=== PATIENT | male | born 1960 | race African-American/Black ===

== ENCOUNTER 2016-06-21 18:04 | Inpatient (IN) | payer OTHER ==
[~2016-06-21] VITALS: Ht 188 cm; Wt 96.8 kg
[2016-06-21] VITALS (9 sets, daily range): BP systolic 132–172; BP diastolic 68–90
[~2016-06-21 18:04] MED LIST: ALBU8.5H6 INH; ASPI-482 PO; HYDR-965 PO; HYDR25TA9 PO; LISI-334 PO; METR500T PO; PREG100C; SIMV10TA3 PO; TRAM100C2
[2016-06-21] MEDS ORDERED: NITROGLYCERIN SUBLINGUAL 0.4 MG BOTTLE OF 25. SL ONE ×2 (18:59→19:00)
[2016-06-21] MEDS ORDERED: NITROGLYCERIN SUBLINGUAL 0.4 MG BOTTLE OF 25. SL PRN (19:15)
--- NOTE | 2016-06-21 19:19 | EKG ---
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
[2016-06-21] MEDS ORDERED: PREG100C PO (19:24)
[2016-06-21] MEDS ORDERED: ATOR20TA58 PO (19:24)
[2016-06-21] MEDS ORDERED: NITROGLYCERIN PREMIX 250 ML IV PRN (19:30)
[2016-06-21] MEDS ORDERED: HEPARIN for IV BOLUS 10,000 UNIT/10 ML VIAL. IV PRN (19:30)
[2016-06-21] MEDS ORDERED: MORPHINE SULFATE 2 MG/ML DISP.SYRIN. IV PRN ×2 (19:30)
[2016-06-21] MEDS ORDERED: HEPARIN 25,000UTS/500ML PREMIX 500 ML IV PRN (19:30)
[2016-06-21] MEDS: LISINOPRIL 20 MG TABLET PO SCH (20:00)
[2016-06-21] MEDS: ASPIRIN ENTERIC COATED 81 MG TABLET.DR. PO SCH (20:00)
[2016-06-21 20:04] LABS: HEMATOCRIT 42.5 % (39.0-53.0); HEMOGLOBIN 14.2 g/dL (13.0-17.5); RED BLOOD COUNT 4.75 x10^6/uL (4.30-5.70); RED CELL DISTRIBUTION WIDTH 13.7 % (11.5-14.5); WHITE BLOOD COUNT 10.4 x10^3/uL (4.0-11.0)
[2016-06-21 20:19] LABS: PROTHROMBIN TIME PATIENT 12.6 SEC (11.7-14.0)
[2016-06-21] MEDS ORDERED: ATORVASTATIN CALCIUM 20 MG TABLET PO SCH (21:00)
[2016-06-21] MEDS: PREGABALIN 50 MG CAPSULE PO SCH (21:21)
[2016-06-21] MEDS: HYDROcodone/APAP 7.5/325MG 1 TAB TABLET PO PRN (21:21)
--- NOTE | 2016-06-21 21:29 | PDOC1 ---
History and Physical Date of Admission Date of Admission DATE: 06/21/16 TIME: 21:24 History of Present Illness History of Present Illness I was called by Dr. Duenas about Mr. Alexandra today for transfer. Pt had presented to [facility] with chest pain, pain worse with exertion and with pressure at rest. No Hx or Fam hx of coronary disease. he does smoke cigars. Pain is now improved, he feels well CV eval by Dr. Marie, w/u to include cardiac cath, pt transferred here for higher level of care Past Medical History Cardiovascular: HTN, Hyperlipidemia Pulmonary: No pertinent hx CENTRAL NERVOUS SYSTEM: Periperal neuropathy GI: No pertinent hx Heme/Onc: No pertinent hx Hepatobiliary: No pertinent hx Psych: No pertinent hx Musculoskeletal: low back pain, Muscle atrophy, Weakness Endocrine: No pertinent hx Dermatology: No pertinent hx Past Surgical History Past Surgical History: Other (spinal fusion) Family History Family History: No Significant Social History Smoke: <1 pack per day ALCOHOL: none Drugs: None Current Problem List Problem List Problems Medical Problems: (1) Angina at rest Status: Acute Problems: Current Medications Current Medications Current Medications Nitroglycerin (Nitrostat) 0.4 mg STK-MED ONCE SL ; Start 06/21/16 at 18:59; Stop 06/21/16 at 19:00; Status DC Nitroglycerin 0.4 mg 0.4 mg PRN Q5MIN PRN SL CHEST PAIN; Start 06/21/16 at 19:15 Nitroglycerin/ Dextrose 250 ml @ 0 mls/hr CONT PRN IV SEE I/O RECORD Last administered on 06/21/16 20:11; Start 06/21/16 at 19:30 Heparin Sodium/ Dextrose 500 ml @ 0 mls/hr CONT PRN IV SEE I/O RECORD Last administered on 06/21/16 20:16; Start 06/21/16 at 19:30 Heparin Sodium (Porcine) (Heparin Sodium) 2,400 unit PRN Q6HRS PRN IV FOR UFH LEVEL LESS THAN 0.2; Start 06/21/16 at 19:30 Morphine Sulfate 2 mg PRN Q4HRS PRN IV PAIN; Start 06/21/16 at 19:30 Morphine Sulfate 1 mg PRN Q4HRS PRN IV PAIN; Start 06/21/16 at 19:30 Aspirin (Ecotrin) 81 mg DAILY08 PO ; Start 06/21/16 at 20:00 Atorvastatin Calcium (Lipitor) 20 mg HS PO Last administered on 06/21/16 21:20 ; Start 06/21/16 at 21:00 Acetaminophen/ Hydrocodone Bitart (Lortab 7.5/325) 1 tab PRN Q4HRS PRN PO PAIN Last administered on 06/21/16 21:21; Start 06/21/16 at 19:45 Lisinopril (Prinivil) 20 mg DAILY PO ; Start 06/21/16 at 20:00 Pregabalin (Lyrica) 100 mg BID PO Last administered on 06/21/16 21:21; Start at 21:00 Active Scripts Active [place] 7.5-325 Tablet (Acetaminophen/Hydrocodone Bitart) 1 Each Tablet 1 Each PO Q4HRS PRN Reported Lyrica (Pregabalin) 50 Mg Capsule 1 Cap PO BID Hydrocodone-Apap 7.5-325 (Hydrocodone Bit/Acetaminophen) 1 Each Tablet 1 Tab PO PRN Q4HRS PRN Atorvastatin Calcium 20 Mg Tablet 20 Mg PO QHS Lisinopril 20 Mg Tablet 1 Tab PO DAILY Lyrica (Pregabalin) 100 Mg Capsule 1 Cap PO BID Atorvastatin Calcium 20 Mg Tablet 20 Mg PO HS Aspir 81 (Aspirin) 81 Mg Tablet. 81 Mg PO DAILY Lisinopril 20 Mg Tablet 20 Mg PO DAILY Allergies Allergies: Coded Allergies: levofloxacin (Unverified Allergy, Intermediate, hives, 09/19/13) ROS General: YES: Fatigue, No: Appetite, Chills, Malaise, Night Sweats, Other PSYCHOLOGICAL ROS: No: Anxiety, Behavioral Disorder, Concentration difficultie , Decreased libido, Depression, Disorientation, Hallucinations, Hostility, Irritablity, Memory difficulties, Mood Swings, Obsessive thoughts, Other, Physical abuse, Sexual abuse, Sleep disturbances, Suicidal ideation Eyes: No Blurry vision, No Decreased vision, No Double vision, No Dry eyes, No Excessive tearing, No Eye Pain, No Itchy Eyes, No Loss of vision, No Other, No Photophobia, No Scotomata, No Uses contacts, No Uses glasses HEENT: No: Epistaxis, Heacaches, Hearing change, Nasal congestion, Nasal discharge, Oral lesions, Other, Sinus pain, Sneezing, Snoring, Sore Throat, Tinnitus, Vertigo, Visual Changes, Vocal changes Hematological and Lymphatic: No: Bleeding Problems, Blood Clots, Blood Transfusions, Brusing, Night Sweats, Other, Pallor, Swollen Lymph Nodes Breast: Other Respiratory: YES: SOB with excertion, No: Cough, Hemoptysis, Orthopnea, Other, Pleuritic Pain, Shortness of breath , Sputum Changes, Stridor, Tachypnea, Wheezing Cardiovascular: yes Chest Pain, No Edema, No Lt Headedness, No Orthopnea, No Other, No Palpitations, No Paroxysmal Noc. Dyspnea Gastrointestinal: No Abdominal Pain, No Constipation, No Diarrhea, No Hematochezia, No Melena, No Nausea, No Other, No Vomiting Genitourinary: No , No , No , No , No , No , No , No Discharge, No Dysuria, No Flank Pain, No Frequency, No Hematuria, No Incontinence, No Other, No Pain, No Retention, No Urgency Musculoskeletal: Yes Gait Disturbance, Yes Joint Pain, Yes Joint Stiffness, Yes Pain In:, No Joint Swelling, No Muscle Pain, No Muscular Weakness, No Other, No Swelling In: Neurological: Yes Gait Disturbance, Yes Other, Yes Weakness, No Behavorial Changes, No Bowel/Bladder ControlChng, No Confusion, No Dizziness, No Headaches, No Impaired Coord/balance, No Memory Loss, No Numbness/ Tingling, No Seizures, No Speech Problems, No Tremors, No Visual Changes Skin: No Acne, No Dry Skin, No Eczema, No Hair Changes, No Lumps, No Mole Changes, No Mottling, No Nail Changes, No Other, No Pruritus, No Rash, No Skin Lesion Changes Physical Exam General: Alert, Oriented X3, Cooperative, No acute distress HEENT: PERRLA, EOMI, Mucous membr. moist/pink Lungs: Normal air movement Heart: no gallops, no murmurs Abdomen: Normal bowel sounds, Soft Rectal Exam: not examined Extremities: No clubbing, No edema Skin: No rashes, No significant lesion Neuro: Normal gait, Normal speech, Sensation intact Psych/Mental Status: Mood NL Vitals Vitals Vital Signs Date Time Temp Pulse Resp B/P Pulse Ox O2 Delivery O2 Flow Rate FiO2 06/21/16 21:21 18 Nasal Cannula 2.0 06/21/16 19:15 65 145/68 100 5/3/17 19:00 97.1 97.1 Labs Labs Laboratory Tests Test 06/21/16 19:40 White Blood Count 10.4x10^3/uL (4.0-11.0) Red Blood Count 4.75x10^6/uL (4.30-5.70) Hemoglobin 14.2g/dL (13.0-17.5) Hematocrit 42.5% (39.0-53.0) Mean Corpuscular Volume 89fL (79-100) Mean Corpuscular Hemoglobin 30pg (25-35) Mean Corpuscular Hemoglobin Concent 33g/dL (31-37) Red Cell Distribution Width 13.7% (11.5-14.5) Platelet Count 291x10^3/uL (140-400) Prothrombin Time 12.6SEC (11.7-14.0) Prothromb Time International Ratio 1.0 (0.8-1.1) Activated Partial Thromboplast Time 31SEC (24-38) Laboratory Tests Test 06/21/16 19:40 White Blood Count 10.4x10^3/uL (4.0-11.0) Red Blood Count 4.75x10^6/uL (4.30-5.70) Hemoglobin 14.2g/dL (13.0-17.5) Hematocrit 42.5% (39.0-53.0) Mean Corpuscular Volume 89fL (79-100) Mean Corpuscular Hemoglobin 30pg (25-35) Mean Corpuscular Hemoglobin Concent 33g/dL (31-37) Red Cell Distribution Width 13.7% (11.5-14.5) Platelet Count 291x10^3/uL (140-400) Prothrombin Time 12.6SEC (11.7-14.0) Prothromb Time International Ratio 1.0 (0.8-1.1) Activated Partial Thromboplast Time 31SEC (24-38) VTE Prophylaxis Ordered VTE Prophylaxis Devices: No VTE Pharmacological Prophylaxi: Yes Assessment/Plan Assessment/Plan angina, unsure if CAD stress test was done at [facility], hyperlipids , home meds, recheck lipids tobaccoism, cessation discussed, chronic back pain and sciatica s/p failed back surgery 4 years ago, left foot drop, left leg nerve pain, on Lyrica admit ARACELI SPENCER MD June 21, 2016 21:29
[2016-06-21] MEDS ORDERED: NICOTINE 14MG PATCH. TD PRN (21:30)
[2016-06-21] MEDS ORDERED: diphenhydrAMINE HCL 25 MG CAPSULE PO PRN (21:30)
[2016-06-22] VITALS (15 sets, daily range): BP systolic 100–164; BP diastolic 62–90
[2016-06-22] MEDS: HYDROcodone/APAP 7.5/325MG 1 TAB TABLET PO PRN (01:34)
[2016-06-22 03:03] LABS: BASO % 1 % (0-3); EOS % 4 % (0-3); HEMATOCRIT 40.6 % (39.0-53.0); HEMOGLOBIN 13.6 g/dL (13.0-17.5); LYMPH # 3.7 x10^3/uL (1.0-4.8); LYMPH % 44 % (24-48); MEAN CORPUSCULAR HEMOGLOBIN 30 pg (25-35); MEAN CORPUSCULAR HGB CONC 33 g/dL (31-37); MEAN CORPUSCULAR VOLUME 89 fL (79-100); MONO % 9 % (0-9); NEUT % 43 % (31-73); PLATELET COUNT 278 x10^3/uL (140-400); RED BLOOD COUNT 4.55 x10^6/uL (4.30-5.70); RED CELL DISTRIBUTION WIDTH 13.5 % (11.5-14.5); WHITE BLOOD COUNT 8.4 x10^3/uL (4.0-11.0)
[2016-06-22 03:19] LABS: ALBUMIN 3.3 g/dL (3.4-5.0); ALBUMIN/GLOBULIN RATIO 0.8 (1.0-1.7); CALCIUM 8.9 mg/dL (8.5-10.1); GFR 93.5; TOTAL BILIRUBIN 0.4 mg/dL (0.2-1.0); TOTAL PROTEIN 7.3 g/dL (6.4-8.2)
[2016-06-22 03:20] LABS: CHOLESTEROL/HDL RATIO 4.6
--- NOTE | 2016-06-22 07:14 | ACF ---
Admission Forms Criteria INTENSIVE CARE UNIT ADMISSION Intensive Care Admission Guidelines ( Place 'X' for any and all applicable criteria): Admission to ICU may be indicated when need is demonstrated by ANY ONE of the following (1)(2)(3)(4)(5)(6)(7)(8)(9) : [ ]I. Vital sign abnormalities, including ANY ONE of the following: [ ]a) Systolic arterial pressure less than 90 mm Hg, or 20 mm Hg below the patient's usual pressure [ ]b) Diastolic arterial pressure greater than 120 mm Hg [ ]c) Mean arterial pressure less than 70 mm Hg [A] [ ]d) Pulse less than 40 or greater than 140 beats per minute (in adult) [ ]e) Respiratory rate greater than 35 or less than 8 breaths per minute [ ]II. Laboratory findings (new), including ANY ONE of the following (10): [ ]a) Saturation of arterial oxygen less than 88% or partial pressure of oxygen less than 60 mm Hg (8.0 kPa) despite oxygen supplementation [ ]b) Rising partial pressure of carbon dioxide with respiratory acidosis [ ]c) pH less than 7.2 or greater than 7.65 [ ]d) Serum glucose greater than 800 mg/dL (44.4 mmol/L) [ ]e) Serum sodium less than 110 mEq/L (mmol/L) or greater than 160 mEq/L (mmol/L) [ ]f) Serum potassium less than 2 mEq/L (mmol/L) or greater than 7 mEq /L (mmol/L) [ ]g) Serum calcium greater than 15 mg/dL (3.75 mmol/L) [ ]h) Serum phosphorus less than 1 mg/dL (0.32 mmol/L) [ ]i) Toxic drug level or poisoning causing or likely to cause neurologic or Hemodynamic instability [ ]j) Less severe laboratory abnormalities contributing to ANY ONE of the following: [ ]i) Seizure [ ]ii) Altered mental status [ ]iii) Muscle weakness [ ]iv) Arrhythmias [ ]v) Hemodynamic instability [ ]vi) Other significant clinical manifestations [ ]III. Electrocardiogram (or cardiac monitoring) findings, including ANY ONE of the following: [ ]a) Inherently unstable or life-threatening arrhythmia (eg, sustained ventricular tachycardia, ventricular fibrillation, asystole) [ ]b) Arrhythmia causing severe hypotension (eg, bradycardia, tachycardia) [ ]c) Complete heart block causing severe hypotension [ ]d) Other findings indicative of a need for intensive care (eg , NE) [ ]IV.Physical findings, including ANY ONE of the following: [ ]a) Threatened airway [ ]b) Sudden altered mental status [ ]c) Repeated or prolonged seizures [ ]d) Coma [ ]e) New-onset anuria (urine output <0.1 mL/kg/hr over 4 h) [ ]f) Cyanosis (new) [ ]g) Cardiac tamponade [ ]h) Status post respiratory or cardiac arrest [ ]i) Severe wilson (eg, partial thickness wilson over more than 10% of body surface, third-degree wilson) [ ]j) Findings consistent with abdominal emergency (eg, peritoneal signs) [ ]V.Imaging findings, such as dissecting aneurysm or ruptured viscus [ ].Specific intervention or monitoring needed, as indicated by ANY ONE of the following: [ ]a) New need for assisted ventilation, invasive or noninvasive(11) [ ]b) New need for intubation (eg, to protect airway) [ ]c) New tracheostomy (less than 48 hours old) [ ]d) Hourly vital signs or neurologic checks [ ]e) Pulmonary artery line monitoring needed [ ]f) Continuous arterial line monitoring needed [ ]g) Continuous IV vasoactive drugs [ ]h) Continuous IV antiarrhythmics [ ]i) Large volume IV fluid resuscitation (eg, greater than 6 L per day ) [ ]j) Large or rapid transfusion needs (eg, more than 6 units within 24 hours) [ ]k) High-risk IV treatment, such as bolus IV medicatns or mannitol infusion [ ]l) Acute cardiac pacing [ ]m) Intra-aortic balloon pump [ ]n) Ventricular assist device [ ]o) Cardioversion [ ]p) Pericardiocentesis [ ]q) Hemodialysis in unstable patient [ ]r) Continuous renal replacement therapy (eg, continuous veno-venous hemofiltration) [ ]s) Peritoneal dialysis initiation [ ]t) Emergency bronchoscopic therapy (eg, for hemoptysis) [ ]u) Emergency endoscopic therapy for bleeding [ ]v) Balloon tamponade for variceal bleeding [ ]w) Intracranial pressure monitoring or tissue oxygen monitoring [ ]x) Ventriculostomy monitoring [ ]y) Treatment of ongoing seizures [ ]z) Induced hypothermia or coma [ ]aa) Ongoing frequent testing and treatment for acute conditions, including ANY ONE of the following: [ ]i) Correction of severe metabolic acidosis/ alkalosis [ ]ii). Severe fluid overload [ ]iii) Cerebral edema [ ]iv) Monitoring or suctioning for respiratory insufficiency or acidosis [ ]v) Monitoring for active bleeding [ ]bb) Rapid desensitization for high-risk hypersensitivity reaction to required medication (eg, penicillin)(12) [ ]cc) Other need for treatment or monitoring not available outside the ICU [ ]VII.Cardiology diagnoses or procedures, including ANY ONE of the following (13)(14)(15)(16)(17): [X]a) Chest pain with ANY ONE of the following: [ ]i) Hemodynamic instability [ ]ii) Suspicion of diagnoses needing ICU care (eg, aortic dissection) [ ]iii) New unstable or symptomatic arrhythmia or ECG finding (eg, ventricular tachycardia, ventricular fibrillation, advanced heart block) [ ]iv) Syncope or near-syncope [ ]v) SBP less than 100 mm Hg [ ]vi) Pulmonary edema thought to be due to ischemia [ ]vii) New or worsening mitral regurgitation murmur, S3 , or rales [ ]b) Acute NE with complications as indicated by ANY ONE of the following: [ ]i) Persistent chest pain [ ]ii) Hemodynamic instability [ ]iii) New unstable or symptomatic arrhythmia or ECG finding (eg, ventricular tachycardia, ventricular fibrillation, advanced heart block) [ ]iv) Syncope or near-syncope [ ]v) Pulmonary edema thought to be due to ischemia [ ]vi) New or worsening mitral regurgitation murmur, S3 , or rales [ ]vii) New-onset bundle branch block [ ]viii) Hemorrhagic complication (eg, intracranial or access site bleed following thrombolysis) [ ]c) Cardiac arrhythmia or conduction defect with Hemodynamic instability [ ]d) Complication of cardiac ablation, including ANY ONE of the following(18): [ ]i) Pericardial tamponade [ ]ii) Hemodynamic instability [ ]iii) Thromboembolic stroke [ ]iv) Aortic valve injury [ ]v) Vascular injuries [ ]vi) Esophageal perforation [ ]vii) Severe arrhythmia [ ]viii) Air embolism [ ]ix) Other severe complication [ ]e) Cardiogenic shock [ ]f) Hypertensive emergency, with need for ANY ONE of the following(19): [ ]i) IV antihypertensive therapy [ ]ii) Invasive hemodynamic monitoring (eg, arterial line) [ ]g) Pericardial tamponade [ ]h) Severe heart failure, with ANY ONE of the following(15): [ ]i) Respiratory failure [ ]ii) Cardiogenic shock [ ]iii) Severe arrhythmias [ ]iv) Evidence of cardiac ischemia [ ]i Myocarditis, with ANY ONE of the following [ ]i) Hemodynamic instability [ ]ii) Respiratory failure [ ]iii) Severe arrhythmias [ ]iv) Need for cardiac assist device (eg, left ventricular assist device or extracorporeal membrane oxygenator) [ ]j) Status post cardiac arrest(20) [ ]VIII. Cardiovascular Surgery diagnoses or procedures, including ANY ONE of the following.(21)(22): [ ]a) Acute aortic dissection [ ]b) Aortic surgery for ANY ONE of the following: [ ]i) Thoracic aneurysm [ ]ii) Abdominal aneurysm with ANY ONE of the following(23): [ ]1) Emergency repair [ ]2) Severe cardiopulmonary disease [ ]3) Dialysis-dependent renal failure [ ]4) Need for IV blood pressure control [ ]5) Need for ongoing ventilatory support [ ]6) Perioperative complications, including ANY ONE of the following: [ ]A. Sustained Hemodynamic instability [ ]B. Cardiac ischemia or arrhythmia [ ]C. Hypothermia (less than 35 degrees C (95 degrees F)) [ ]D. Blood transfusion greater than 3 L [ ]iii) Aortic coarctation operative excision or repair [ ]iv) Aortofemoral or aortoiliac bypass with ANY ONE of the following: [ ]1) Continued intubation [ ]2) Hemodynamic instability [ ]3) Need for IV blood pressure control [ ]4) Severe cardiopulmonary disease [ ]c) Cardiac surgery [ ]d) Carotid endarterectomy or stent placement with ANY ONE of the following: [ ]i) Blood pressure <100/60 mm Hg or >160/90 mm Hg despite 4 h of postanesthetic management [ ]ii) New or progressive neurologic defect [ ]iii) Chest pain [ ]iv) Continued intubation [ ]v) Heart failure [ ]vi) Airway compromise by hematoma or vocal cord paralysis [ ]vi) Need for IV blood pressure control [ ]e) Heart transplant [ ]f) Infrainguinal peripheral vascular surgery with ANY ONE of the following: [ ]i) Hemodynamic instability [ ]ii) Acute complications such as persistent chest pain or respiratory distress [ ]iii) Requirement for IV antiarrhythmic or vasoactive agent [ ]iv) Requirement for pulmonary artery catheter [ ]v) Severe hypertension despite 6 hours of recovery room management [ ]g) Complications of any surgery requiring ICU intervention as indicated by ANY ONE of the following(24): [ ]i) Hemodynamic instability [ ]ii) Myocardial infarction with complications (eg, severe arrhythmia, hypotension) [ ]iii) Excessive bleeding or severe coagulopathy [ ]iv) Respiratory failure [ ]v) Renal failure [ ]vi) Airway instability or obstruction [ ]vii) Neurologic deterioration [ ]viii) Infection with likelihood of sepsis syndrome or significant fluid shifts [ ]IX.Endocrinology diagnoses or procedures, including ANY ONE of the following(25)(26): [ ]a) Adrenal crisis with Hemodynamic instability(27) [ ]b) Pheochromocytoma with ANY ONE of the following(28): [ ]i) Hypertensive crisis [ ]ii) Postoperative Hemodynamic instability [ ]iii) Need for IV vasoactive therapy [ ]iv) Need for invasive arterial or central venous pressure monitoring [ ]v) Organ ischemia [ ]c) Diabetic hyperosmolar state with obtundation or coma [ ]d) Diabetic ketoacidosis with ANY ONE of the following: [ ]i) Serum pH less than 7.10 or bicarbonate level less than 10 mEq/L (mmol/L) [ ]ii) Rapidly changing electrolytes [ ]iii) Hypotension [ ]iv) Requirement for large-volume fluid resuscitation [ ]v) Respiratory insufficiency [ ]vi) Life-threatening cardiac dysrhythmias [ ]vii) Obtundation [ ]viii) Severe precipitating condition such as sepsis, stroke, or acute NE [ ]e) Severe hypoglycemia requiring continuous glucose infusion with frequent adjustment or glucagon infusion [ ]f) Hyperthyroidism associated with thyroid storm (also known as thyrotoxic crisis)(29) [ ]g) Myxedema with life-threatening neurologic, cardiovascular, electrolyte, or renal dysfunction(29) [ ]h) Diabetes insipidus that cannot be controlled with routine medication (30) [ ]X. Gastroenterology diagnoses or procedures, including ANY ONE of the following: [ ]a) Esophageal perforation(31) [ ]b) Severe caustic esophageal injury(31) [ ]c) Liver disease complications with ANY ONE of the following(32): [ ]i) Severe hepatic encephalopathy (eg, stage 3 (somnolent) or higher) [ ]ii) Type 1 hepatorenal syndrome [ ]iii) Other cirrhosis-associated causes of acute renal failure ( eg, severe hypovolemia, acute tubular necrosis, abdominal compartment syndrome) [ ]iv) Hemodynamic instability [ ]v) Respiratory insufficiency due to severe ascites [ ]vi) Sepsis due to spontaneous bacterial peritonitis [ ]d) Fulminant hepatic failure when aggressive intervention or transplant is anticipated (32) [ ]e) Gastrointestinal hemorrhage (upper or lower) with ANY ONE of the following(33)(34): [ ]i) Active ongoing bleeding [ ]ii) Transfusion requirement greater than 2 units of packed red cells [ ]iii) Bleeding ulcer or nonbleeding visible vessel seen on endoscopy [ ]iv) Bleeding ulcer, visible blood vessel, bleeding (or recently bleeding) esophageal varices seen on endoscopy [ ]v) Hypotension [ ]vi) Syncope [ ]vii) Coagulopathy [ ]viii) Hepatic cirrhosis [ ]ix) Abnormal mental status [ ]x) Unstable comorbid condition or end organ dysfunction [ ]xi) Ischemia due to poor perfusion [ ]xii) Need for hemodynamic monitoring (eg, for patients with heart failure or valvular disease) [ ]f) Severe pancreatitis indicated by ANY ONE of the following (35)(36): [ ]i) Requirement for aggressive fluid resuscitation [ ]ii) Life-threatening electrolyte abnormality [ ]iii) SBP less than 90 mm Hg [ ]iv) Persistent tachycardia greater than 120 beats per minute [ ]v) Patients at high risk of rapid deterioration, including ANY ONE of the following: [ ]1) Calculated K[place] II score greater than 8 [ ]2) Age older than 55 years [ ]3) BMI greater than 30 [ ]4) Greater than 30% pancreatic necrosis on CT scan [ ]5) Admission hematocrit greater than 47% (0.47) [ ]vi) Organ failure as indicated by ANY ONE of the following: [ ]1) Serum creatinine greater than 1.9 mg/dL (168 micromoles/L) [ ]2) Requirement for mechanical ventilation [ ]3) Urine output less than 50 mL/hour [ ]4) Arterial partial pressure of oxygen less than 60 mm Hg (8.0 kPa) despite supplemental oxygen [ ]5) PiO2/FiO2 ratio less than 300 [ ]vii) Expanding pseudocyst [ ]viii) Infected pancreas [ ]ix) Pleural effusion [ ]x) Encephalopathy [ ]xi) Severe comorbidities [ ]XI. General Surgery diagnoses or procedures, including ANY ONE of the following (9)(24)(37): [ ]a) Acute abdominal catastrophe (eg, ischemic bowel, perforated viscus, abdominal compartment syndrome) [ ]b) Complications of any surgery requiring ICU intervention as indicated by ANY ONE of the following: [ ]i) Hemodynamic instability [ ]ii) NE with complications (eg, severe arrhythmia, hypotension) [ ]iii) Excessive bleeding or severe coagulopathy [ ]iv) Respiratory failure [ ]v) Renal failure [ ]vi) Airway instability or obstruction [ ]vii) Neurologic deterioration [ ]viii) Infection with likelihood of sepsis syndrome or significant fluid shifts [ ]c) Multiple trauma with complicating features as indicated by ANY ONE of the following(38): [ ]i) Impending acute respiratory failure due to lung contusion, unstable chest wall, aspiration, or hemorrhage [ ]ii) Facial or neck injury threatening airway patency [ ]iii) Cardiac contusion [ ]iv) Pericardial effusion [ ]v) Bronchial tear [ ]vi) Hemodynamic instability [ ]vii) Rhabdomyolisis requiring large volume IV fluid resuscitation [ ]viii)Other significant complicating feature [ ]d) Organ transplant(39)(40) [ ]e) Esophagectomy(31) [ ]f) Whipple procedure [ ]g) Preoperative or postoperative patients requiring ICU intervention, such as hemodynamic optimization, pulmonary artery monitoring, mechanical ventilation, or extensive nursing care [ ]h) Obesity surgery patients with ANY ONE of the following(41): [ ]i) ICU management needs for comorbid conditions, such as sleep apnea or airway management needs [ ]ii) Failed postoperative extubation [ ]iii) Intraoperative complications [ ]XII. Nephrology diagnoses or procedures, including acute, or acute on chronic renal insufficiency with ANY ONE of the following(44)(45): [ ]a) Life-threatening electrolyte or acid-base disorder [ ]b) Acute pulmonary edema [ ]c) Hypotension or significant volume depletion [ ]d) Hypertensive emergency [ ]e) Underlying critical illness contributing to renal failure (eg, septic shock, hepatorenal syndrome) [ ]f) Need for continuous renal replacement therapy [ ]XIII. Neurology diagnoses or procedures, including ANY ONE of the following (46)(47) [B] : [ ]a) Intracranial hypertension requiring ANY ONE of the following(49 ): [ ]i) Induced barbiturate coma [ ]ii) Pharmacologic paralysis or deep sedation and mechanical ventilation [ ]iii) Intracranial pressure or cerebral perfusion pressure monitoring [ ]iv) IV mannitol or hypertonic saline [ ]v) Frequent serum osmolality measurements [ ]b) Seizures with ANY ONE of the following(50): [ ]i) Status epilepticus [ ]ii) Airway compromise requiring or likely to require mechanical ventilation [ ]iii) Severe electrolyte abnormalities causing seizures [ ]c) Progressive acute neurologic dysfunction requiring or likely to require ANY ONE of the following: [ ]i) Mechanical ventilation [ ]ii) Intracranial pressure or cerebral perfusion pressure monitoring [ ]d) Meningitis with obtundation or respiratory insufficiency [C])(51 ) [ ]e) Stroke with ANY ONE of the following(52)(53): [ ]i) Need for observation after thrombolysis [ ]ii) Altered mental status [ ]iii) Need for mechanical ventilation [ ]iv) Elevated intracranial pressure [ ]v) Hypertensive emergency [ ]vi) High risk of progressive infarction or deterioration based on CT scan or MRI [ ]vii) Hemorrhage [ ]f) Acute coma [ ]g) Acute spontaneous intracranial hemorrhage(53)(54) [ ]h) Drug ingestion with ANY ONE of the following(56)(57): [ ]i) Hemodynamic instability [ ]ii) Respiratory depression (partial pressure of carbon dioxide >45 mm Hg (6.0 kPa), new) [ ]iii) Patient requires or is likely to require mechanical ventilation. [ ]iv) Arrhythmias [ ]v) Seizures [ ]vi) Altered mental status (Garita coma scale score less than 12, new) [ ]vii) Significant risk for acute deterioration (eg, toxic level of hypotension or arrhythmia-producing drug) [ ]viii) Drug-induced hypothermia or hyperthermia [ ]ix) Increasing metabolic acidosis [ ]x) Severe hypoglycemia requiring glucose infusion with frequent adjustment or glucagon administration [ ]xi) Ongoing antidote administration (eg, continuous naloxone infusion, organophosphate toxicity treatment) [ ]xii) Emergency intervention need (eg, dialysis, hemoperfusion, restraints) [ ]i) Brain with preparation for organ donation [ ]j) Traumatic brain injury with ANY ONE of the following(55): [ ]i) Altered mental status (eg, new onset Syeda coma scale score less than 10) [ ]ii) Cerebral edema [ ]iii) Cerebral hemorrhage [ ]iv) Increased intracranial pressure [ ]XIV. Neurosurgery diagnoses or procedures, including ANY ONE of the following(49)(58)(59): [ ]a) Emergency craniotomy for tumor, hematoma, or trauma [ ]b) Elective craniotomy for posterior fossa tumor [ ]c) Elective craniotomy (supratentorial) for tumor with ANY ONE of the following: [ ]i) Postoperative neurologic deficit or impaired consciousness 6 hours after completion of procedure [ ]ii) SBP less than 110 mm Hg or greater than 180 mm Hg despite therapy [ ]iii) Extensive operative blood loss [ ]iv) High anesthesia risk (eg, [employer] score greater than 3 [ ]d) Craniotomy for aneurysm with ANY ONE of the following: [ ]i) Postoperative neurologic deficit or impaired consciousness 6 hours after completion of procedure [ ]ii) Preoperative Neumann-Miller grade 3 or higher [ ]iii) SBP less than 110 mm Hg or greater than 180 mm Hg despite therapy [ ]iv) Intracranial pressure monitoring [ ]e) Acute spinal cord injury [ ]f) Subarachnoid hemorrhage [ ]g) Traumatic brain injury with ANY ONE of the following: [ ]i) Acute mental status change (Syeda coma scale score less than 10) [ ]ii) CT scan showing cerebral edema or hemorrhage [ ]iii) Intracranial pressure monitoring [ ]h) Complications of any surgery requiring ICU intervention as indicated by ANY ONE of the following(60): [ ]i) Hemodynamic instability [ ]ii) NE with complications (eg, severe arrhythmia, hypotension) [ ]iii) Excessive bleeding or severe coagulopathy [ ]iv) Respiratory failure [ ] v) Renal failure [ ]vi) Airway instability or obstruction [ ]vii) Neurologic deterioration [ ]viii) Infection with likelihood of sepsis syndrome or significant fluid shifts [ ]i) Preoperative or postoperative patients requiring ICU intervention, such as hemodynamic optimization, pulmonary artery monitoring, mechanical ventilation, or extensive nursing care [ ]XV.Obstetrics and Gynecology diagnoses or procedures, including ANY ONE of the ffg. (61)(62)(63): [ ]a) Severe peripartum condition as indicated by ANY ONE of the following: [ ]i) Eclampsia [ ]ii) Hypertensive emergency [ ]iii) HELLP syndrome (hemolysis, elevated liver enzymes, and low platelet count) [ ]iv) Pulmonary edema [ ]v) Respiratory failure [ ]vi) Pulmonary embolism [ ]vii) Anaphylactoid syndrome of (amniotic fluid embolus) [ ]viii) Ovarian hyperstimulation syndrome [D] [ ]ix) Acute fatty liver of (hepatic failure) [ ]x) Complications such as placental abruption or severe hemorrhage [ ]xi) Sepsis (eg, puerperal sepsis, chorioamnionitis, septic ) [ ]xii) cardiomyopathy with severe congestive heart failure (eg, respiratory failure, cardiogenic shock) [ ]b) Ruptured ectopic [ ]c) Complications of any surgery requiring ICU intervention as indicated by ANY ONE of the following: [ ]i) Hemodynamic instability [ ]ii) NE with complications (eg, severe arrhythmia, hypotension) [ ]iii) Excessive bleeding or severe coagulopathy [ ]iv) Respiratory failure [ ]v) Renal failure [ ]vi) Airway instability or obstruction [ ]vii) Neurologic deterioration [ ]viii) Infection with likelihood of sepsis syndrome or significant fluid shifts [ ]d) Preoperative or postoperative patients requiring ICU intervention , such as hemodynamic optimization, pulmonary artery monitoring, mechanical ventilation, or extensive nursing care [ ]XVI.Ophthalmology diagnoses or procedures, including ANY ONE of the following (64): [ ]a) Complications of any surgery requiring ICU intervention, such as ANY ONE of the following: [ ]i) Hemodynamic instability [ ]ii) NE with complications (eg, severe arrhythmia, hypotension) [ ]iii) Excessive bleeding or severe coagulopathy [ ]iv) Respiratory failure [ ]v) Renal failure [ ]vi) Airway instability or obstruction [ ]vii) Neurologic deterioration [ ]viii) Infection with likelihood of sepsis syndrome or significant fluid shifts [ ]b) Preoperative or postoperative patients requiring ICU intervention , such as hemodynamic optimization, pulmonary artery monitoring, mechanical ventilation, or extensive nursing care [ ]XVII.Orthopedics diagnoses or procedures, including ANY ONE of the following [phone]): [ ]a) Complications of any surgery requiring ICU intervention as indicated by ANY ONE of the following: [ ]i) Hemodynamic instability [ ]ii) NE with complications (eg, severe arrhythmia, hypotension) [ ]iii) Excessive bleeding or severe coagulopathy [ ]iv) Respiratory failure [ ]v) Renal failure [ ]vi) Airway instability or obstruction [ ] vii) Neurologic deterioration [ ]viii) Infection with likelihood of sepsis syndrome or significant fluid shifts [ ]b) Multiple trauma with complicating features as indicated by ANY ONE of the following(38): [ ]i) Impending acute respiratory failure due to lung contusion, unstable chest wall, pneumothorax, aspiration, or hemorrhage [ ]ii) Facial or neck injury threatening airway patency [ ]iii) Cardiac contusion [ ]iv) Rhabdomyolysis requiring large volume IV fluid resuscitation [ ]v) Pericardial effusion [ ]vi) Bronchial tear [ ]vii) Hemodynamic instability [ ]viii) Other significant complicating feature [ ]c) Threatened compartment syndrome [ ]d) Severe wilson with ANY ONE of the following(68)(69)(70): [ ]i) Hypotension or requirement for aggressive fluid resuscitation [ ]ii) Respiratory insufficiency with requirement for high- flow oxygen or mechanical ventilation [ ]iii) Carbon monoxide poisoning [ ]iv) Life-threatening cardiac, renal, pulmonary, or neurologic dysfunction [ ]v) High-voltage (eg, 1000 volts or more) electrical burn [ ]vi) Requirement for frequent or intensive debridement and dressing changes; examples include: [ ]1) Partial thickness wilson greater than 10% of body surface [ ]2) Wilson on face, hands, feet, genitalia, perineum , or major joints [ ]3) Third-degree wilson [ ]4) Any burn greater than 15% of body surface area [ ]vii) Inhalation lung injury [ ]viii) Concomitant trauma or other medical condition requiring ICU care [ ]e) Preoperative or postoperative patients requiring ICU intervention , such as hemodynamic optimization, pulmonary artery monitoring, mechanical ventilation, or extensive nursing care [ ]XVIII.Otolaryngology diagnoses or procedures, including ANY ONE of the following (71)(72): [ ]a) Complications of any surgery requiring ICU intervention as indicated by ANY ONE of the following: [ ]i) Hemodynamic instability [ ]ii) NE with complications (eg, severe arrhythmia, hypotension) [ ]iii) Excessive bleeding or severe coagulopathy [ ]iv) Respiratory failure [ ]v) Renal failure [ ]vi) Airway instability or obstruction [ ]vii) Neurologic deterioration [ ]viii) Infection with likelihood of sepsis syndrome or significant fluid shifts [ ]b) Airway or hemodynamic compromise that persists after 3 hours of observation in postanesthesia care unit following nasal, palate (eg, uvulopalatopharyngoplasty or palatoplasty), or tongue surgery for sleep apnea [ ]c) Preoperative or postoperative patient requiring ICU intervention, such as hemodynamic optimization, pulmonary artery monitoring, mechanical ventilation, or extensive nursing care [ ]d) Symptomatic upper airway compromise (eg, laryngeal edema, mass) [ ]e) Other airway-compromising procedure (eg, posterior nasal packing) [ ]XIX.Thoracic Surgery and Pulmonary Disease Diagnosis or procedures, including ANY ONE of the following(6): [ ]a) Asthma with ANY ONE of the following(73)(74): [ ]i) Impending or actual respiratory arrest [ ]ii) Need for mechanical ventilation [ ]iii) Peak expiratory flow rate less than 30% of predicted or personal best [ ]iv) Peak expiratory flow rate or FEV1 less than 40% predicted after 1 hour of initial treatment [ ]v) Acidosis [ ]vi) Persistent or worsening hypoxia after initial treatment [ ]vii) Hypercapnia (eg, partial pressure of carbon dioxide greater than 43 mm Hg (5.7 kPa)) [ ]viii) Severe drowsiness, confusion, or coma [ ]ix) Requiring continuous inhaled bronchodilator [ ]b) COPD with ANY ONE of the following(75): [ ]i) Need for assisted ventilation [ ]ii) Hemodynamic instability [ ]iii) Severe dyspnea unresponsive to initial treatment [ ]iv) Change in level of consciousness [ ]v) Persistent findings despite oxygen and outpatient management, including ANY ONE of the following: [ ]1) Partial pressure of oxygen less than 40 mm Hg ( 5.3 kPa) [ ]2) Partial pressure of carbon dioxide greater than 60 mm Hg (8.0 kPa) [ ]3) pH less than 7.25 [ ]4) Worsening hypoxemia or acidosis [ ]c) Cor pulmonale with ANY ONE of the following(75)(76)(77): [ ]i) Hemodynamic instability [ ]ii) Need for IV inotropic or vasoactive agent [ ]iii) Need for invasive hemodynamic monitoring (eg, central venous, pulmonary artery, or arterial catheter) [ ]iv) Hypoxemia with partial pressure of oxygen less than 40 mm Hg (5.3 kPa) [ ]v) Worsening hypoxemia or acidosis despite oxygen therapy [ ]vi) Need for assisted ventilation [ ]vii) Need for right ventricular assist device [ ]viii) Unstable atrial tachyarrhythmia [ ]ix) Need for inhaled nitric oxide [ ]d) Aspiration pneumonia with ANY ONE of the following(78): [ ]i) Acute respiratory distress syndrome (PaO2/FiO2 ratio of 300 or less) [ ]ii) Impending or actual respiratory arrest [ ]iii) Need for invasive or noninvasive mechanical ventilation [ ]e) Pneumocystis jiroveci pneumonia with ANY ONE of the following(79): [ ]i) Impending or actual respiratory arrest [ ]ii) Hypoxia (eg, PO260 mmGh (8.0 kPa) or less despite oxygen therapy) [ ]iii) Need for invasive or noninvasive mechanical ventilation [ ]f) Pneumonia with ANY ONE of the following(80)(81)(82): [ ]i) Need for invasive or noninvasive assisted ventilation [ ]ii) Hemodynamic instability [ ]iii) Severity factors as indicated by 3 or MORE of the following: [ ]1) Respiratory rate 30 breaths per minute or greater [ ]2) PaO2/FiO2 ratio of 250 or less [ ]3) Multilobed infiltrates [ ]4) Altered mental status [ ]5) BUN 20 mg/dL (7.1 mmol/L) or greater [ ]6) WBC count less than 4000/mm3 (4 x109/L) [ ]7) Platelet count <100,000/mm3 (100 x109/L) [ ]8) Temperature less than 36 degrees C (96.8 degrees F ) [ ]9) Hypotension requiring aggressive fluid resuscitation [ ]g) Pulmonary hypertension requiring initiation of parenteral pulmonary vasodilator or trial of inhaled nitric oxide (eg, need for right heart catheterization)(76) [ ]h) Impending respiratory failure as indicated by ANY ONE of the following: [ ]i) Respiratory rate greater than 30 or partial pressure of oxygen less than 60 mm Hg (8.0 kPa) on 50% oxygen or more [ ]ii) Partial pressure of carbon dioxide greater than 45 mm Hg (6.0 kPa) with pH less than 7.35 [ ]i) Respiratory failure with ANY ONE of the following (47): [ ]i) Need for invasive or noninvasive mechanical ventilation [ ]ii) High likelihood of requiring mechanical ventilation within 24 hours [ ]iii) Observation in the first several hours immediately after extubation from mechanical ventilation [ ]iv) Need for close observation and aggressive therapy, such as suctioning, chest physiotherapy, or inhalation treatments at intervals less than 1 hour [ ]v) Pharmacologic ventilatory paralysis [ ]j) Venous thromboembolism with need for systemic or catheter- directed thrombolysis (eg, for limb-threatening thrombosis, phlegmasia cerulea dolens) (83) [ ]k) Pulmonary embolus with ANY ONE of the following(83): [ ]i) Hypotension [ ]ii) Severe hypoxia [ ]iii) Dangerous arrhythmia [ ]iv) Bleeding [ ]v) Need for systemic or catheter-directed thrombolysis [ ]l) Lobectomy or other major thoracic surgery [ ]m) Lung transplant [ ]n) Symptomatic upper airway obstruction (eg, laryngeal edema, mass) [ ]o) Massive hemoptysis [ ]p) Infection or thrombosis of an intravenous device with ANY ONE of the following(6)(84): [ ]i) Hemodynamic instability [ ]ii) Requirement for frequent hemodynamic measurements [ ]iii) Shock [ ]iv) End organ dysfunction [ ] v) Acute renal failure due to missed dialysis [ ]vi) Unstable acute complication (eg, pericardial tamponade , tension pneumothorax) [ ]q) Traumatic rib fracture or fractures with ANY ONE of the following(85): [ ]i) Injury severity score of 19 or greater [ ]ii) Respiratory insufficiency [ ]iii) Flail chest [ ]iv) Sternum fracture [ ]v) Vascular injury (eg, heart or great vessels) [ ]r) Pleural effusion with ANY ONE of the following(86): [ ]i) Respiratory insufficiency [ ]ii) Hemothorax with active ongoing bleeding [ ]iii) Hemodynamic instability [ ]iv) Unstable comorbid condition (eg, sepsis or heart failure [ ]XX. Urology diagnoses or procedures, including ANY ONE of the following ( 87)(88): [ ]a) Renal transplant [ ]b) Complications of any surgery requiring ICU intervention as indicated by ANY ONE of the following: [ ]i) Hemodynamic instability [ ]ii) NE with complications (eg, severe arrhythmia, hypotension) [ ]iii) Excessive bleeding or severe coagulopathy [ ]iv) Respiratory failure [ ]v) Renal failure [ ]vi) Airway instability or obstruction [ ]vii) Neurologic deterioration [ ]viii) Infection with likelihood of sepsis syndrome or significant fluid shifts [ ]c) Preoperative or postoperative patients requiring ICU intervention , such as hemodynamic optimization, pulmonary artery monitoring, mechanical ventilation , or extensive nursing care [ ]XXI.Infectious Disease diagnoses or procedures, with ANY ONE of the following (6)(43): [ ]a) Hemodynamic instability [ ]b) Shock [ ]c) Requirement for frequent hemodynamic measurements (eg, arterial catheter, pulmonary artery catheter) [ ]d) Sepsis or suspected sepsis with end organ dysfunction (eg, acute kidney injury, acute respiratory distress syndrome) [ ]e) Necrotizing soft tissue infection [ ] XXII.Hematology - Oncology diagnoses or procedures, including chemotherapy administration with ANY ONE of the following(42): [ ]a) Hemodynamic instability [ ]b) Tumor lysis syndrome with ANY ONE of the following : [ ]1) Acute kidney injury [ ]2) Severe electrolyte abnormality [ ]3) Cardiac dysrhythmia [ ]XXIII. Systemic conditions, including ANY ONE of the following: [ ]a) Severe electrolyte or metabolic disturbance causing or likely to cause ANY ONE of the following(10)(89)(90): [ ]i) Life-threatening cardiac dysrhythmia [ ]ii) Respiratory insufficiency [ ]iii) Altered mental status [ ]iv) Seizures [ ]v) Hemodynamic instability [ ]vi) Muscular weakness [ ]b) Environmental injuries such as hypothermia, hyperthermia, electrical injuries, or near drowning(70)(91)(92) The original [facility] content created by [employer] has been revised. The portions of the content which have been revised are identified through the use of italic text or in bold, and [email or web address] has neither reviewed nor approved the modified material. All other unmodified content is copyright [employer]. Please see references footnoted in the original [facility] edition 2016 RAMONITA SKINNER June 22, 2016 07:14
[2016-06-22] MEDS: ASPIRIN ENTERIC COATED 81 MG TABLET.DR. PO SCH (08:00)
[2016-06-22] MEDS ORDERED: ANTI-COAG MONITOR BY PHARMACY. MC PRN (08:45)
[2016-06-22] MEDS: PREGABALIN 50 MG CAPSULE PO SCH (09:00)
[2016-06-22] MEDS: LISINOPRIL 20 MG TABLET PO SCH (09:00)
[2016-06-22] MEDS ORDERED: HEPARIN for ARTERIAL LINE 1,500 ML ONE (10:07)
[2016-06-22] MEDS ORDERED: LIDOCAINE 2% 20 ML VIAL. ONE (10:07)
[2016-06-22] MEDS ORDERED: IOHEXOL 300 MG/ML 100ML VIAL. ONE (10:07)
[2016-06-22] MEDS ORDERED: VERAPAMIL 5 MG/2 ML VIAL. ONE (10:12)
[2016-06-22] MEDS ORDERED: HEPARIN for IV BOLUS 10,000 UNIT/10 ML VIAL. ONE (10:12)
[2016-06-22] MEDS ORDERED: NITROGLYCERIN 200 MCG/2 ML SYRINGE FOR CATH/VASC LAB. ONE (10:12)
[2016-06-22] MEDS ORDERED: MIDAZOLAM HCL/PF 2 MG/2 ML VIAL. ONE (10:12)
[2016-06-22] MEDS ORDERED: fentaNYL PF VIAL 100 MCG/2 ML VIAL ONE (10:12)
[2016-06-22] MEDS ORDERED: LIDOCAINE 2% 20 ML VIAL. IJ ONE (10:20)
[2016-06-22] MEDS ORDERED: NITROGLYCERIN 200 MCG/2 ML SYRINGE FOR CATH/VASC LAB. IART ONE (10:30)
[2016-06-22] MEDS ORDERED: HEPARIN for IV BOLUS 10,000 UNIT/10 ML VIAL. IART ONE (10:30)
[2016-06-22] MEDS ORDERED: IOHEXOL 300 MG/ML 100ML VIAL. IART ONE (10:30)
[2016-06-22] MEDS ORDERED: VERAPAMIL 5 MG/2 ML VIAL. IART ONE (10:30)
[2016-06-22] MEDS ORDERED: ISOSORBIDE MONONITRATE ER 30 MG TAB.ER.24H PO SCH (10:45)
--- NOTE | 2016-06-22 11:25 | CARD ---
APPROVED REPORT Procedure(s) performed: Left Heart Catheterization 72 mL OMNIPAQUE 2.1 mins Fluoro 310.03cGy [id number] HISTORY : The patient is a 56 year-old male with a history of . INDICATION The indication(s) include : positive stress test, unstable angina . PROCEDURE NARRATIVE The patient was brought electively to the cardiac catheterization lab. A timeout was performed confi rming the patient's name, date of , procedure, and site of procedure. All necessary personnel w ere wearing the appropriate protective equipment and radiation monitor devices. After explaining the risks and benefits of the procedure and alternatives, informed consent was obtained. (See nursing no guero for medications administered). The right wrist was sterilely prepped and draped in the usual fas hion. The right wrist was infiltrated with 1 mL of 2% lidocaine for subcutaneous anesthesia. A 6 Fr ench Terumo glide sheath was inserted into the right radial artery without difficulty. Right and lef t coronary angiography was performed using a 6Fr TIG 4.0 catheter. Left ventricular end diastolic pr essure was obtained with a pigtail catheter and pullback was performed. All catheter exchanges and a dvancements were performed over a guidewire. At case completion the right radial sheath was removed and a Terumo radial band was applied with 13 ml of air. The patient tolerated the procedure well and there were no immediate complications. HEMODYNAMICS: LVEDP 20 mm Hg No gradient on LV to aortic pullback. CORONARY ANGIOGRAPHY: LM is a large caliber vessel with distal 20% stenosis. LAD is a large caliber vessel with normal angiographic appearance. Ramus is a moderate caliber bifurcating vessel with normal angiographic apeparance. LCx is a moderate caliber non-dominant vessel with an ostial 60-70% stenosis. RCA is a large caliber dominant vessel with normal angiographic appearance. RPDA and RPL are moderate caliber vessels with normal angiographic appearance. Conclusion 1. One vessel CAD 2. Given the mild degree of ischemia, lack of significant pain and ostial nature of the circumflex st enosis (which if intervened may compromise the ramus or LM, conservative management with b-blockers a nd nitrates was felt to be the best approach at this time. Recommendations Imdur 60mg daily Metoprolol 25mg XL karina Follow up in 4 weeks in the office.
--- NOTE | 2016-06-22 14:07 | PDOC3 ---
Discharge Summary Visit Information Date of Admission: June 21, 2016 Date of Discharge: June 22, 2016 Admitting Diagnosis: angina Final Diagnosis angina, mild CAD stress test was pos at OSH htn, hyperlipids , \ tobaccoism, cessation discussed, chronic back pain and sciatica s/p failed back surgery 4 years ago, left foot drop, left leg nerve pain, on Lyrica Problems Medical Problems: (1) Angina at rest Status: Acute Brief Hospital Course Allergies Allergies Coded Allergies Type Severity Reaction Last Updated Verified levofloxacin Allergy Intermediate Hives 06/22/16 Yes Vital Signs Vital Signs Date Time Temp Pulse Resp B/P (MAP) Pulse Ox O2 Delivery O2 Flow Rate FiO2 06/22/16 11:26 Room Air 06/22/16 11:14 97.5 61 18 115/73 (87) 97 97.5 06/22/16 02:35 2.0 Lab Results Laboratory Tests Test 06/21/16 19:40 06/21/16 21:16 06/22/16 02:40 06/22/16 09:40 White Blood Count 10.4 x10^3/uL (4.0-11.0) 8.4 x10^3/uL (4.0-11.0) Red Blood Count 4.75 x10^6/uL (4.30-5.70) 4.55 x10^6/uL (4.30-5.70) Hemoglobin 14.2 g/dL (13.0-17.5) 13.6 g/dL (13.0-17.5) Hematocrit 42.5 % (39.0-53.0) 40.6 % (39.0-53.0) Mean Corpuscular Volume 89 fL (79-100) 89 fL (79-100) Mean Corpuscular Hemoglobin 30 pg (25-35) 30 pg (25-35) Mean Corpuscular Hemoglobin Concent 33 g/dL (31-37) 33 g/dL (31-37) Red Cell Distribution Width 13.7 % (11.5-14.5) 13.5 % (11.5-14.5) Platelet Count 291 x10^3/uL (140-400) 278 x10^3/uL (140-400) Prothrombin Time 12.6 SEC (11.7-14.0) Prothromb Time International Ratio 1.0 (0.8-1.1) Activated Partial Thromboplast Time 31 SEC (24-38) 31 SEC (24-38) Nasal Screen MRSA (PCR) Negative (Negative) Neutrophils (%) (Auto) 43 % (31-73) Lymphocytes (%) (Auto) 44 % (24-48) Monocytes (%) (Auto) 9 % (0-9) Eosinophils (%) (Auto) 4 % (0-3) Basophils (%) (Auto) 1 % (0-3) Neutrophils # (Auto) 3.6 x10^3uL (1.8-7.7) Lymphocytes # (Auto) 3.7 x10^3/uL (1.0-4.8) Monocytes # (Auto) 0.8 x10^3/uL (0.0-1.1) Eosinophils # (Auto) 0.3 x10^3/uL (0.0-0.7) Basophils # (Auto) 0.0 x10^3/uL (0.0-0.2) Heparin Anti-Xa Act, Unfractionated 0.21 IU/mL (0.30-0.70) Sodium Level 139 mmol/L (136-145) Potassium Level 4.0 mmol/L (3.5-5.1) Chloride Level 103 mmol/L (98-107) Carbon Dioxide Level 28 mmol/L (21-32) Anion Gap 8 (6-14) Blood Urea Nitrogen 12 mg/dL (8-26) Creatinine 1.0 mg/dL (0.7-1.3) Estimated GFR (Cockcroft-Gault) 93.5 BUN/Creatinine Ratio 12 (6-20) Glucose Level 105 mg/dL (70-99) Calcium Level 8.9 mg/dL (8.5-10.1) Total Bilirubin 0.4 mg/dL (0.2-1.0) Aspartate Amino Transf (AST/SGOT) 19 U/L (15-37) Alanine Aminotransferase (ALT/SGPT) 22 U/L (16-63) Alkaline Phosphatase 65 U/L (46-116) Total Protein 7.3 g/dL (6.4-8.2) Albumin 3.3 g/dL (3.4-5.0) Albumin/Globulin Ratio 0.8 (1.0-1.7) Triglycerides Level 100 mg/dL (0-150) Cholesterol Level 188 mg/dL (0-200) LDL Cholesterol, Calculated 127 mg/dL (0-100) VLDL Cholesterol, Calculated 20 mg/dL (0-40) Non-HDL Cholesterol Calculated 147 mg/dL (0-129) HDL Cholesterol 41 mg/dL (40-60) Cholesterol/HDL Ratio 4.6 Laboratory Tests Test 06/21/16 19:40 06/21/16 21:16 06/22/16 02:40 06/22/16 09:40 White Blood Count 10.4 x10^3/uL (4.0-11.0) 8.4 x10^3/uL (4.0-11.0) Red Blood Count 4.75 x10^6/uL (4.30-5.70) 4.55 x10^6/uL (4.30-5.70) Hemoglobin 14.2 g/dL (13.0-17.5) 13.6 g/dL (13.0-17.5) Hematocrit 42.5 % (39.0-53.0) 40.6 % (39.0-53.0) Mean Corpuscular Volume 89 fL (79-100) 89 fL (79-100) Mean Corpuscular Hemoglobin 30 pg (25-35) 30 pg (25-35) Mean Corpuscular Hemoglobin Concent 33 g/dL (31-37) 33 g/dL (31-37) Red Cell Distribution Width 13.7 % (11.5-14.5) 13.5 % (11.5-14.5) Platelet Count 291 x10^3/uL (140-400) 278 x10^3/uL (140-400) Prothrombin Time 12.6 SEC (11.7-14.0) Prothromb Time International Ratio 1.0 (0.8-1.1) Activated Partial Thromboplast Time 31 SEC (24-38) 31 SEC (24-38) Nasal Screen MRSA (PCR) Negative (Negative) Neutrophils (%) (Auto) 43 % (31-73) Lymphocytes (%) (Auto) 44 % (24-48) Monocytes (%) (Auto) 9 % (0-9) Eosinophils (%) (Auto) 4 % (0-3) Basophils (%) (Auto) 1 % (0-3) Neutrophils # (Auto) 3.6 x10^3uL (1.8-7.7) Lymphocytes # (Auto) 3.7 x10^3/uL (1.0-4.8) Monocytes # (Auto) 0.8 x10^3/uL (0.0-1.1) Eosinophils # (Auto) 0.3 x10^3/uL (0.0-0.7) Basophils # (Auto) 0.0 x10^3/uL (0.0-0.2) Heparin Anti-Xa Act, Unfractionated 0.21 IU/mL (0.30-0.70) Sodium Level 139 mmol/L (136-145) Potassium Level 4.0 mmol/L (3.5-5.1) Chloride Level 103 mmol/L (98-107) Carbon Dioxide Level 28 mmol/L (21-32) Anion Gap 8 (6-14) Blood Urea Nitrogen 12 mg/dL (8-26) Creatinine 1.0 mg/dL (0.7-1.3) Estimated GFR (Cockcroft-Gault) 93.5 BUN/Creatinine Ratio 12 (6-20) Glucose Level 105 mg/dL (70-99) Calcium Level 8.9 mg/dL (8.5-10.1) Total Bilirubin 0.4 mg/dL (0.2-1.0) Aspartate Amino Transf (AST/SGOT) 19 U/L (15-37) Alanine Aminotransferase (ALT/SGPT) 22 U/L (16-63) Alkaline Phosphatase 65 U/L (46-116) Total Protein 7.3 g/dL (6.4-8.2) Albumin 3.3 g/dL (3.4-5.0) Albumin/Globulin Ratio 0.8 (1.0-1.7) Triglycerides Level 100 mg/dL (0-150) Cholesterol Level 188 mg/dL (0-200) LDL Cholesterol, Calculated 127 mg/dL (0-100) VLDL Cholesterol, Calculated 20 mg/dL (0-40) Non-HDL Cholesterol Calculated 147 mg/dL (0-129) HDL Cholesterol 41 mg/dL (40-60) Cholesterol/HDL Ratio 4.6 Brief Hospital Course Mr. Gentile is a 56 old male transferred for chest pain and angina, + stress test, LDL 127 Cardiac cath 06/22 CATH LM is a large caliber vessel with distal 20% stenosis. LCx is a moderate caliber non-dominant vessel with an ostial 60-70% stenosis. PER DR. Willson, w/mild degree of ischemia, lack of significant pain and ostial nature of the circumflex stenosis (which if intervened may compromise the ramus or LM, conservative management with b-blockers and nitrates was felt to be the best approach at this time. new meds, Imdur ER 60mg daily, Metoprolol 25mg XL karina Discharge Information Condition at Discharge: Improved Follow Up: Weeks Disposition/Orders: D/C to Home Scheduled Aspirin (Aspir 81), 81 MG PO DAILY, (Reported) Atorvastatin Calcium (Atorvastatin Calcium), 20 MG PO HS, (Reported) Lisinopril (Lisinopril), 20 MG PO DAILY, (Reported) Pregabalin (Lyrica), 1 CAP PO BID, (Reported) Scheduled PRN Hydrocodone/Apap 7.5-325 (Jeffers 7.5-325 Tablet), 1 EACH PO Q4HRS PRN Patient Instructions Patient Instructions Follow up in [facility] office 4 weeks ARACELI Cortez MD June 22, 2016 14:07
[2016-06-22] MEDS ORDERED: ATOR40TA59 PO (15:52)
[2016-06-22] MEDS ORDERED: LISI-338 PO (15:52)
[2016-06-22] MEDS ORDERED: METO25TA9 PO (15:56)
[2016-06-22] MEDS ORDERED: ATORVASTATIN CALCIUM 20 MG TABLET PO SCH (21:00)
[2016-06-23] MEDS ORDERED: LISINOPRIL 20 MG TABLET PO SCH (09:00)
[2016-06-23] MEDS ORDERED: METOPROLOL SUCC 24HR ER 25 MG TAB.ER.24H. PO SCH (09:00)
== END 2016-06-22 16:12 | disposition home or self-care (01) | DRG 287 ==
LOC: 1 WEST ICU 18:57 → 2 NORTH 06-22 11:09
PROVIDERS: ADMIT Internal Medicine; ATTEND Internal Medicine
PROC: 4A023N7 Measurement of Cardiac Sampling and Pressure, Left Heart, Percutaneous Approach (ICD-10-PCS; principal; 2016-06-22)
PROC: B2111ZZ Fluoroscopy of Multiple Coronary Arteries using Low Osmolar Contrast (ICD-10-PCS; 2016-06-22)
DX: I25.110 Atherosclerotic heart disease of native coronary artery with unstable angina pectoris (principal); E78.5 Hyperlipidemia, unspecified; F17.210 Nicotine dependence, cigarettes, uncomplicated; G89.29 Other chronic pain; G62.9 Polyneuropathy, unspecified; I10 Essential (primary) hypertension; M21.372 Foot drop, left foot; M54.30 Sciatica, unspecified side; Z98.1 Arthrodesis status; Z88.1 Allergy status to other antibiotic agents
CPT/HCPCS: 36415; 80053; 80061; 85027; 85520; 85610; 85730; 87641; 93005; 93458; 99406; C1769; C1892; J3490; Q9967

== ENCOUNTER 2016-08-05 00:39 | Inpatient (IN) | payer OTHER ==
[~2016-08-05] VITALS: Ht 188 cm; Wt 84.8 kg
[~2016-08-05 00:39] MED LIST changes: +ATOR20TA58 PO; +ATOR40TA59 PO; +LISI-338 PO; +METO25TA9 PO; +PREG100C PO
[2016-08-05 03:15] VITALS: BP 138/90
[2016-08-05] MEDS ORDERED: ONDANSETRON PF 4 MG/2 ML VIAL. IV PRN (04:30)
[2016-08-05] MEDS ORDERED: ACETAMINOPHEN 325 MG TABLET. PO PRN (04:30)
[2016-08-05] MEDS: fentaNYL PF VIAL 100 MCG/2 ML VIAL IV PRN ×6 (04:43→23:30)
[2016-08-05 07:00] VITALS: BP 134/65
[2016-08-05 07:01] LABS: CALCIUM 9.1 mg/dL (8.5-10.1); CREATININE 1.1 mg/dL (0.7-1.3); GFR 83.8; POTASSIUM 4.3 mmol/L (3.5-5.1)
[2016-08-05] MEDS: PANTOPRAZOLE 40 MG TABLET.DR. PO SCH (07:46)
[2016-08-05] MEDS: predniSONE 20 MG TABLET PO SCH (07:46)
[2016-08-05 08:17] LABS: BASO % 0 % (0-3); EOS % 0 % (0-3); HEMATOCRIT 44.4 % (39.0-53.0); HEMOGLOBIN 14.7 g/dL (13.0-17.5); LYMPH # 1.2 x10^3/uL (1.0-4.8); LYMPH % 11 % (24-48); MEAN CORPUSCULAR HEMOGLOBIN 30 pg (25-35); MEAN CORPUSCULAR HGB CONC 33 g/dL (31-37); MEAN CORPUSCULAR VOLUME 90 fL (79-100); MONO % 1 % (0-9); NEUT % 88 % (31-73); PLATELET COUNT 315 x10^3/uL (140-400); RED BLOOD COUNT 4.91 x10^6/uL (4.30-5.70); RED CELL DISTRIBUTION WIDTH 13.9 % (11.5-14.5); WHITE BLOOD COUNT 10.7 x10^3/uL (4.0-11.0)
[2016-08-05 11:00] VITALS: BP_SYST 126; BP_SYST 140; BP_DIAS 115; BP_DIAS 59
--- NOTE | 2016-08-05 11:03 | PDOC1 ---
History and Physical Date of Admission Date of Admission DATE: 08/05/16 TIME: 10:56 Identification/Chief Complaint Chief Complaint headache, eye pain, left Problems: Source Source: Chart review, Patient History of Present Illness History of Present Illness transferred from [facility] for acute headache, left sided headache with left eye pain, pulsating pain, 9/10 pain pain to left side of head, left alevism. palpation causes pain to left periorbital, alevism, auricle and post of ear areas on left. some vision change noted in left eye, vision 20/50 documented in ER. labs from there are normal no CRP or ESR elevation steroids given, some improvement, initial diagnosis temporal arteritis Past Medical History Cardiovascular: HTN, Hyperlipidemia Pulmonary: No pertinent hx CENTRAL NERVOUS SYSTEM: Periperal neuropathy GI: No pertinent hx Heme/Onc: No pertinent hx Hepatobiliary: No pertinent hx Psych: No pertinent hx Musculoskeletal: low back pain, Muscle atrophy, Weakness Endocrine: No pertinent hx Past Surgical History Past Surgical History: Other Family History Family History: No Significant Social History Smoke: <1 pack per day ALCOHOL: none Drugs: None Current Medications Current Medications Current Medications Fentanyl Citrate (Fentanyl 2ml Vial) 25 mcg PRN Q2HR PRN IV SEVERE PAIN Last administered on 08/05/16 07:45; Start 08/05/16 at 04:30 Acetaminophen (Tylenol) 650 mg PRN Q6HRS PRN PO MILD PAIN; Start 08/05/16 at 04 :30 Ondansetron HCl (Zofran) 4 mg PRN Q6HRS PRN IV NAUSEA/VOMITING; Start 08/05/16 at 04:30 Prednisone (Prednisone) 60 mg DAILY PO Last administered on 08/05/16 07:46; Start 08/05/16 at 09:00 Pantoprazole Sodium (Protonix) 40 mg DAILYAC PO Last administered on 08/05/16 07:46; Start 08/05/16 at 07:30 Active Scripts Active [place] 7.5-325 Tablet (Acetaminophen/Hydrocodone Bitart) 1 Each Tablet 1 Each PO Q4HRS PRN Reported Lyrica (Pregabalin) 50 Mg Capsule 1 Cap PO BID Hydrocodone-Apap 7.5-325 (Hydrocodone Bit/Acetaminophen) 1 Each Tablet 1 Tab PO PRN Q4HRS PRN Atorvastatin Calcium 20 Mg Tablet 20 Mg PO QHS Lisinopril 20 Mg Tablet 1 Tab PO DAILY Metoprolol Succinate ( Xl ) (Metoprolol Succinate) 25 Mg Tab.er.24h 0.5 Tab PO DAILY Atorvastatin Calcium 40 Mg Tablet 40 Mg PO HS Lisinopril 5 Mg Tablet 1 Tab PO DAILY Lyrica (Pregabalin) 100 Mg Capsule 1 Cap PO BID Aspir 81 (Aspirin) 81 Mg Tablet.dr 81 Mg PO DAILY Allergies Allergies: Coded Allergies: levofloxacin (Verified Allergy, Intermediate, Hives, 06/22/16) ROS General: No: Chills, Night Sweats, Fatigue, Malaise, Appetite, Other PSYCHOLOGICAL ROS: No: Anxiety, Behavioral Disorder, Concentration difficultie , Decreased libido, Depression, Disorientation, Hallucinations, Hostility, Irritablity, Memory difficulties, Mood Swings, Obsessive thoughts, Physical abuse, Sexual abuse, Sleep disturbances, Suicidal ideation, Other Eyes: Yes Blurry vision, No Decreased vision, No Double vision, No Dry eyes, No Excessive tearing, No Eye Pain, No Itchy Eyes, No Loss of vision, No Photophobia, No Scotomata, No Uses contacts, No Uses glasses, No Other HEENT: YES: Heacaches, Visual Changes Respiratory: No: Cough, Hemoptysis, Orthopnea, Pleuritic Pain, Shortness of breath, SOB with excertion, Sputum Changes, Stridor, Tachypnea, Wheezing, Other Cardiovascular: No Chest Pain, No Palpitations, No Orthopnea, No Paroxysmal Noc. Dyspnea, No Edema, No Lt Headedness, No Other Gastrointestinal: No Nausea, No Vomiting, No Abdominal Pain, No Diarrhea, No Constipation, No Melena, No Hematochezia, No Other Genitourinary: No Dysuria, No Frequency, No Incontinence, No Hematuria, No Retention, No Discharge, No Urgency, No Pain, No Flank Pain, No Other, No , No , No , No , No , No , No Musculoskeletal: No Gait Disturbance, No Joint Pain, No Joint Stiffness, No Joint Swelling, No Muscle Pain, No Muscular Weakness, No Pain In:, No Swelling In:, No Other Neurological: No Behavorial Changes, No Bowel/Bladder ControlChng, No Confusion , No Dizziness, No Gait Disturbance, No Headaches, No Impaired Coord/balance, No Memory Loss, No Numbness/Tingling, No Seizures, No Speech Problems, No Tremors, No Visual Changes, No Weakness, No Other Skin: No Dry Skin, No Eczema, No Hair Changes, No Lumps, No Mole Changes, No Mottling, No Nail Changes, No Pruritus, No Rash, No Skin Lesion Changes, No Other, No Acne Physical Exam General: Alert, Oriented X3, Cooperative HEENT: Atraumatic, PERRLA, Other (left sclera injected, photophobic, poor vision 20/50) Lungs: Clear to auscultation Heart: S1S2, no murmurs Rectal Exam: mass Extremities: No cyanosis, No edema Skin: No rashes, No significant lesion Neuro: Normal gait, Normal speech, Normal tone, Sensation intact, Cranial nerves 3-12 NL Psych/Mental Status: Mental status NL, Mood NL Vitals Vitals Vital Signs Date Time Temp Pulse Resp B/P (MAP) Pulse Ox O2 Delivery O2 Flow Rate FiO2 08/05/16 08:15 16 94 Room Air 08/05/16 07:00 98.4 68 134/65 (88) 98.4 Labs Labs Laboratory Tests Test 08/05/16 06:25 White Blood Count 10.7 x10^3/uL (4.0-11.0) Red Blood Count 4.91 x10^6/uL (4.30-5.70) Hemoglobin 14.7 g/dL (13.0-17.5) Hematocrit 44.4 % (39.0-53.0) Mean Corpuscular Volume 90 fL (79-100) Mean Corpuscular Hemoglobin 30 pg (25-35) Mean Corpuscular Hemoglobin Concent 33 g/dL (31-37) Red Cell Distribution Width 13.9 % (11.5-14.5) Platelet Count 315 x10^3/uL (140-400) Neutrophils (%) (Auto) 88 % (31-73) Lymphocytes (%) (Auto) 11 % (24-48) Monocytes (%) (Auto) 1 % (0-9) Eosinophils (%) (Auto) 0 % (0-3) Basophils (%) (Auto) 0 % (0-3) Neutrophils # (Auto) 9.4 x10^3uL (1.8-7.7) Lymphocytes # (Auto) 1.2 x10^3/uL (1.0-4.8) Monocytes # (Auto) 0.1 x10^3/uL (0.0-1.1) Eosinophils # (Auto) 0.0 x10^3/uL (0.0-0.7) Basophils # (Auto) 0.0 x10^3/uL (0.0-0.2) Sodium Level 139 mmol/L (136-145) Potassium Level 4.3 mmol/L (3.5-5.1) Chloride Level 105 mmol/L (98-107) Carbon Dioxide Level 24 mmol/L (21-32) Anion Gap 10 (6-14) Blood Urea Nitrogen 12 mg/dL (8-26) Creatinine 1.1 mg/dL (0.7-1.3) Estimated GFR (Cockcroft-Gault) 83.8 Glucose Level 157 mg/dL (70-99) Calcium Level 9.1 mg/dL (8.5-10.1) Laboratory Tests Test 08/05/16 06:25 White Blood Count 10.7 x10^3/uL (4.0-11.0) Red Blood Count 4.91 x10^6/uL (4.30-5.70) Hemoglobin 14.7 g/dL (13.0-17.5) Hematocrit 44.4 % (39.0-53.0) Mean Corpuscular Volume 90 fL (79-100) Mean Corpuscular Hemoglobin 30 pg (25-35) Mean Corpuscular Hemoglobin Concent 33 g/dL (31-37) Red Cell Distribution Width 13.9 % (11.5-14.5) Platelet Count 315 x10^3/uL (140-400) Neutrophils (%) (Auto) 88 % (31-73) Lymphocytes (%) (Auto) 11 % (24-48) Monocytes (%) (Auto) 1 % (0-9) Eosinophils (%) (Auto) 0 % (0-3) Basophils (%) (Auto) 0 % (0-3) Neutrophils # (Auto) 9.4 x10^3uL (1.8-7.7) Lymphocytes # (Auto) 1.2 x10^3/uL (1.0-4.8) Monocytes # (Auto) 0.1 x10^3/uL (0.0-1.1) Eosinophils # (Auto) 0.0 x10^3/uL (0.0-0.7) Basophils # (Auto) 0.0 x10^3/uL (0.0-0.2) Sodium Level 139 mmol/L (136-145) Potassium Level 4.3 mmol/L (3.5-5.1) Chloride Level 105 mmol/L (98-107) Carbon Dioxide Level 24 mmol/L (21-32) Anion Gap 10 (6-14) Blood Urea Nitrogen 12 mg/dL (8-26) Creatinine 1.1 mg/dL (0.7-1.3) Estimated GFR (Cockcroft-Gault) 83.8 Glucose Level 157 mg/dL (70-99) Calcium Level 9.1 mg/dL (8.5-10.1) Images Images Ct HEAD Multivessel ischemic change, small VTE Prophylaxis Ordered VTE Prophylaxis Devices: No VTE Pharmacological Prophylaxi: Yes Assessment/Plan Assessment/Plan HEadache, left eye pain, temporal arteritis Neuro following, steroids given, consult Surg for biopsy mild CAD, known, no angina htn, hyperlipids , \ tobaccoism, cessation discussed, chronic back pain and sciatica s/p failed back surgery 4 years ago, left foot drop, left leg nerve pain, on ARACELI Javed MD Aug 05, 2016 11:02
--- NOTE | 2016-08-05 11:53 | PDOC2 ---
NEUROLOGY CONSULT Date of Admission Date of Admission Full Report Dictated DATE: 08/05/16 TIME: 11:51 Current Medications Current Medications Current Medications Fentanyl Citrate (Fentanyl 2ml Vial) 25 mcg PRN Q2HR PRN IV SEVERE PAIN Last administered on 08/05/16 07:45; Start 08/05/16 at 04:30 Acetaminophen (Tylenol) 650 mg PRN Q6HRS PRN PO MILD PAIN; Start 08/05/16 at 04 :30 Ondansetron HCl (Zofran) 4 mg PRN Q6HRS PRN IV NAUSEA/VOMITING; Start 08/05/16 at 04:30 Prednisone (Prednisone) 60 mg DAILY PO Last administered on 08/05/16 07:46; Start 08/05/16 at 09:00 Pantoprazole Sodium (Protonix) 40 mg DAILYAC PO Last administered on 08/05/16 07:46; Start 08/05/16 at 07:30 Active Scripts Active [place] 7.5-325 Tablet (Acetaminophen/Hydrocodone Bitart) 1 Each Tablet 1 Each PO Q4HRS PRN Reported Lyrica (Pregabalin) 50 Mg Capsule 1 Cap PO BID Hydrocodone-Apap 7.5-325 (Hydrocodone Bit/Acetaminophen) 1 Each Tablet 1 Tab PO PRN Q4HRS PRN Atorvastatin Calcium 20 Mg Tablet 20 Mg PO QHS Lisinopril 20 Mg Tablet 1 Tab PO DAILY Metoprolol Succinate ( Xl ) (Metoprolol Succinate) 25 Mg Tab.er.24h 0.5 Tab PO DAILY Atorvastatin Calcium 40 Mg Tablet 40 Mg PO HS Lisinopril 5 Mg Tablet 1 Tab PO DAILY Lyrica (Pregabalin) 100 Mg Capsule 1 Cap PO BID Aspir 81 (Aspirin) 81 Mg Tablet.dr 81 Mg PO DAILY Allergies Allergies: Coded Allergies: levofloxacin (Verified Allergy, Intermediate, Hives, 06/22/16) Vitals VITALS Vital Signs Date Time Temp Pulse Resp B/P (MAP) Pulse Ox O2 Delivery O2 Flow Rate FiO2 08/05/16 11:00 97.9 83 18 140/115 (123) 96 Room Air 97.9 Labs Labs Laboratory Tests Test 08/05/16 06:25 White Blood Count 10.7 x10^3/uL (4.0-11.0) Red Blood Count 4.91 x10^6/uL (4.30-5.70) Hemoglobin 14.7 g/dL (13.0-17.5) Hematocrit 44.4 % (39.0-53.0) Mean Corpuscular Volume 90 fL (79-100) Mean Corpuscular Hemoglobin 30 pg (25-35) Mean Corpuscular Hemoglobin Concent 33 g/dL (31-37) Red Cell Distribution Width 13.9 % (11.5-14.5) Platelet Count 315 x10^3/uL (140-400) Neutrophils (%) (Auto) 88 % (31-73) Lymphocytes (%) (Auto) 11 % (24-48) Monocytes (%) (Auto) 1 % (0-9) Eosinophils (%) (Auto) 0 % (0-3) Basophils (%) (Auto) 0 % (0-3) Neutrophils # (Auto) 9.4 x10^3uL (1.8-7.7) Lymphocytes # (Auto) 1.2 x10^3/uL (1.0-4.8) Monocytes # (Auto) 0.1 x10^3/uL (0.0-1.1) Eosinophils # (Auto) 0.0 x10^3/uL (0.0-0.7) Basophils # (Auto) 0.0 x10^3/uL (0.0-0.2) Sodium Level 139 mmol/L (136-145) Potassium Level 4.3 mmol/L (3.5-5.1) Chloride Level 105 mmol/L (98-107) Carbon Dioxide Level 24 mmol/L (21-32) Anion Gap 10 (6-14) Blood Urea Nitrogen 12 mg/dL (8-26) Creatinine 1.1 mg/dL (0.7-1.3) Estimated GFR (Cockcroft-Gault) 83.8 Glucose Level 157 mg/dL (70-99) Calcium Level 9.1 mg/dL (8.5-10.1) Laboratory Tests Test 08/05/16 06:25 White Blood Count 10.7 x10^3/uL (4.0-11.0) Red Blood Count 4.91 x10^6/uL (4.30-5.70) Hemoglobin 14.7 g/dL (13.0-17.5) Hematocrit 44.4 % (39.0-53.0) Mean Corpuscular Volume 90 fL (79-100) Mean Corpuscular Hemoglobin 30 pg (25-35) Mean Corpuscular Hemoglobin Concent 33 g/dL (31-37) Red Cell Distribution Width 13.9 % (11.5-14.5) Platelet Count 315 x10^3/uL (140-400) Neutrophils (%) (Auto) 88 % (31-73) Lymphocytes (%) (Auto) 11 % (24-48) Monocytes (%) (Auto) 1 % (0-9) Eosinophils (%) (Auto) 0 % (0-3) Basophils (%) (Auto) 0 % (0-3) Neutrophils # (Auto) 9.4 x10^3uL (1.8-7.7) Lymphocytes # (Auto) 1.2 x10^3/uL (1.0-4.8) Monocytes # (Auto) 0.1 x10^3/uL (0.0-1.1) Eosinophils # (Auto) 0.0 x10^3/uL (0.0-0.7) Basophils # (Auto) 0.0 x10^3/uL (0.0-0.2) Sodium Level 139 mmol/L (136-145) Potassium Level 4.3 mmol/L (3.5-5.1) Chloride Level 105 mmol/L (98-107) Carbon Dioxide Level 24 mmol/L (21-32) Anion Gap 10 (6-14) Blood Urea Nitrogen 12 mg/dL (8-26) Creatinine 1.1 mg/dL (0.7-1.3) Estimated GFR (Cockcroft-Gault) 83.8 Glucose Level 157 mg/dL (70-99) Calcium Level 9.1 mg/dL (8.5-10.1) Assessment/Plan Assessment/Plan Patient is a 56-year-old man with one week of left temporal pain, left thigh pain, left ear pain and left neck pain. He appears to have some droopiness of his left eye and tenderness of the globe. He has been seen by ophthalmology. He may have a temporal arteritis although sedimentation rate and CRP were negative. I would recommend MRI brain, MRA intracranial arteries and MRV intracranial veins. Would exclude mass lesion, aneurysm and venous sinus thrombosis. It is reasonable to proceed with a temporal artery biopsy on the left. I will leave the consultation of the surgeon to Dr. Beach. I agree with the empiric prednisone for now. We may need to get another ophthalmology opinion. ANGELITO ADAMS MD Aug 05, 2016 11:53
[2016-08-05 13:20] LABS: PLT ESTIMATE ADEQUATE (ADEQUATE)
[2016-08-05] MEDS ORDERED: GADOBUTROL 10 MMOL/10 ML VIAL IV ONE (14:45)
[2016-08-05] MEDS ORDERED: NICOTINE POLACRILEX 2MG GUM PACKAGE of 12. BC PRN (19:45)
[2016-08-05 19:58] VITALS: BP 152/70
[2016-08-05] MEDS ORDERED: ISOS30TA4 PO (19:59)
[2016-08-05] MEDS: ATORVASTATIN CALCIUM 40 MG TABLET. PO SCH (20:38)
[2016-08-05] MEDS: ISOSORBIDE MONONITRATE ER 30 MG TAB.ER.24H PO SCH (20:38)
[2016-08-05] MEDS: LISINOPRIL 5 MG TABLET. PO SCH (20:39)
[2016-08-05] MEDS: PREGABALIN 50 MG CAPSULE PO SCH (20:39)
[2016-08-05] MEDS: NICOTINE 7MG PATCH. TD PRN (20:40)
--- NOTE | 2016-08-05 23:00 | CONS ---
DATE OF CONSULTATION: 08/05/2016 REFERRING PHYSICIAN: Dr. Lia Beach. REASON FOR CONSULTATION: Left eye and head pain, possible left temporal arteritis. HISTORY OF PRESENT ILLNESS: The patient is a very pleasant 56-year-old man who began to have symptoms about a week ago. He developed left eye pain. This progressively worsened and was associated with some drooping of the left eyelid. He became sensitive to light as well. The pain radiated from the left eye to the temporal region to above and around his ear and down his left neck. He reports seeing an campus director who did not find a specific etiology that he is aware of. He feels he has lost some vision in his left eye. Pushing upon the temporal region or the neck seems to increase the eye pain. He underwent a sedimentation rate and CRP at [facility], which were in the normal range. He was transferred to [facility] out of concern that he may have a temporal arteritis despite these negative tests. He has not had any recent trauma to the head or neck. He does not exactly have any double vision, but when he looks only out of his left eye it can be a little fussy or blurry until he blinks several times and then the vision looked typically clear. PAST MEDICAL HISTORY: 1. Hypertension. 2. Hypercholesterolemia. 3. Back surgery about 2 years ago associated with severe loss of strength in the left leg requiring a brace and cane in order to ambulate. 4. Right rotator cuff repair. ALLERGIES: LEVOFLOXACIN. MEDICATIONS PRIOR TO ADMISSION: [place] as needed, aspirin 81 mg, atorvastatin 20 mg, lisinopril 5 mg, metoprolol, and Lyrica 100 mg twice per day. Of notice, that there is conflicting data in the computer regarding dosages of these medicines. FAMILY HISTORY: His father with cancer of the lungs 35 years ago. His mother is living with hypertension, hypercholesterolemia and diabetes. His sister recently with diabetes and kidney failure. SOCIAL HISTORY: He smokes about 5 cigars every week and a half. He drinks 12 pack of beer per week. 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 He has two children. His son is in the and his daughter works in [place] as a contractor for the . REVIEW OF SYSTEMS: He has the head pain as described above. He has diminished vision on the left eye, but not the right. He has had no change of hearing. He has tenderness on the left side of his face and head. He sometimes has sinus stuffiness in the morning, but it usually clears on its own. He has not had difficulty with swallowing. He has not had shortness of breath, cough or cold. He denies chest or abdominal pain. He has bilateral knee pain. He has not had any fever or rash. He does not have any gastrointestinal or genitourinary complaints. He does have numbness and weakness of his left leg following the surgery. He reports his surgery was complicated by hematoma. He denies any psychiatric symptoms. He does not complain of easy bruising, bleeding or swelling. PHYSICAL EXAMINATION: VITAL SIGNS: The blood pressure was 126/59, pulse 71, respirations 18, temperature 97.9 degrees Fahrenheit. Oximetry was 96% on room air. His weight was 187.25 pounds, height 74 inches with a calculated body mass index of 24. GENERAL: He was alert, awake and cooperative. Speech was fluent and clear. He had a good fund of recent and remote knowledge. Attention and concentration was intact. He appeared well groomed and well nourished. He was fully oriented. NEUROLOGIC: Examination of the cranial nerves revealed visual mendiola were full to confrontation with monocular testing. Extraocular movements were intact. The eyes were conjugate. Pursuit movements were smooth and saccadic eye movements were without dysmetria. There was slight . The globes themselves did not appear firm. Palpation of the left globe was slightly tender. Pupils were 3 mm and reacted. Funduscopic exam did not reveal papilledema, exudate or hemorrhage. There did not appear to be undue redness or pallor of the retina. This was a nondilated exam. The muscles of mastication and facial expression were powerful symmetrically. Hearing was intact to finger rub bilaterally. The palate arches symmetrically and the tongue was midline with full range of motion. Sternocleidomastoid and trapezius were powerful. Palpation of the temporal artery itself was not that tender. There was tenderness to palpation of the temporal region, behind the ear, the neck and especially the left suboccipital region. Palpation in this area provoked pain into the head and behind the eye. Muscle bulk and tone was normal. There was no arm drift. The power was full and symmetric in the upper extremities. Power was full in the right lower extremity. He had minimal activation of the left leg in all muscle groups. Reflexes were 2/4 in the upper extremities and in the right leg, but reflexes were absent in the left leg at the knee and ankle. The toes were downgoing. Coordination testing with [id number], fine motor and rapid alternating movements was well performed in the arms. He was able to do [id number] using his right leg, but he did not have the power for coordination testing of the left leg. Sensory exam was intact to pain, light touch, proprioception, graphesthesia, cold thermal and vibration in both arms and the right leg, but he had no sensation in the left leg. Gait was not testable. He normally uses a brace that involves his entire leg. He did not have the brace. NECK: Auscultation of the carotid arteries did not reveal a bruit. HEART: Rhythm was regular without a murmur. EXTREMITIES: Peripheral pulses were symmetric in upper and lower extremities. There was no edema or cyanosis. REVIEW OF LABORATORY DATA: CBC revealed a normal white blood cell count, hemoglobin, hematocrit and platelet count. Sedimentation rate was normal at 12 and CRP was normal at 2. The electrolytes were normal. BUN and creatinine were normal. His glucose was elevated to 157. Lactic acid was not elevated. Magnesium and calcium were normal. Liver enzymes were not elevated. CPK and troponin were not elevated. BNP was normal. A fasting lipid profile revealed a total cholesterol of 188, triglycerides of 100, HDL was 41, LDL 127 and VLDL 20. TSH was normal. Lipase was not elevated. PT/INR was 1 and PTT was 25. Nasal MRSA screening was negative on 06/21/2014. Urinalysis revealed a small amount of blood and occasional squamous epithelial cells and a few bacteria. IMAGING: Head CT was performed yesterday and revealed no acute intracranial process. There was evidence of sinus disease. There was mild chronic small vessel disease. There may have been an old left basal ganglia lacune. IMPRESSION: The patient is a pleasant 56-year-old man who developed changes with his left eye in the last week with some mild drooping, a feeling of impaired vision and tenderness of the left eye, temporal region, left ear and left neck. The exact etiology is not clear. He is somewhat young to be experiencing a temporal arteritis especially in light of these normal values. It is reasonable, however, to proceed with a left temporal artery biopsy to make certain of this. Other possibilities would be an intracranial venous sinus thrombosis in this region could cause some pain. I will obtain an MRI brain as well as an MRV of the intracranial veins and MRA of the intracranial arteries. These studies will help determine if there is any type of mass lesions such as an aneurysm contributing as well as venous sinus thrombosis or other mass lesions and it is possible he may have a component of occipital neuralgia also contributing or simply that this is the pathway which is transmitting the pain. We could always consider a left occipital nerve block with steroids if investigation is not revealing. It may be reasonable to obtain another ophthalmologic consult as well, but tender. I appreciate being involved in his care. ANGELITO ADAMS MD DR: ANDRIA/carlita JOB#: [id number] / [id number] JAMES Breg APRN, IRA MD
[2016-08-05 23:55] VITALS: BP 148/78
[2016-08-06] MEDS: fentaNYL PF VIAL 100 MCG/2 ML VIAL IV PRN ×4 (02:31→22:04)
[2016-08-06] MEDS: HYDROcodone/APAP 7.5/325MG 1 TAB TABLET PO PRN ×2 (03:23→07:47)
[2016-08-06 03:24] VITALS: BP 127/73
[2016-08-06 07:00] VITALS: BP 135/70
[2016-08-06] MEDS: predniSONE 20 MG TABLET PO SCH (07:48)
[2016-08-06] MEDS: PREGABALIN 50 MG CAPSULE PO SCH ×2 (07:48→21:57)
[2016-08-06] MEDS: PANTOPRAZOLE 40 MG TABLET.DR. PO SCH (07:49)
[2016-08-06] MEDS: LISINOPRIL 5 MG TABLET. PO SCH (07:49)
[2016-08-06] MEDS: ISOSORBIDE MONONITRATE ER 30 MG TAB.ER.24H PO SCH (07:49)
[2016-08-06] MEDS: NICOTINE 7MG PATCH. TD PRN (08:00)
--- NOTE | 2016-08-06 09:49 | RAD ---
EXAM: 1. MRI brain with and without contrast. 2. MRA head without contrast. 3. MRV head with and without contrast. HISTORY: Increasing headaches, left vision changes, left eye pain. TECHNIQUE: Magnetic resonance images of the brain were obtained before and after the intravenous administration of 8 mL Gadavist. MR arteriography of the head was performed without intravenous contrast. Maximum intensity projections were also performed. MR venography of the head was performed before and after the intravenous administration of 8 mL Gadavist. COMPARISON: None. FINDINGS: There is no diffusion restriction. There are no enhancing lesions. There is a chronic lacunar infarct in the left caudate and internal capsule. Tiny chronic lacunar infarcts are seen in the right basal ganglia. There is T2 hyperintensity throughout the splenium of the corpus callosum. There is only minimal chronic small vessel ischemic white matter change elsewhere. The ventricles are normal in size and position. Fluid is seen within the left maxillary sinus, bilateral ethmoid air cells, and sphenoid sinus. This is superimposed on moderate mucosal thickening. The orbits are unremarkable. There is a small amount of fluid in the right mastoid air cells inferiorly. The calvarium demonstrates no suspicious lesions. The internal carotid arteries are patent without stenosis. Both middle cerebral arteries are patent. Both anterior cerebral arteries are patent. The anterior communicating artery is patent. The distal vertebral arteries are patent. The basilar artery is relatively small but patent. Both superior cerebellar arteries are visualized. There is a dual supply to both posterior cerebral arteries from the P1 segments and the posterior communicating arteries. The superior sagittal sinus is patent. The transverse sinuses are both patent and appear dominant. The sigmoid sinuses and internal jugular veins are patent. The straight sinus and vein of Francis are patent. The hemispheric cerebral veins appear patent. IMPRESSION: 1. T2 hyperintensity throughout the splenium of the corpus callosum is nonspecific. In the setting of persistent left headaches, hemicrania continua is a potential etiology. Other etiologies include epilepsy, demyelinating disease, posterior reversal encephalopathy syndrome, infectious encephalopathy including HIV disease, and metabolic disturbances such as Marchiafava-Bignami disease. Correlate with other clinical data. 2. Chronic bilateral basal ganglia lacunar infarcts on the left greater than right. 3. Diffuse acute on chronic sinus disease. Correlate for this as a cause of headaches and left eye pain. 4. No intracranial stenosis or aneurysm. 5. No evidence of dural venous thrombosis.
--- NOTE | 2016-08-06 09:52 | ACF ---
Admission Forms Criteria HEADACHES Clinical Indications for Admission to Inpatient Care (Place 'X' for any and all applicable criteria): Admission is indicated for ANY ONE of the following(1)(2)(3)(4): [X]I. Inpatient admission required rather than observational care (Also use Headaches: Observation Care as appropriate) because of ANY ONE of the following: [X]a) Severe pain requiring acute inpatient management [ ]b) Altered mental status that is severe or persistent [ ]c) Vomiting or dehydration that is severe or persistent [ ]d) New-onset focal neurologic deficit that is severe or persistent [ ]e) Hypertension requiring inpatient treatment [ ]f) Severe (new) neurologic findings requiring inpatient care as indicated by ANY ONE of following(9)(10): [ ]1) Papilledema [ ]2) Cerebral edema [ ]3) Mass effect on CT scan [ ]4) Cerebral bleeding, ischemia, or vasospasm(16) [ ]5) Hydrocephalus(17) [ ]6) Uncontrolled seizures [ ]g) IV infusion of anticoagulation, platelet inhibitors vasoactive, or antiarrhythmic medication. [ ]h) Cerebral bleeding, hydrocephalus, or vasospasm monitoring (16) [ ]i) Increased intracranial pressure or cerebral edema monitoring (17) [ ]j) Other condition, treatment or monitoring requiring inpatient admission [ ]II. Unruptured but threatening aneurysm or vascular malformation [ ]III. Venous sinus thrombosis [ ]IV. Increased intracranial pressure [ ]V. Cerebral spinal fluid leak with decreased intracranial pressure [ ]. Medication-overuse headache that has failed all outpatient management options [ ]VII. Vasculitis (eg, giant cell (temporal) arteritis, central nervous system vasculitis) requiring IV corticosteroids, IV antithrombotic therapy, or inpatient monitoring (eg, visual symptoms or findings, other ischemic manifestations)[A](10)(11) Extended stay beyond goal length of stay may be needed for (27): [ ]a) Intractable migraine [ ]b) Subarachnoid or intracranial hemorrhage [ ]c) Malignant hypertension [ ]d) Detoxification from drug withdrawal in medication-overuse headache (29) The original [employer] content created by [employer] has been revised. The portions of the content which have been revised are identified through the use of italic text or in bold, and Anil Perdomo has neither reviewed nor approved the modified material.All other unmodified content is copyright [facility]. Please see references footnoted in the original [facility] edition 2016 Admission Criteria Met?: Yes CHRISTOPHE HAYNES Aug 06, 2016 09:52
[2016-08-06 11:00] VITALS: BP 115/50
--- NOTE | 2016-08-06 12:10 | PDOC ---
PROGRESS NOTES Chief Complaint Chief Complaint temporal arteritis headache, left eye pain, blurry vision mild CAD, known, no angina htn, hyperlipids , \ tobaccoism, cessation discussed, chronic back pain and sciatica s/p failed back surgery 4 years ago, left foot drop, left leg nerve pain, on Lyrica History of Present Illness History of Present Illness Neuro following, steroids given, consult Surg for biopsy, to OR tomorrow increase pain meds, MS contin x1 good PO intake, normal stool, no constipation Vitals Vitals Vital Signs Date Time Temp Pulse Resp B/P (MAP) Pulse Ox O2 Delivery O2 Flow Rate FiO2 08/06/16 08:47 16 95 Room Air 08/06/16 07:49 61 127/73 08/06/16 07:00 98.6 98.6 Physical Exam General: Alert, Oriented X3, Cooperative Lungs: Clear Extremities: No cyanosis, No edema Skin: No rashes, No significant lesion Review of Systems Review of Systems eye pain photophobia left eye only pain 7/10, throbbing no n.v.d Comment Review of Relevant I have reviewed the following items lien (where applicable) has been applied. Labs Laboratory Tests Test 08/05/16 06:25 White Blood Count 10.7 x10^3/uL (4.0-11.0) Red Blood Count 4.91 x10^6/uL (4.30-5.70) Hemoglobin 14.7 g/dL (13.0-17.5) Hematocrit 44.4 % (39.0-53.0) Mean Corpuscular Volume 90 fL (79-100) Mean Corpuscular Hemoglobin 30 pg (25-35) Mean Corpuscular Hemoglobin Concent 33 g/dL (31-37) Red Cell Distribution Width 13.9 % (11.5-14.5) Platelet Count 315 x10^3/uL (140-400) Neutrophils (%) (Auto) 88 % (31-73) Lymphocytes (%) (Auto) 11 % (24-48) Monocytes (%) (Auto) 1 % (0-9) Eosinophils (%) (Auto) 0 % (0-3) Basophils (%) (Auto) 0 % (0-3) Neutrophils # (Auto) 9.4 x10^3uL (1.8-7.7) Lymphocytes # (Auto) 1.2 x10^3/uL (1.0-4.8) Monocytes # (Auto) 0.1 x10^3/uL (0.0-1.1) Eosinophils # (Auto) 0.0 x10^3/uL (0.0-0.7) Basophils # (Auto) 0.0 x10^3/uL (0.0-0.2) Segmented Neutrophils % 78 % (35-66) Band Neutrophils % 3 % (0-9) Lymphocytes % 17 % (24-48) Monocytes % 2 % (0-10) Platelet Estimate Adequate (ADEQUATE) Sodium Level 139 mmol/L (136-145) Potassium Level 4.3 mmol/L (3.5-5.1) Chloride Level 105 mmol/L (98-107) Carbon Dioxide Level 24 mmol/L (21-32) Anion Gap 10 (6-14) Blood Urea Nitrogen 12 mg/dL (8-26) Creatinine 1.1 mg/dL (0.7-1.3) Estimated GFR (Cockcroft-Gault) 83.8 Glucose Level 157 mg/dL (70-99) Calcium Level 9.1 mg/dL (8.5-10.1) Medications Current Medications Fentanyl Citrate (Fentanyl 2ml Vial) 25 mcg PRN Q2HR PRN IV SEVERE PAIN Last administered on 08/06/16 07:48; Start 08/05/16 at 04:30; Stop 08/06/16 at 12:06 ; Status DC Acetaminophen (Tylenol) 650 mg PRN Q6HRS PRN PO MILD PAIN; Start 08/05/16 at 04 :30 Ondansetron HCl (Zofran) 4 mg PRN Q6HRS PRN IV NAUSEA/VOMITING; Start 08/05/16 at 04:30 Prednisone (Prednisone) 60 mg DAILY PO Last administered on 08/06/16 07:48; Start 08/05/16 at 09:00 Pantoprazole Sodium (Protonix) 40 mg DAILYAC PO Last administered on 08/06/16 07:49; Start 08/05/16 at 07:30 Gadobutrol (Gadavist) 8 mmol 1X ONCE IV ; Start 08/05/16 at 14:45; Stop at 14:46; Status DC Nicotine Polacrilex (Nicorette Gum) 1 each PRN Q1HR PRN BC SMOKING CESSATION; Start 08/05/16 at 19:45 Nicotine (Nicoderm Cq 7mg) 1 patch PRN DAILY PRN TD SMOKING CESSATION Last administered on 08/06/16 08:00; Start 08/05/16 at 19:45 Atorvastatin Calcium (Lipitor) 40 mg HS PO Last administered on 08/05/16 20:38 ; Start 08/05/16 at 21:00 Acetaminophen/ Hydrocodone Bitart (Lortab 7.5/325) 1 tab PRN Q4HRS PRN PO PAIN Last administered on 08/06/16 07:47; Start 08/05/16 at 20:15; Stop 08/06/16 at 12:06; Status DC Lisinopril (Prinivil) 5 mg DAILY PO Last administered on 08/06/16 07:49; Start 08/05/16 at 20:30 Pregabalin (Lyrica) 100 mg BID PO Last administered on 08/06/16 07:48; Start 08/05/16 at 21:00 Isosorbide Mononitrate (Imdur) 30 mg DAILY PO Last administered on 08/06/16 07 :49; Start 08/05/16 at 20:30 Fentanyl Citrate (Fentanyl 2ml Vial) 50 mcg PRN Q2HR PRN IV SEVERE PAIN; Start 08/06/16 at 12:15; Status UNV Acetaminophen/ Hydrocodone Bitart (Lortab 10/325) 1 tab PRN Q4HRS PRN PO PAIN; Start 08/06/16 at 12:15; Status UNV Morphine Sulfate (Ms Contin) 15 mg 1X ONCE PO ; Start 08/06/16 at 12:15; Stop 08/06/16 at 12:16; Status UNV Active Scripts Active [place] 7.5-325 Tablet (Acetaminophen/Hydrocodone Bitart) 1 Each Tablet 1 Each PO Q4HRS PRN Reported Lyrica (Pregabalin) 50 Mg Capsule 1 Cap PO BID Hydrocodone-Apap 7.5-325 (Hydrocodone Bit/Acetaminophen) 1 Each Tablet 1 Tab PO PRN Q4HRS PRN Atorvastatin Calcium 20 Mg Tablet 20 Mg PO QHS Lisinopril 20 Mg Tablet 1 Tab PO DAILY Isosorbide Mononitrate Er (Isosorbide Mononitrate) 30 Mg Tab.er.24h 1 Tab PO DAILY Atorvastatin Calcium 40 Mg Tablet 40 Mg PO HS Lisinopril 5 Mg Tablet 1 Tab PO DAILY Lyrica (Pregabalin) 100 Mg Capsule 1 Cap PO BID Vitals/I & O Vital Sign - Last 24 Hours 08/05/16 08/05/16 08/05/16 08/05/16 12:22 15:51 19:58 20:00 Temp 98.0 98.0 Pulse 71 Resp 18 16 20 B/P (MAP) 152/70 (97) Pulse Ox 96 96 99 O2 Delivery Room Air Room Air Room Air Room Air 08/05/16 08/05/16 08/05/16 08/05/16 20:01 20:38 20:39 23:30 Pulse 71 71 Resp 16 18 B/P (MAP) 152/70 152/70 O2 Delivery Room Air Room Air 08/05/16 08/06/16 08/06/16 08/06/16 23:55 02:31 03:23 03:24 Temp 98.0 97.9 98.0 97.9 Pulse 75 61 Resp 20 18 16 B/P (MAP) 148/78 (101) 127/73 (91) Pulse Ox 98 95 O2 Delivery Room Air Room Air Room Air Room Air 08/06/16 08/06/16 08/06/16 08/06/16 07:00 07:47 07:48 07:49 Temp 98.6 98.6 Pulse 65 61 Resp 16 16 16 B/P (MAP) 135/70 (91) 127/73 Pulse Ox 100 95 95 O2 Delivery Room Air Room Air Room Air 08/06/16 08/06/16 08/06/16 08/06/16 07:49 08:00 08:18 08:47 Pulse 61 Resp 16 16 B/P (MAP) 127/73 Pulse Ox 95 95 O2 Delivery Room Air Room Air Room Air Intake and Output 08/05/16 08/05/16 08/06/16 15:00 23:00 07:00 Intake Total 750 ml 960 ml Balance 750 ml 960 ml ARACELI SPENCER MD Aug 06, 2016 12:10
[2016-08-06] MEDS ORDERED: MORPHINE ER 15 MG TABLET.ER PO ONE (12:15)
[2016-08-06] MEDS ORDERED: POLYETHYLENE GLYCOL 3350 17 GM PACKET. PO ONE (12:15)
--- NOTE | 2016-08-06 12:39 | PDOC ---
PROGRESS NOTES Assessment 1. Severe left occipital headache with left eye pain. He is now patching his left eye. Movement of the eye is also painful. The exact etiology is not clear. The MRI brain, MRA of the intracranial arteries and MRV of the intracranial veins was normal. We could still be dealing with a temporal arteritis or primary issue although inflammatory markers were negative. We could also be dealing with a left occipital neuralgia which can provoke pain towards the eye but I would not anticipate this to worsen with eye movement. Plan 1. I agree with the need for a left temporal artery biopsy to evaluate for temporal arteritis. I would continue the prednisone until this can be completed. 2. I would recommend consult in the anesthesia pain service for a left occipital nerve block with steroids as this can be helpful in reducing the pain. 3. I would recommend consultation to ophthalmology to reevaluate the eye and make sure there is not a primary ophthalmologic cause of this pain. 4. I will initiate an empiric trial of Indocin along with a proton pump inhibitor to address the possibility of hemicrania. Subjective I'm trying to get by and just keep functioning despite the pain. It's hurting me a lot right now. Objective Vital Signs Date Time Temp Pulse Resp B/P (MAP) Pulse Ox O2 Delivery O2 Flow Rate FiO2 08/06/16 08:47 16 95 Room Air 08/06/16 07:49 61 127/73 08/06/16 07:00 98.6 98.6 Intake and Output 08/06/16 07:00 Intake Total 1710 ml Balance 1710 ml Intake Oral 1710 ml # Voids 5 PHYSICAL EXAM He was alert, awake and cooperative. Speech was fluent and clear. He is a good fund of recent and remote knowledge. Attention and concentration was intact. His sitting balance was good as he was sitting at the side of the bed eating his lunch. He had his left eye patched. In patch the eye in the eyes were conjugate. Extraocular movements were intact. The pupils were 2-3 mm. Funduscopic exam did not reveal papilledema. The face was symmetric. Facial sensation was intact. Hearing was intact to finger rub. The palate arch symmetrically and the tongue was midline. Palpation of the left suboccipital region still provoke severe pain. Movements were symmetric and well coordinated in the upper extremities. Review of Relevant I have reviewed the following items lien (where applicable) has been applied. Labs Laboratory Tests Test 08/05/16 06:25 White Blood Count 10.7 x10^3/uL (4.0-11.0) Red Blood Count 4.91 x10^6/uL (4.30-5.70) Hemoglobin 14.7 g/dL (13.0-17.5) Hematocrit 44.4 % (39.0-53.0) Mean Corpuscular Volume 90 fL (79-100) Mean Corpuscular Hemoglobin 30 pg (25-35) Mean Corpuscular Hemoglobin Concent 33 g/dL (31-37) Red Cell Distribution Width 13.9 % (11.5-14.5) Platelet Count 315 x10^3/uL (140-400) Neutrophils (%) (Auto) 88 % (31-73) Lymphocytes (%) (Auto) 11 % (24-48) Monocytes (%) (Auto) 1 % (0-9) Eosinophils (%) (Auto) 0 % (0-3) Basophils (%) (Auto) 0 % (0-3) Neutrophils # (Auto) 9.4 x10^3uL (1.8-7.7) Lymphocytes # (Auto) 1.2 x10^3/uL (1.0-4.8) Monocytes # (Auto) 0.1 x10^3/uL (0.0-1.1) Eosinophils # (Auto) 0.0 x10^3/uL (0.0-0.7) Basophils # (Auto) 0.0 x10^3/uL (0.0-0.2) Segmented Neutrophils % 78 % (35-66) Band Neutrophils % 3 % (0-9) Lymphocytes % 17 % (24-48) Monocytes % 2 % (0-10) Platelet Estimate Adequate (ADEQUATE) Sodium Level 139 mmol/L (136-145) Potassium Level 4.3 mmol/L (3.5-5.1) Chloride Level 105 mmol/L (98-107) Carbon Dioxide Level 24 mmol/L (21-32) Anion Gap 10 (6-14) Blood Urea Nitrogen 12 mg/dL (8-26) Creatinine 1.1 mg/dL (0.7-1.3) Estimated GFR (Cockcroft-Gault) 83.8 Glucose Level 157 mg/dL (70-99) Calcium Level 9.1 mg/dL (8.5-10.1) Medications Current Medications Fentanyl Citrate (Fentanyl 2ml Vial) 25 mcg PRN Q2HR PRN IV SEVERE PAIN Last administered on 08/06/16 07:48; Start 08/05/16 at 04:30; Stop 08/06/16 at 12:06 ; Status DC Acetaminophen (Tylenol) 650 mg PRN Q6HRS PRN PO MILD PAIN; Start 08/05/16 at 04 :30 Ondansetron HCl (Zofran) 4 mg PRN Q6HRS PRN IV NAUSEA/VOMITING; Start 08/05/16 at 04:30 Prednisone (Prednisone) 60 mg DAILY PO Last administered on 08/06/16 07:48; Start 08/05/16 at 09:00 Pantoprazole Sodium (Protonix) 40 mg DAILYAC PO Last administered on 08/06/16 07:49; Start 08/05/16 at 07:30 Gadobutrol (Gadavist) 8 mmol 1X ONCE IV ; Start 08/05/16 at 14:45; Stop at 14:46; Status DC Nicotine Polacrilex (Nicorette Gum) 1 each PRN Q1HR PRN BC SMOKING CESSATION; Start 08/05/16 at 19:45 Nicotine (Nicoderm Cq 7mg) 1 patch PRN DAILY PRN TD SMOKING CESSATION Last administered on 08/06/16 08:00; Start 08/05/16 at 19:45 Atorvastatin Calcium (Lipitor) 40 mg HS PO Last administered on 08/05/16 20:38 ; Start 08/05/16 at 21:00 Acetaminophen/ Hydrocodone Bitart (Lortab 7.5/325) 1 tab PRN Q4HRS PRN PO PAIN Last administered on 08/06/16 07:47; Start 08/05/16 at 20:15; Stop 08/06/16 at 12:06; Status DC Lisinopril (Prinivil) 5 mg DAILY PO Last administered on 08/06/16 07:49; Start 08/05/16 at 20:30 Pregabalin (Lyrica) 100 mg BID PO Last administered on 08/06/16 07:48; Start 08/05/16 at 21:00 Isosorbide Mononitrate (Imdur) 30 mg DAILY PO Last administered on 08/06/16t 07 :49; Start 08/05/16 at 20:30 Fentanyl Citrate (Fentanyl 2ml Vial) 50 mcg PRN Q2HR PRN IV SEVERE PAIN; Start 08/06/16 at 12:15 Acetaminophen/ Hydrocodone Bitart (Lortab 10/325) 1 tab PRN Q4HRS PRN PO PAIN; Start 08/06/16 at 12:15 Morphine Sulfate (Ms Contin) 15 mg 1X ONCE PO ; Start 08/06/16 at 12:15; Stop 08/06/16 at 12:17; Status DC Polyethylene Glycol (miraLAX PACKET) 17 gm PRN DAILY PRN PO CONSTIPATION; Start 08/06/16 at 12:15 Polyethylene Glycol (miraLAX PACKET) 17 gm 1X ONCE PO ; Start 08/06/16 at 12:15 ; Stop 08/06/16 at 12:17; Status DC Active Scripts Active [place] 7.5-325 Tablet (Acetaminophen/Hydrocodone Bitart) 1 Each Tablet 1 Each PO Q4HRS PRN Reported Lyrica (Pregabalin) 50 Mg Capsule 1 Cap PO BID Hydrocodone-Apap 7.5-325 (Hydrocodone Bit/Acetaminophen) 1 Each Tablet 1 Tab PO PRN Q4HRS PRN Atorvastatin Calcium 20 Mg Tablet 20 Mg PO QHS Lisinopril 20 Mg Tablet 1 Tab PO DAILY Isosorbide Mononitrate Er (Isosorbide Mononitrate) 30 Mg Tab.er.24h 1 Tab PO DAILY Atorvastatin Calcium 40 Mg Tablet 40 Mg PO HS Lisinopril 5 Mg Tablet 1 Tab PO DAILY Lyrica (Pregabalin) 100 Mg Capsule 1 Cap PO BID Vitals/I & O Vital Sign - Last 24 Hours 08/05/16 08/05/16 08/05/16 08/05/16 15:51 19:58 20:00 20:01 Temp 98.0 98.0 Pulse 71 Resp 16 20 16 B/P (MAP) 152/70 (97) Pulse Ox 96 99 O2 Delivery Room Air Room Air Room Air Room Air 08/05/16 08/05/16 08/05/16 08/05/16 20:38 20:39 23:30 23:55 Temp 98.0 98.0 Pulse 71 71 75 Resp 18 20 B/P (MAP) 152/70 152/70 148/78 (101) Pulse Ox 98 O2 Delivery Room Air Room Air 08/06/16 08/06/16 08/06/16 08/06/16 02:31 03:23 03:24 07:00 Temp 97.9 98.6 97.9 98.6 Pulse 61 65 Resp 17 18 16 16 B/P (MAP) 127/73 (91) 135/70 (91) Pulse Ox 95 100 O2 Delivery Room Air Room Air Room Air Room Air 08/06/16 08/06/16 08/06/16 08/06/16 07:47 07:48 07:49 07:49 Pulse 61 61 Resp 16 16 B/P (MAP) 127/73 127/73 Pulse Ox 95 95 O2 Delivery Room Air Room Air 08/06/16 08/06/16 08/06/16 08:00 08:18 08:47 Resp 16 16 Pulse Ox 95 95 O2 Delivery Room Air Room Air Room Air Intake and Output 08/05/16 08/05/16 08/06/16 15:00 23:00 07:00 Intake Total 750 ml 960 ml Balance 750 ml 960 ml ANGELITO ADAMS MD Aug 06, 2016 12:39
[2016-08-06] MEDS ORDERED: PANTOPRAZOLE 40 MG TABLET.DR. PO SCH (12:45)
[2016-08-06] MEDS: INDOMETHACIN 25 MG CAPSULE. PO SCH ×2 (13:33→17:22)
[2016-08-06 15:00] VITALS: BP 132/58
[2016-08-06] MEDS: POLYETHYLENE GLYCOL 3350 17 GM PACKET. PO PRN (17:22)
[2016-08-06 19:55] VITALS: BP 137/74
[2016-08-06] MEDS: ATORVASTATIN CALCIUM 40 MG TABLET. PO SCH (21:57)
[2016-08-06 23:16] VITALS: BP 149/78
[2016-08-07] VITALS (11 sets, daily range): BP systolic 145–184; BP diastolic 73–114
[2016-08-07] MEDS: fentaNYL PF VIAL 100 MCG/2 ML VIAL IV PRN ×8 (02:08→21:01)
[2016-08-07] MEDS ORDERED: CALCIUM CARBONATE 500 MG TAB.CHEW PO PRN (04:00)
[2016-08-07 05:57] LABS: BASO % 0 % (0-3); EOS % 1 % (0-3); HEMATOCRIT 40.7 % (39.0-53.0); HEMOGLOBIN 13.8 g/dL (13.0-17.5); LYMPH # 4.9 x10^3/uL (1.0-4.8); LYMPH % 31 % (24-48); MEAN CORPUSCULAR HEMOGLOBIN 30 pg (25-35); MEAN CORPUSCULAR HGB CONC 34 g/dL (31-37); MEAN CORPUSCULAR VOLUME 88 fL (79-100); MONO % 9 % (0-9); NEUT % 60 % (31-73); PLATELET COUNT 302 x10^3/uL (140-400); RED BLOOD COUNT 4.62 x10^6/uL (4.30-5.70); RED CELL DISTRIBUTION WIDTH 14.1 % (11.5-14.5); WHITE BLOOD COUNT 15.9 x10^3/uL (4.0-11.0)
[2016-08-07 06:48] LABS: ALBUMIN 3.4 g/dL (3.4-5.0); CALCIUM 8.8 mg/dL (8.5-10.1); CREATININE 1.1 mg/dL (0.7-1.3); GFR 83.8; POTASSIUM 3.8 mmol/L (3.5-5.1); TOTAL BILIRUBIN 0.1 mg/dL (0.2-1.0); TOTAL PROTEIN 6.7 g/dL (6.4-8.2)
[2016-08-07] MEDS: PANTOPRAZOLE 40 MG TABLET.DR. PO SCH (07:30)
[2016-08-07] MEDS: INDOMETHACIN 25 MG CAPSULE. PO SCH ×3 (08:00→18:04)
[2016-08-07] MEDS: PREGABALIN 50 MG CAPSULE PO SCH ×2 (08:41→21:01)
[2016-08-07] MEDS: ISOSORBIDE MONONITRATE ER 30 MG TAB.ER.24H PO SCH ×2 (08:41→18:11)
--- NOTE | 2016-08-07 08:41 | PDOC2 ---
BRITTANYTESSIE Porsha VIDEOGRAPHER 08/07/16 0841: CONSULT Date of Consult Date of Consult DATE: 08/07/16 TIME: 08:33 Reason for Consult Reason for Consult: temporal artery biopsy Referring Physician Referring Physician: Dr Beach Identification/Chief Complaint Chief Complaint left eye pain Source Source: Chart review, Patient History of Present Illness Reason for Visit: Reports 1 week history of left eye pain, that radiates down behind ear to neck. Vision changes including blurred, cloudy, and darkness to objects. Increased tear production with pain. Aggravated by light, alleviated some with patch, although pain is constant. Ongoing severe headache. Neurology is following and requested TA biopsy Past Medical History Cardiovascular: HTN, Hyperlipidemia Pulmonary: No pertinent hx CENTRAL NERVOUS SYSTEM: Periperal neuropathy GI: No pertinent hx Heme/Onc: Other (hematoma after spinal surgery) Hepatobiliary: No pertinent hx Psych: No pertinent hx Musculoskeletal: low back pain, Muscle atrophy, Weakness Endocrine: No pertinent hx Past Surgical History Past Surgical History: Other (implant for back pain, coil embolization) Family History Family History: No Significant Social History <1 pack per day ALCOHOL: occassional Drugs: Marijuana (in past) Lives: with Family Current Medications Current Medications Current Medications Fentanyl Citrate (Fentanyl 2ml Vial) 25 mcg PRN Q2HR PRN IV SEVERE PAIN Last administered on 08/06/16 07:48; Start 08/05/16 at 04:30; Stop 08/06/16 at 12:06 ; Status DC Acetaminophen (Tylenol) 650 mg PRN Q6HRS PRN PO MILD PAIN; Start 08/05/16 at 04 :30 Ondansetron HCl (Zofran) 4 mg PRN Q6HRS PRN IV NAUSEA/VOMITING; Start 08/05/16 at 04:30 Prednisone (Prednisone) 60 mg DAILY PO Last administered on 08/06/16 07:48; Start 08/05/16 at 09:00 Pantoprazole Sodium (Protonix) 40 mg DAILYAC PO Last administered on 08/06/16 07:49; Start 08/05/16 at 07:30 Gadobutrol (Gadavist) 8 mmol 1X ONCE IV ; Start 08/05/16 at 14:45; Stop at 14:46; Status DC Nicotine Polacrilex (Nicorette Gum) 1 each PRN Q1HR PRN BC SMOKING CESSATION; Start 08/05/16 at 19:45 Nicotine (Nicoderm Cq 7mg) 1 patch PRN DAILY PRN TD SMOKING CESSATION Last administered on 08/06/16 08:00; Start 08/05/16 at 19:45 Atorvastatin Calcium (Lipitor) 40 mg HS PO Last administered on 08/06/16 21:57 ; Start 08/05/16 at 21:00 Acetaminophen/ Hydrocodone Bitart (Lortab 7.5/325) 1 tab PRN Q4HRS PRN PO PAIN Last administered on 08/06/16 07:47; Start 08/05/16 at 20:15; Stop 08/06/16 at 12:06; Status DC Lisinopril (Prinivil) 5 mg DAILY PO Last administered on 08/06/16 07:49; Start 08/05/16 at 20:30 Pregabalin (Lyrica) 100 mg BID PO Last administered on 08/06/16 21:57; Start 08/05/16 at 21:00 Isosorbide Mononitrate (Imdur) 30 mg DAILY PO Last administered on 08/06/16 07 :49; Start 08/05/16 at 20:30 Fentanyl Citrate (Fentanyl 2ml Vial) 50 mcg PRN Q2HR PRN IV SEVERE PAIN Last administered on 08/07/16 02:08; Start 08/06/16 at 12:15 Acetaminophen/ Hydrocodone Bitart (Lortab 10/325) 1 tab PRN Q4HRS PRN PO PAIN; Start 08/06/16 at 12:15 Morphine Sulfate (Ms Contin) 15 mg 1X ONCE PO Last administered on 08/06/16 12:51; Start 08/06/16 at 12:15; Stop 08/06/16 at 12:17; Status DC Polyethylene Glycol (miraLAX PACKET) 17 gm PRN DAILY PRN PO CONSTIPATION Last administered on 08/06/16 17:22; Start 08/06/16 at 12:15 Polyethylene Glycol (miraLAX PACKET) 17 gm 1X ONCE PO ; Start 08/06/16 at 12:15 ; Stop 08/06/16 at 12:17; Status DC Indomethacin (Indocin) 25 mg TIDWMEALS PO Last administered on 08/06/16 17:22 ; Start 08/06/16 at 13:00 Pantoprazole Sodium (Protonix) 40 mg DAILYAC PO ; Start 08/06/16 at 12:45; Stop 08/06/16 at 15:38; Status DC Calcium Carbonate/ Glycine (Tums) 500 mg PRN Q6HRS PRN PO INDIGESTION Last administered on 08/07/16t 04:11; Start 08/07/16 at 04:00 Active Scripts Active [place] 7.5-325 Tablet (Acetaminophen/Hydrocodone Bitart) 1 Each Tablet 1 Each PO Q4HRS PRN Reported Lyrica (Pregabalin) 50 Mg Capsule 1 Cap PO BID Hydrocodone-Apap 7.5-325 (Hydrocodone Bit/Acetaminophen) 1 Each Tablet 1 Tab PO PRN Q4HRS PRN Atorvastatin Calcium 20 Mg Tablet 20 Mg PO QHS Lisinopril 20 Mg Tablet 1 Tab PO DAILY Isosorbide Mononitrate Er (Isosorbide Mononitrate) 30 Mg Tab.er.24h 1 Tab PO DAILY Atorvastatin Calcium 40 Mg Tablet 40 Mg PO HS Lisinopril 5 Mg Tablet 1 Tab PO DAILY Lyrica (Pregabalin) 100 Mg Capsule 1 Cap PO BID Allergies Allergies: Coded Allergies: levofloxacin (Verified Allergy, Intermediate, Hives, 06/22/16) ROS General: No: Chills, Other (fevers) PSYCHOLOGICAL ROS: No: Anxiety, Depression Eyes: Yes Other (see hpi) HEENT: YES: Heacaches, No: Sore Throat Hematological and Lymphatic: YES: Bleeding Problems (hx hematoma after implant placement, required coil embolization), No: Blood Clots Respiratory: No: Cough, Shortness of breath Gastrointestinal: No Nausea, No Abdominal Pain Genitourinary: No Dysuria, No Hematuria Musculoskeletal: No Joint Pain, No Muscle Pain Neurological: Yes Dizziness, No Numbness/Tingling Skin: No Pruritus, No Rash Physical Exam General: Alert, Oriented X3, Cooperative, No acute distress HEENT: Other (patch to left eye, when removes patch, unable to open eye without significant pain) Heart: Regular rate, Normal S1, Normal S2 Abdomen: Soft, No tenderness Extremities: No clubbing, No cyanosis Skin: No rashes, No breakdown Neuro: Normal speech, Sensation intact Psych/Mental Status: Mental status NL, Mood NL MUSCULOSKELETAL: No deformity, No swelling Vitals VITALS Vital Signs Date Time Temp Pulse Resp B/P (MAP) Pulse Ox O2 Delivery O2 Flow Rate FiO2 08/07/16 07:43 97.7 68 16 147/78 (101) 95 Room Air 97.7 Labs Labs Laboratory Tests Test 08/07/16 05:15 08/07/16 05:20 Sodium Level 139 mmol/L (136-145) Potassium Level 3.8 mmol/L (3.5-5.1) Chloride Level 105 mmol/L (98-107) Carbon Dioxide Level 28 mmol/L (21-32) Anion Gap 6 (6-14) Blood Urea Nitrogen 17 mg/dL (8-26) Creatinine 1.1 mg/dL (0.7-1.3) Estimated GFR (Cockcroft-Gault) 83.8 BUN/Creatinine Ratio 15 (6-20) Glucose Level 119 mg/dL (70-99) Calcium Level 8.8 mg/dL (8.5-10.1) Total Bilirubin 0.1 mg/dL (0.2-1.0) Aspartate Amino Transf (AST/SGOT) 9 U/L (15-37) Alanine Aminotransferase (ALT/SGPT) 15 U/L (16-63) Alkaline Phosphatase 90 U/L (46-116) C-Reactive Protein, Quantitative 1.0 mg/L (0-3.3) Total Protein 6.7 g/dL (6.4-8.2) Albumin 3.4 g/dL (3.4-5.0) Albumin/Globulin Ratio 1.0 (1.0-1.7) White Blood Count 15.9 x10^3/uL (4.0-11.0) Red Blood Count 4.62 x10^6/uL (4.30-5.70) Hemoglobin 13.8 g/dL (13.0-17.5) Hematocrit 40.7 % (39.0-53.0) Mean Corpuscular Volume 88 fL (79-100) Mean Corpuscular Hemoglobin 30 pg (25-35) Mean Corpuscular Hemoglobin Concent 34 g/dL (31-37) Red Cell Distribution Width 14.1 % (11.5-14.5) Platelet Count 302 x10^3/uL (140-400) Neutrophils (%) (Auto) 60 % (31-73) Lymphocytes (%) (Auto) 31 % (24-48) Monocytes (%) (Auto) 9 % (0-9) Eosinophils (%) (Auto) 1 % (0-3) Basophils (%) (Auto) 0 % (0-3) Neutrophils # (Auto) 9.5 x10^3uL (1.8-7.7) Lymphocytes # (Auto) 4.9 x10^3/uL (1.0-4.8) Monocytes # (Auto) 1.4 x10^3/uL (0.0-1.1) Eosinophils # (Auto) 0.1 x10^3/uL (0.0-0.7) Basophils # (Auto) 0.0 x10^3/uL (0.0-0.2) Erythrocyte Sedimentation Rate 2 (0-15) Laboratory Tests Test 08/07/16 05:15 08/07/16 05:20 Sodium Level 139 mmol/L (136-145) Potassium Level 3.8 mmol/L (3.5-5.1) Chloride Level 105 mmol/L (98-107) Carbon Dioxide Level 28 mmol/L (21-32) Anion Gap 6 (6-14) Blood Urea Nitrogen 17 mg/dL (8-26) Creatinine 1.1 mg/dL (0.7-1.3) Estimated GFR (Cockcroft-Gault) 83.8 BUN/Creatinine Ratio 15 (6-20) Glucose Level 119 mg/dL (70-99) Calcium Level 8.8 mg/dL (8.5-10.1) Total Bilirubin 0.1 mg/dL (0.2-1.0) Aspartate Amino Transf (AST/SGOT) 9 U/L (15-37) Alanine Aminotransferase (ALT/SGPT) 15 U/L (16-63) Alkaline Phosphatase 90 U/L (46-116) C-Reactive Protein, Quantitative 1.0 mg/L (0-3.3) Total Protein 6.7 g/dL (6.4-8.2) Albumin 3.4 g/dL (3.4-5.0) Albumin/Globulin Ratio 1.0 (1.0-1.7) White Blood Count 15.9 x10^3/uL (4.0-11.0) Red Blood Count 4.62 x10^6/uL (4.30-5.70) Hemoglobin 13.8 g/dL (13.0-17.5) Hematocrit 40.7 % (39.0-53.0) Mean Corpuscular Volume 88 fL (79-100) Mean Corpuscular Hemoglobin 30 pg (25-35) Mean Corpuscular Hemoglobin Concent 34 g/dL (31-37) Red Cell Distribution Width 14.1 % (11.5-14.5) Platelet Count 302 x10^3/uL (140-400) Neutrophils (%) (Auto) 60 % (31-73) Lymphocytes (%) (Auto) 31 % (24-48) Monocytes (%) (Auto) 9 % (0-9) Eosinophils (%) (Auto) 1 % (0-3) Basophils (%) (Auto) 0 % (0-3) Neutrophils # (Auto) 9.5 x10^3uL (1.8-7.7) Lymphocytes # (Auto) 4.9 x10^3/uL (1.0-4.8) Monocytes # (Auto) 1.4 x10^3/uL (0.0-1.1) Eosinophils # (Auto) 0.1 x10^3/uL (0.0-0.7) Basophils # (Auto) 0.0 x10^3/uL (0.0-0.2) Erythrocyte Sedimentation Rate 2 (0-15) Assessment/Plan Assessment/Plan headache, left eye pain will plan for temporal artery biopsy today EVELYN CHUNG MD 08/07/16 1059: CONSULT Allergies Allergies: Coded Allergies: levofloxacin (Verified Allergy, Intermediate, Hives, 06/22/16) Assessment/Plan Assessment/Plan pt seen, interviewed and examined for left TAB this AM explained risks including but not limited to bleeding, infection, and that this is a diagnostic procedure, not expected to resolve his sx he understands and will proceed Thanks for consult TESSIE SOTO APRN Aug 07, 2016 08:41 EVELYN CHUNG MD Aug 07, 2016 10:59
[2016-08-07] MEDS: LISINOPRIL 5 MG TABLET. PO SCH ×2 (08:42→18:12)
[2016-08-07] MEDS: predniSONE 20 MG TABLET PO SCH (08:42)
[2016-08-07] MEDS: IV RINGERS,LACTATED 1000ML 1,000 ML IV SCH ×2 (09:30→15:20)
[2016-08-07] MEDS ORDERED: HYDROmorphone 2 MG/ML VIAL IV PRN (09:45)
[2016-08-07] MEDS ORDERED: LIDOCAINE 1% 1 ML SYRINGE. ID PRN (09:45)
[2016-08-07] MEDS ORDERED: MIDAZOLAM HCL/PF 2 MG/2 ML VIAL. IV PRN ×2 (09:45)
[2016-08-07] MEDS ORDERED: MORPHINE SULFATE 4 MG/ML DISP.SYRIN. IV PRN (09:45)
[2016-08-07] MEDS ORDERED: fentaNYL PF VIAL 100 MCG/2 ML VIAL IV PRN ×2 (09:45)
[2016-08-07] MEDS ORDERED: MEPERIDINE PF 25 MG/ML VIAL. IV PRN (09:45)
[2016-08-07] MEDS ORDERED: PROCHLORPERAZINE 10 MG/2 ML VIAL. IV PRN (09:45)
[2016-08-07] MEDS ORDERED: diphenhydrAMINE 50 MG/ML VIAL IV PRN (09:45)
[2016-08-07] MEDS ORDERED: BUPIVACAINE MPF 0.5% 30 ML VIAL. ONE (11:05)
[2016-08-07] MEDS ORDERED: POVIDONE-IODINE 10% TOPICAL OINTMENT 28GM TUBE. TP ONE (11:06)
[2016-08-07] MEDS ORDERED: MIDAZOLAM HCL/PF 2 MG/2 ML VIAL. ONE (11:18)
[2016-08-07] MEDS ORDERED: fentaNYL PF VIAL 100 MCG/2 ML VIAL ONE (11:18)
[2016-08-07] MEDS ORDERED: PHENYLEPHRINE in 0.9% NACL PF 1 MG/10 ML DISP.SYRIN. IV ONE (11:34)
[2016-08-07] MEDS ORDERED: NEO/POLYMYX/DEXAMETH OPHTH OINTMENT 3.5GM TUBE. ONE (11:35)
[2016-08-07] MEDS ORDERED: PROPOFOL 20 ML IV ONE (11:39)
[2016-08-07] MEDS ORDERED: LIDOCAINE 2% PF Vial for OR 5 ML VIAL. ONE (11:39)
[2016-08-07] MEDS ORDERED: ONDANSETRON PF 4 MG/2 ML VIAL. ONE (11:40)
[2016-08-07] MEDS ORDERED: DEXAMETHASONE SOD PHOS 20 MG/5 ML VIAL. ONE (11:40)
[2016-08-07] MEDS ORDERED: SEVOFLURANE 31 TO 60 MINUTES. IH ONE (12:07)
--- NOTE | 2016-08-07 12:29 | PDOC ---
BRIEF OPERATIVE NOTE Date: Aug 07, 2016 Pre-Op Diagnosis left sided headaches Post-Op Diagnosis same Procedure Performed left temporal artery biopsy Surgeon Ariel Anesthesia Type: General Blood Loss 5cc IV Fluid 700cc Specimens Obtained temporal artery Findings prominent vessel Complications none Additional Remarks # [id number] EVELYN CHUNG MD Aug 07, 2016 12:29
--- NOTE | 2016-08-07 16:55 | OP ---
DATE OF SURGERY: 08/07/2016 PREOPERATIVE DIAGNOSIS: Left-sided headaches. POSTOPERATIVE DIAGNOSIS: Left-sided headaches. PROCEDURE: Left temporal artery biopsy. SURGEON: Evelyn Chung M.D. ANESTHESIA: General LMA. ESTIMATED BLOOD LOSS: 5 mL. INTRAVENOUS FLUIDS: 700 mL. INDICATIONS: The patient is a 56-year-old with severe left-sided headaches and eye pain with light exposure. We are asked to do a temporal artery biopsy to rule out temporal arteritis. DESCRIPTION OF PROCEDURE: The patient brought to the operating suite, given a general LMA and the left temporal area was prepped and draped in usual sterile fashion. An incision was made over the palpable vessel and dissection carried down to the vessel. That was ligated proximally and distally with Vicryl ties and a segment excised. The area was infiltrated with local anesthetic. When hemostasis was present, correct sponge count was obtained, the wound was closed with interrupted inverted 3-0 Vicryl in subcutaneous tissue and subcuticular with 4-0 Monocryl and with Steri-Strips for the skin. Sterile dressing applied. The patient was awakened from his anesthetic and taken to the recovery room in satisfactory condition. EVELYN CHUNG MD DR: YELENA/carlita JOB#: [id number] / [id number]
--- NOTE | 2016-08-07 18:04 | PDOC ---
PROGRESS NOTES Assessment Assessment IMPRESSION: Left side headache. Pain behind left eye x 10 days. Left eye tear duct obstruction. To rule out left side giant arteritis. HTN HLD Old lacunar infract. No evidence of acute CVA or vasculitis this time. RECOMMENDATIONS/PLAN: Left temporal A biopsy on 08/07. FU pathology reports. Continue current treatment. Discussed with his at bedside. ESR: 2 SUBJECTIVE: Pain in left side head and behind left eye. Past Medical History Cardiovascular: HTN, Hyperlipidemia Pulmonary: No pertinent hx CENTRAL NERVOUS SYSTEM: Periperal neuropathy GI: No pertinent hx Heme/Onc: No pertinent hx Hepatobiliary: No pertinent hx Psych: No pertinent hx Musculoskeletal: low back pain, Muscle atrophy, Weakness Endocrine: No pertinent hx Past Surgical History Right rotated cuff repair. Family History No Significant Social History Smoke: Ciga 3 /daily. ALCOHOL: 3 beers a week x 20 years. Drugs: None ALLERGY: Reviewed.n MEDICATIONS: Refer to [facility] REVIEW OF SYSTEMS: Constitutional: No malnutrition, weight loss, cachexia. Head: No traumatic brain or head injury. Skin: No edema, or rash. Ear: No infection. Eyes: No vision loss, or diplopia. Nose: No bleeding or purulent discharges. Hearing: No hearing decrease. Neck: No injury. Cardiac: HTN, HLD Pulmonary: No CPOD. GI: No GI Ulcer, GI bleeding Urinary/genital: No dysuria, incontinence, urinary retention. Endocrine: No cousin face, craniofacial dysmorphism, polydactyly. Skeletomuscular: No muscular atrophy, deformity. Neurological: see HP. Psychiatric: Denies drug use/abuse. Otherwise, not [id number] review of systems. PHYSICAL EXAMINATION: General appearance in no acute distress. HEENT: Normocephalic and nontraumatic. Eyes, nose, ears, and throat are unremarkable. Hearing decrease. Neck is supple. No lymphadenopathy. No Crepitus. Cardiovascular: S1, S2, regular rate and rhythm. Pulmonary: Clear to auscultation bilaterally. Abdomen: Bowel sounds are positive. Abdomen is soft, nontender, and nondistended. Extremities: No rash, lesions, or edema. No restriction of range of motion NEUROLOGICAL EXAMINATION: Alert. Oriented to time, place and person. PERRL. EOMI. CN: no focal findings. Muscle tone: within normal. Muscle strength: 5 DTR: 2 Plantar reflex: Flexor response bilaterally Gait: At baseline normal. Sensory exam: no abnormal findings. No cerebellar signs elicited. F-T-N test accurate. Objective Objective Vital Signs Date Time Temp Pulse Resp B/P (MAP) Pulse Ox O2 Delivery O2 Flow Rate FiO2 08/07/16 17:08 Room Air 08/07/16 15:54 1.0 08/07/16 14:15 97.7 65 16 178/89 (118) 98 97.7 Intake and Output 08/07/16 07:00 Intake Total 1730 ml Balance 1730 ml Intake Oral 1730 ml # Voids 3 Vitals Signs Vitals VS - Last 72 Hours, by Label Date Time Temp Pulse Resp B/P (MAP) Pulse Ox O2 Delivery O2 Flow Rate FiO2 08/07/16 17:08 Room Air 08/07/16 15:54 Nasal Cannula 1.0 08/07/16 14:15 97.7 65 16 178/89 (118) 98 Room Air 97.7 08/07/16 13:55 Room Air 08/07/16 13:55 Room Air 08/07/16 13:27 72 18 185/91 94 Nasal Cannula 2 08/07/16 13:27 18 94 Nasal Cannula 2.0 08/07/16 13:12 79 16 194/99 95 Nasal Cannula 2 08/07/16 12:57 97.0 75 18 176/91 93 Nasal Cannula 2 97.0 08/07/16 12:56 18 93 Nasal Cannula 2.0 08/07/16 12:46 18 96 Nasal Cannula 2.0 08/07/16 12:43 75 20 181/93 94 Nasal Cannula 2 08/07/16 12:35 20 93 Nasal Cannula 2.0 08/07/16 12:28 91 20 146/91 92 Nasal Cannula 2 08/07/16 12:28 Nasal Cannula 2 08/07/16 12:27 16 99 Simple Mask 10.0 08/07/16 12:13 97.2 109 20 166/94 99 Simple Mask 10 97.2 08/07/16 10:52 97.1 68 22 170/82 98 Room Air 97.1 08/07/16 08:42 68 147/78 08/07/16 08:41 Room Air 08/07/16 08:41 68 147/78 08/07/16 08:09 Room Air 08/07/16 07:43 97.7 68 16 147/78 (101) 95 Room Air 97.7 08/07/16 03:17 98.4 72 16 145/76 (99) 94 Room Air 98.4 08/07/16 02:35 16 08/07/16 02:08 20 Room Air 08/06/16 23:16 98.2 64 18 149/78 (101) 96 Room Air 98.2 08/06/16 22:04 16 Room Air 08/06/16 19:55 97.8 65 20 137/74 (95) 98 Room Air 97.8 08/06/16 19:47 16 Room Air 08/06/16 16:51 16 95 Room Air 08/06/16 15:00 98.0 77 18 132/58 (82) 95 Room Air 98.0 08/06/16 12:51 16 95 Room Air 08/06/16 11:00 97.6 98 18 115/50 (71) 96 Room Air 97.6 08/06/16 08:47 16 95 Room Air 08/06/16 08:18 16 95 Room Air 08/06/16 08:00 Room Air 08/06/16 07:49 61 127/73 08/06/16 07:49 61 127/73 08/06/16 07:48 16 95 Room Air 08/06/16 07:47 16 95 Room Air 08/06/16 07:00 98.6 65 16 135/70 (91) 100 Room Air 98.6 Laboratory Laboratory Laboratory Tests Test 08/07/16 05:15 08/07/16 05:20 Sodium Level 139 mmol/L (136-145) Potassium Level 3.8 mmol/L (3.5-5.1) Chloride Level 105 mmol/L (98-107) Carbon Dioxide Level 28 mmol/L (21-32) Anion Gap 6 (6-14) Blood Urea Nitrogen 17 mg/dL (8-26) Creatinine 1.1 mg/dL (0.7-1.3) Estimated GFR (Cockcroft-Gault) 83.8 BUN/Creatinine Ratio 15 (6-20) Glucose Level 119 mg/dL (70-99) Calcium Level 8.8 mg/dL (8.5-10.1) Total Bilirubin 0.1 mg/dL (0.2-1.0) Aspartate Amino Transf (AST/SGOT) 9 U/L (15-37) Alanine Aminotransferase (ALT/SGPT) 15 U/L (16-63) Alkaline Phosphatase 90 U/L (46-116) C-Reactive Protein, Quantitative 1.0 mg/L (0-3.3) Total Protein 6.7 g/dL (6.4-8.2) Albumin 3.4 g/dL (3.4-5.0) Albumin/Globulin Ratio 1.0 (1.0-1.7) White Blood Count 15.9 x10^3/uL (4.0-11.0) Red Blood Count 4.62 x10^6/uL (4.30-5.70) Hemoglobin 13.8 g/dL (13.0-17.5) Hematocrit 40.7 % (39.0-53.0) Mean Corpuscular Volume 88 fL (79-100) Mean Corpuscular Hemoglobin 30 pg (25-35) Mean Corpuscular Hemoglobin Concent 34 g/dL (31-37) Red Cell Distribution Width 14.1 % (11.5-14.5) Platelet Count 302 x10^3/uL (140-400) Neutrophils (%) (Auto) 60 % (31-73) Lymphocytes (%) (Auto) 31 % (24-48) Monocytes (%) (Auto) 9 % (0-9) Eosinophils (%) (Auto) 1 % (0-3) Basophils (%) (Auto) 0 % (0-3) Neutrophils # (Auto) 9.5 x10^3uL (1.8-7.7) Lymphocytes # (Auto) 4.9 x10^3/uL (1.0-4.8) Monocytes # (Auto) 1.4 x10^3/uL (0.0-1.1) Eosinophils # (Auto) 0.1 x10^3/uL (0.0-0.7) Basophils # (Auto) 0.0 x10^3/uL (0.0-0.2) Erythrocyte Sedimentation Rate 2 (0-15) Medication Medications Current Medications Bupivacaine HCl (Sensorcaine Mpf 0.5%) 30 ml STK-MED ONCE .ROUTE Last administered on 08/07/16t 11:44; Start 08/07/16 at 11:05; Stop 08/07/16 at 11:06 ; Status DC Calcium Carbonate/ Glycine (Tums) 500 mg PRN Q6HRS PRN PO INDIGESTION Last administered on 08/07/16t 04:11; Start 08/07/16 at 04:00 Cefazolin Sodium 50 ml @ As Directed STK-MED ONCE IV ; Start 08/07/16 at 11:37; Stop 08/07/16 at 11:38; Status DC Dexamethasone Sodium Phosphate (Decadron) 20 mg STK-MED ONCE .ROUTE ; Start at 11:40; Stop 08/07/16 at 11:41; Status DC Diphenhydramine HCl (Benadryl) 12.5 mg PRN Q2HR PRN IV ITCHING; Start 08/07/16 at 09:45; Stop 08/08/16 at 09:44 Fentanyl Citrate (Fentanyl 2ml Vial) 25 mcg PRN Q5MIN PRN IV X 2 DOSES FOR PAIN ; Start 08/07/16 at 09:45; Stop 08/08/16 at 09:44 Fentanyl Citrate (Fentanyl 2ml Vial) 50 mcg PRN Q5MIN PRN IV Acute Pain Last administered on 08/07/16t 13:27; Start 08/07/16 at 09:45; Stop 08/08/16 at 09:44 Fentanyl Citrate (Fentanyl 2ml Vial) 50 mcg PRN Q5MIN PRN IV X 2 DOSES FOR PAIN ; Start 08/07/16 at 09:45; Stop 08/08/16 at 09:44 Fentanyl Citrate (Fentanyl 2ml Vial) 100 mcg STK-MED ONCE .ROUTE ; Start at 11:18; Stop 08/07/16 at 11:19; Status DC Hydromorphone HCl (Dilaudid) 0.4 mg PRN Q10MIN PRN IV Moderate to severe pain; Start 08/07/16 at 09:45; Stop 08/08/16 at 09:44 Lidocaine HCl 2 ml 1X PRN PRN ID IV START; Start 08/07/16 at 09:45; Stop at 09:44 Lidocaine HCl (Lidocaine Pf 2% Vial) 5 ml STK-MED ONCE .ROUTE ; Start 08/07/16 at 11:39; Stop 08/07/16 at 11:40; Status DC Meperidine HCl (Demerol) 12.5 mg PRN Q5MIN PRN IV SHIVERING; Start 08/07/16 at 09:45; Stop 08/08/16 at 09:44 Midazolam HCl (Versed) 1 mg PRN 1X PRN IV PRIOR TO PROCEDURE; Start 08/07/16 at 09:45; Stop 08/08/16 at 09:44 Midazolam HCl (Versed) 2 mg PRN 1X PRN IV PRIOR TO PROCEDURE; Start 08/07/16 at 09:45; Stop 08/08/16 at 09:44 Midazolam HCl (Versed) 2 mg STK-MED ONCE .ROUTE ; Start 08/07/16 at 11:18; Stop 08/07/16 at 11:19; Status DC Morphine Sulfate 4 mg PRN Q10MIN PRN IV Moderate Pain Last administered on 08/07t 12:46; Start 08/07/16 at 09:45; Stop 08/08/16 at 09:44 Neomycin/ Polymyxin/ Dexamethasone (Maxitrol) 7 inch STK-MED ONCE .ROUTE ; Start 08/07/16 at 11:35; Stop 08/07/16 at 11:36; Status DC Ondansetron HCl (Zofran) 4 mg STK-MED ONCE .ROUTE ; Start 08/07/16 at 11:40; Stop 08/07/16 at 11:41; Status DC Phenylephrine HCl 1 mg STK-MED ONCE IV ; Start 08/07/16 at 11:34; Stop 08/07/16 at 11:35; Status DC Povidone Iodine ( Betadine Oint) 28 maria STK-MED ONCE TP ; Start 08/07/16 at 11: 06; Stop 08/07/16 at 11:07; Status DC Prochlorperazine Edisylate (Compazine) 5 mg PRN Q6HRS PRN IV Nausea/Vomiting, 1st Choice; Start 08/07/16 at 09:45; Stop 08/08/16 at 09:44 Propofol 20 ml @ As Directed STK-MED ONCE IV ; Start 08/07/16 at 11:39; Stop at 11:40; Status DC Ringer's Solution 1,000 ml @ 125 mls/hr Q8H IV Last administered on 08/07/16t 09:30; Start 08/07/16 at 09:43; Stop 08/07/16 at 21:42 Sevoflurane (Ultane) 30 ml STK-MED ONCE IH ; Start 08/07/16 at 12:07; Stop 08/07 at 12:08; Status DC Comment Review of Relevant I have reviewed the following items lien (where applicable) has been applied. LEELA MCLAIN MD Aug 07, 2016 18:04
[2016-08-07 18:46] LABS: BARBITURATES NEG (NEG); BENZODIAZEPINES POS (NEG); CANNABINOIDS NEG (NEG); COCAINE NEG (NEG); METHADONE NEG (NEG); OPIATES POS (NEG); PHENCYCLIDINE NEG (NEG)
[2016-08-07] MEDS: ATORVASTATIN CALCIUM 40 MG TABLET. PO SCH (21:01)
[2016-08-07] MEDS: NICOTINE 7MG PATCH. TD PRN (22:51)
--- NOTE | 2016-08-07 23:17 | PDOC ---
PROGRESS NOTES Chief Complaint Chief Complaint temporal arteritis headache, left eye pain, blurry vision mild CAD, known, no angina htn, hyperlipids , \ tobaccoism, cessation discussed, chronic back pain and sciatica s/p failed back surgery 4 years ago, left foot drop, left leg nerve pain, on Lyrica History of Present Illness History of Present Illness Seen and examined dw Vitals Vitals Vital Signs Date Time Temp Pulse Resp B/P (MAP) Pulse Ox O2 Delivery O2 Flow Rate FiO2 08/07/16 21:31 17 Room Air 08/07/16 18:15 88 167/81 (109) 95 08/07/16 15:54 1.0 08/07/16 14:15 97.7 97.7 Physical Exam General: Alert, Oriented X3, Cooperative, No acute distress Heart: Regular rate, Normal S1, Normal S2 Lungs: Clear Abdomen: Soft, No tenderness Extremities: No clubbing, No cyanosis Skin: No rashes, No breakdown Labs LABS Laboratory Tests Test 08/07/16 05:15 08/07/16 05:20 08/07/16 18:14 Sodium Level 139 mmol/L (136-145) Potassium Level 3.8 mmol/L (3.5-5.1) Chloride Level 105 mmol/L (98-107) Carbon Dioxide Level 28 mmol/L (21-32) Anion Gap 6 (6-14) Blood Urea Nitrogen 17 mg/dL (8-26) Creatinine 1.1 mg/dL (0.7-1.3) Estimated GFR (Cockcroft-Gault) 83.8 BUN/Creatinine Ratio 15 (6-20) Glucose Level 119 mg/dL (70-99) Calcium Level 8.8 mg/dL (8.5-10.1) Total Bilirubin 0.1 mg/dL (0.2-1.0) Aspartate Amino Transf (AST/SGOT) 9 U/L (15-37) Alanine Aminotransferase (ALT/SGPT) 15 U/L (16-63) Alkaline Phosphatase 90 U/L (46-116) C-Reactive Protein, Quantitative 1.0 mg/L (0-3.3) Total Protein 6.7 g/dL (6.4-8.2) Albumin 3.4 g/dL (3.4-5.0) Albumin/Globulin Ratio 1.0 (1.0-1.7) HIV-1 Antibody Non reactive (Non Reactive) White Blood Count 15.9 x10^3/uL (4.0-11.0) Red Blood Count 4.62 x10^6/uL (4.30-5.70) Hemoglobin 13.8 g/dL (13.0-17.5) Hematocrit 40.7 % (39.0-53.0) Mean Corpuscular Volume 88 fL (79-100) Mean Corpuscular Hemoglobin 30 pg (25-35) Mean Corpuscular Hemoglobin Concent 34 g/dL (31-37) Red Cell Distribution Width 14.1 % (11.5-14.5) Platelet Count 302 x10^3/uL (140-400) Neutrophils (%) (Auto) 60 % (31-73) Lymphocytes (%) (Auto) 31 % (24-48) Monocytes (%) (Auto) 9 % (0-9) Eosinophils (%) (Auto) 1 % (0-3) Basophils (%) (Auto) 0 % (0-3) Neutrophils # (Auto) 9.5 x10^3uL (1.8-7.7) Lymphocytes # (Auto) 4.9 x10^3/uL (1.0-4.8) Monocytes # (Auto) 1.4 x10^3/uL (0.0-1.1) Eosinophils # (Auto) 0.1 x10^3/uL (0.0-0.7) Basophils # (Auto) 0.0 x10^3/uL (0.0-0.2) Erythrocyte Sedimentation Rate 2 (0-15) Urine Opiates Screen Pos (NEG) Urine Methadone Screen Neg (NEG) Urine Barbiturates Neg (NEG) Urine Phencyclidine Screen Neg (NEG) Urine Amphetamine/Methamphetamine Neg (NEG) Urine Benzodiazepines Screen Pos (NEG) Urine Cocaine Screen Neg (NEG) Urine Cannabinoids Screen Neg (NEG) Urine Ethyl Alcohol Neg (NEG) Review of Systems Review of Systems co michel co pain Assessment and Plan Assessmemt and Plan Probable temporal arteritis headache, left eye pain, blurry vision mild CAD, known, no angina htn, hyperlipids , \ tobaccoism, cessation discussed, chronic back pain and sciatica s/p failed back surgery 4 years ago, left foot drop, left leg nerve pain, on Lyrica Plan went for temp art bx today await results PO steroids PTOT Home meds Labs Problems: Comment Review of Relevant I have reviewed the following items lien (where applicable) has been applied. Labs Laboratory Tests Test 08/07/16 05:15 08/07/16 05:20 08/07/16 18:14 Sodium Level 139 mmol/L (136-145) Potassium Level 3.8 mmol/L (3.5-5.1) Chloride Level 105 mmol/L (98-107) Carbon Dioxide Level 28 mmol/L (21-32) Anion Gap 6 (6-14) Blood Urea Nitrogen 17 mg/dL (8-26) Creatinine 1.1 mg/dL (0.7-1.3) Estimated GFR (Cockcroft-Gault) 83.8 BUN/Creatinine Ratio 15 (6-20) Glucose Level 119 mg/dL (70-99) Calcium Level 8.8 mg/dL (8.5-10.1) Total Bilirubin 0.1 mg/dL (0.2-1.0) Aspartate Amino Transf (AST/SGOT) 9 U/L (15-37) Alanine Aminotransferase (ALT/SGPT) 15 U/L (16-63) Alkaline Phosphatase 90 U/L (46-116) C-Reactive Protein, Quantitative 1.0 mg/L (0-3.3) Total Protein 6.7 g/dL (6.4-8.2) Albumin 3.4 g/dL (3.4-5.0) Albumin/Globulin Ratio 1.0 (1.0-1.7) HIV-1 Antibody Non reactive (Non Reactive) White Blood Count 15.9 x10^3/uL (4.0-11.0) Red Blood Count 4.62 x10^6/uL (4.30-5.70) Hemoglobin 13.8 g/dL (13.0-17.5) Hematocrit 40.7 % (39.0-53.0) Mean Corpuscular Volume 88 fL (79-100) Mean Corpuscular Hemoglobin 30 pg (25-35) Mean Corpuscular Hemoglobin Concent 34 g/dL (31-37) Red Cell Distribution Width 14.1 % (11.5-14.5) Platelet Count 302 x10^3/uL (140-400) Neutrophils (%) (Auto) 60 % (31-73) Lymphocytes (%) (Auto) 31 % (24-48) Monocytes (%) (Auto) 9 % (0-9) Eosinophils (%) (Auto) 1 % (0-3) Basophils (%) (Auto) 0 % (0-3) Neutrophils # (Auto) 9.5 x10^3uL (1.8-7.7) Lymphocytes # (Auto) 4.9 x10^3/uL (1.0-4.8) Monocytes # (Auto) 1.4 x10^3/uL (0.0-1.1) Eosinophils # (Auto) 0.1 x10^3/uL (0.0-0.7) Basophils # (Auto) 0.0 x10^3/uL (0.0-0.2) Erythrocyte Sedimentation Rate 2 (0-15) Urine Opiates Screen Pos (NEG) Urine Methadone Screen Neg (NEG) Urine Barbiturates Neg (NEG) Urine Phencyclidine Screen Neg (NEG) Urine Amphetamine/Methamphetamine Neg (NEG) Urine Benzodiazepines Screen Pos (NEG) Urine Cocaine Screen Neg (NEG) Urine Cannabinoids Screen Neg (NEG) Urine Ethyl Alcohol Neg (NEG) Laboratory Tests Test 08/07/16 05:15 08/07/16 05:20 08/07/16 18:14 Sodium Level 139 mmol/L (136-145) Potassium Level 3.8 mmol/L (3.5-5.1) Chloride Level 105 mmol/L (98-107) Carbon Dioxide Level 28 mmol/L (21-32) Anion Gap 6 (6-14) Blood Urea Nitrogen 17 mg/dL (8-26) Creatinine 1.1 mg/dL (0.7-1.3) Estimated GFR (Cockcroft-Gault) 83.8 BUN/Creatinine Ratio 15 (6-20) Glucose Level 119 mg/dL (70-99) Calcium Level 8.8 mg/dL (8.5-10.1) Total Bilirubin 0.1 mg/dL (0.2-1.0) Aspartate Amino Transf (AST/SGOT) 9 U/L (15-37) Alanine Aminotransferase (ALT/SGPT) 15 U/L (16-63) Alkaline Phosphatase 90 U/L (46-116) C-Reactive Protein, Quantitative 1.0 mg/L (0-3.3) Total Protein 6.7 g/dL (6.4-8.2) Albumin 3.4 g/dL (3.4-5.0) Albumin/Globulin Ratio 1.0 (1.0-1.7) HIV-1 Antibody Non reactive (Non Reactive) White Blood Count 15.9 x10^3/uL (4.0-11.0) Red Blood Count 4.62 x10^6/uL (4.30-5.70) Hemoglobin 13.8 g/dL (13.0-17.5) Hematocrit 40.7 % (39.0-53.0) Mean Corpuscular Volume 88 fL (79-100) Mean Corpuscular Hemoglobin 30 pg (25-35) Mean Corpuscular Hemoglobin Concent 34 g/dL (31-37) Red Cell Distribution Width 14.1 % (11.5-14.5) Platelet Count 302 x10^3/uL (140-400) Neutrophils (%) (Auto) 60 % (31-73) Lymphocytes (%) (Auto) 31 % (24-48) Monocytes (%) (Auto) 9 % (0-9) Eosinophils (%) (Auto) 1 % (0-3) Basophils (%) (Auto) 0 % (0-3) Neutrophils # (Auto) 9.5 x10^3uL (1.8-7.7) Lymphocytes # (Auto) 4.9 x10^3/uL (1.0-4.8) Monocytes # (Auto) 1.4 x10^3/uL (0.0-1.1) Eosinophils # (Auto) 0.1 x10^3/uL (0.0-0.7) Basophils # (Auto) 0.0 x10^3/uL (0.0-0.2) Erythrocyte Sedimentation Rate 2 (0-15) Urine Opiates Screen Pos (NEG) Urine Methadone Screen Neg (NEG) Urine Barbiturates Neg (NEG) Urine Phencyclidine Screen Neg (NEG) Urine Amphetamine/Methamphetamine Neg (NEG) Urine Benzodiazepines Screen Pos (NEG) Urine Cocaine Screen Neg (NEG) Urine Cannabinoids Screen Neg (NEG) Urine Ethyl Alcohol Neg (NEG) Medications Current Medications Fentanyl Citrate (Fentanyl 2ml Vial) 25 mcg PRN Q2HR PRN IV SEVERE PAIN Last administered on 08/06/16 07:48; Start 08/05/16 at 04:30; Stop 08/06/16 at 12:06 ; Status DC Acetaminophen (Tylenol) 650 mg PRN Q6HRS PRN PO MILD PAIN; Start 08/05/16 at 04 :30 Ondansetron HCl (Zofran) 4 mg PRN Q6HRS PRN IV NAUSEA/VOMITING; Start 08/05/16 at 04:30 Prednisone (Prednisone) 60 mg DAILY PO Last administered on 08/06/16 07:48; Start 08/05/16 at 09:00 Pantoprazole Sodium (Protonix) 40 mg DAILYAC PO Last administered on 08/06/16 07:49; Start 08/05/16 at 07:30 Gadobutrol (Gadavist) 8 mmol 1X ONCE IV ; Start 08/05/16 at 14:45; Stop at 14:46; Status DC Nicotine Polacrilex (Nicorette Gum) 1 each PRN Q1HR PRN BC SMOKING CESSATION; Start 08/05/16 at 19:45 Nicotine (Nicoderm Cq 7mg) 1 patch PRN DAILY PRN TD SMOKING CESSATION Last administered on 08/07/16 22:51; Start 08/05/16 at 19:45 Atorvastatin Calcium (Lipitor) 40 mg HS PO Last administered on 08/07/16 21:01 ; Start 08/05/16 at 21:00 Acetaminophen/ Hydrocodone Bitart (Lortab 7.5/325) 1 tab PRN Q4HRS PRN PO PAIN Last administered on 08/06/16 07:47; Start 08/05/16 at 20:15; Stop 08/06/16 at 12:06; Status DC Lisinopril (Prinivil) 5 mg DAILY PO Last administered on 08/07/16 18:12; Start 08/05/16 at 20:30 Pregabalin (Lyrica) 100 mg BID PO Last administered on 08/07/16 21:01; Start 08/05/16 at 21:00 Isosorbide Mononitrate (Imdur) 30 mg DAILY PO Last administered on 08/07/16 18 :11; Start 08/05/16 at 20:30 Fentanyl Citrate (Fentanyl 2ml Vial) 50 mcg PRN Q2HR PRN IV SEVERE PAIN Last administered on 08/07/16 21:01; Start 08/06/16 at 12:15 Acetaminophen/ Hydrocodone Bitart (Lortab 10/325) 1 tab PRN Q4HRS PRN PO PAIN; Start 08/06/16 at 12:15 Morphine Sulfate (Ms Contin) 15 mg 1X ONCE PO Last administered on 08/06/16 12:51; Start 08/06/16 at 12:15; Stop 08/06/16 at 12:17; Status DC Polyethylene Glycol (miraLAX PACKET) 17 gm PRN DAILY PRN PO CONSTIPATION Last administered on 08/06/16 17:22; Start 08/06/16 at 12:15 Polyethylene Glycol (miraLAX PACKET) 17 gm 1X ONCE PO ; Start 08/06/16 at 12:15 ; Stop 08/06/16 at 12:17; Status DC Indomethacin (Indocin) 25 mg TIDWMEALS PO Last administered on 08/07/16 18:04 ; Start 08/06/16 at 13:00 Pantoprazole Sodium (Protonix) 40 mg DAILYAC PO ; Start 08/06/16 at 12:45; Stop 08/06/16 at 15:38; Status DC Calcium Carbonate/ Glycine (Tums) 500 mg PRN Q6HRS PRN PO INDIGESTION Last administered on 08/07/16 04:11; Start 08/07/16 at 04:00 Fentanyl Citrate (Fentanyl 2ml Vial) 50 mcg PRN Q5MIN PRN IV Acute Pain Last administered on 08/07/16 13:27; Start 08/07/16 at 09:45; Stop 08/08/16 at 09:44 Morphine Sulfate 4 mg PRN Q10MIN PRN IV Moderate Pain Last administered on 08/07 12:46; Start 08/07/16 at 09:45; Stop 08/08/16 at 09:44 Hydromorphone HCl (Dilaudid) 0.4 mg PRN Q10MIN PRN IV Moderate to severe pain; Start 08/07/16 at 09:45; Stop 08/08/16 at 09:44 Meperidine HCl (Demerol) 12.5 mg PRN Q5MIN PRN IV SHIVERING; Start 08/07/16 at 09:45; Stop 08/08/16 at 09:44 Prochlorperazine Edisylate (Compazine) 5 mg PRN Q6HRS PRN IV Nausea/Vomiting, 1st Choice; Start 08/07/16 at 09:45; Stop 08/08/16 at 09:44 Diphenhydramine HCl (Benadryl) 12.5 mg PRN Q2HR PRN IV ITCHING; Start 08/07/16 at 09:45; Stop 08/08/16 at 09:44 Midazolam HCl (Versed) 2 mg PRN 1X PRN IV PRIOR TO PROCEDURE; Start 08/07/16 at 09:45; Stop 08/08/16 at 09:44 Midazolam HCl (Versed) 1 mg PRN 1X PRN IV PRIOR TO PROCEDURE; Start 08/07/16 at 09:45; Stop 08/08/16 at 09:44 Fentanyl Citrate (Fentanyl 2ml Vial) 25 mcg PRN Q5MIN PRN IV X 2 DOSES FOR PAIN ; Start 08/07/16 at 09:45; Stop 08/08/16 at 09:44 Fentanyl Citrate (Fentanyl 2ml Vial) 50 mcg PRN Q5MIN PRN IV X 2 DOSES FOR PAIN ; Start 08/07/16 at 09:45; Stop 08/08/16 at 09:44 Ringer's Solution 1,000 ml @ 125 mls/hr Q8H IV Last administered on 08/07/16 09:30; Start 08/07/16 at 09:43; Stop 08/07/16 at 21:42; Status DC Lidocaine HCl 2 ml 1X PRN PRN ID IV START; Start 08/07/16 at 09:45; Stop at 09:44 Bupivacaine HCl (Sensorcaine Mpf 0.5%) 30 ml STK-MED ONCE .ROUTE Last administered on 08/07/16 11:44; Start 08/07/16 at 11:05; Stop 08/07/16 at 11:06 ; Status DC Povidone Iodine ( Betadine Oint) 28 maria STK-MED ONCE TP ; Start 08/07/16 at 11: 06; Stop 08/07/16 at 11:07; Status DC Midazolam HCl (Versed) 2 mg STK-MED ONCE .ROUTE ; Start 08/07/16 at 11:18; Stop 08/07/16 at 11:19; Status DC Fentanyl Citrate (Fentanyl 2ml Vial) 100 mcg STK-MED ONCE .ROUTE ; Start at 11:18; Stop 08/07/16 at 11:19; Status DC Phenylephrine HCl 1 mg STK-MED ONCE IV ; Start 08/07/16 at 11:34; Stop 08/07/16 at 11:35; Status DC Neomycin/ Polymyxin/ Dexamethasone (Maxitrol) 7 inch STK-MED ONCE .ROUTE ; Start 08/07/16 at 11:35; Stop 08/07/16 at 11:36; Status DC Cefazolin Sodium 50 ml @ As Directed STK-MED ONCE IV ; Start 08/07/16 at 11:37; Stop 08/07/16 at 11:38; Status DC Propofol 20 ml @ As Directed STK-MED ONCE IV ; Start 08/07/16 at 11:39; Stop at 11:40; Status DC Lidocaine HCl (Lidocaine Pf 2% Vial) 5 ml STK-MED ONCE .ROUTE ; Start 08/07/16 at 11:39; Stop 08/07/16 at 11:40; Status DC Dexamethasone Sodium Phosphate (Decadron) 20 mg STK-MED ONCE .ROUTE ; Start at 11:40; Stop 08/07/16 at 11:41; Status DC Ondansetron HCl (Zofran) 4 mg STK-MED ONCE .ROUTE ; Start 08/07/16 at 11:40; Stop 08/07/16 at 11:41; Status DC Sevoflurane (Ultane) 30 ml STK-MED ONCE IH ; Start 08/07/16 at 12:07; Stop 08/07 at 12:08; Status DC Active Scripts Active Adair 7.5-325 Tablet (Acetaminophen/Hydrocodone Bitart) 1 Each Tablet 1 Each PO Q4HRS PRN Reported Lyrica (Pregabalin) 50 Mg Capsule 1 Cap PO BID Hydrocodone-Apap 7.5-325 (Hydrocodone Bit/Acetaminophen) 1 Each Tablet 1 Tab PO PRN Q4HRS PRN Atorvastatin Calcium 20 Mg Tablet 20 Mg PO QHS Lisinopril 20 Mg Tablet 1 Tab PO DAILY Isosorbide Mononitrate Er (Isosorbide Mononitrate) 30 Mg Tab.er.24h 1 Tab PO DAILY Atorvastatin Calcium 40 Mg Tablet 40 Mg PO HS Lisinopril 5 Mg Tablet 1 Tab PO DAILY Lyrica (Pregabalin) 100 Mg Capsule 1 Cap PO BID Vitals/I & O Vital Sign - Last 24 Hours 08/06/16 08/07/16 08/07/16 08/07/16 23:16 02:08 03:17 07:43 Temp 98.2 98.4 97.7 98.2 98.4 97.7 Pulse 64 72 68 Resp 18 20 16 16 B/P (MAP) 149/78 (101) 145/76 (99) 147/78 (101) Pulse Ox 96 94 95 O2 Delivery Room Air Room Air Room Air Room Air 08/07/16 08/07/16 08/07/16 08/07/16 08:09 08:41 10:52 12:13 Temp 97.1 97.2 97.1 97.2 Pulse 68 109 Resp 22 20 B/P (MAP) 170/82 166/94 Pulse Ox 98 99 O2 Delivery Room Air Room Air Room Air Simple Mask O2 Flow Rate 10 08/07/16 08/07/16 08/07/16 08/07/16 12:27 12:28 12:28 12:35 Pulse 91 Resp 16 20 20 B/P (MAP) 146/91 Pulse Ox 99 92 93 O2 Delivery Simple Mask Nasal Cannula Nasal Cannula Nasal Cannula O2 Flow Rate 10.0 2 2 2.0 08/07/16 08/07/16 08/07/16 08/07/16 12:43 12:46 12:56 12:57 Temp 97.0 97.0 Pulse 75 75 Resp 20 18 18 18 B/P (MAP) 181/93 176/91 Pulse Ox 94 96 93 93 O2 Delivery Nasal Cannula Nasal Cannula Nasal Cannula Nasal Cannula O2 Flow Rate 2 2.0 2.0 2 08/07/16 08/07/16 08/07/16 08/07/16 13:12 13:27 13:27 13:55 Pulse 79 72 Resp 16 18 18 B/P (MAP) 194/99 185/91 Pulse Ox 95 94 94 O2 Delivery Nasal Cannula Nasal Cannula Nasal Cannula Room Air O2 Flow Rate 2 2.0 2 08/07/16 08/07/16 08/07/16 08/07/16 13:55 14:15 14:30 14:45 Temp 97.7 97.7 Pulse 65 92 61 Resp 16 16 16 B/P (MAP) 178/89 (118) 166/105 (125) 184/114 (137) Pulse Ox 98 95 95 O2 Delivery Room Air Room Air Room Air Room Air 08/07/16 08/07/16 08/07/16 08/07/16 15:15 15:45 15:54 16:15 Pulse 66 61 66 Resp 16 16 16 B/P (MAP) 168/92 (117) 174/90 (118) 164/104 (124) Pulse Ox 93 95 93 O2 Delivery Room Air Room Air Nasal Cannula Room Air O2 Flow Rate 1.0 08/07/16 08/07/16 08/07/16 08/07/16 17:15 18:11 18:12 18:15 Pulse 86 82 77 88 Resp 16 16 B/P (MAP) 166/73 (104) 173/72 173/72 167/81 (109) Pulse Ox 93 95 O2 Delivery Room Air Room Air 08/07/16 08/07/16 21:01 21:31 Resp 18 17 O2 Delivery Room Air Room Air Intake and Output 08/06/16 08/06/16 08/07/16 15:00 23:00 07:00 Intake Total 1040 ml 240 ml 450 ml Balance 1040 ml 240 ml 450 ml MUKESH PEREZ III DO Aug 07, 2016 23:17
[2016-08-08] MEDS: fentaNYL PF VIAL 100 MCG/2 ML VIAL IV PRN ×6 (01:30→20:00)
[2016-08-08 03:30] VITALS: BP 140/66
[2016-08-08 07:00] VITALS: BP 158/74
[2016-08-08] MEDS: PANTOPRAZOLE 40 MG TABLET.DR. PO SCH (08:18)
[2016-08-08] MEDS: predniSONE 20 MG TABLET PO SCH (08:19)
[2016-08-08] MEDS: INDOMETHACIN 25 MG CAPSULE. PO SCH ×3 (08:22→16:01)
[2016-08-08] MEDS: PREGABALIN 50 MG CAPSULE PO SCH ×2 (08:23→20:01)
[2016-08-08] MEDS: ISOSORBIDE MONONITRATE ER 30 MG TAB.ER.24H PO SCH (08:23)
[2016-08-08] MEDS: LISINOPRIL 5 MG TABLET. PO SCH (08:24)
--- NOTE | 2016-08-08 08:58 | PDOC ---
SURGICAL PROGRESS NOTE Subjective continued pain to left eye Vital Signs Vital Signs Date Time Temp Pulse Resp B/P (MAP) Pulse Ox O2 Delivery O2 Flow Rate FiO2 08/08/16 08:30 Room Air 08/08/16 08:24 66 158/74 08/08/16 07:00 98.2 18 96 98.2 08/07/16 15:54 1.0 I&O Intake and Output 08/08/16 07:00 Intake Total 4740 ml Balance 4740 ml Intake Oral 3840 ml IV Total 900 ml # Voids 9 # Bowel Movements 3 General: Alert, Oriented X3, Cooperative, No acute distress HEENT: Other (left TA biopsy site small amount of oozing) Labs Laboratory Tests Test 08/07/16 05:15 08/07/16 05:20 08/07/16 18:14 Sodium Level 139 mmol/L (136-145) Potassium Level 3.8 mmol/L (3.5-5.1) Chloride Level 105 mmol/L (98-107) Carbon Dioxide Level 28 mmol/L (21-32) Anion Gap 6 (6-14) Blood Urea Nitrogen 17 mg/dL (8-26) Creatinine 1.1 mg/dL (0.7-1.3) Estimated GFR (Cockcroft-Gault) 83.8 BUN/Creatinine Ratio 15 (6-20) Glucose Level 119 mg/dL (70-99) Calcium Level 8.8 mg/dL (8.5-10.1) Total Bilirubin 0.1 mg/dL (0.2-1.0) Aspartate Amino Transf (AST/SGOT) 9 U/L (15-37) Alanine Aminotransferase (ALT/SGPT) 15 U/L (16-63) Alkaline Phosphatase 90 U/L (46-116) C-Reactive Protein, Quantitative 1.0 mg/L (0-3.3) Total Protein 6.7 g/dL (6.4-8.2) Albumin 3.4 g/dL (3.4-5.0) Albumin/Globulin Ratio 1.0 (1.0-1.7) HIV-1 Antibody Non reactive (Non Reactive) White Blood Count 15.9 x10^3/uL (4.0-11.0) Red Blood Count 4.62 x10^6/uL (4.30-5.70) Hemoglobin 13.8 g/dL (13.0-17.5) Hematocrit 40.7 % (39.0-53.0) Mean Corpuscular Volume 88 fL (79-100) Mean Corpuscular Hemoglobin 30 pg (25-35) Mean Corpuscular Hemoglobin Concent 34 g/dL (31-37) Red Cell Distribution Width 14.1 % (11.5-14.5) Platelet Count 302 x10^3/uL (140-400) Neutrophils (%) (Auto) 60 % (31-73) Lymphocytes (%) (Auto) 31 % (24-48) Monocytes (%) (Auto) 9 % (0-9) Eosinophils (%) (Auto) 1 % (0-3) Basophils (%) (Auto) 0 % (0-3) Neutrophils # (Auto) 9.5 x10^3uL (1.8-7.7) Lymphocytes # (Auto) 4.9 x10^3/uL (1.0-4.8) Monocytes # (Auto) 1.4 x10^3/uL (0.0-1.1) Eosinophils # (Auto) 0.1 x10^3/uL (0.0-0.7) Basophils # (Auto) 0.0 x10^3/uL (0.0-0.2) Erythrocyte Sedimentation Rate 2 (0-15) Urine Opiates Screen Pos (NEG) Urine Methadone Screen Neg (NEG) Urine Barbiturates Neg (NEG) Urine Phencyclidine Screen Neg (NEG) Urine Amphetamine/Methamphetamine Neg (NEG) Urine Benzodiazepines Screen Pos (NEG) Urine Cocaine Screen Neg (NEG) Urine Cannabinoids Screen Neg (NEG) Urine Ethyl Alcohol Neg (NEG) Laboratory Tests Test 08/07/16 18:14 Urine Opiates Screen Pos (NEG) Urine Methadone Screen Neg (NEG) Urine Barbiturates Neg (NEG) Urine Phencyclidine Screen Neg (NEG) Urine Amphetamine/Methamphetamine Neg (NEG) Urine Benzodiazepines Screen Pos (NEG) Urine Cocaine Screen Neg (NEG) Urine Cannabinoids Screen Neg (NEG) Urine Ethyl Alcohol Neg (NEG) Assessment/Plan s/p TA biopsy leave dressing in place x 24 hrs, then remove, can leave uncovered and ok to shower then will sign off, please call with questions or concerns Problems: TESSIE SOTO APRN Aug 08, 2016 08:58
[2016-08-08] MEDS: POLYETHYLENE GLYCOL 3350 17 GM PACKET. PO PRN (09:10)
[2016-08-08] MEDS: HYDROcodone/APAP 10/325 1 TAB TABLET PO PRN ×3 (09:11→20:05)
--- NOTE | 2016-08-08 09:40 | PDOC ---
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 Report pending as the slides are not back yet Vitals Vitals Vital Signs Date Time Temp Pulse Resp B/P (MAP) Pulse Ox O2 Delivery O2 Flow Rate FiO2 08/08/16 09:11 Room Air 08/08/16 08:24 66 158/74 08/08/16 07:00 98.2 18 96 98.2 08/07/16 15:54 1.0 Physical Exam General: Alert, Oriented X3, Cooperative, No acute distress Heart: Regular rate, Normal S1, Normal S2 Lungs: Clear Abdomen: Soft, No tenderness Extremities: No clubbing, No cyanosis Skin: No rashes, No breakdown Labs LABS Laboratory Tests Test 08/07/16 18:14 Urine Opiates Screen Pos (NEG) Urine Methadone Screen Neg (NEG) Urine Barbiturates Neg (NEG) Urine Phencyclidine Screen Neg (NEG) Urine Amphetamine/Methamphetamine Neg (NEG) Urine Benzodiazepines Screen Pos (NEG) Urine Cocaine Screen Neg (NEG) Urine Cannabinoids Screen Neg (NEG) Urine Ethyl Alcohol Neg (NEG) Review of Systems Review of Systems co michel co pain Assessment and Plan Assessmemt and Plan Probable temporal arteritis headache, left eye pain, blurry vision mild CAD, known, no angina htn, hyperlipids , \ tobaccoism, cessation discussed, chronic back pain and sciatica s/p failed back surgery 4 years ago, left foot drop, left leg nerve pain, on Lyrica Plan Steroids IV Fentanyl Await pathology report Home meds Recheck labs Problems: Comment Review of Relevant I have reviewed the following items lien (where applicable) has been applied. Labs Laboratory Tests Test 08/07/16 05:15 08/07/16 05:20 08/07/16 18:14 Sodium Level 139 mmol/L (136-145) Potassium Level 3.8 mmol/L (3.5-5.1) Chloride Level 105 mmol/L (98-107) Carbon Dioxide Level 28 mmol/L (21-32) Anion Gap 6 (6-14) Blood Urea Nitrogen 17 mg/dL (8-26) Creatinine 1.1 mg/dL (0.7-1.3) Estimated GFR (Cockcroft-Gault) 83.8 BUN/Creatinine Ratio 15 (6-20) Glucose Level 119 mg/dL (70-99) Calcium Level 8.8 mg/dL (8.5-10.1) Total Bilirubin 0.1 mg/dL (0.2-1.0) Aspartate Amino Transf (AST/SGOT) 9 U/L (15-37) Alanine Aminotransferase (ALT/SGPT) 15 U/L (16-63) Alkaline Phosphatase 90 U/L (46-116) C-Reactive Protein, Quantitative 1.0 mg/L (0-3.3) Total Protein 6.7 g/dL (6.4-8.2) Albumin 3.4 g/dL (3.4-5.0) Albumin/Globulin Ratio 1.0 (1.0-1.7) HIV-1 Antibody Non reactive (Non Reactive) White Blood Count 15.9 x10^3/uL (4.0-11.0) Red Blood Count 4.62 x10^6/uL (4.30-5.70) Hemoglobin 13.8 g/dL (13.0-17.5) Hematocrit 40.7 % (39.0-53.0) Mean Corpuscular Volume 88 fL (79-100) Mean Corpuscular Hemoglobin 30 pg (25-35) Mean Corpuscular Hemoglobin Concent 34 g/dL (31-37) Red Cell Distribution Width 14.1 % (11.5-14.5) Platelet Count 302 x10^3/uL (140-400) Neutrophils (%) (Auto) 60 % (31-73) Lymphocytes (%) (Auto) 31 % (24-48) Monocytes (%) (Auto) 9 % (0-9) Eosinophils (%) (Auto) 1 % (0-3) Basophils (%) (Auto) 0 % (0-3) Neutrophils # (Auto) 9.5 x10^3uL (1.8-7.7) Lymphocytes # (Auto) 4.9 x10^3/uL (1.0-4.8) Monocytes # (Auto) 1.4 x10^3/uL (0.0-1.1) Eosinophils # (Auto) 0.1 x10^3/uL (0.0-0.7) Basophils # (Auto) 0.0 x10^3/uL (0.0-0.2) Erythrocyte Sedimentation Rate 2 (0-15) Urine Opiates Screen Pos (NEG) Urine Methadone Screen Neg (NEG) Urine Barbiturates Neg (NEG) Urine Phencyclidine Screen Neg (NEG) Urine Amphetamine/Methamphetamine Neg (NEG) Urine Benzodiazepines Screen Pos (NEG) Urine Cocaine Screen Neg (NEG) Urine Cannabinoids Screen Neg (NEG) Urine Ethyl Alcohol Neg (NEG) Laboratory Tests Test 08/07/16 18:14 Urine Opiates Screen Pos (NEG) Urine Methadone Screen Neg (NEG) Urine Barbiturates Neg (NEG) Urine Phencyclidine Screen Neg (NEG) Urine Amphetamine/Methamphetamine Neg (NEG) Urine Benzodiazepines Screen Pos (NEG) Urine Cocaine Screen Neg (NEG) Urine Cannabinoids Screen Neg (NEG) Urine Ethyl Alcohol Neg (NEG) Medications Current Medications Fentanyl Citrate (Fentanyl 2ml Vial) 25 mcg PRN Q2HR PRN IV SEVERE PAIN Last administered on 08/06/16 07:48; Start 08/05/16 at 04:30; Stop 08/06/16 at 12:06 ; Status DC Acetaminophen (Tylenol) 650 mg PRN Q6HRS PRN PO MILD PAIN; Start 08/05/16 at 04 :30 Ondansetron HCl (Zofran) 4 mg PRN Q6HRS PRN IV NAUSEA/VOMITING; Start 08/05/16 at 04:30 Prednisone (Prednisone) 60 mg DAILY PO Last administered on 08/08/16 08:19; Start 08/05/16 at 09:00 Pantoprazole Sodium (Protonix) 40 mg DAILYAC PO Last administered on 08/08/16 08:18; Start 08/05/16 at 07:30 Gadobutrol (Gadavist) 8 mmol 1X ONCE IV ; Start 08/05/16 at 14:45; Stop at 14:46; Status DC Nicotine Polacrilex (Nicorette Gum) 1 each PRN Q1HR PRN BC SMOKING CESSATION; Start 08/05/16 at 19:45 Nicotine (Nicoderm Cq 7mg) 1 patch PRN DAILY PRN TD SMOKING CESSATION Last administered on 08/07/16 22:51; Start 08/05/16 at 19:45 Atorvastatin Calcium (Lipitor) 40 mg HS PO Last administered on 08/07/16 21:01 ; Start 08/05/16 at 21:00 Acetaminophen/ Hydrocodone Bitart (Lortab 7.5/325) 1 tab PRN Q4HRS PRN PO PAIN Last administered on 08/06/16 07:47; Start 08/05/16 at 20:15; Stop 08/06/16 at 12:06; Status DC Lisinopril (Prinivil) 5 mg DAILY PO Last administered on 08/08/16 08:24; Start 08/05/16 at 20:30 Pregabalin (Lyrica) 100 mg BID PO Last administered on 08/08/16 08:23; Start 08/05/16 at 21:00 Isosorbide Mononitrate (Imdur) 30 mg DAILY PO Last administered on 08/08/16 08 :23; Start 08/05/16 at 20:30 Fentanyl Citrate (Fentanyl 2ml Vial) 50 mcg PRN Q2HR PRN IV SEVERE PAIN Last administered on 08/08/16 08:30; Start 08/06/16 at 12:15; Stop 08/08/16 at 09:03 ; Status DC Acetaminophen/ Hydrocodone Bitart (Lortab 10/325) 1 tab PRN Q4HRS PRN PO PAIN Last administered on 08/08/16 09:11; Start 08/06/16 at 12:15 Morphine Sulfate (Ms Contin) 15 mg 1X ONCE PO Last administered on 08/06/16 12:51; Start 08/06/16 at 12:15; Stop 08/06/16 at 12:17; Status DC Polyethylene Glycol (miraLAX PACKET) 17 gm PRN DAILY PRN PO CONSTIPATION Last administered on 08/08/16 09:10; Start 08/06/16 at 12:15 Polyethylene Glycol (miraLAX PACKET) 17 gm 1X ONCE PO ; Start 08/06/16 at 12:15 ; Stop 08/06/16 at 12:17; Status DC Indomethacin (Indocin) 25 mg TIDWMEALS PO Last administered on 08/08/16 08:22 ; Start 08/06/16 at 13:00 Pantoprazole Sodium (Protonix) 40 mg DAILYAC PO ; Start 08/06/16 at 12:45; Stop 08/06/16 at 15:38; Status DC Calcium Carbonate/ Glycine (Tums) 500 mg PRN Q6HRS PRN PO INDIGESTION Last administered on 08/07/16 04:11; Start 08/07/16 at 04:00 Fentanyl Citrate (Fentanyl 2ml Vial) 50 mcg PRN Q5MIN PRN IV Acute Pain Last administered on 08/07/16 13:27; Start 08/07/16 at 09:45; Stop 08/08/16 at 09:44 Morphine Sulfate 4 mg PRN Q10MIN PRN IV Moderate Pain Last administered on 08/07 12:46; Start 08/07/16 at 09:45; Stop 08/08/16 at 09:44 Hydromorphone HCl (Dilaudid) 0.4 mg PRN Q10MIN PRN IV Moderate to severe pain; Start 08/07/16 at 09:45; Stop 08/08/16 at 09:44 Meperidine HCl (Demerol) 12.5 mg PRN Q5MIN PRN IV SHIVERING; Start 08/07/16 at 09:45; Stop 08/08/16 at 02:30; Status DC Prochlorperazine Edisylate (Compazine) 5 mg PRN Q6HRS PRN IV Nausea/Vomiting, 1st Choice; Start 08/07/16 at 09:45; Stop 08/08/16 at 09:44 Diphenhydramine HCl (Benadryl) 12.5 mg PRN Q2HR PRN IV ITCHING; Start 08/07/16 at 09:45; Stop 08/08/16 at 09:44 Midazolam HCl (Versed) 2 mg PRN 1X PRN IV PRIOR TO PROCEDURE; Start 08/07/16 at 09:45; Stop 08/08/16 at 09:44 Midazolam HCl (Versed) 1 mg PRN 1X PRN IV PRIOR TO PROCEDURE; Start 08/07/16 at 09:45; Stop 08/08/16 at 09:44 Fentanyl Citrate (Fentanyl 2ml Vial) 25 mcg PRN Q5MIN PRN IV X 2 DOSES FOR PAIN ; Start 08/07/16 at 09:45; Stop 08/08/16 at 09:44 Fentanyl Citrate (Fentanyl 2ml Vial) 50 mcg PRN Q5MIN PRN IV X 2 DOSES FOR PAIN ; Start 08/07/16 at 09:45; Stop 08/08/16 at 09:44 Ringer's Solution 1,000 ml @ 125 mls/hr Q8H IV Last administered on 08/07/16 09:30; Start 08/07/16 at 09:43; Stop 08/07/16 at 21:42; Status DC Lidocaine HCl 2 ml 1X PRN PRN ID IV START; Start 08/07/16 at 09:45; Stop at 09:44 Bupivacaine HCl (Sensorcaine Mpf 0.5%) 30 ml STK-MED ONCE .ROUTE Last administered on 08/07/16 11:44; Start 08/07/16 at 11:05; Stop 08/07/16 at 11:06 ; Status DC Povidone Iodine ( Betadine Oint) 28 maria STK-MED ONCE TP ; Start 08/07/16 at 11: 06; Stop 08/07/16 at 11:07; Status DC Midazolam HCl (Versed) 2 mg STK-MED ONCE .ROUTE ; Start 08/07/16 at 11:18; Stop 08/07/16 at 11:19; Status DC Fentanyl Citrate (Fentanyl 2ml Vial) 100 mcg STK-MED ONCE .ROUTE ; Start at 11:18; Stop 08/07/16 at 11:19; Status DC Phenylephrine HCl 1 mg STK-MED ONCE IV ; Start 08/07/16 at 11:34; Stop 08/07/16 at 11:35; Status DC Neomycin/ Polymyxin/ Dexamethasone (Maxitrol) 7 inch STK-MED ONCE .ROUTE ; Start 08/07/16 at 11:35; Stop 08/07/16 at 11:36; Status DC Cefazolin Sodium 50 ml @ As Directed STK-MED ONCE IV ; Start 08/07/16 at 11:37; Stop 08/07/16 at 11:38; Status DC Propofol 20 ml @ As Directed STK-MED ONCE IV ; Start 08/07/16 at 11:39; Stop at 11:40; Status DC Lidocaine HCl (Lidocaine Pf 2% Vial) 5 ml STK-MED ONCE .ROUTE ; Start 08/07/16 at 11:39; Stop 08/07/16 at 11:40; Status DC Dexamethasone Sodium Phosphate (Decadron) 20 mg STK-MED ONCE .ROUTE ; Start at 11:40; Stop 08/07/16 at 11:41; Status DC Ondansetron HCl (Zofran) 4 mg STK-MED ONCE .ROUTE ; Start 08/07/16 at 11:40; Stop 08/07/16 at 11:41; Status DC Sevoflurane (Ultane) 30 ml STK-MED ONCE IH ; Start 08/07/16 at 12:07; Stop 08/07 at 12:08; Status DC Fentanyl Citrate (Fentanyl 2ml Vial) 75 mcg PRN Q2HR PRN IV SEVERE PAIN; Start 08/08/16 at 09:15 Active Scripts Active [place] 7.5-325 Tablet (Acetaminophen/Hydrocodone Bitart) 1 Each Tablet 1 Each PO Q4HRS PRN Reported Lyrica (Pregabalin) 50 Mg Capsule 1 Cap PO BID Hydrocodone-Apap 7.5-325 (Hydrocodone Bit/Acetaminophen) 1 Each Tablet 1 Tab PO PRN Q4HRS PRN Atorvastatin Calcium 20 Mg Tablet 20 Mg PO QHS Lisinopril 20 Mg Tablet 1 Tab PO DAILY Isosorbide Mononitrate Er (Isosorbide Mononitrate) 30 Mg Tab.er.24h 1 Tab PO DAILY Atorvastatin Calcium 40 Mg Tablet 40 Mg PO HS Lisinopril 5 Mg Tablet 1 Tab PO DAILY Lyrica (Pregabalin) 100 Mg Capsule 1 Cap PO BID Vitals/I & O Vital Sign - Last 24 Hours 08/07/16 08/07/16 08/07/16 08/07/16 10:52 12:13 12:27 12:28 Temp 97.1 97.2 97.1 97.2 Pulse 68 109 Resp 22 20 16 B/P (MAP) 170/82 166/94 Pulse Ox 98 99 99 O2 Delivery Room Air Simple Mask Simple Mask Nasal Cannula O2 Flow Rate 10 10.0 2 08/07/16 08/07/16 08/07/16 08/07/16 12:28 12:35 12:43 12:46 Pulse 91 75 Resp 20 20 20 18 B/P (MAP) 146/91 181/93 Pulse Ox 92 93 94 96 O2 Delivery Nasal Cannula Nasal Cannula Nasal Cannula Nasal Cannula O2 Flow Rate 2 2.0 2 2.0 08/07/16 08/07/16 08/07/16 08/07/16 12:56 12:57 13:12 13:27 Temp 97.0 97.0 Pulse 75 79 Resp 18 18 16 18 B/P (MAP) 176/91 194/99 Pulse Ox 93 93 95 94 O2 Delivery Nasal Cannula Nasal Cannula Nasal Cannula Nasal Cannula O2 Flow Rate 2.0 2 2 2.0 08/07/16 08/07/16 08/07/16 08/07/16 13:27 13:55 13:55 14:15 Temp 97.7 97.7 Pulse 72 65 Resp 18 16 B/P (MAP) 185/91 178/89 (118) Pulse Ox 94 98 O2 Delivery Nasal Cannula Room Air Room Air Room Air O2 Flow Rate 2 08/07/16 08/07/16 08/07/16 08/07/16 14:30 14:45 15:15 15:45 Pulse 92 61 66 61 Resp 16 16 16 16 B/P (MAP) 166/105 (125) 184/114 (137) 168/92 (117) 174/90 (118) Pulse Ox 95 95 93 95 O2 Delivery Room Air Room Air Room Air Room Air 08/07/16 08/07/16 08/07/16 08/07/16 15:54 16:15 17:15 18:11 Pulse 66 86 82 Resp 16 16 B/P (MAP) 164/104 (124) 166/73 (104) 173/72 Pulse Ox 93 93 O2 Delivery Nasal Cannula Room Air Room Air O2 Flow Rate 1.0 08/07/16 08/07/16 08/07/16 08/07/16 18:12 18:15 20:00 21:01 Pulse 77 88 Resp 16 18 B/P (MAP) 173/72 167/81 (109) Pulse Ox 95 O2 Delivery Room Air Room Air Room Air 08/07/16 08/08/16 08/08/16 08/08/16 23:30 01:30 03:30 05:34 Temp 98.6 97.9 98.6 97.9 Pulse 94 77 Resp 20 16 20 18 B/P (MAP) 149/80 (103) 140/66 (90) Pulse Ox 96 96 O2 Delivery Room Air Room Air Room Air Room Air 08/08/16 08/08/16 08/08/16 08/08/16 06:00 07:00 08:22 08:23 Temp 98.2 98.2 Pulse 52 66 Resp 17 18 B/P (MAP) 158/74 (102) 158/74 Pulse Ox 96 O2 Delivery Room Air Room Air Room Air 08/08/16 08/08/16 08/08/16 08:24 08:30 09:11 Pulse 66 B/P (MAP) 158/74 O2 Delivery Room Air Room Air Intake and Output 08/07/16 08/07/16 08/08/16 15:00 23:00 07:00 Intake Total 1140 ml 500 ml 3100 ml Balance 1140 ml 500 ml 3100 ml MUKESH PEREZ III DO Aug 08, 2016 09:40
[2016-08-08 11:00] VITALS: BP 155/92
[2016-08-08 12:21] LABS: PROTHROMBIN TIME PATIENT 12.9 SEC (11.7-14.0)
--- NOTE | 2016-08-08 13:44 | PDOC2 ---
SIL GARCIA M[employer]IM[employer] ARTIST 08/08/16 1344: CARDIAC CONSULT DATE OF CONSULT Date of Consult DATE: 08/08/16 TIME: 13:34 REASON FOR CONSULT Reason for Consult: Cardiac history follow-up REFERRING PHYSICIAN Referring Physician: Dr. Oakley SOURCE Source: Chart review, Patient HISTORY OF PRESENT ILLNESS HISTORY OF PRESENT ILLNESS This is a 56 yo male, with a history of single-vessel CAD, who presented with complaints of GARCIA. Workup presently underway for temporal arteritis. Patient underwent cardiac recently as noted below. Medical management was recommended as there was concern that intervention may compromise the ramus or LM. Patient was to follow-up in our office in 4 weeks. Patient requested to have follow-up while as an inpatient, which is what prompted this consult. Patient reports he has been doing well since discharge in early June. Denies any chest pain, dizziness, diaphoresis, SOA, or nausea/vomiting. Does report having occasional palpitations, which resolve without intervention. C/o pain behind left eye. PAST MEDICAL HISTORY Cardiovascular: CAD, HTN, Hyperlipidemia Pulmonary: COPD CENTRAL NERVOUS SYSTEM: CVA Psych: Other (left foot drop ) Musculoskeletal: low back pain (chronic ) PAST SURGICAL HISTORY Past Surgical History: Hernia Repair, Other (lumbar sx, bilateral rotator cuff sx ) FAMILY HISTORY Family History: Hypertension SOCIAL HISTORY Smoke: No ALCOHOL: occassional Drugs: None Lives: with Family CURRENT MEDICATIONS CURRENT MEDICATIONS Current Medications Medications (Trade) Dose Ordered Sig/Paul Route PRN Reason Start Time Stop Time Status Last Admin Dose Admin Fentanyl Citrate (Fentanyl 2ml Vial) 75 mcg PRN Q2HR PRN IV SEVERE PAIN 08/08/16 09:15 08/08/16 11:38 ALLERGIES ALLERGIES: Coded Allergies: No Known Drug Allergies (Unverified , 08/08/16) ROS Review of System 14 point ROS conducted with pertinent positives noted above in HPI. PHYSICAL EXAM General: Alert, Oriented X3, Cooperative, No acute distress HEENT: Atraumatic, Mucous membr. moist/pink Lungs: Clear to auscultation Heart: Regular rate, Normal S1, Normal S2 Abdomen: No tenderness Extremities: No edema, Normal pulses Skin: No significant lesion Neuro: Normal speech, Sensation intact Psych/Mental Status: Mental status NL, Mood NL MUSCULOSKELETAL: Osteoarthritic changes both hands VITALS VITALS Vital Signs Date Time Temp Pulse Resp B/P (MAP) Pulse Ox O2 Delivery O2 Flow Rate FiO2 08/08/16 12:40 Room Air 08/08/16 11:00 98.2 75 18 155/92 (113) 97 98.2 08/07/16 15:54 1.0 LABS Lab: Laboratory Tests Test 08/07/16 18:14 08/08/16 12:00 Urine Opiates Screen Pos (NEG) Urine Methadone Screen Neg (NEG) Urine Barbiturates Neg (NEG) Urine Phencyclidine Screen Neg (NEG) Urine Amphetamine/Methamphetamine Neg (NEG) Urine Benzodiazepines Screen Pos (NEG) Urine Cocaine Screen Neg (NEG) Urine Cannabinoids Screen Neg (NEG) Urine Ethyl Alcohol Neg (NEG) Prothrombin Time 12.9 SEC (11.7-14.0) Prothromb Time International Ratio 1.0 (0.8-1.1) Glucose Level 146 mg/dL (70-99) ECHOCARDIOGRAM ECHOCARDIOGRAM <Conclusion> The left ventricular systolic function is normal and the ejection fraction is within normal range. The Ejection Fraction is 65-70%. There is normal LV segmental wall motion. DATE: 06/21/16 1655 STRESS TEST STRESS TEST Conclusion 1. No EKG evidence of stress-induced ischemia. 2. Nuclear imaging is positive for a probable small area of reversible ischemia in the inferior wall. 3. Normal left ventricular systolic function with an ejection fraction of greater than 70%. 4. Moderate risk Lexiscan nuclear stress test positive for small area of reversible ischemia. DATE: 06/21/16 1423 HEART CATH HEART CATH CORONARY ANGIOGRAPHY: LM is a large caliber vessel with distal 20% stenosis. LAD is a large caliber vessel with normal angiographic appearance. Ramus is a moderate caliber bifurcating vessel with normal angiographic appearance. LCx is a moderate caliber non-dominant vessel with an ostial 60-70% stenosis. RCA is a large caliber dominant vessel with normal angiographic appearance. RPDA and RPL are moderate caliber vessels with normal angiographic appearance. Conclusion 1. One vessel CAD 2. Given the mild degree of ischemia, lack of significant pain and ostial nature of the circumflex stenosis (which if intervened may compromise the ramus or LM, conservative management with b-blockers and nitrates was felt to be the best approach at this time. Recommendations Imdur 60mg daily Metoprolol 25mg XL karina Follow up in 4 weeks in the office. DATE: 06/22/16 1124 ASSESSMENT/PLAN ASSESSMENT/PLAN 1. One-vessel CAD 2. Palpitations 3. Hypertension 4. Hyperlipidemia 5. GARCIA; possible temporal arteritis; s/p left TA biopsy Recommendations Continue medical therapy in management of CAD as patient has been stable with lack of anginal symptoms Consider outpatient event monitor to r/o significant arrhythmias given palpitations Add low-dose BB. Add ASA if okay with neuro. No further recommendations at this time Problems: GWEN VELIZ MD 08/08/16 2312: CARDIAC CONSULT ALLERGIES ALLERGIES: Coded Allergies: No Known Drug Allergies (Unverified , 08/08/16) ASSESSMENT/PLAN ASSESSMENT/PLAN Pt. seen and examined. Agree with above [employer] note. Pt. known to us from his prior visits. Denies any current chest pain, angina or dyspnea. Normal cardiac exam. Continue risk factor modification Will f/u in the office in 3 months. Thanks for consult. Will follow peripherally. Problems: SIL GARCIA APRN Aug 08, 2016 13:44 GWEN VELIZ MD Aug 08, 2016 23:12
[2016-08-08 15:00] VITALS: BP 137/64
--- NOTE | 2016-08-08 15:05 | PATHOLOGY ---
PATHOLOGY REPORT * * * * * * * * FINAL DIAGNOSIS: Portion of vessel, "left temporal artery biopsy": - Cross-sections of temporal artery with no evidence of giant cell temporal arteritis. ([facility]; d/t: 08/08/16) REPORT ELECTRONICALLY SIGNED BY: Clifton Conte M.D. DATE/TIME: 08/08/2016 15:05 * * * * * * * * GROSS PATHOLOGY: Received in formalin labeled "Barbie Cuellar," is a 3.2 segment of whitish-barbour, bifurcated, tubular soft tissue measuring 0.2 cm in diameter. The tissue is submitted in toto in cassette A1. ([facility]; 08/07/16) INITIAL CPT CODE(S): A; 76617 Professional services performed by [facility] [place] [address] Technical services performed by [facility] at [address] [place] [address]. SPECIMEN(S) RECEIVED: A.Left temporal artery biopsy CLINICAL HISTORY: Left eye pain PATIENT: BARBIE CUELLAR Tyler /AGE: 12 1960 (Age: 56) PATIENT #: [id number] ALT CASE #: SPECIMEN COLLECTION DATE: 08/07/2016 SPECIMEN RECEIVED DATE: 08/07/2016 [facility] - [address] [place] [address] - PHONE: [phone] * * * END OF REPORT * * *
--- NOTE | 2016-08-08 15:17 | PDOC ---
PROGRESS NOTES Assessment Assessment Left side headache. Pain behind left eye for about 10 days before coming here. Left eye tear duct obstruction. To rule out left side giant arteritis. HTN HLD Old lacunar infract. No evidence of acute CVA or vasculitis this time. RECOMMENDATIONS/PLAN: Left temporal A biopsy on 08/07. FU pathology reports. LP to measure CSF opening pressure. CSF lab studies, see orders. Consult Ophthalmology for left eye pain and increased ocular pressure (?) Continue current treatment. Discussed with his at bedside. ESR: 2 Brain MRI/MRA: Unremarkable. SUBJECTIVE: Pain in left side head and behind left eye increased on 08/07. Past Medical History Cardiovascular: HTN, Hyperlipidemia Pulmonary: No pertinent hx CENTRAL NERVOUS SYSTEM: Periperal neuropathy GI: No pertinent hx Heme/Onc: No pertinent hx Hepatobiliary: No pertinent hx Psych: No pertinent hx Musculoskeletal: low back pain, Muscle atrophy, Weakness Endocrine: No pertinent hx Past Surgical History Right rotated cuff repair. Family History No Significant Social History Smoke: Ciga 3 /daily. ALCOHOL: 3 beers a week x 20 years. Drugs: None ALLERGY: Reviewed.n MEDICATIONS: Refer to MAR REVIEW OF SYSTEMS: Constitutional: No malnutrition, weight loss, cachexia. Head: No traumatic brain or head injury. Skin: No edema, or rash. Ear: No infection. Eyes: No vision loss, or diplopia. Nose: No bleeding or purulent discharges. Hearing: No hearing decrease. Neck: No injury. Cardiac: HTN, HLD Pulmonary: No CPOD. GI: No GI Ulcer, GI bleeding Urinary/genital: No dysuria, incontinence, urinary retention. Endocrine: No cousin face, craniofacial dysmorphism, polydactyly. Skeletomuscular: No muscular atrophy, deformity. Neurological: see HP. Psychiatric: Denies drug use/abuse. Otherwise, not [id number] review of systems. PHYSICAL EXAMINATION: General appearance in no acute distress. HEENT: Normocephalic and nontraumatic. Eyes, nose, ears, and throat are unremarkable. Hearing decrease. Neck is supple. No lymphadenopathy. No Crepitus. Cardiovascular: S1, S2, regular rate and rhythm. Pulmonary: Clear to auscultation bilaterally. Abdomen: Bowel sounds are positive. Abdomen is soft, nontender, and nondistended. Extremities: No rash, lesions, or edema. No restriction of range of motion NEUROLOGICAL EXAMINATION: Alert. Oriented to time, place and person. PERRL. EOMI. CN: no focal findings. Muscle tone: within normal. Muscle strength: 5 DTR: 2 Plantar reflex: Flexor response bilaterally Gait: At baseline normal. Sensory exam: no abnormal findings. No cerebellar signs elicited. F-T-N test accurate. Objective Objective Vital Signs Date Time Temp Pulse Resp B/P (MAP) Pulse Ox O2 Delivery O2 Flow Rate FiO2 08/08/16 12:40 Room Air 08/08/16 11:00 98.2 75 18 155/92 (113) 97 98.2 08/07/16 15:54 1.0 Intake and Output 08/08/16 07:00 Intake Total 4740 ml Balance 4740 ml Intake Oral 3840 ml IV Total 900 ml # Voids 9 # Bowel Movements 3 Vitals Signs Vitals VS - Last 72 Hours, by Label Date Time Temp Pulse Resp B/P (MAP) Pulse Ox O2 Delivery O2 Flow Rate FiO2 08/08/16 12:40 Room Air 08/08/16 11:38 Room Air 08/08/16 11:00 98.2 75 18 155/92 (113) 97 Room Air 98.2 08/08/16 10:13 Room Air 08/08/16 09:11 Room Air 08/08/16 08:30 Room Air 08/08/16 08:24 66 158/74 08/08/16 08:23 66 158/74 08/08/16 08:22 Room Air 08/08/16 07:00 98.2 52 18 158/74 (102) 96 Room Air 98.2 08/08/16 06:00 17 Room Air 08/08/16 05:34 18 Room Air 08/08/16 03:30 97.9 77 20 140/66 (90) 96 Room Air 97.9 08/08/16 01:30 16 Room Air 08/07/16 23:30 98.6 94 20 149/80 (103) 96 Room Air 98.6 08/07/16 21:01 18 Room Air 08/07/16 20:00 Room Air 08/07/16 18:15 88 16 167/81 (109) 95 Room Air 08/07/16 18:12 77 173/72 08/07/16 18:11 82 173/72 08/07/16 17:15 86 16 166/73 (104) 93 Room Air 08/07/16 16:15 66 16 164/104 (124) 93 Room Air 08/07/16 15:54 Nasal Cannula 1.0 08/07/16 15:45 61 16 174/90 (118) 95 Room Air 08/07/16 15:15 66 16 168/92 (117) 93 Room Air 08/07/16 14:45 61 16 184/114 (137) 95 Room Air 08/07/16 14:30 92 16 166/105 (125) 95 Room Air 08/07/16 14:15 97.7 65 16 178/89 (118) 98 Room Air 97.7 08/07/16 13:55 Room Air 08/07/16 13:55 Room Air 08/07/16 13:27 72 18 185/91 94 Nasal Cannula 2 08/07/16 13:27 18 94 Nasal Cannula 2.0 08/07/16 13:12 79 16 194/99 95 Nasal Cannula 2 08/07/16 12:57 97.0 75 18 176/91 93 Nasal Cannula 2 97.0 08/07/16 12:56 18 93 Nasal Cannula 2.0 08/07/16 12:46 18 96 Nasal Cannula 2.0 08/07/16 12:43 75 20 181/93 94 Nasal Cannula 2 08/07/16 12:35 20 93 Nasal Cannula 2.0 08/07/16 12:28 91 20 146/91 92 Nasal Cannula 2 08/07/16 12:28 Nasal Cannula 2 08/07/16 12:27 16 99 Simple Mask 10.0 08/07/16 12:13 97.2 109 20 166/94 99 Simple Mask 10 97.2 08/07/16 10:52 97.1 68 22 170/82 98 Room Air 97.1 08/07/16 08:41 Room Air 08/07/16 08:09 Room Air 08/07/16 07:43 97.7 68 16 147/78 (101) 95 Room Air 97.7 Laboratory Laboratory Laboratory Tests Test 08/07/16 18:14 08/08/16 12:00 Urine Opiates Screen Pos (NEG) Urine Methadone Screen Neg (NEG) Urine Barbiturates Neg (NEG) Urine Phencyclidine Screen Neg (NEG) Urine Amphetamine/Methamphetamine Neg (NEG) Urine Benzodiazepines Screen Pos (NEG) Urine Cocaine Screen Neg (NEG) Urine Cannabinoids Screen Neg (NEG) Urine Ethyl Alcohol Neg (NEG) Prothrombin Time 12.9 SEC (11.7-14.0) Prothromb Time International Ratio 1.0 (0.8-1.1) Glucose Level 146 mg/dL (70-99) Medication Medications Current Medications Fentanyl Citrate (Fentanyl 2ml Vial) 75 mcg PRN Q2HR PRN IV SEVERE PAIN Last administered on 08/08/16t 11:38; Start 08/08/16 at 09:15 Metoprolol Tartrate (Lopressor) 25 mg BID PO ; Start 08/08/16 at 21:00; Status UNV Comment Review of Relevant I have reviewed the following items lien (where applicable) has been applied. LEELA MCLAIN MD Aug 08, 2016 15:17
[2016-08-08 15:19] LABS: CSF PROTEIN 45.4 mg/dL (15.0-45.0)
--- NOTE | 2016-08-08 15:50 | RAD ---
Indication assess for pseudotumor cerebri. Lumbar puncture was requested. The procedure was explained to the patient. The risks of infection and bleeding were outlined. The possibility of a postprocedure headache necessitating placement of a blood patch was also discussed. The patient understood the risks associated with the procedure and wished to proceed. The patient was placed in a left side down decubitus position. An appropriate area for entry into the subarachnoid space was marked. The skin was prepped and draped in the routine fashion. Local anesthesia was accomplished with 1% lidocaine. Using a 20-gauge spinal needle the subarachnoid space with was punctured, with a midline approach, at L3-4. Clear CSF was encountered. Approximately 13 cc of spinal fluid were withdrawn and into 4 tubes and transferred to pathology. 2 spot fluoroscopic images were obtained associated with the procedure. Fluoroscopy time was 2.4 minutes. The opening pressure was 18 mmHg and the closing pressure 14. The patient tolerated the procedure well without apparent complication. IMPRESSION: Successful lumbar puncture as outlined above
[2016-08-08 16:09] LABS: CSF CLARITY CLEAR; CSF COLOR COLORLESS
[2016-08-08 19:30] VITALS: BP 136/70
[2016-08-08] MEDS: METOPROLOL TART IMMED RELEASE 25 MG TABLET. PO SCH (20:01)
[2016-08-08] MEDS: ATORVASTATIN CALCIUM 40 MG TABLET. PO SCH (20:01)
[2016-08-08] MEDS: NICOTINE 7MG PATCH. TD PRN (20:12)
[2016-08-08 23:30] VITALS: BP 143/63
[2016-08-09] MEDS: fentaNYL PF VIAL 100 MCG/2 ML VIAL IV PRN ×5 (01:29→20:21)
[2016-08-09] MEDS: HYDROcodone/APAP 10/325 1 TAB TABLET PO PRN ×4 (01:33→20:52)
[2016-08-09 03:35] VITALS: BP 151/80
[2016-08-09 07:51] VITALS: BP 173/77
[2016-08-09] MEDS: PANTOPRAZOLE 40 MG TABLET.DR. PO SCH (08:16)
[2016-08-09] MEDS: LISINOPRIL 5 MG TABLET. PO SCH (08:50)
[2016-08-09] MEDS: PREGABALIN 50 MG CAPSULE PO SCH ×2 (08:50→20:17)
[2016-08-09] MEDS: ISOSORBIDE MONONITRATE ER 30 MG TAB.ER.24H PO SCH (08:51)
[2016-08-09] MEDS: INDOMETHACIN 25 MG CAPSULE. PO SCH ×3 (08:51→17:34)
[2016-08-09] MEDS: predniSONE 20 MG TABLET PO SCH (08:51)
[2016-08-09] MEDS: METOPROLOL TART IMMED RELEASE 25 MG TABLET. PO SCH ×2 (08:52→20:20)
[2016-08-09 10:47] VITALS: BP 138/65
[2016-08-09] MEDS ORDERED: GADOBUTROL 10 MMOL/10 ML VIAL IV ONE (13:45)
[2016-08-09 14:47] VITALS: BP 162/68
--- NOTE | 2016-08-09 15:39 | RAD ---
MRI orbits without and with contrast HISTORY: Left eye vision loss for 12 days, left eye pain and decreased vision. TECHNIQUE: Pre and postcontrast MR imaging was performed of the orbits. Contrast: 8 cc Gadavist COMPARISON: August 05, 2016 MRI brain exam, no other previous similar exam available. FINDINGS: There is mild motion degradation. There is disconjugate gaze. Globes are symmetric in size and signal characteristics without appreciable enhancement. Extraocular muscles are symmetric in appearance. There is no appreciable signal abnormality or enhancement of the optic nerves. There is no deviation of the optic chiasm. There is no asymmetric signal abnormality or enhancement of the intraconal fat allowing for artifact. There is [id number] patchy bilateral ethmoid air cell and mild bilateral maxillary sinus mucosal thickening. There is mucous retention cyst and possible associated air fluid level of the right sphenoid sinus posteriorly, other mild bilateral sphenoid sinus mucosal thickening. IMPRESSION: 1. No abnormal orbital enhancement is identified allowing for artifact. There is nonspecific disconjugate gaze. 2. There is paranasal sinus mucosal thickening as stated, possible air-fluid level of the right sphenoid sinus which could be due to more recent sinusitis. Electronically signed by: Adonay Abrams MD (08/09/2016 3:36 PM)
--- NOTE | 2016-08-09 15:45 | PDOC ---
PROGRESS NOTES Assessment Assessment Left side headache. Pain behind left eye for about 10 days before coming here. Left eye tear duct obstruction. HTN HLD Old lacunar infract. No evidence of acute CVA or vasculitis this time. No evidence of left temporal arteritis this time. No evidence of IIP. RECOMMENDATIONS/PLAN: Left temporal A biopsy on 08/07, reported no giant temporal arteritis. Orbital MRI w/wo contrast. Consult Ophthalmology for left eye pain and increased ocular pressure ? Continue medical treatment. ESR: 2 Brain MRI/MRA/MRV: Unremarkable. LP on 08/08/16: CSF opening pressure was 18 and closing pressure was 14 in normal range. CSF exam so far WNL except mildly elevated glucose level. SUBJECTIVE: Pain in left side head and behind left eye increased on 08/07. Left eye vision decreased from time to time. Past Medical History Cardiovascular: HTN, Hyperlipidemia Pulmonary: No pertinent hx CENTRAL NERVOUS SYSTEM: Periperal neuropathy GI: No pertinent hx Heme/Onc: No pertinent hx Hepatobiliary: No pertinent hx Psych: No pertinent hx Musculoskeletal: low back pain, Muscle atrophy, Weakness Endocrine: No pertinent hx Past Surgical History Right rotated cuff repair. Family History No Significant Social History Smoke: Ciga 3 /daily. ALCOHOL: 3 beers a week x 20 years. Drugs: None ALLERGY: Reviewed.n MEDICATIONS: Refer to MAR REVIEW OF SYSTEMS: Constitutional: No malnutrition, weight loss, cachexia. Head: No traumatic brain or head injury. Skin: No edema, or rash. Ear: No infection. Eyes: No vision loss, or diplopia. Nose: No bleeding or purulent discharges. Hearing: No hearing decrease. Neck: No injury. Cardiac: HTN, HLD Pulmonary: No CPOD. GI: No GI Ulcer, GI bleeding Urinary/genital: No dysuria, incontinence, urinary retention. Endocrine: No cousin face, craniofacial dysmorphism, polydactyly. Skeletomuscular: No muscular atrophy, deformity. Neurological: see HP. Psychiatric: Denies drug use/abuse. Otherwise, not [id number] review of systems. PHYSICAL EXAMINATION: General appearance in no acute distress. HEENT: Normocephalic and nontraumatic. Eyes, nose, ears, and throat are unremarkable. Hearing decrease. Neck is supple. No lymphadenopathy. No Crepitus. Cardiovascular: S1, S2, regular rate and rhythm. Pulmonary: Clear to auscultation bilaterally. Abdomen: Bowel sounds are positive. Abdomen is soft, nontender, and nondistended. Extremities: No rash, lesions, or edema. No restriction of range of motion NEUROLOGICAL EXAMINATION: Alert. Oriented to time, place and person. PERRL. EOMI. CN: no focal findings. Muscle tone: within normal. Muscle strength: 5 DTR: 2 Plantar reflex: Flexor response bilaterally Gait: At baseline normal. Sensory exam: no abnormal findings. No cerebellar signs elicited. F-T-N test accurate. Objective Objective Vital Signs Date Time Temp Pulse Resp B/P (MAP) Pulse Ox O2 Delivery O2 Flow Rate FiO2 08/09/16 15:27 95 Room Air 1.0 08/09/16 14:47 97.9 78 18 162/68 (99) 97.9 Intake and Output 08/09/16 07:00 Intake Total 4000 ml Output Total 650 ml Balance 3350 ml Intake Oral 4000 ml Output Urine Total 650 ml # Voids 4 # Bowel Movements 2 Vitals Signs Vitals VS - Last 72 Hours, by Label Date Time Temp Pulse Resp B/P (MAP) Pulse Ox O2 Delivery O2 Flow Rate FiO2 08/09/16 15:27 95 Room Air 1.0 08/09/16 15:26 95 Room Air 1.0 08/09/16 14:47 97.9 78 18 162/68 (99) 95 Room Air 97.9 08/09/16 10:47 97.7 69 18 138/65 (89) 93 Room Air 97.7 08/09/16 08:55 93 Room Air 1.0 08/09/16 08:52 76 173/77 08/09/16 08:51 76 173/77 08/09/16 08:50 76 173/77 08/09/16 08:16 93 Room Air 1.0 08/09/16 08:00 Room Air 08/09/16 07:51 99.5 76 18 173/77 (109) 93 Room Air 99.5 08/09/16 03:35 98.2 80 18 151/80 (103) 92 Room Air 98.2 08/08/16 23:30 97.7 61 18 143/63 (89) 97 Room Air 97.7 08/08/16 20:10 Room Air 08/08/16 20:01 81 136/70 08/08/16 19:30 97.7 91 18 136/70 (92) 93 Room Air 97.7 08/08/16 15:58 Room Air 08/08/16 15:58 Room Air 08/08/16 15:00 98.0 78 18 137/64 (88) 96 Room Air 98.0 08/08/16 11:38 Room Air 08/08/16 11:00 98.2 75 18 155/92 (113) 97 Room Air 98.2 08/08/16 09:11 Room Air 08/08/16 08:30 Room Air 08/08/16 08:24 66 158/74 08/08/16 08:23 66 158/74 08/08/16 08:22 Room Air 08/08/16 07:00 98.2 52 18 158/74 (102) 96 Room Air 98.2 Laboratory Laboratory Microbiology 08/08/16 Anaerobic/Aerobic Culture, Resulted Pending 08/08/16 Anaerobic Culture Result 1 (ISAIAH), Resulted Pending 08/08/16 Aerobic Culture - Preliminary, Resulted 08/08/16 Aerobic Culture Result 1 (ISAIAH) - Preliminary, Resulted Medication Medications Current Medications Gadobutrol (Gadavist) 8 mmol 1X ONCE IV Last administered on 08/09/16 14:10; Start 08/09/16 at 13:45; Stop 08/09/16 at 13:46; Status DC Metoprolol Tartrate (Lopressor) 25 mg BID PO Last administered on 08/09/16 08: 52; Start 08/08/16 at 21:00 Comment Review of Relevant I have reviewed the following items lien (where applicable) has been applied. LEELA MCLAIN MD Aug 09, 2016 15:45
--- NOTE | 2016-08-09 16:24 | PDOC ---
PROGRESS NOTES Chief Complaint Chief Complaint Headache, left eye pain, blurry vision mild CAD, known, no angina htn, hyperlipids , \ tobaccoism, cessation discussed, chronic back pain and sciatica s/p failed back surgery 4 years ago, left foot drop, left leg nerve pain, on Lyrica History of Present Illness History of Present Illness Seen and examined Path report negative still in pain reviewed notes dw rn Vitals Vitals Vital Signs Date Time Temp Pulse Resp B/P (MAP) Pulse Ox O2 Delivery O2 Flow Rate FiO2 08/09/16 15:27 95 Room Air 1.0 08/09/16 14:47 97.9 78 18 162/68 (99) 97.9 Physical Exam General: Alert, Oriented X3, Cooperative, No acute distress Heart: Regular rate, Normal S1, Normal S2 Lungs: Clear Abdomen: No tenderness Extremities: No edema, Normal pulses Skin: No significant lesion Review of Systems Review of Systems co pain co michel Assessment and Plan Assessmemt and Plan Assessment Left side headache. Pain behind left eye for about 10 days before coming here. Left eye tear duct obstruction. HTN HLD Old lacunar infract. No evidence of acute CVA or vasculitis this time. No evidence of left temporal arteritis this time. No evidence of IIP. RECOMMENDATIONS/PLAN: Left temporal A biopsy on 08/07, reported no giant temporal arteritis. Orbital MRI w/wo contrast. Consult Ophthalmology for left eye pain and increased ocular pressure ? Continue medical treatment. Problems: Comment Review of Relevant I have reviewed the following items lien (where applicable) has been applied. Labs Laboratory Tests Test 08/07/16 18:14 08/08/16 12:00 08/08/16 15:00 Urine Opiates Screen Pos (NEG) Urine Methadone Screen Neg (NEG) Urine Barbiturates Neg (NEG) Urine Phencyclidine Screen Neg (NEG) Urine Amphetamine/Methamphetamine Neg (NEG) Urine Benzodiazepines Screen Pos (NEG) Urine Cocaine Screen Neg (NEG) Urine Cannabinoids Screen Neg (NEG) Urine Ethyl Alcohol Neg (NEG) Prothrombin Time 12.9 SEC (11.7-14.0) Prothromb Time International Ratio 1.0 (0.8-1.1) Glucose Level 146 mg/dL (70-99) CSF Color Colorless CSF Clarity Clear CSF WBC 1 CSF RBC 0 CSF Glucose 90 mg/dL (37-70) CSF Total Protein 45.4 mg/dL (15.0-45.0) Microbiology 08/08/16 Anaerobic/Aerobic Culture, Resulted Pending 08/08/16 Anaerobic Culture Result 1 (ISAIAH), Resulted Pending 08/08/16 Aerobic Culture - Preliminary, Resulted 08/08/16 Aerobic Culture Result 1 (ISAIAH) - Preliminary, Resulted Medications Current Medications Fentanyl Citrate (Fentanyl 2ml Vial) 25 mcg PRN Q2HR PRN IV SEVERE PAIN Last administered on 08/06/16 07:48; Start 08/05/16 at 04:30; Stop 08/06/16 at 12:06 ; Status DC Acetaminophen (Tylenol) 650 mg PRN Q6HRS PRN PO MILD PAIN; Start 08/05/16 at 04 :30 Ondansetron HCl (Zofran) 4 mg PRN Q6HRS PRN IV NAUSEA/VOMITING; Start 08/05/16 at 04:30 Prednisone (Prednisone) 60 mg DAILY PO Last administered on 08/09/16 08:51; Start 08/05/16 at 09:00 Pantoprazole Sodium (Protonix) 40 mg DAILYAC PO Last administered on 08/09/16 08:16; Start 08/05/16 at 07:30 Gadobutrol (Gadavist) 8 mmol 1X ONCE IV ; Start 08/05/16 at 14:45; Stop at 14:46; Status DC Nicotine Polacrilex (Nicorette Gum) 1 each PRN Q1HR PRN BC SMOKING CESSATION; Start 08/05/16 at 19:45 Nicotine (Nicoderm Cq 7mg) 1 patch PRN DAILY PRN TD SMOKING CESSATION Last administered on 08/08/16 20:12; Start 08/05/16 at 19:45 Atorvastatin Calcium (Lipitor) 40 mg HS PO Last administered on 08/08/16 20:01 ; Start 08/05/16 at 21:00 Acetaminophen/ Hydrocodone Bitart (Lortab 7.5/325) 1 tab PRN Q4HRS PRN PO PAIN Last administered on 08/06/16 07:47; Start 08/05/16 at 20:15; Stop 08/06/16 at 12:06; Status DC Lisinopril (Prinivil) 5 mg DAILY PO Last administered on 08/09/16 08:50; Start 08/05/16 at 20:30 Pregabalin (Lyrica) 100 mg BID PO Last administered on 08/09/16 08:50; Start 08/05/16 at 21:00 Isosorbide Mononitrate (Imdur) 30 mg DAILY PO Last administered on 08/09/16 08 :51; Start 08/05/16 at 20:30 Fentanyl Citrate (Fentanyl 2ml Vial) 50 mcg PRN Q2HR PRN IV SEVERE PAIN Last administered on 08/08/16 08:30; Start 08/06/16 at 12:15; Stop 08/08/16 at 09:03 ; Status DC Acetaminophen/ Hydrocodone Bitart (Lortab 10/325) 1 tab PRN Q4HRS PRN PO PAIN Last administered on 08/09/16 08:55; Start 08/06/16 at 12:15 Morphine Sulfate (Ms Contin) 15 mg 1X ONCE PO Last administered on 08/06/16 12:51; Start 08/06/16 at 12:15; Stop 08/06/16 at 12:17; Status DC Polyethylene Glycol (miraLAX PACKET) 17 gm PRN DAILY PRN PO CONSTIPATION Last administered on 08/08/16 09:10; Start 08/06/16 at 12:15 Polyethylene Glycol (miraLAX PACKET) 17 gm 1X ONCE PO ; Start 08/06/16 at 12:15 ; Stop 08/06/16 at 12:17; Status DC Indomethacin (Indocin) 25 mg TIDWMEALS PO Last administered on 08/09/16 13:07 ; Start 08/06/16 at 13:00 Pantoprazole Sodium (Protonix) 40 mg DAILYAC PO ; Start 08/06/16 at 12:45; Stop 08/06/16 at 15:38; Status DC Calcium Carbonate/ Glycine (Tums) 500 mg PRN Q6HRS PRN PO INDIGESTION Last administered on 08/07/16 04:11; Start 08/07/16 at 04:00 Fentanyl Citrate (Fentanyl 2ml Vial) 50 mcg PRN Q5MIN PRN IV Acute Pain Last administered on 08/07/16 13:27; Start 08/07/16 at 09:45; Stop 08/08/16 at 09:44 ; Status DC Morphine Sulfate 4 mg PRN Q10MIN PRN IV Moderate Pain Last administered on 08/07t 12:46; Start 08/07/16 at 09:45; Stop 08/08/16 at 09:44; Status DC Hydromorphone HCl (Dilaudid) 0.4 mg PRN Q10MIN PRN IV Moderate to severe pain; Start 08/07/16 at 09:45; Stop 08/08/16 at 09:44; Status DC Meperidine HCl (Demerol) 12.5 mg PRN Q5MIN PRN IV SHIVERING; Start 08/07/16 at 09:45; Stop 08/08/16 at 02:30; Status DC Prochlorperazine Edisylate (Compazine) 5 mg PRN Q6HRS PRN IV Nausea/Vomiting, 1st Choice; Start 08/07/16 at 09:45; Stop 08/08/16 at 09:44; Status DC Diphenhydramine HCl (Benadryl) 12.5 mg PRN Q2HR PRN IV ITCHING; Start 08/07/16 at 09:45; Stop 08/08/16 at 09:44; Status DC Midazolam HCl (Versed) 2 mg PRN 1X PRN IV PRIOR TO PROCEDURE; Start 08/07/16 at 09:45; Stop 08/08/16 at 09:44; Status DC Midazolam HCl (Versed) 1 mg PRN 1X PRN IV PRIOR TO PROCEDURE; Start 08/07/16 at 09:45; Stop 08/08/16 at 09:44; Status DC Fentanyl Citrate (Fentanyl 2ml Vial) 25 mcg PRN Q5MIN PRN IV X 2 DOSES FOR PAIN ; Start 08/07/16 at 09:45; Stop 08/08/16 at 09:44; Status DC Fentanyl Citrate (Fentanyl 2ml Vial) 50 mcg PRN Q5MIN PRN IV X 2 DOSES FOR PAIN ; Start 08/07/16 at 09:45; Stop 08/08/16 at 09:44; Status DC Ringer's Solution 1,000 ml @ 125 mls/hr Q8H IV Last administered on 08/07/16t 09:30; Start 08/07/16 at 09:43; Stop 08/07/16 at 21:42; Status DC Lidocaine HCl 2 ml 1X PRN PRN ID IV START; Start 08/07/16 at 09:45; Stop at 09:44; Status DC Bupivacaine HCl (Sensorcaine Mpf 0.5%) 30 ml STK-MED ONCE .ROUTE Last administered on 08/07/16t 11:44; Start 08/07/16 at 11:05; Stop 08/07/16 at 11:06 ; Status DC Povidone Iodine ( Betadine Oint) 28 maria STK-MED ONCE TP ; Start 08/07/16 at 11: 06; Stop 08/07/16 at 11:07; Status DC Midazolam HCl (Versed) 2 mg STK-MED ONCE .ROUTE ; Start 08/07/16 at 11:18; Stop 08/07/16 at 11:19; Status DC Fentanyl Citrate (Fentanyl 2ml Vial) 100 mcg STK-MED ONCE .ROUTE ; Start at 11:18; Stop 08/07/16 at 11:19; Status DC Phenylephrine HCl 1 mg STK-MED ONCE IV ; Start 08/07/16 at 11:34; Stop 08/07/16 at 11:35; Status DC Neomycin/ Polymyxin/ Dexamethasone (Maxitrol) 7 inch STK-MED ONCE .ROUTE ; Start 08/07/16 at 11:35; Stop 08/07/16 at 11:36; Status DC Cefazolin Sodium 50 ml @ As Directed STK-MED ONCE IV ; Start 08/07/16 at 11:37; Stop 08/07/16 at 11:38; Status DC Propofol 20 ml @ As Directed STK-MED ONCE IV ; Start 08/07/16 at 11:39; Stop at 11:40; Status DC Lidocaine HCl (Lidocaine Pf 2% Vial) 5 ml STK-MED ONCE .ROUTE ; Start 08/07/16 at 11:39; Stop 08/07/16 at 11:40; Status DC Dexamethasone Sodium Phosphate (Decadron) 20 mg STK-MED ONCE .ROUTE ; Start at 11:40; Stop 08/07/16 at 11:41; Status DC Ondansetron HCl (Zofran) 4 mg STK-MED ONCE .ROUTE ; Start 08/07/16 at 11:40; Stop 08/07/16 at 11:41; Status DC Sevoflurane (Ultane) 30 ml STK-MED ONCE IH ; Start 08/07/16 at 12:07; Stop 08/07 at 12:08; Status DC Fentanyl Citrate (Fentanyl 2ml Vial) 75 mcg PRN Q2HR PRN IV SEVERE PAIN Last administered on 08/09/16 13:07; Start 08/08/16 at 09:15 Metoprolol Tartrate (Lopressor) 25 mg BID PO Last administered on 08/09/16 08: 52; Start 08/08/16 at 21:00 Gadobutrol (Gadavist) 8 mmol 1X ONCE IV Last administered on 08/09/16 14:10; Start 08/09/16 at 13:45; Stop 08/09/16 at 13:46; Status DC Active Scripts Active Keiser 7.5-325 Tablet (Acetaminophen/Hydrocodone Bitart) 1 Each Tablet 1 Each PO Q4HRS PRN Reported Lyrica (Pregabalin) 50 Mg Capsule 1 Cap PO BID Hydrocodone-Apap 7.5-325 (Hydrocodone Bit/Acetaminophen) 1 Each Tablet 1 Tab PO PRN Q4HRS PRN Atorvastatin Calcium 20 Mg Tablet 20 Mg PO QHS Lisinopril 20 Mg Tablet 1 Tab PO DAILY Isosorbide Mononitrate Er (Isosorbide Mononitrate) 30 Mg Tab.er.24h 1 Tab PO DAILY Atorvastatin Calcium 40 Mg Tablet 40 Mg PO HS Lisinopril 5 Mg Tablet 1 Tab PO DAILY Lyrica (Pregabalin) 100 Mg Capsule 1 Cap PO BID Vitals/I & O Vital Sign - Last 24 Hours 08/08/16 08/08/16 08/08/16 08/08/16 19:30 20:01 20:10 23:30 Temp 97.7 97.7 97.7 97.7 Pulse 91 81 61 Resp 18 18 B/P (MAP) 136/70 (92) 136/70 143/63 (89) Pulse Ox 93 97 O2 Delivery Room Air Room Air Room Air 08/09/16 08/09/16 08/09/16 08/09/16 03:35 07:51 08:00 08:16 Temp 98.2 99.5 98.2 99.5 Pulse 80 76 Resp 18 18 B/P (MAP) 151/80 (103) 173/77 (109) Pulse Ox 92 93 93 O2 Delivery Room Air Room Air Room Air Room Air O2 Flow Rate 1.0 6/21/17 6/21/17 6/21/17 6/21/17 08:50 08:51 08:52 08:55 Pulse 76 76 76 B/P (MAP) 173/77 173/77 173/77 Pulse Ox 93 O2 Delivery Room Air O2 Flow Rate 1.0 08/09/16 08/09/16 08/09/16 08/09/16 10:47 14:47 15:26 15:27 Temp 97.7 97.9 97.7 97.9 Pulse 69 78 Resp 18 18 B/P (MAP) 138/65 (89) 162/68 (99) Pulse Ox 93 95 95 95 O2 Delivery Room Air Room Air Room Air Room Air O2 Flow Rate 1.0 1.0 Intake and Output 08/08/16 08/08/16 08/09/16 15:00 23:00 07:00 Intake Total 1900 ml 2100 ml Output Total 650 ml Balance 1250 ml 2100 ml MUKESH PEREZ III DO Aug 09, 2016 16:24
[2016-08-09 19:51] VITALS: BP 150/58
[2016-08-09] MEDS: ATORVASTATIN CALCIUM 40 MG TABLET. PO SCH (20:17)
[2016-08-09 22:53] VITALS: BP 120/63
[2016-08-10] MEDS: HYDROcodone/APAP 10/325 1 TAB TABLET PO PRN ×4 (02:11→20:32)
[2016-08-10] MEDS: fentaNYL PF VIAL 100 MCG/2 ML VIAL IV PRN ×7 (02:12→23:26)
[2016-08-10 03:21] VITALS: BP 164/85
[2016-08-10] MEDS: PANTOPRAZOLE 40 MG TABLET.DR. PO SCH (06:26)
[2016-08-10 07:00] VITALS: BP 175/80
[2016-08-10] MEDS: ISOSORBIDE MONONITRATE ER 30 MG TAB.ER.24H PO SCH (07:53)
[2016-08-10] MEDS: PREGABALIN 50 MG CAPSULE PO SCH ×2 (07:53→20:31)
[2016-08-10] MEDS: LISINOPRIL 5 MG TABLET. PO SCH (07:54)
[2016-08-10] MEDS: INDOMETHACIN 25 MG CAPSULE. PO SCH ×3 (07:54→18:08)
[2016-08-10] MEDS: predniSONE 20 MG TABLET PO SCH (07:55)
--- NOTE | 2016-08-10 10:05 | PDOC ---
Infectious Disease Note Vital Sign Vital Signs Vital Signs Date Time Temp Pulse Resp B/P (MAP) Pulse Ox O2 Delivery O2 Flow Rate FiO2 08/10/16 08:00 Room Air 08/10/16 07:56 91 1.0 08/10/16 07:54 82 164/85 08/10/16 07:00 98.2 18 98.2 Objective Assessment Left eye and temporal pain ? etiology Leukocytosis sec to steroids HTN Chronic back problem Plan Plan of Care no need for antibiotics no evidence for infection yet HILL LEUNG MD Aug 10, 2016 10:05
[2016-08-10] MEDS: METOPROLOL TART IMMED RELEASE 25 MG TABLET. PO SCH ×2 (10:35→20:32)
[2016-08-10 11:00] VITALS: BP 139/70
--- NOTE | 2016-08-10 11:35 | PDOC ---
PROGRESS NOTES Chief Complaint Chief Complaint Headache, left eye pain, blurry vision mild CAD, htn, hyperlipids , \ tobaccoism, cessation discussed, chronic back pain and sciatica s/p failed back surgery 4 years ago, left foot drop, left leg nerve pain, on Lyrica History of Present Illness History of Present Illness Seen and examined Path report negative still in pain reviewed notes esperanza rn Vitals Vitals Vital Signs Date Time Temp Pulse Resp B/P (MAP) Pulse Ox O2 Delivery O2 Flow Rate FiO2 08/10/16 11:22 Room Air 08/10/16 11:00 97.9 71 18 139/70 (93) 97 97.9 08/10/16 07:56 1.0 Physical Exam General: Alert, Oriented X3, Cooperative, No acute distress Heart: Regular rate, Normal S1, Normal S2 Lungs: Clear Abdomen: No tenderness Extremities: No edema, Normal pulses Skin: No breakdown, No significant lesion Review of Systems Review of Systems co michel and eye pain and photophobia Assessment and Plan Assessmemt and Plan Headache, left eye pain, blurry vision mild CAD, htn, hyperlipids , \ tobaccoism, cessation discussed, chronic back pain and sciatica s/p failed back surgery 4 years ago, left foot drop, left leg nerve pain, on Lyrica Plan Antibx Narcotics Optho consult pending ( I paged) Labs PTOT Home meds Problems: Comment Review of Relevant I have reviewed the following items lien (where applicable) has been applied. Labs Laboratory Tests Test 08/08/16 12:00 08/08/16 15:00 Prothrombin Time 12.9 SEC (11.7-14.0) Prothromb Time International Ratio 1.0 (0.8-1.1) Glucose Level 146 mg/dL (70-99) CSF Color Colorless CSF Clarity Clear CSF WBC 1 CSF RBC 0 CSF Glucose 90 mg/dL (37-70) CSF Total Protein 45.4 mg/dL (15.0-45.0) Microbiology 08/08/16 Anaerobic/Aerobic Culture, Resulted Pending 08/08/16 Anaerobic Culture Result 1 (ISAIAH), Resulted Pending 08/08/16 Aerobic Culture - Preliminary, Resulted 08/08/16 Aerobic Culture Result 1 (ISAIAH) - Preliminary, Resulted Medications Current Medications Fentanyl Citrate (Fentanyl 2ml Vial) 25 mcg PRN Q2HR PRN IV SEVERE PAIN Last administered on 08/06/16 07:48; Start 08/05/16 at 04:30; Stop 08/06/16 at 12:06 ; Status DC Acetaminophen (Tylenol) 650 mg PRN Q6HRS PRN PO MILD PAIN; Start 08/05/16 at 04 :30 Ondansetron HCl (Zofran) 4 mg PRN Q6HRS PRN IV NAUSEA/VOMITING; Start 08/05/16 at 04:30 Prednisone (Prednisone) 60 mg DAILY PO Last administered on 08/10/16 07:55; Start 08/05/16 at 09:00 Pantoprazole Sodium (Protonix) 40 mg DAILYAC PO Last administered on 08/10/16 06:26; Start 08/05/16 at 07:30 Gadobutrol (Gadavist) 8 mmol 1X ONCE IV ; Start 08/05/16 at 14:45; Stop at 14:46; Status DC Nicotine Polacrilex (Nicorette Gum) 1 each PRN Q1HR PRN BC SMOKING CESSATION; Start 08/05/16 at 19:45 Nicotine (Nicoderm Cq 7mg) 1 patch PRN DAILY PRN TD SMOKING CESSATION Last administered on 08/08/16 20:12; Start 08/05/16 at 19:45 Atorvastatin Calcium (Lipitor) 40 mg HS PO Last administered on 08/09/16 20:17 ; Start 08/05/16 at 21:00 Acetaminophen/ Hydrocodone Bitart (Lortab 7.5/325) 1 tab PRN Q4HRS PRN PO PAIN Last administered on 08/06/16 07:47; Start 08/05/16 at 20:15; Stop 08/06/16 at 12:06; Status DC Lisinopril (Prinivil) 5 mg DAILY PO Last administered on 08/10/16 07:54; Start 08/05/16 at 20:30 Pregabalin (Lyrica) 100 mg BID PO Last administered on 08/10/16 07:53; Start 08/05/16 at 21:00 Isosorbide Mononitrate (Imdur) 30 mg DAILY PO Last administered on 08/10/16 07 :53; Start 08/05/16 at 20:30 Fentanyl Citrate (Fentanyl 2ml Vial) 50 mcg PRN Q2HR PRN IV SEVERE PAIN Last administered on 08/08/16 08:30; Start 08/06/16 at 12:15; Stop 08/08/16 at 09:03 ; Status DC Acetaminophen/ Hydrocodone Bitart (Lortab 10/325) 1 tab PRN Q4HRS PRN PO PAIN Last administered on 08/10/16 10:36; Start 08/06/16 at 12:15 Morphine Sulfate (Ms Contin) 15 mg 1X ONCE PO Last administered on 08/06/16 12:51; Start 08/06/16 at 12:15; Stop 08/06/16 at 12:17; Status DC Polyethylene Glycol (miraLAX PACKET) 17 gm PRN DAILY PRN PO CONSTIPATION Last administered on 08/08/16 09:10; Start 08/06/16 at 12:15 Polyethylene Glycol (miraLAX PACKET) 17 gm 1X ONCE PO ; Start 08/06/16 at 12:15 ; Stop 08/06/16 at 12:17; Status DC Indomethacin (Indocin) 25 mg TIDWMEALS PO Last administered on 08/10/16 07:54 ; Start 08/06/16 at 13:00 Pantoprazole Sodium (Protonix) 40 mg DAILYAC PO ; Start 08/06/16 at 12:45; Stop 08/06/16 at 15:38; Status DC Calcium Carbonate/ Glycine (Tums) 500 mg PRN Q6HRS PRN PO INDIGESTION Last administered on 08/07/16 04:11; Start 08/07/16 at 04:00 Fentanyl Citrate (Fentanyl 2ml Vial) 50 mcg PRN Q5MIN PRN IV Acute Pain Last administered on 08/07/16 13:27; Start 08/07/16 at 09:45; Stop 08/08/16 at 09:44 ; Status DC Morphine Sulfate 4 mg PRN Q10MIN PRN IV Moderate Pain Last administered on 08/07 12:46; Start 08/07/16 at 09:45; Stop 08/08/16 at 09:44; Status DC Hydromorphone HCl (Dilaudid) 0.4 mg PRN Q10MIN PRN IV Moderate to severe pain; Start 08/07/16 at 09:45; Stop 08/08/16 at 09:44; Status DC Meperidine HCl (Demerol) 12.5 mg PRN Q5MIN PRN IV SHIVERING; Start 08/07/16 at 09:45; Stop 08/08/16 at 02:30; Status DC Prochlorperazine Edisylate (Compazine) 5 mg PRN Q6HRS PRN IV Nausea/Vomiting, 1st Choice; Start 08/07/16 at 09:45; Stop 08/08/16 at 09:44; Status DC Diphenhydramine HCl (Benadryl) 12.5 mg PRN Q2HR PRN IV ITCHING; Start 08/07/16 at 09:45; Stop 08/08/16 at 09:44; Status DC Midazolam HCl (Versed) 2 mg PRN 1X PRN IV PRIOR TO PROCEDURE; Start 08/07/16 at 09:45; Stop 08/08/16 at 09:44; Status DC Midazolam HCl (Versed) 1 mg PRN 1X PRN IV PRIOR TO PROCEDURE; Start 08/07/16 at 09:45; Stop 08/08/16 at 09:44; Status DC Fentanyl Citrate (Fentanyl 2ml Vial) 25 mcg PRN Q5MIN PRN IV X 2 DOSES FOR PAIN ; Start 08/07/16 at 09:45; Stop 08/08/16 at 09:44; Status DC Fentanyl Citrate (Fentanyl 2ml Vial) 50 mcg PRN Q5MIN PRN IV X 2 DOSES FOR PAIN ; Start 08/07/16 at 09:45; Stop 08/08/16 at 09:44; Status DC Ringer's Solution 1,000 ml @ 125 mls/hr Q8H IV Last administered on 08/07/16 09:30; Start 08/07/16 at 09:43; Stop 08/07/16 at 21:42; Status DC Lidocaine HCl 2 ml 1X PRN PRN ID IV START; Start 08/07/16 at 09:45; Stop at 09:44; Status DC Bupivacaine HCl (Sensorcaine Mpf 0.5%) 30 ml STK-MED ONCE .ROUTE Last administered on 08/07/16 11:44; Start 08/07/16 at 11:05; Stop 08/07/16 at 11:06 ; Status DC Povidone Iodine ( Betadine Oint) 28 maria STK-MED ONCE TP ; Start 08/07/16 at 11: 06; Stop 08/07/16 at 11:07; Status DC Midazolam HCl (Versed) 2 mg STK-MED ONCE .ROUTE ; Start 08/07/16 at 11:18; Stop 08/07/16 at 11:19; Status DC Fentanyl Citrate (Fentanyl 2ml Vial) 100 mcg STK-MED ONCE .ROUTE ; Start at 11:18; Stop 08/07/16 at 11:19; Status DC Phenylephrine HCl 1 mg STK-MED ONCE IV ; Start 08/07/16 at 11:34; Stop 08/07/16 at 11:35; Status DC Neomycin/ Polymyxin/ Dexamethasone (Maxitrol) 7 inch STK-MED ONCE .ROUTE ; Start 08/07/16 at 11:35; Stop 08/07/16 at 11:36; Status DC Cefazolin Sodium 50 ml @ As Directed STK-MED ONCE IV ; Start 08/07/16 at 11:37; Stop 08/07/16 at 11:38; Status DC Propofol 20 ml @ As Directed STK-MED ONCE IV ; Start 08/07/16 at 11:39; Stop at 11:40; Status DC Lidocaine HCl (Lidocaine Pf 2% Vial) 5 ml STK-MED ONCE .ROUTE ; Start 08/07/16 at 11:39; Stop 08/07/16 at 11:40; Status DC Dexamethasone Sodium Phosphate (Decadron) 20 mg STK-MED ONCE .ROUTE ; Start at 11:40; Stop 08/07/16 at 11:41; Status DC Ondansetron HCl (Zofran) 4 mg STK-MED ONCE .ROUTE ; Start 08/07/16 at 11:40; Stop 08/07/16 at 11:41; Status DC Sevoflurane (Ultane) 30 ml STK-MED ONCE IH ; Start 08/07/16 at 12:07; Stop 08/07 at 12:08; Status DC Fentanyl Citrate (Fentanyl 2ml Vial) 75 mcg PRN Q2HR PRN IV SEVERE PAIN Last administered on 08/10/16t 10:36; Start 08/08/16 at 09:15 Metoprolol Tartrate (Lopressor) 25 mg BID PO Last administered on 08/10/16t 10: 35; Start 08/08/16 at 21:00 Gadobutrol (Gadavist) 8 mmol 1X ONCE IV Last administered on 08/09/16t 14:10; Start 08/09/16 at 13:45; Stop 08/09/16 at 13:46; Status DC Active Scripts Active [place] 7.5-325 Tablet (Acetaminophen/Hydrocodone Bitart) 1 Each Tablet 1 Each PO Q4HRS PRN Reported Lyrica (Pregabalin) 50 Mg Capsule 1 Cap PO BID Hydrocodone-Apap 7.5-325 (Hydrocodone Bit/Acetaminophen) 1 Each Tablet 1 Tab PO PRN Q4HRS PRN Atorvastatin Calcium 20 Mg Tablet 20 Mg PO QHS Lisinopril 20 Mg Tablet 1 Tab PO DAILY Isosorbide Mononitrate Er (Isosorbide Mononitrate) 30 Mg Tab.er.24h 1 Tab PO DAILY Atorvastatin Calcium 40 Mg Tablet 40 Mg PO HS Lisinopril 5 Mg Tablet 1 Tab PO DAILY Lyrica (Pregabalin) 100 Mg Capsule 1 Cap PO BID Vitals/I & O Vital Sign - Last 24 Hours 08/09/16 08/09/16 08/09/16 08/09/16 14:47 16:40 16:40 17:34 Temp 97.9 97.9 Pulse 78 Resp 18 B/P (MAP) 162/68 (99) Pulse Ox 95 95 95 95 O2 Delivery Room Air Room Air Room Air O2 Flow Rate 1.0 1.0 1.0 08/09/16 08/09/16 08/09/16 08/09/16 19:51 19:55 20:20 20:21 Temp 98.3 98.3 Pulse 71 71 Resp 20 B/P (MAP) 150/58 (88) 150/58 Pulse Ox 91 O2 Delivery Room Air Room Air Room Air 08/09/16 08/09/16 08/10/16 08/10/16 20:52 22:53 02:11 02:12 Temp 98.4 98.4 Pulse 73 Resp 18 B/P (MAP) 120/63 (82) Pulse Ox 91 O2 Delivery Room Air Room Air Room Air Room Air 08/10/16 08/10/16 08/10/16 08/10/16 03:21 05:34 06:26 07:00 Temp 98.3 98.2 98.3 98.2 Pulse 82 74 Resp 18 18 B/P (MAP) 164/85 (111) 175/80 (111) Pulse Ox 91 96 O2 Delivery Room Air Room Air Room Air Room Air 08/10/16 08/10/16 08/10/16 08/10/16 07:50 07:53 07:54 07:56 Pulse 82 82 B/P (MAP) 164/85 164/85 Pulse Ox 91 91 O2 Delivery Room Air O2 Flow Rate 1.0 1.0 08/10/16 08/10/16 08/10/16 08/10/16 08:00 10:35 10:36 10:36 Pulse 82 B/P (MAP) 164/85 O2 Delivery Room Air Room Air Room Air 08/10/16 08/10/16 08/10/16 11:00 11:22 11:22 Temp 97.9 97.9 Pulse 71 Resp 18 B/P (MAP) 139/70 (93) Pulse Ox 97 O2 Delivery Room Air Room Air Room Air Intake and Output 08/09/16 08/09/16 08/10/16 15:00 23:00 07:00 Intake Total 800 ml 2150 ml Balance 800 ml 2150 ml MUKESH PEREZ III DO Aug 10, 2016 11:35
[2016-08-10 15:00] VITALS: BP 145/76
--- NOTE | 2016-08-10 16:42 | PDOC ---
PROGRESS NOTES Assessment Assessment Left side headache. Pain behind left eye for about 10 days before coming here. Left eye tear duct obstruction. HTN HLD Old lacunar infract. No evidence of acute CVA or vasculitis this time. No evidence of left temporal arteritis this time. No evidence of IIP. RECOMMENDATIONS/PLAN: Consult Ophthalmology for left eye pain and increased ocular pressure ? Continue medical treatment. See ophthalmology YAAKOV. Discussed with patient in all detail on a daily basis and he understood. ESR: 2 Brain MRI/MRA/MRV: Unremarkable. LP on 08/08/16: CSF opening pressure was 18 and closing pressure was 14 in normal range. CSF exam so far WNL except mildly elevated glucose level. Left temporal A biopsy on 08/07, reported no giant temporal arteritis. Orbital MRI w/wo contrast on 08/09/16: No abnormal findings. SUBJECTIVE: Pain in left side head and behind left eye increased on 08/07. Left eye vision decreased from time to time. Past Medical History Cardiovascular: HTN, Hyperlipidemia Pulmonary: No pertinent hx CENTRAL NERVOUS SYSTEM: Periperal neuropathy GI: No pertinent hx Heme/Onc: No pertinent hx Hepatobiliary: No pertinent hx Psych: No pertinent hx Musculoskeletal: low back pain, Muscle atrophy, Weakness Endocrine: No pertinent hx Past Surgical History Right rotated cuff repair. Family History No Significant Social History Smoke: Ciga 3 /daily. ALCOHOL: 3 beers a week x 20 years. Drugs: None ALLERGY: Reviewed.n MEDICATIONS: Refer to MAR REVIEW OF SYSTEMS: Constitutional: No malnutrition, weight loss, cachexia. Head: No traumatic brain or head injury. Skin: No edema, or rash. Ear: No infection. Eyes: No vision loss, or diplopia. Nose: No bleeding or purulent discharges. Hearing: No hearing decrease. Neck: No injury. Cardiac: HTN, HLD Pulmonary: No CPOD. GI: No GI Ulcer, GI bleeding Urinary/genital: No dysuria, incontinence, urinary retention. Endocrine: No cousin face, craniofacial dysmorphism, polydactyly. Skeletomuscular: No muscular atrophy, deformity. Neurological: see HP. Psychiatric: Denies drug use/abuse. Otherwise, not [id number] review of systems. PHYSICAL EXAMINATION: General appearance in no acute distress. HEENT: Normocephalic and nontraumatic. Eyes, nose, ears, and throat are unremarkable. Hearing decrease. Neck is supple. No lymphadenopathy. No Crepitus. Cardiovascular: S1, S2, regular rate and rhythm. Pulmonary: Clear to auscultation bilaterally. Abdomen: Bowel sounds are positive. Abdomen is soft, nontender, and nondistended. Extremities: No rash, lesions, or edema. No restriction of range of motion NEUROLOGICAL EXAMINATION: Alert. Oriented to time, place and person. PERRL. EOMI. CN: no focal findings. Muscle tone: within normal. Muscle strength: 5 DTR: 2 Plantar reflex: Flexor response bilaterally Gait: Normal. Sensory exam: no abnormal findings. No cerebellar signs elicited. F-T-N test accurate. Objective Objective Vital Signs Date Time Temp Pulse Resp B/P (MAP) Pulse Ox O2 Delivery O2 Flow Rate FiO2 08/10/16 15:00 97.8 79 18 145/76 (99) 97 Room Air 97.8 08/10/16 07:56 1.0 Intake and Output 08/10/16 07:00 Intake Total 2950 ml Balance 2950 ml Intake Oral 2950 ml # Voids 6 # Bowel Movements 2 Vitals Signs Vitals VS - Last 72 Hours, by Label Date Time Temp Pulse Resp B/P (MAP) Pulse Ox O2 Delivery O2 Flow Rate FiO2 08/10/16 15:00 97.8 79 18 145/76 (99) 97 Room Air 97.8 08/10/16 14:01 Room Air 08/10/16 13:02 Room Air 08/10/16 11:22 Room Air 08/10/16 11:00 97.9 71 18 139/70 (93) 97 Room Air 97.9 08/10/16 10:36 Room Air 08/10/16 10:36 Room Air 08/10/16 10:35 82 164/85 08/10/16 08:00 Room Air 08/10/16 07:56 91 1.0 08/10/16 07:54 82 164/85 08/10/16 07:53 82 164/85 08/10/16 07:50 91 Room Air 1.0 08/10/16 07:00 98.2 74 18 175/80 (111) 96 Room Air 98.2 08/10/16 06:26 Room Air 08/10/16 05:34 Room Air 08/10/16 03:21 98.3 82 18 164/85 (111) 91 Room Air 98.3 08/10/16 02:12 Room Air 08/10/16 02:11 Room Air 08/09/16 22:53 98.4 73 18 120/63 (82) 91 Room Air 98.4 08/09/16 20:52 Room Air 08/09/16 20:21 Room Air 08/09/16 20:20 71 150/58 08/09/16 19:55 Room Air 08/09/16 19:51 98.3 71 20 150/58 (88) 91 Room Air 98.3 08/09/16 17:34 95 1.0 08/09/16 16:40 95 Room Air 1.0 08/09/16 16:40 95 Room Air 1.0 08/09/16 14:47 97.9 78 18 162/68 (99) 95 Room Air 97.9 08/09/16 10:47 97.7 69 18 138/65 (89) 93 Room Air 97.7 08/09/16 08:55 93 Room Air 1.0 08/09/16 08:52 76 173/77 08/09/16 08:51 76 173/77 08/09/16 08:50 76 173/77 08/09/16 08:16 93 Room Air 1.0 08/09/16 08:00 Room Air 08/09/16 07:51 99.5 76 18 173/77 (109) 93 Room Air 99.5 Laboratory Laboratory Microbiology 08/08/16 Anaerobic/Aerobic Culture - Preliminary, Resulted 08/08/16 Anaerobic Culture Result 1 (ISAIAH) - Preliminary, Resulted 08/08/16 Aerobic Culture - Preliminary, Resulted 08/08/16 Aerobic Culture Result 1 (ISAIAH) - Preliminary, Resulted Comment Review of Relevant I have reviewed the following items lien (where applicable) has been applied. LEELA MCLAIN MD Aug 10, 2016 16:42
[2016-08-10 19:00] VITALS: BP 134/72
[2016-08-10] MEDS: ATORVASTATIN CALCIUM 40 MG TABLET. PO SCH (20:31)
[2016-08-10 23:00] VITALS: BP 174/82
[2016-08-11 03:00] VITALS: BP 141/69
[2016-08-11] MEDS: HYDROcodone/APAP 10/325 1 TAB TABLET PO PRN ×2 (05:33→11:44)
[2016-08-11 07:00] VITALS: BP 151/74
[2016-08-11] MEDS: fentaNYL PF VIAL 100 MCG/2 ML VIAL IV PRN ×2 (07:48→11:44)
[2016-08-11] MEDS: PANTOPRAZOLE 40 MG TABLET.DR. PO SCH (07:48)
[2016-08-11] MEDS: INDOMETHACIN 25 MG CAPSULE. PO SCH ×2 (07:48→11:45)
--- NOTE | 2016-08-11 08:42 | CONS ---
DATE OF CONSULTATION: 08/10/2016 REQUESTING PHYSICIAN: Dr. Small. REASON FOR CONSULTATION: Leukocytosis and eye pain. HISTORY OF PRESENT ILLNESS: This is a 56-year-old -[place] gentleman who started having left eye pain a week or so before admission. The patient eventually started having problem, the light was bothering him and had so much pain in the left eye, spreading towards the ear, he decided to come in. The patient underwent significant workup including temporal biopsy, thinking temporal arteritis, that turned out to be negative. MRI was negative for eyeball. There is no redness. There is no swelling. There is no fever. There are no other problems or signs or symptoms other than the pain. The patient has been put on steroids and now the white count went up from normal, hence consultation. The patient denies any nausea, vomiting, diarrhea. Denies any other visual symptoms other than the light bothers him. Denies any chest pain, shortness of breath, abdominal pain. He does have chronic back problem and he is disabled from that. PAST MEDICAL HISTORY: Positive for chronic back problem with back surgery done, and hypertension. SOCIAL HISTORY: ____. He does smoke, actually a cigar. Occasional alcohol use. No drug use. ALLERGIES: No known drug allergies. CURRENT MEDICATIONS: Reviewed. The patient is not on any , not on any antibiotics. The patient is on ____ prednisone. REVIEW OF SYSTEMS: As per HPI, all other systems reviewed are negative. PHYSICAL EXAMINATION: GENERAL: Alert and oriented gentleman, not in any distress. VITAL SIGNS: Stable, afebrile. HEENT: NAD. There is no corneal abnormality. There is no conjunctival congestion. There is no swelling of the eye. There is no blistering. There is no redness in the surrounding area of the eye. There is no abnormality detected. Rest of the HEENT, NAD. NECK: Supple, no JVP, no lymphadenopathy. LUNGS: Clear. HEART: S1, S2 regular. ABDOMEN: Benign. EXTREMITIES: No edema or cyanosis. SKIN: Unremarkable. NEUROLOGIC: The patient is neurologically intact. LABORATORY DATA: White count is 15.9, it was 10.7 on admission. BUN and creatinine is normal. His ESR was 2. CSF done, which showed WBC of 1. HIV antibody was negative. MRI of the orbit, brain, all reviewed. IMPRESSION: 1. Left eye pain, etiology unclear. 2. Leukocytosis, secondary to steroids. 3. Hypertension. RECOMMENDATIONS: I do not see the need for any antibiotics. The patient does not have any evidence for infection at this stage ____. Thank you very much, Dr. Small for giving me the opportunity to participate in this patient's care. HILL LEUNG MD DR: SNEHAL/carlita JOB#: [id number] / [id number]
[2016-08-11] MEDS: predniSONE 20 MG TABLET PO SCH (09:00)
--- NOTE | 2016-08-11 09:51 | PDOC ---
PROGRESS NOTES Chief Complaint Chief Complaint Headache, left eye pain, blurry vision mild CAD, htn, hyperlipids , \ tobaccoism, cessation discussed, chronic back pain and sciatica s/p failed back surgery 4 years ago, left foot drop, left leg nerve pain, on Lyrica History of Present Illness History of Present Illness Seen and examined Path report negative still in pain reviewed notes dw rn He is going to see Optho today in their office ( Dr Diaz) Vitals Vitals Vital Signs Date Time Temp Pulse Resp B/P (MAP) Pulse Ox O2 Delivery O2 Flow Rate FiO2 08/11/16 08:27 Room Air 08/11/16 07:00 98.4 59 16 151/74 (99) 95 98.4 08/10/16 07:56 1.0 Physical Exam Physical Exam HEENT: L eye slightly closed General: Alert, Oriented X3, Cooperative, No acute distress Heart: Regular rate, Normal S1, Normal S2 Lungs: Clear Abdomen: No tenderness Extremities: No edema, Normal pulses Skin: No breakdown, No significant lesion Review of Systems Review of Systems co pain co hunger Assessment and Plan Assessmemt and Plan Headache, left eye pain, blurry vision mild CAD, htn, hyperlipids , \ tobaccoism, cessation discussed, chronic back pain and sciatica s/p failed back surgery 4 years ago, left foot drop, left leg nerve pain, on Lyrica Plan Optho consult in progress PTOT Narcotics Home meds Steroid taper Labs ? Discharge after optho sees him? Problems: Comment Review of Relevant I have reviewed the following items lien (where applicable) has been applied. Labs Microbiology 08/08/16 Anaerobic/Aerobic Culture - Preliminary, Resulted 08/08/16 Anaerobic Culture Result 1 (ISAIAH) - Preliminary, Resulted 08/08/16 Aerobic Culture - Final, Resulted 08/08/16 Aerobic Culture Result 1 (ISAIAH) - Final, Resulted Medications Current Medications Fentanyl Citrate (Fentanyl 2ml Vial) 25 mcg PRN Q2HR PRN IV SEVERE PAIN Last administered on 08/06/16t 07:48; Start 08/05/16 at 04:30; Stop 08/06/16 at 12:06 ; Status DC Acetaminophen (Tylenol) 650 mg PRN Q6HRS PRN PO MILD PAIN; Start 08/05/16 at 04 :30 Ondansetron HCl (Zofran) 4 mg PRN Q6HRS PRN IV NAUSEA/VOMITING; Start 08/05/16 at 04:30 Prednisone (Prednisone) 60 mg DAILY PO Last administered on 08/10/16 07:55; Start 08/05/16 at 09:00 Pantoprazole Sodium (Protonix) 40 mg DAILYAC PO Last administered on 08/11/16 07:48; Start 08/05/16 at 07:30 Gadobutrol (Gadavist) 8 mmol 1X ONCE IV ; Start 08/05/16 at 14:45; Stop at 14:46; Status DC Nicotine Polacrilex (Nicorette Gum) 1 each PRN Q1HR PRN BC SMOKING CESSATION; Start 08/05/16 at 19:45 Nicotine (Nicoderm Cq 7mg) 1 patch PRN DAILY PRN TD SMOKING CESSATION Last administered on 08/08/16 20:12; Start 08/05/16 at 19:45 Atorvastatin Calcium (Lipitor) 40 mg HS PO Last administered on 08/10/16 20:31 ; Start 08/05/16 at 21:00 Acetaminophen/ Hydrocodone Bitart (Lortab 7.5/325) 1 tab PRN Q4HRS PRN PO PAIN Last administered on 08/06/16 07:47; Start 08/05/16 at 20:15; Stop 08/06/16 at 12:06; Status DC Lisinopril (Prinivil) 5 mg DAILY PO Last administered on 08/10/16 07:54; Start 08/05/16 at 20:30 Pregabalin (Lyrica) 100 mg BID PO Last administered on 08/10/16 20:31; Start 08/05/16 at 21:00 Isosorbide Mononitrate (Imdur) 30 mg DAILY PO Last administered on 08/10/16 07 :53; Start 08/05/16 at 20:30 Fentanyl Citrate (Fentanyl 2ml Vial) 50 mcg PRN Q2HR PRN IV SEVERE PAIN Last administered on 08/08/16 08:30; Start 08/06/16 at 12:15; Stop 08/08/16 at 09:03 ; Status DC Acetaminophen/ Hydrocodone Bitart (Lortab 10/325) 1 tab PRN Q4HRS PRN PO PAIN Last administered on 08/11/16 05:33; Start 08/06/16 at 12:15 Morphine Sulfate (Ms Contin) 15 mg 1X ONCE PO Last administered on 08/06/16 12:51; Start 08/06/16 at 12:15; Stop 08/06/16 at 12:17; Status DC Polyethylene Glycol (miraLAX PACKET) 17 gm PRN DAILY PRN PO CONSTIPATION Last administered on 08/08/16 09:10; Start 08/06/16 at 12:15 Polyethylene Glycol (miraLAX PACKET) 17 gm 1X ONCE PO ; Start 08/06/16 at 12:15 ; Stop 08/06/16 at 12:17; Status DC Indomethacin (Indocin) 25 mg TIDWMEALS PO Last administered on 08/11/16 07:48 ; Start 08/06/16 at 13:00 Pantoprazole Sodium (Protonix) 40 mg DAILYAC PO ; Start 08/06/16 at 12:45; Stop 08/06/16 at 15:38; Status DC Calcium Carbonate/ Glycine (Tums) 500 mg PRN Q6HRS PRN PO INDIGESTION Last administered on 08/07/16 04:11; Start 08/07/16 at 04:00 Fentanyl Citrate (Fentanyl 2ml Vial) 50 mcg PRN Q5MIN PRN IV Acute Pain Last administered on 08/07/16 13:27; Start 08/07/16 at 09:45; Stop 08/08/16 at 09:44 ; Status DC Morphine Sulfate 4 mg PRN Q10MIN PRN IV Moderate Pain Last administered on 08/07 12:46; Start 08/07/16 at 09:45; Stop 08/08/16 at 09:44; Status DC Hydromorphone HCl (Dilaudid) 0.4 mg PRN Q10MIN PRN IV Moderate to severe pain; Start 08/07/16 at 09:45; Stop 08/08/16 at 09:44; Status DC Meperidine HCl (Demerol) 12.5 mg PRN Q5MIN PRN IV SHIVERING; Start 08/07/16 at 09:45; Stop 08/08/16 at 02:30; Status DC Prochlorperazine Edisylate (Compazine) 5 mg PRN Q6HRS PRN IV Nausea/Vomiting, 1st Choice; Start 08/07/16 at 09:45; Stop 08/08/16 at 09:44; Status DC Diphenhydramine HCl (Benadryl) 12.5 mg PRN Q2HR PRN IV ITCHING; Start 08/07/16 at 09:45; Stop 08/08/16 at 09:44; Status DC Midazolam HCl (Versed) 2 mg PRN 1X PRN IV PRIOR TO PROCEDURE; Start 08/07/16 at 09:45; Stop 08/08/16 at 09:44; Status DC Midazolam HCl (Versed) 1 mg PRN 1X PRN IV PRIOR TO PROCEDURE; Start 08/07/16 at 09:45; Stop 08/08/16 at 09:44; Status DC Fentanyl Citrate (Fentanyl 2ml Vial) 25 mcg PRN Q5MIN PRN IV X 2 DOSES FOR PAIN ; Start 08/07/16 at 09:45; Stop 08/08/16 at 09:44; Status DC Fentanyl Citrate (Fentanyl 2ml Vial) 50 mcg PRN Q5MIN PRN IV X 2 DOSES FOR PAIN ; Start 08/07/16 at 09:45; Stop 08/08/16 at 09:44; Status DC Ringer's Solution 1,000 ml @ 125 mls/hr Q8H IV Last administered on 08/07/16 09:30; Start 08/07/16 at 09:43; Stop 08/07/16 at 21:42; Status DC Lidocaine HCl 2 ml 1X PRN PRN ID IV START; Start 08/07/16 at 09:45; Stop at 09:44; Status DC Bupivacaine HCl (Sensorcaine Mpf 0.5%) 30 ml STK-MED ONCE .ROUTE Last administered on 08/07/16 11:44; Start 08/07/16 at 11:05; Stop 08/07/16 at 11:06 ; Status DC Povidone Iodine ( Betadine Oint) 28 maria STK-MED ONCE TP ; Start 08/07/16 at 11: 06; Stop 08/07/16 at 11:07; Status DC Midazolam HCl (Versed) 2 mg STK-MED ONCE .ROUTE ; Start 08/07/16 at 11:18; Stop 08/07/16 at 11:19; Status DC Fentanyl Citrate (Fentanyl 2ml Vial) 100 mcg STK-MED ONCE .ROUTE ; Start at 11:18; Stop 08/07/16 at 11:19; Status DC Phenylephrine HCl 1 mg STK-MED ONCE IV ; Start 08/07/16 at 11:34; Stop 08/07/16 at 11:35; Status DC Neomycin/ Polymyxin/ Dexamethasone (Maxitrol) 7 inch STK-MED ONCE .ROUTE ; Start 08/07/16 at 11:35; Stop 08/07/16 at 11:36; Status DC Cefazolin Sodium 50 ml @ As Directed STK-MED ONCE IV ; Start 08/07/16 at 11:37; Stop 08/07/16 at 11:38; Status DC Propofol 20 ml @ As Directed STK-MED ONCE IV ; Start 08/07/16 at 11:39; Stop at 11:40; Status DC Lidocaine HCl (Lidocaine Pf 2% Vial) 5 ml STK-MED ONCE .ROUTE ; Start 08/07/16 at 11:39; Stop 08/07/16 at 11:40; Status DC Dexamethasone Sodium Phosphate (Decadron) 20 mg STK-MED ONCE .ROUTE ; Start at 11:40; Stop 08/07/16 at 11:41; Status DC Ondansetron HCl (Zofran) 4 mg STK-MED ONCE .ROUTE ; Start 08/07/16 at 11:40; Stop 08/07/16 at 11:41; Status DC Sevoflurane (Ultane) 30 ml STK-MED ONCE IH ; Start 08/07/16 at 12:07; Stop 08/07 at 12:08; Status DC Fentanyl Citrate (Fentanyl 2ml Vial) 75 mcg PRN Q2HR PRN IV SEVERE PAIN Last administered on 08/11/16 07:48; Start 08/08/16 at 09:15 Metoprolol Tartrate (Lopressor) 25 mg BID PO Last administered on 08/10/16 20: 32; Start 08/08/16 at 21:00 Gadobutrol (Gadavist) 8 mmol 1X ONCE IV Last administered on 08/09/16 14:10; Start 08/09/16 at 13:45; Stop 08/09/16 at 13:46; Status DC Active Scripts Active [place] 7.5-325 Tablet (Acetaminophen/Hydrocodone Bitart) 1 Each Tablet 1 Each PO Q4HRS PRN Reported Lyrica (Pregabalin) 50 Mg Capsule 1 Cap PO BID Hydrocodone-Apap 7.5-325 (Hydrocodone Bit/Acetaminophen) 1 Each Tablet 1 Tab PO PRN Q4HRS PRN Atorvastatin Calcium 20 Mg Tablet 20 Mg PO QHS Lisinopril 20 Mg Tablet 1 Tab PO DAILY Isosorbide Mononitrate Er (Isosorbide Mononitrate) 30 Mg Tab.er.24h 1 Tab PO DAILY Atorvastatin Calcium 40 Mg Tablet 40 Mg PO HS Lisinopril 5 Mg Tablet 1 Tab PO DAILY Lyrica (Pregabalin) 100 Mg Capsule 1 Cap PO BID Vitals/I & O Vital Sign - Last 24 Hours 08/10/16 08/10/16 08/10/16 08/10/16 10:35 10:36 10:36 11:00 Temp 97.9 97.9 Pulse 82 71 Resp 18 B/P (MAP) 164/85 139/70 (93) Pulse Ox 97 O2 Delivery Room Air Room Air Room Air 08/10/16 08/10/16 08/10/16 08/10/16 11:22 13:02 15:00 18:09 Temp 97.8 97.8 Pulse 79 Resp 18 B/P (MAP) 145/76 (99) Pulse Ox 97 O2 Delivery Room Air Room Air Room Air Room Air 08/10/16 08/10/16 08/10/16 08/10/16 19:00 20:00 20:32 20:32 Temp 98.3 98.3 Pulse 69 69 Resp 18 18 B/P (MAP) 134/72 (92) 134/72 Pulse Ox 96 O2 Delivery Room Air Room Air Room Air 08/10/16 08/10/16 08/11/16 08/11/16 23:00 23:26 03:00 05:33 Temp 97.4 98.2 97.4 98.2 Pulse 75 78 Resp 18 18 18 18 B/P (MAP) 174/82 (112) 141/69 (93) Pulse Ox 92 94 O2 Delivery Room Air Room Air Room Air Room Air 08/11/16 08/11/16 08/11/16 08/11/16 07:00 07:48 07:48 08:27 Temp 98.4 98.4 Pulse 59 Resp 16 B/P (MAP) 151/74 (99) Pulse Ox 95 O2 Delivery Room Air Room Air Room Air Room Air Intake and Output 08/10/16 08/10/16 08/11/16 15:00 23:00 07:00 Intake Total 500 ml 3210 ml Balance 500 ml 3210 ml MUKESH PEREZ III DO Aug 11, 2016 09:51
[2016-08-11] MEDS: METOPROLOL TART IMMED RELEASE 25 MG TABLET. PO SCH (10:08)
[2016-08-11] MEDS: ISOSORBIDE MONONITRATE ER 30 MG TAB.ER.24H PO SCH (10:08)
[2016-08-11] MEDS: PREGABALIN 50 MG CAPSULE PO SCH (10:09)
[2016-08-11] MEDS: LISINOPRIL 5 MG TABLET. PO SCH (10:09)
[2016-08-11 11:00] VITALS: BP 133/76
[2016-08-11] MEDS: NICOTINE 7MG PATCH. TD PRN (11:44)
--- NOTE | 2016-08-11 14:35 | PDOC ---
PROGRESS NOTES Assessment Assessment Left side headache, left frontal and orbital area. Pain behind left eye for about 10 days before coming here. Left eye tear duct obstruction. left eye glaucoma suspected. HTN HLD Old lacunar infract. No evidence of acute CVA or vasculitis this time. No evidence of left temporal arteritis this time. No evidence of IIP. No evidence of orbital cellulitis or tumor. RECOMMENDATIONS/PLAN: Consult Ophthalmology for left eye pain and increased ocular pressure ? Continue medical treatment. See ophthalmology YAAKOV ! Discussed with patient in all detail on a daily basis and he understood. ESR: 2 Brain MRI/MRA/MRV: Unremarkable. LP on 08/08/16: CSF opening pressure was 18 and closing pressure was 14 in normal range. CSF exam so far WNL except mildly elevated glucose level. Left temporal A biopsy on 08/07, reported no giant temporal arteritis. Orbital MRI w/wo contrast on 08/09/16: No abnormal findings. SUBJECTIVE: Pain in left side head and behind left eye increased on 08/07. Left eye vision decreased from time to time. Past Medical History Cardiovascular: HTN, Hyperlipidemia Pulmonary: No pertinent hx CENTRAL NERVOUS SYSTEM: Periperal neuropathy GI: No pertinent hx Heme/Onc: No pertinent hx Hepatobiliary: No pertinent hx Psych: No pertinent hx Musculoskeletal: low back pain, Muscle atrophy, Weakness Endocrine: No pertinent hx Past Surgical History Right rotated cuff repair. Family History No Significant Social History Smoke: Ciga 3 /daily. ALCOHOL: 3 beers a week x 20 years. Drugs: None ALLERGY: Reviewed.n MEDICATIONS: Refer to MAR REVIEW OF SYSTEMS: Constitutional: No malnutrition, weight loss, cachexia. Head: No traumatic brain or head injury. Skin: No edema, or rash. Ear: No infection. Eyes: No vision loss, or diplopia. Nose: No bleeding or purulent discharges. Hearing: No hearing decrease. Neck: No injury. Cardiac: HTN, HLD Pulmonary: No CPOD. GI: No GI Ulcer, GI bleeding Urinary/genital: No dysuria, incontinence, urinary retention. Endocrine: No cousin face, craniofacial dysmorphism, polydactyly. Skeletomuscular: No muscular atrophy, deformity. Neurological: see HP. Psychiatric: Denies drug use/abuse. Otherwise, not [id number] review of systems. PHYSICAL EXAMINATION: General appearance in no acute distress. HEENT: Normocephalic and nontraumatic. Eyes, nose, ears, and throat are unremarkable. Hearing decrease. Neck is supple. No lymphadenopathy. No Crepitus. Cardiovascular: S1, S2, regular rate and rhythm. Pulmonary: Clear to auscultation bilaterally. Abdomen: Bowel sounds are positive. Abdomen is soft, nontender, and nondistended. Extremities: No rash, lesions, or edema. No restriction of range of motion NEUROLOGICAL EXAMINATION: Alert. Oriented to time, place and person. PERRL. EOMI. CN: no focal findings. Muscle tone: within normal. Muscle strength: 5 DTR: 2 Plantar reflex: Flexor response bilaterally Gait: Normal. Sensory exam: no abnormal findings. No cerebellar signs elicited. F-T-N test accurate. Objective Objective Vital Signs Date Time Temp Pulse Resp B/P (MAP) Pulse Ox O2 Delivery O2 Flow Rate FiO2 08/11/16 13:01 Room Air 08/11/16 11:00 98.2 82 16 133/76 (95) 94 98.2 08/10/16 07:56 1.0 Intake and Output 08/11/16 07:00 Intake Total 3710 ml Balance 3710 ml Intake Oral 3710 ml # Voids 5 Vitals Signs Vitals VS - Last 72 Hours, by Label Date Time Temp Pulse Resp B/P (MAP) Pulse Ox O2 Delivery O2 Flow Rate FiO2 08/11/16 13:01 Room Air 08/11/16 13:01 Room Air 08/11/16 11:44 Room Air 08/11/16 11:44 Room Air 08/11/16 11:00 98.2 82 16 133/76 (95) 94 Room Air 98.2 08/11/16 10:09 62 151/74 08/11/16 10:08 62 151/74 08/11/16 10:08 59 151/74 08/11/16 07:48 Room Air 08/11/16 07:48 Room Air 08/11/16 07:00 98.4 59 16 151/74 (99) 95 Room Air 98.4 08/11/16 05:33 18 Room Air 08/11/16 03:00 98.2 78 18 141/69 (93) 94 Room Air 98.2 08/10/16 23:26 18 Room Air 08/10/16 23:00 97.4 75 18 174/82 (112) 92 Room Air 97.4 08/10/16 20:32 69 134/72 08/10/16 20:32 18 Room Air 08/10/16 20:00 Room Air 08/10/16 19:00 98.3 69 18 134/72 (92) 96 Room Air 98.3 08/10/16 18:09 Room Air 08/10/16 15:00 97.8 79 18 145/76 (99) 97 Room Air 97.8 08/10/16 13:02 Room Air 08/10/16 11:00 97.9 71 18 139/70 (93) 97 Room Air 97.9 08/10/16 10:36 Room Air 08/10/16 10:36 Room Air 08/10/16 10:35 82 164/85 08/10/16 08:00 Room Air 08/10/16 07:56 91 1.0 08/10/16 07:54 82 164/85 08/10/16 07:53 82 164/85 08/10/16 07:50 91 Room Air 1.0 08/10/16 07:00 98.2 74 18 175/80 (111) 96 Room Air 98.2 Laboratory Laboratory Microbiology 08/08/16 Anaerobic/Aerobic Culture - Final, Complete 08/08/16 Anaerobic Culture Result 1 (ISAIAH) - Final, Complete 08/08/16 Aerobic Culture - Final, Complete 08/08/16 Aerobic Culture Result 1 (ISAIAH) - Final, Complete Medication Medications Current Medications Prednisone (Prednisone) 40 mg DAILY PO ; Start 08/12/16 at 09:00 Comment Review of Relevant I have reviewed the following items lien (where applicable) has been applied. LEELA MCLAIN MD Aug 11, 2016 14:35
[2016-08-11 14:41] VITALS: BP 101/71
[2016-08-11] MEDS ORDERED: PRED-220 PO (15:00)
[2016-08-11] MEDS ORDERED: HYDR-963 PO (15:01)
[2016-08-11 19:13] LABS: HERPES SIMPLEX TYPE 1 Negative (Negative); HERPES SIMPLEX TYPE 2 Negative (Negative)
[2016-08-12] MEDS ORDERED: predniSONE 20 MG TABLET PO SCH (09:00)
== END 2016-08-11 16:11 | disposition home or self-care (01) | DRG 42 ==
LOC: 6 SOUTH 03:17
PROVIDERS: ADMIT Internal Medicine; ATTEND Internal Medicine
PROC: 03BT0ZX Excision of Left Temporal Artery, Open Approach, Diagnostic (ICD-10-PCS; principal; 2016-08-07 11:45)
PROC: 009U3ZX Drainage of Spinal Canal, Percutaneous Approach, Diagnostic (ICD-10-PCS; 2016-08-08)
DX: R51 Headache (principal); E78.5 Hyperlipidemia, unspecified; E78.00 Pure hypercholesterolemia, unspecified; I10 Essential (primary) hypertension; G89.29 Other chronic pain; H40.9 Unspecified glaucoma; I25.10 Atherosclerotic heart disease of native coronary artery without angina pectoris; J44.9 Chronic obstructive pulmonary disease, unspecified; T38.0X5A Adverse effect of glucocorticoids and synthetic analogues, initial encounter; F17.210 Nicotine dependence, cigarettes, uncomplicated; D72.829 Elevated white blood cell count, unspecified; H54.7 Unspecified visual loss; M54.40 Lumbago with sciatica, unspecified side; M21.372 Foot drop, left foot; G62.9 Polyneuropathy, unspecified; H57.12 Ocular pain, left eye; M54.2 Cervicalgia; Z79.899 Other long term (current) drug therapy; Z79.1 Long term (current) use of non-steroidal anti-inflammatories (NSAID); Z71.6 Tobacco abuse counseling; Z79.2 Long term (current) use of antibiotics; Z82.49 Family history of ischemic heart disease and other diseases of the circulatory system; Z83.3 Family history of diabetes mellitus; Z86.73 Personal history of transient ischemic attack (TIA), and cerebral infarction without residual deficits; Z88.1 Allergy status to other antibiotic agents
CPT/HCPCS: 36415; 62270; 70543; 70544; 70546; 70553; 80048; 80053; 82945; 82947; 84157; 85007; 85027; 85610; 85651; 86140; 86703; 87071; 87075; 87205; 87529; 88305; 89051; A9585; C1769; G0481; J0690; J1100; J2250; J2270; J2370; J2405; J2704; J3010; J3490; J7120; J7512

== ENCOUNTER → 2019-12-02 | Outpatient (CLI) | payer OTHER ==
[~2019-12-02] MED LIST changes: +ASPI-630 PO; +CYCL10TA2 PO; +HYDR-2145 PO; +HYDR-3135 PO; +HYDR-3165 PO; -HYDR-965 PO; -HYDR25TA9 PO; +IRBE75TA16 PO; +ISOS30TA4 PO; +METO-239 PO; -METO25TA9 PO; +PRED-220 PO; +SIMV10TA15 PO; -SIMV10TA3 PO; +VALS160T3 PO
== END ==
LOC: LAB 13:38
PROVIDERS: ATTEND Internal Medicine Cardiovascular Disease
DX: Z01.812 Encounter for preprocedural laboratory examination (principal); Z20.828 Contact with and (suspected) exposure to other viral communicable diseases; I73.9 Peripheral vascular disease, unspecified
CPT/HCPCS: U0003-CS

== ENCOUNTER 2019-12-04 08:53 | Outpatient (CLI) | payer OTHER ==
[2019-12-04] VITALS (20 sets, daily range): BP systolic 147–188; BP diastolic 78–102
[~2019-12-04] VITALS: Ht 188 cm; Wt 81.6 kg
[~2019-12-04 08:53] MED LIST changes: -ASPI-630 PO; -CYCL10TA2 PO; +HEPARIN for ARTERIAL LINE 1,500 ML ONE; +IODIXANOL 320 MG/ML 100 ML VIAL. ONE; -IRBE75TA16 PO; +LIDOCAINE 1% Multi-Dose 20 ML VIAL. ONE; -VALS160T3 PO
[2019-12-04] MEDS ORDERED: IV NORMAL SALINE 1000ML BAG 1,000 ML IV SCH (08:56)
[2019-12-04] MEDS ORDERED: VALS160T3 PO (09:03)
[2019-12-04] MEDS ORDERED: CYCL10TA2 PO (09:03)
[2019-12-04] MEDS ORDERED: ASPI-630 PO (09:03)
[2019-12-04] MEDS ORDERED: IRBE75TA16 PO (09:03)
[2019-12-04 09:24] LABS: HEMATOCRIT 43.4 % (39.0-53.0); HEMOGLOBIN 14.4 g/dL (13.0-17.5); RED BLOOD COUNT 4.91 x10^6/uL (4.30-5.70); RED CELL DISTRIBUTION WIDTH 14.5 % (11.5-14.5)
[2019-12-04 09:32] LABS: CALCIUM 9.1 mg/dL (8.5-10.1); CREATININE 1.2 mg/dL (0.7-1.3); POTASSIUM 4.2 mmol/L (3.5-5.1)
[2019-12-04 09:33] LABS: PROTHROMBIN TIME PATIENT 12.6 SEC (11.7-14.0)
[2019-12-04] MEDS ORDERED: MIDAZOLAM HCL/PF 5 MG/5 ML VIAL. ONE (10:04)
[2019-12-04] MEDS ORDERED: fentaNYL PF VIAL 250 MCG/5 ML VIAL ONE (10:05)
--- NOTE | 2019-12-04 10:18 | PDOC ---
MODERATE SEDATION ASSESSMENT RISKS/ALTERNATIVES Risks/Alternatives Risks and alternatives of this type of sedation and procedure discussed with: RISK/ALTERNATIVES: Patient H & P ON CHART H & P H & P on chart and reviewed for co-morbid conditions and appropriate labs. H&P ON CHART: Yes STATUS PREG STATUS ASSESSED: N/A MEDS/ALLERGIES REVIEWED Meds/Allergies Reviewed Medications and Allergies including time and route of recently administered narcotics and sedatives. MEDS/ALLERGIES REVIEWED: Yes ASA RATING ASA RATING: II AIRWAY ASSESSMENT Airway Assessment Airway patency, oral function limitations, presence of caps, crowns, dentures, partials, and ability to extend neck assessed. AIRWAY ASSESSMENT: Yes MALLAMPATI SCORE MALLAMPATI SCORE: II PRE-SEDATION ASSESSMENT PRE-SEDATION ASSESSMENT: Yes GWEN VELIZ MD Dec 04, 2019 10:18
[2019-12-04] MEDS ORDERED: HEPARIN for IV BOLUS 10,000 UNIT/10 ML VIAL. ONE (10:24)
[2019-12-04] MEDS ORDERED: CONTRAST GIVEN. MC PRN (10:30)
[2019-12-04] MEDS ORDERED: fentaNYL PF VIAL 250 MCG/5 ML VIAL IV ONE (10:30)
[2019-12-04] MEDS ORDERED: LIDOCAINE 1% Multi-Dose 20 ML VIAL. INJ ONE (10:30)
[2019-12-04] MEDS ORDERED: MIDAZOLAM HCL/PF 5 MG/5 ML VIAL. IV ONE (10:30)
[2019-12-04] MEDS ORDERED: IODIXANOL 320 MG/ML 100 ML VIAL. IART ONE (10:30)
[2019-12-04] MEDS ORDERED: hydrALAZINE 20 MG/ML VIAL. ONE (10:58)
[2019-12-04] MEDS ORDERED: HEPARIN for IV BOLUS 10,000 UNIT/10 ML VIAL. IV ONE (11:00)
[2019-12-04] MEDS ORDERED: hydrALAZINE 20 MG/ML VIAL. IVP ONE (11:15)
--- NOTE | 2019-12-04 12:50 | NUR ---
ACT 188 air sealing technician notified for line pull PRIMO RN
[2019-12-04] MEDS ORDERED: fentaNYL PF VIAL 100 MCG/2 ML VIAL ONE (13:03)
[2019-12-04] MEDS ORDERED: fentaNYL PF VIAL 100 MCG/2 ML VIAL IVP ONE (13:05)
--- NOTE | 2019-12-04 13:12 | PDOC ---
Provider Note Date of Service: DATE: 12/04/19 TIME: 13:08 Provider Note Vascular surgery S: I spoke with Dr. Patino regarding arteriogram findings from today, left external iliac stenosis about 50% and left common femoral stenosis about 80%. Patient has severe back, left buttock and left leg shooting pain that limits his ambulation. He has a history of back surgery, spinal fusion at where they told him there was some nerve damage that is not amenable to surgery again. I briefly discussed with the patient regarding his symptoms, which strongly point to neuropathic pain. It is difficult to tell whether or not he has claudication in association with this. PE: alert, in no apparent distress. His vital signs are stable. He winces intermittently reports associated with back pain, he is lying flat s/p cath, leg straight. Assessment/Plan: L iliac and femoral stenosis No acute intervention necessary, his described pain seems more neuropathic in nature and with his history however I will arrange for him to get DEMARCO's and see vascular surgeon within the next few weeks with an office visit to further discuss management indications and options. I discussed this with the patient in detail today following his procedure in the recovery unit. He exhibited understanding and agreed with the plan. Patient was given the follow-up in formation. Justifications for Admission Other Justification BISI HERBERT Dec 04, 2019 13:12
--- NOTE | 2019-12-04 14:57 | CARD ---
MR#: [id number] Date of Study: 12/04/2019 Ordering Physician: GWEN VELIZ, Referring Physician: GWEN VELIZ, Tech: Helen Bethea APPROVED REPORT Patient StatusOUT-PATIENT Casualty Claim Adjuster: Helen Bethea Procedure(s) performed: fl time: 6.2 mins dose: 118 gycm2 contrast: 68 ml moderate sedation: 70 mins Abdominal aortogram with bilateral peripheral run-off HISTORY The patient is a 59 year-old male with a history of : tobacco history() , hypertension, dyslipidemia. INDICATION FOR PROCEDURE The indication(s) include : Rest pain: . PROCEDURE NARRATIVE Clinical information: Patient is a 59-year-old man who presents to the cardiac catheterization laboratory for further evalu ation of incidental severe lower extremity arterial disease diagnosed on a CT angiogram obtained in t he setting of severe back pain and lower extremity pain. He was found to have critical stenosis of t he left common femoral artery and moderate stenosis of the left external iliac artery and therefore d ue to persistent pain in the leg he underwent an angiogram today. He has elements of both neuropathi c pain and mild elements of claudication type pain. He has no acute limb ischemia to note. Procedure details: After appropriate informed consent, the patient was brought to the tailings dam laborer and placed in the supine position. Preprocedural timeout was completed and confirmed the right patient and procedure. The bila teral groins were prepped and draped in usual sterile fashion. Moderate sedation acheived with Fentan yl and Versed. The patient received 6500 units of Heparin for anticoagulation. Access: Under lidocaine local anesthesia, a 5Fr introducer sheath was placed in the RCFA via the peter fied seldinger technique with a J-tipped guidewire and an 18g needle. Diagnostic angiography was then performed using a 5Fr Omniflush catheter with digital subtraction angiography. Next, the contralater al (LCFA) was accessed with the aid of the Omniflush catheter and a Glidewire advantage. Repeat right lower extremity with DSA was performed. Subsequently, the catheter was used to do a pullback maneuve r on the JEANNINE stenosis. No significant stenosis was identified at the levels of the common iliac guicho ángel and the left external iliac artery. Due to possible significant left external iliac artery sten osis a decision was made to place a 6 [place] Terumo sheath at the level of the distal left common jovan ac artery and repeat diagnostic angiography was performed. This revealed noncritical stenosis of maria roximately 50%. FINDINGS: AO: 200/100 *50 mm pullback gradient across the left external iliac artery stenosis AORTA: Mild diffuse atherosclerosis with narrowing of the infrarenal aorta of approximately 30%. RENAL arteries: Single right and left renal arteries were identified without significant disease. RCIA: Mild diffuse irregularities of upto 20%. REIA: No significant disease. RIIA: No significant disease. RCFA: No significant disease. RSFA: No significant disease RPOP: No significant disease RAT: Moderate diffuse disease in the visualized proximal segment RTP trunk: No significant disease. LCIA: Mild diffuse irregularities of upto 20%. JEANNINE: There is an ostial/proximal 50% eccentric stenosis. *No significant pullback gradient across th e lesion, approximately 15 mm Hg. LIIA: Mild diffuse irregularities. LCFA: Calcified ostial/proximal 80% stenosis LSFA: No significant disease. LPOP: No significant disease. LAT: Occluded proximally with distal reconstitution at the level of the dorsalis pedis via peroneal c ollaterals LTP trunk: No significant disease. At case completion, the right sided sheath was removed via manual compression. Conclusion 1. Severe back and lower extremity pain likely neuropathic in nature with minimal claudicant compone nts 2. Moderate left external iliac artery stenosis of approximately 50% without a significant pullback gradient at 15 mmHg 3. Severe left common femoral arterial stenosis 4. Continue pain management treatments through [facility] anesthesiology/pain management Recommendations 1. Referral for consideration of left common femoral endarterectomy to vascular surgery. Continue r isk factor modification including blood pressure control, smoking cessation and lipid control. Signed by : Gwen Veliz, Electronically Approved : 12/04/2019 14:57:01
--- NOTE | 2019-12-04 16:44 | NUR ---
Discharge Note: BARBIE CUELLAR Discharge instructions and discharge home medications reviewed with Patient and a copy given. All questions have been answered and understanding verbalized. Patient ate lunch and dinner with no difficulties. The following instructions and handouts were given: Moderate sedation, PVD and groin site care. Discontinued lines and drains: right forearm PIV, dressing clean dry intact. Patient discharged to home with friend via wheelchair to private vehicle.
== END 2019-12-04 16:45 | disposition home or self-care (01) ==
LOC: CCL 08:53
PROVIDERS: ATTEND Internal Medicine Cardiovascular Disease
DX: I70.213 Atherosclerosis of native arteries of extremities with intermittent claudication, bilateral legs (principal); I25.10 Atherosclerotic heart disease of native coronary artery without angina pectoris; I70.8 Atherosclerosis of other arteries; I10 Essential (primary) hypertension; E78.5 Hyperlipidemia, unspecified; E78.00 Pure hypercholesterolemia, unspecified; F17.210 Nicotine dependence, cigarettes, uncomplicated; Z79.82 Long term (current) use of aspirin; Z79.899 Other long term (current) drug therapy; Z82.49 Family history of ischemic heart disease and other diseases of the circulatory system
CPT/HCPCS: 36246; 36415; 75625; 75716; 80048; 85027; 85347; 85610; 99152; 99153; C1769; C1892; C1894; J0360; J1644; J2250; J3010; J3490; J7030; Q9967

== ENCOUNTER 2020-08-14 00:17 | Inpatient (IN) | payer OTHER ==
[~2020-08-14] VITALS: Ht 185.4 cm; Wt 99.7 kg
[2020-08-14] VITALS (7 sets, daily range): BP systolic 152–185; BP diastolic 74–96
[~2020-08-14 00:17] MED LIST changes: +ASPI-630 PO; +CYCL10TA2 PO; -HEPARIN for ARTERIAL LINE 1,500 ML ONE; -IODIXANOL 320 MG/ML 100 ML VIAL. ONE; +IRBE75TA16 PO; -ISOS30TA4 PO; +ISOS30TA68 PO; -LIDOCAINE 1% Multi-Dose 20 ML VIAL. ONE; -LISI-334 PO; -LISI-338 PO; +LISI-517 PO; +LISI20TA18 PO; +VALS160T3 PO
[2020-08-14] MEDS ORDERED: HYDR-2769 PO (00:49)
[2020-08-14] MEDS ORDERED: AMLO-187 PO (00:49)
[2020-08-14] MEDS: HYDROcodone/APAP 10/325 1 TAB TABLET PO PRN ×3 (01:08→17:42)
[2020-08-14] MEDS: NICOTINE 14MG PATCH. TD SCH (01:42)
[2020-08-14] MEDS: ASPIRIN CHEWABLE 81 MG TABLET. PO SCH (08:35)
[2020-08-14] MEDS: CYCLOBENZAPRINE 10 MG TABLET. PO SCH (08:35)
[2020-08-14] MEDS ORDERED: ONDANSETRON PF 4 MG/2 ML VIAL. IVP PRN (11:00)
[2020-08-14] MEDS ORDERED: MAGNESIUM CITRATE 296 ML SOLUTION. PO ONE (11:30)
[2020-08-14] MEDS: fentaNYL PF VIAL 100 MCG/2 ML VIAL IVP PRN ×2 (11:55→20:09)
--- NOTE | 2020-08-14 11:58 | RAD ---
EXAM: Carotid Doppler sonogram. HISTORY: Cerebral infarction. Dizziness. Weakness. Headaches. Atherosclerosis. TECHNIQUE: Carter scale and color Doppler sonographic evaluation of the neck with spectral waveform amber lysis was performed and static images are submitted for review. FINDINGS: There is intimal thickening involving the common carotid arteries. The peak systolic velocity within the right common carotid artery is 109 cm/sec. The peak systolic ve locity within the right internal carotid artery is 58 cm/sec and the end diastolic velocity within th e right internal carotid artery is 18 cm/sec. The right ICA/CCA ratio is 0.5. The peak systolic velocity within the left common carotid artery is 127 cm/sec. The peak systolic vickie ocity within the left internal carotid artery is 77 cm/sec and the end diastolic velocity within the left internal carotid artery is 21 cm/sec. The left ICA/CCA ratio is 0.6. There is normal antegrade flow within both vertebral arteries. IMPRESSION: Doppler findings consistent with less than 50 percent stenosis involving the internal car otid arteries. PQRS Compliance Statement - Stenosis calculations for CT, MR and conventional angiography are based u renuka measurement of the distal ICA diameter in accordance with the NASCET methodology. Stenosis calcu lations for carotid ultrasound studies are derived from validated velocity criteria which are known t o correlate with the NASCET methodology. Electronically signed by: Korin Garcia MD (08/14/2020 11:56 AM) [id number]
--- NOTE | 2020-08-14 12:34 | HP ---
ADMIT DATE: 08/14/2020 HISTORY OF PRESENT ILLNESS: The patient is a 60-year-old -[place] male patient who presented to the Emergency Room with a complaint of dizziness, facial numbness on the entire right side. He apparently underwent a surgical resection by information security analyst of a cystic lesion in his right axilla and he apparently bled postoperatively and presented to the Emergency Room and was found his blood pressure to be extremely high. He was seen by his primary care physician, Dr. Landin, who started him on metoprolol and he took it around 9 o'clock in the morning. In the afternoon, he started feeling dizzy. He stated that the dizziness was worse after stopping the metoprolol. The patient was seen on 08/05/2020 with similar complaints, at that time had left-sided tenderness. The patient initially felt to have temporal arteritis; however, tonight has right temporal tenderness. He was extensively evaluated in the Emergency Room, has had lab work including his CBC. His sedimentation rate was only 3 mm per hour and his chemistry was largely unremarkable with C-reactive protein of 4.3. His prothrombin time and INR were unremarkable. Urinalysis was also unremarkable. Toxic screen was positive for opiates and cannabinoids. He has had a CT scan of the head, which showed that the patient has no acute hemorrhage or large territory ernst white large area of right parietotemporal encephalomalacia, small area of right rushing radiata encephalomalacia, chronic left basal ganglia lacunar infarct, mild nonspecific periventricular hypoattenuation most consistent with chronic small vessel ischemic disease. The patient was transferred to [facility] for further evaluation by consulting neurologist. PAST MEDICAL HISTORY: Significant for cystic lesion in the right axilla, surgically removed under local anesthesia on 08/12/2020, known to have hypertension, chronic back pain and left-sided sciatica. PAST SURGICAL HISTORY: Significant for right axilla cystic lesion removed recently, has also skin lesion in the left forearm that was also surgically removed, has appendectomy and colonoscopy. ALLERGIES: He has no known drug allergies. MEDICATIONS: He is currently on Flexeril 10 mg 3 times a day, amlodipine versus metoprolol. He is also on baby aspirin 81 mg once a day, gabapentin and amlodipine versus metoprolol. FAMILY HISTORY: Has 3 brothers and 4 sisters, all are older and healthy. His father at age of 56 because of lung cancer. Mother is still alive at the age of 82 and healthy. SOCIAL HISTORY: He is , has a son and a daughter. He smokes a cigar, drinks beer on the weekends. Does not use any drugs, although his tox screen was positive for opiates and cannabinoids. He is currently on disability due to his chronic back pain and sciatica, apparently has had extensive back surgery. PHYSICAL EXAMINATION: GENERAL: On arrival to the Emergency Room, he looked well and was clearly in no apparent respiratory distress. No pallor, jaundice, cyanosis, or thyromegaly. No jugular venous distention. No limb edema. VITAL SIGNS: His heart rate was 75, blood pressure was /89, temperature was 98.9, respiratory rate was 18 and oxygen saturation was 96% on room air. HEAD, EYES, EARS, NOSE, AND THROAT: Normocephalic, atraumatic. NECK: Supple. HEART: Normal first and second heart sounds, no gallop, rub or murmur. CHEST: Clear to auscultation. No crepitation or rhonchi. ABDOMEN: Distended, soft, nontender. NEUROLOGIC: He is awake, alert, responding appropriately. All his cranial nerves are grossly intact except he has almost complete anesthesia on both sides of his face and forehead. He has also paraesthesia on the left upper extremity. He seemed to be somewhat weaker on the left upper extremity compared to the right and he was unable to actively bend his knees, but he has to do it passively, although according to him, he is able to walk with a cane. He did describe hesitancy, but no incontinence. He did complain also of constipation and the headache around his right eye is worse when he strains to have a bowel movement. LABORATORY DATA: While in the emergency room, his lab work done showed a white cell count of 10,000, hemoglobin 16, hematocrit 47, MCV 89 and platelet count of 299,000 with normal manual differential. His chemistry showed a serum sodium 139, potassium 4.5, chloride 104, bicarbonate 28, anion gap of 7, BUN 11, creatinine 1.1. Estimated GFR was 83 mL per minute. His glucose 132. His calcium was 9.3, magnesium was 2.1. Total bilirubin, AST, ALT, alkaline phosphatase were normal. His C-reactive protein was 4.3 mg per liter, total protein 7.4, albumin was 3.8. His prothrombin time and INR are within normal range. Urinalysis essentially unremarkable and toxic screen was positive for opiates and cannabinoids. His chest x-ray showed no acute chest disease. CT scan of the head showed no acute hemorrhage or large territory ernst-white loss, large area of the right parietotemporal encephalomalacia, small area of right rushing radiata encephalomalacia and chronic left basilar ganglia lacunar infarct, mild nonspecific periventricular hypoattenuation most consistent with chronic small vessel ischemic disease. PLAN: He was transferred to [facility] for further evaluation and treatment. My plan is to arrange for him to have bilateral carotid Doppler. We will check his fasting lipid profile. Continue with his antihypertensive medication. We have consulted the neurologist. His sedimentation rate and C-reactive protein are very low, making giant cell arteritis very unlikely. WINTER/SAMINA DR: Padmini TID: [id number]
--- NOTE | 2020-08-14 17:04 | RAD ---
Exam Date: 08/14/2020 3:39 PM MRI BRAIN WO Indication: Reason: Evaluate for stroke *if critical call [phone] [facility] / [facility]. Instructions: / History: . TECHNIQUE: Routine multiplanar MR images of the brain were obtained without intravenous contrast. COMPARISON: MRI from August 05, 2016 FINDINGS: Encephalomalacia and gliosis in the right temporal occipital watershed distribution is consistent wit h a remote infarct. Restricted diffusion is seen in the right temporal and occipital lobes more infer iorly consistent with acute or subacute infarct. Chronic right periventricular lacunar infarct is noted with ex vacuo dilatation of the right lateral ventricle. The ventricles and sulci are otherwise normal in size and configuration for the patient's stated age. There is no mass effect, midline shift, extra axial collection, or acute intracranial hemorrhage. The flow voids at the base of the brain are within normal limits. The visualized orbits and mastoid air cells are within normal limits. No lesion of the skull base or calvarium is seen. There is muco farhan thickening in the paranasal sinuses. IMPRESSION: Acute or subacute right temporal occipital infarct. Remote infarct and encephalomalacia in this region is also noted more superiorly. Findings discussed with Stephanie Gilman RN at 08/14/2020 4:59 PM. FOR INTERNAL CODING PURPOSES Critical result: RESULT CODE: (C) Electronically signed by: Deandre Ayala MD (08/14/2020 5:02 PM) [facility]
[2020-08-14] MEDS: ENOXAPARIN 40 MG/0.4 ML SYRINGE. SQ SCH (18:22)
[2020-08-14] MEDS ORDERED: NICOTINE 14MG PATCH. TD ONE (19:00)
[2020-08-14] MEDS: hydrALAZINE 25 MG TABLET PO SCH (20:09)
[2020-08-14] MEDS ORDERED: ATORVASTATIN CALCIUM 40 MG TABLET. PO SCH (21:00)
--- NOTE | 2020-08-15 03:17 | CONS ---
DATE OF CONSULTATION: 08/14/2020 REFERRING PHYSICIAN: Dr. Dg James. REASON FOR CONSULTATION: Stroke. HISTORY OF PRESENT ILLNESS: The patient is a 60-year-old man who presented to [facility] Emergency Room with dizziness and facial numbness on the right side. He was found to have very elevated blood pressures. Prior to this, he had elevated blood pressures and was given metoprolol. In the Emergency Room, it was elevated again and he was feeling dizzy. In review of his record, he did undergo imaging of his head in 2017. This did not reveal any stroke in the right parietal region. He underwent a CT scan of his head at [facility] Emergency Room, which did reveal a chronic stroke of his right parietotemporal occipital region. Although chronic, it was new from 2017. He is not aware of when he had that stroke. He has noticed he is not seeing as well to the left, but just noticed that today. He has had numbness all the way around his lips and the right face and the left arm. He is on disability from a prior back injury. His view is that the physician botched the surgery and left him with chronic pain. PAST MEDICAL HISTORY: 1. Cystic lesion of the right axilla, surgically resected under local anesthesia on 08/12/2020. 2. Hypertension. 3. Chronic back pain. 4. Left-sided sciatica. 5. History of stroke. 6. Hyperlipidemia. ALLERGIES: No known allergies to drugs. MEDICATIONS PRIOR TO ADMISSION: Amlodipine 10 mg, he was on aspirin 81 mg, but he stopped 6 months ago, atorvastatin, either 40 or 20 mg daily, clindamycin, cyclobenzaprine, hydrocodone/acetaminophen as needed, ibuprofen 800 mg 3 times per day, lisinopril 20 mg, naproxen, Zofran as needed, prednisone 60 mg for 3 days, Lyrica 50 mg twice per day and TMP trimethoprim sulfa twice per day. FAMILY HISTORY: He has 3 brothers and 4 sisters, which are older and healthy. His father at 56 years from lung cancer. His mother is living at 82 and is healthy. SOCIAL HISTORY: He is and has a son and daughter. He smokes cigars. He reports drinking a beer each night on the weekend. He denies recreational drugs, although urine drug screen was positive for cannabinoids. He is on disability due to chronic back pain and sciatica. REVIEW OF SYSTEMS: He does not have headache. He has noticed some change in vision. He denies hearing loss. He has not had cough, cold, or shortness of breath. There has been no chest or abdominal pain. He does have bone and joint and back pain. There has been no fever or rash. Denies gastrointestinal or genitourinary complaint. He does complain of numbness of the right face and left body. He complains of pains for sitting any period of time. He denies any psychiatric concerns. PHYSICAL EXAMINATION: VITAL SIGNS: The blood pressure was 157/75, pulse 62, respirations 18, temperature 98 degrees Fahrenheit orally. Oximetry was 99% on room air. His weight was 91.9 kilograms, height 73 inches with a calculated body mass index of 26.7. NEUROLOGIC: He was alert, awake, and cooperative. Speech was fluent and clear. He had a fair fund of recent and remote knowledge. Attention and concentration was intact. He appeared well-groomed and well nourished. He was fully oriented. Examination of the cranial nerves revealed evidence of a left visual field loss. Extraocular movements were intact. The eyes were conjugate. Pursuit movements were smooth and saccadic eye movements were without dysmetria. There was no nystagmus. Facial sensation was impaired on the right side of the face. Muscles of mastication and facial expression were powerful symmetrically. Hearing was not intact to finger rub. The palate arched symmetrically and the tongue was midline with full motion. Sternocleidomastoid and trapezius were powerful. Muscle bulk and tone was normal. There was not really arm drift, but he kind of held his left arm in a curved posture, but it did not drift. Power fluctuated. His effort was really limited and fluctuated. I could catch him with good burst strength with finger abduction, elbow flexion and arm abduction. Lower extremities same with limited effort, but burst strength was fairly good. Reflexes 2/4 and symmetric in the upper and lower extremities, but absent at the left knee. Toes were not upgoing. Coordination testing was very deliberate with fine motor tapping and [id number]. I am not sure was organic. [id number] also very deliberate and ataxic. This was symmetric. Sensory exam was intact to light touch, graphesthesia. He did not perceive sensation well in the right face. Proprioception was 100% wrong in the left hand and then he alternated up and down in the left foot. Proprioception was normal on the right. He felt there was some sensory loss on the left side to sharp and cold compared to the right. Gait was not testable. Sitting balance was normal. He was able with good strength to get himself from the sitting position and back in the bed, lying on his back, hoisting himself up to higher on the bed. LABORATORY RESULTS: CBC was performed on 08/13/2020, revealing a normal white blood cell count, hemoglobin, hematocrit and platelet count. Sedimentation rate was normal at 3. Chemistries were performed on 08/13/2020, with normal sodium, potassium, chloride and CO2. Anion gap was normal. BUN and creatinine were normal with GFR calculating at 82.6. Glucose was elevated to 132. Calcium was normal as well as magnesium. Liver enzymes were not elevated. BNP was not elevated. Total protein and albumin were normal. TSH was low at 0.222. Lipase was not elevated. Urine drug screen was positive for cannabinoids and opiates. DIAGNOSTIC RESULTS: Carotid Doppler was performed on 08/14/2020, revealing no stenosis greater than 50%. CT scan of the head was performed without contrast on 08/13/2020. There was no acute hemorrhage or large barbour territory, barbour/white loss. There was a large area of right parietotemporal encephalomalacia, small area of right rushing radiata encephalomalacia and chronic left basal ganglia lacunar infarcts. IMPRESSION: The patient is a pleasant 60-year-old man who complains of right face and left arm numbness. He also has a left visual field loss. Some of this could be from his old stroke, but he is not aware of he even had that stroke. It was not present when I reviewed imaging from 2017. Something occurred in the last 4 years and he reports being entirely unaware. His examination is not entirely organic unless he has experienced multiple acute embolic infarctions. Much of this is effort dependent. I am concerned there could be a brainstem lesion causing right face and left arm numbness. He is having bilateral ataxia, which again I am not entirely sure it is organic. The problem with proprioception on the left is not organic. RECOMMENDATIONS: I will proceed with an MRI brain without contrast to better evaluate for stroke. We will obtain an echocardiogram to look for an embolic source. Aspirin has been restarted. He should continue on atorvastatin. We can check a fasting lipid profile. He will need to be evaluated by therapies. ANDRIA/CLARA/HELLEN DR: Erika TID: [id number] CC: DESHAWN TINAJERO MD
[2020-08-15 03:50] VITALS: BP 158/74
[2020-08-15 07:00] VITALS: BP 164/80
[2020-08-15 07:59] LABS: CALCIUM 8.7 mg/dL (8.5-10.1); CHOLESTEROL/HDL RATIO 5.4; CREATININE 1.1 mg/dL (0.7-1.3); GFR 82.6; POTASSIUM 4.5 mmol/L (3.5-5.1)
[2020-08-15] MEDS: fentaNYL PF VIAL 100 MCG/2 ML VIAL IVP PRN ×2 (08:40→17:37)
[2020-08-15] MEDS: CYCLOBENZAPRINE 10 MG TABLET. PO SCH (08:40)
[2020-08-15] MEDS: ASPIRIN CHEWABLE 81 MG TABLET. PO SCH (08:40)
[2020-08-15] MEDS: hydrALAZINE 25 MG TABLET PO SCH (08:40)
[2020-08-15] MEDS: NICOTINE 14MG PATCH. TD SCH (08:41)
[2020-08-15] MEDS ORDERED: hydrALAZINE 25 MG TABLET PO ONE (09:00)
[2020-08-15 11:15] VITALS: BP 156/74
[2020-08-15] MEDS ORDERED: DEXAMETHASONE SOD PHOS 4 MG/ML VIAL IVP ONE (11:30)
[2020-08-15] MEDS ORDERED: DEXAMETHASONE SOD PHOS 20 MG/5 ML VIAL. IV ONE (11:30)
--- NOTE | 2020-08-15 12:16 | PN ---
DATE: 08/15/2020 SUBJECTIVE: The patient is resting, slightly propped up in bed, in no apparent respiratory distress. He continued to complain of severe pain on the right side behind his right ear with some photophobia. His carotid Doppler showed no evidence of hemodynamically significant internal carotid artery stenosis; however, his MRI of the brain showed that the patient has acute or subacute right temporal occipital infarct. He also has remote infarct and encephalomalacia in this region superiorly. His blood pressure seems to be slightly better controlled today. PHYSICAL EXAMINATION: GENERAL: When I examined him, he looked well and was clearly in no apparent respiratory distress. No pallor, jaundice, cyanosis or thyromegaly. No jugular venous distention. No lower limb edema. VITAL SIGNS: His heart rate was 65, blood pressure was 164/80, temperature was 98.1, respiratory rate was 18 and oxygen saturation was 95%. HEAD, EYES, EARS, NOSE AND THROAT: Normocephalic, atraumatic. NECK: Supple. HEART: Showed normal first and second heart sounds. No gallop or murmur. CHEST: Clear to auscultation. No crepitation or rhonchi. ABDOMEN: Distended, soft, nontender. NEUROLOGIC: He is awake, alert, responding appropriately. All his cranial nerves intact. He does have hemisensory deficit on the left side, LABORATORY DATA: His lab work this morning showed a serum sodium 137, potassium 4.5, chloride 103, bicarbonate 26, anion gap of 8, BUN of 13, creatinine 1.1. Estimated GFR was 83 mL per minute. His glucose 109, calcium was 8.7. Serum triglycerides was 119, total cholesterol was 221, LDL cholesterol 156, VLDL was 24, HDL was 41. The ratio was 5.4. ASSESSMENT: The patient presented to the Emergency Room with dizziness and extremely elevated blood pressure for which he was started on amlodipine. He also complained of numbness of the right side of the face and left arm. He has multiple other medical problems including hypertension, chronic back pain with left-sided sciatica and most recently a cystic lesion removed from the right axilla under local anesthesia. His MRI confirmed that he has right occipital and parietal infarct superimposed on remote infarct in the same area. The patient continued to complain of severe headache, mostly on the right side behind his right eye with some photophobia. Does not have any history of glaucoma before and his sed rate and CRP were very low, making giant cell arteritis very unlikely. PLAN: We will increase his hydralazine to 50 mg 3 times a day. Consulted Physical and Occupational Therapy. He probably need to be started on a cholesterol-lowering agent. TAVON DR: Padmini TID: [id number]
[2020-08-15] MEDS ORDERED: GADOTERATE 5 MMOL/10ML VIAL. IVP ONE (13:30)
[2020-08-15 14:18] VITALS: BP 161/75
--- NOTE | 2020-08-15 17:06 | PDOC ---
PROGRESS NOTES Date of Service DATE: 08/15/20 TIME: 17:00 Assessment 1. Acute stroke left temporal occipital region. Chronic stroke left temporal parietal region. The acute stroke could explain his left-sided numbness in his left visual field loss. 2. Eye pain: In speaking with multiple nurses he complained of left eye pain all day long. Now as I examine him he points to the right eye and is complaining of right eye pain. He is inconsistent. 3. He complains of numbness bilaterally which would not be consistent with his current stroke. Plan 1. I will check sedimentation rate and CRP for the eye pain. He is switching eyes where is all day long he complained of left eye pain but now complains of right eye pain. 2. He underwent an MRI of the orbits per the trash hauler. Result is pending. 3. Atorvastatin has been initiated for hyperlipidemia. 4. He is placed on aspirin for stroke prevention. He had been off aspirin for 6 months by his report. 5. He will require evaluation by all the therapist. Consults were previously placed. Subjective My eye hurts terribly. Nurse reports the only thing that is been helpful has been fentanyl. Objective Vital Signs Date Time Temp Pulse Resp B/P (MAP) Pulse Ox O2 Delivery O2 Flow Rate FiO2 08/15/20 14:18 98.5 78 18 161/75 (103) 97 Room Air 98.5 Intake and Output 08/15/20 06:59 Intake Total 660 ml Output Total 800 ml Balance -140 ml Intake Oral 660 ml Output Urine Total 800 ml # Voids 3 # Bowel Movements 1 PHYSICAL EXAM He was alert, awake and cooperative. He was on the phone to the kitchen complaining the only thing he received on his dinner tray was 2 pieces of dried toast. The toast was from his breakfast and he had never ordered dinner. He ordered some dinner. He was alert and awake. Speech was fluent and clear. Attention and concentration appeared intact. He was complaining of pain and pointing to his right eye. I was able to palpate around his left eye without pain. Any palpation around the right eye was painful. Palpation of the globes did not reveal them to be unduly firm. Face was symmetric. Tongue was midline. Muscle bulk was symmetric. When he held out his arms he left his left arm in a curved motion but there was no drift. There was a delay of initiation of squeezing with the left hand. He had slight weakness of the left arm compared to the right. He felt he could not perceive sensation in either arm. Coordination was impaired with the left arm. Sitting balance was good. Review of Relevant I have reviewed the following items lien (where applicable) has been applied. Labs Laboratory Tests Test 08/15/20 07:25 Sodium Level 137 mmol/L (136-145) Potassium Level 4.5 mmol/L (3.5-5.1) Chloride Level 103 mmol/L (98-107) Carbon Dioxide Level 26 mmol/L (21-32) Anion Gap 8 (6-14) Blood Urea Nitrogen 13 mg/dL (8-26) Creatinine 1.1 mg/dL (0.7-1.3) Estimated GFR (Cockcroft-Gault) 82.6 Glucose Level 109 mg/dL (70-99) Calcium Level 8.7 mg/dL (8.5-10.1) Triglycerides Level 119 mg/dL (0-150) Cholesterol Level 221 mg/dL (0-200) LDL Cholesterol, Calculated 156 mg/dL (0-100) VLDL Cholesterol, Calculated 24 mg/dL (0-40) Non-HDL Cholesterol Calculated 180 mg/dL (0-129) HDL Cholesterol 41 mg/dL (40-60) Cholesterol/HDL Ratio 5.4 Laboratory Tests Test 08/15/20 07:25 Sodium Level 137 mmol/L (136-145) Potassium Level 4.5 mmol/L (3.5-5.1) Chloride Level 103 mmol/L (98-107) Carbon Dioxide Level 26 mmol/L (21-32) Anion Gap 8 (6-14) Blood Urea Nitrogen 13 mg/dL (8-26) Creatinine 1.1 mg/dL (0.7-1.3) Estimated GFR (Cockcroft-Gault) 82.6 Glucose Level 109 mg/dL (70-99) Calcium Level 8.7 mg/dL (8.5-10.1) Triglycerides Level 119 mg/dL (0-150) Cholesterol Level 221 mg/dL (0-200) LDL Cholesterol, Calculated 156 mg/dL (0-100) VLDL Cholesterol, Calculated 24 mg/dL (0-40) Non-HDL Cholesterol Calculated 180 mg/dL (0-129) HDL Cholesterol 41 mg/dL (40-60) Cholesterol/HDL Ratio 5.4 Medications Current Medications Amlodipine Besylate (Norvasc) 10 mg DAILY PO Last administered on 08/15/20 08:40; Start 08/14/20 at 09:00 Aspirin (Aspirin Chewable) 81 mg DAILY08 PO Last administered on 08/15/20at 08:40; Start 08/14/20 at 08:00 Atorvastatin Calcium (Lipitor) 20 mg HS PO Last administered on 08/14/20at 20:09; Start 08/14/20 at 21:00; Stop 08/15/20 at 08:48; Status DC Cyclobenzaprine HCl (Flexeril) 10 mg DAILY PO Last administered on 08/15/20 08:40; Start 08/14/20 at 09:00 Acetaminophen/ Hydrocodone Bitart (Lortab 10/325) 1 tab PRN Q6HRS PRN PO PAIN Last administered on 08/14/20 17:42; Start 08/14/20 at 01:00 Amlodipine Besylate (Norvasc) 10 mg 1X ONCE PO Last administered on 08/14/20at 01:08; Start 08/14/20 at 01:15; Stop 08/14/20 at 01:16; Status DC Nicotine (Nicoderm Cq 14mg) 1 patch DAILY TD Last administered on 08/15/20at 08:41; Start 08/14/20 at 01:35 Magnesium Citrate (Citroma) 296 ml 1X ONCE PO Last administered on 08/14/20at 11:54; Start 08/14/20 at 11:30; Stop 08/14/20 at 11:31; Status DC Fentanyl Citrate (Fentanyl 2ml Vial) 50 mcg PRN Q4HRS PRN IVP PAIN Last administered on 08/15/20at 08:40; Start 08/14/20 at 11:00 Ondansetron HCl (Zofran) 4 mg PRN Q4HRS PRN IVP NAUSEA/VOMITING; Start 08/14/20 at 11:00 Enoxaparin Sodium (Lovenox 40mg Syringe) 40 mg Q24H SQ Last administered on 08/14/20at 18:22; Start 08/14/20 at 18:00 Nicotine (Nicoderm Cq 14mg) 1 patch 1X ONCE TD Last administered on 08/14/20at 20:08; Start 08/14/20 at 19:00; Stop 08/14/20 at 19:01; Status DC Hydralazine HCl (Apresoline) 25 mg TID PO Last administered on 08/15/20at 08:40; Start 08/14/20 at 21:00; Stop 08/15/20 at 08:48; Status DC Atorvastatin Calcium (Lipitor) 40 mg HS PO ; Start 08/15/20 at 21:00 Hydralazine HCl (Apresoline) 50 mg TID PO ; Start 08/15/20 at 14:00 Hydralazine HCl (Apresoline) 25 mg 1X ONCE PO Last administered on 08/15/20at 11:04; Start 08/15/20 at 09:00; Stop 08/15/20 at 09:01; Status DC Dexamethasone Sodium Phosphate (Decadron) 10 mg 1X ONCE IV ; Start 08/15/20 at 11:30; Stop 08/15/20 at 11:27; Status DC Dexamethasone Sodium Phosphate (Decadron) 10 mg 1X ONCE IVP Last administered on 08/15/20at 11:44; Start 08/15/20 at 11:30; Stop 08/15/20 at 11:31; Status DC Gadoterate Meglumine (Clariscan) 20 ml 1X ONCE IVP Last administered on 08/15/20at 16:07; Start 08/15/20 at 13:30; Stop 08/15/20 at 13:31; Status DC Active Scripts Active Hydrocodone-Apap 5-325 (Hydrocodone Bit/Acetaminophen) 1 Each Tablet 1 Tab PO PRN Q6HRS PRN 5 Days Naproxen 500 Mg Tablet 1 Tab PO BID 20 Days Ondansetron Odt (Ondansetron) 4 Mg Tab.rapdis 1 Tab PO PRN Q6-8HRS PRN Cyclobenzaprine Hcl 5 Mg Tablet 1-2 Tab PO PRN TID PRN 5 Days Gabapentin (Gabapentin) 300 Mg Capsule 300 Mg PO TID 10 Days Ibuprofen 800 Mg Tablet 1 Tab PO TID PRN Prednisone 10 Mg Tablet 60 Mg PO DAILY 3 Days Hydrocodone-Acetamin 5-325 mg (Hydrocodone/Acetaminophen) 1 Each Tablet 1-2 Each PO Q6H PRN [place] 5-325 Tablet (Hydrocodone Bit/Acetaminophen) 1 Each Tablet 1 Tab PO TID 7 Days Hydrocodone-Apap 7.5-325/15 Soln (Hydrocodone Bit/Acetaminophen) 15 Ml Solution 10 Ml PO PRN Q6HRS PRN Clindamycin Palmitate Hcl 75 Mg/5 Ml Soln.recon 20 Ml PO TID 7 Days [place] 5-325 Tablet (Hydrocodone Bit/Acetaminophen) 1 Each Tablet 1 Tab PO TID Cyclobenzaprine Hcl 5 Mg Tablet 1 Tab PO TID Naprosyn (Naproxen) 500 Mg Tablet 1 Tab PO BID 15 Days [place] 5-325 Tablet (Hydrocodone Bit/Acetaminophen) 1 Each Tablet 1 Tab PO TID Cyclobenzaprine Hcl 10 Mg Tablet 1 Tab PO TID Ibuprofen 800 Mg Tablet 1 Tab PO TID Bactrim Ds Tablet (Sulfamethoxazole/Trimethoprim) 1 Each Tablet 1 Tab PO BID 10 Days [place] 5-325 Tablet (Hydrocodone Bit/Acetaminophen) 1 Each Tablet 1-2 Tab PO Q4- 6HRS Reported Lyrica (Pregabalin) 50 Mg Capsule 1 Cap PO BID Hydrocodone-Apap 7.5-325 (Hydrocodone Bit/Acetaminophen) 1 Each Tablet 1 Tab PO PRN Q4HRS PRN Atorvastatin Calcium 20 Mg Tablet 20 Mg PO QHS Lisinopril 20 Mg Tablet 1 Tab PO DAILY Amlodipine Besylate 10 Mg Tablet 10 Mg PO DAILY Hydrocodone-Apap 10-325 (Hydrocodone Bit/Acetaminophen) 1 Tab Tablet 1 Tab PO PRN Q6HRS PRN Aspirin 81 Mg Tab.chew 1 Tab PO DAILY Cyclobenzaprine Hcl 10 Mg Tablet 1 Tab PO DAILY Atorvastatin Calcium 40 Mg Tablet 20 Mg PO HS Vitals/I & O Vital Sign - Last 24 Hours 08/14/20 08/14/20 08/14/20 08/14/20 17:42 18:28 19:50 20:00 Temp 99.3 99.3 Pulse 71 Resp 20 B/P (MAP) 185/93 (123) Pulse Ox 96 96 95 O2 Delivery Room Air Room Air Room Air Room Air 08/14/20 08/14/20 08/14/20 08/15/20 20:09 20:09 23:23 03:50 Temp 99.5 98.3 99.5 98.3 Pulse 71 67 Resp 16 20 18 B/P (MAP) 185/93 160/96 (117) 158/74 (102) Pulse Ox 95 95 O2 Delivery Room Air Room Air Room Air 08/15/20 08/15/20 08/15/20 08/15/20 07:00 08:00 08:40 08:40 Temp 98.1 98.1 Pulse 65 65 Resp 18 B/P (MAP) 164/80 (108) 164/80 Pulse Ox 95 95 O2 Delivery Room Air Room Air Room Air 08/15/20 08/15/20 08/15/20 08/15/20 08:40 09:41 11:04 11:15 Temp 98.8 98.8 Pulse 65 65 78 Resp 18 B/P (MAP) 164/80 164/80 156/74 (101) Pulse Ox 95 98 O2 Delivery Room Air Room Air 08/15/20 14:18 Temp 98.5 98.5 Pulse 78 Resp 18 B/P (MAP) 161/75 (103) Pulse Ox 97 O2 Delivery Room Air Intake and Output 08/14/20 08/14/20 08/15/20 14:59 22:59 06:59 Intake Total 350 ml 310 ml Output Total 800 ml 0 ml Balance -450 ml 310 ml 0 ml Justicifation of Admission Dx: Justifications for Admission: Justification of Admission Dx: Yes Stroke - Ischemic: Stroke-Ischemic ANGELITO ADAMS MD Aug 15, 2020 17:06
[2020-08-15] MEDS: ENOXAPARIN 40 MG/0.4 ML SYRINGE. SQ SCH (17:37)
[2020-08-15 20:25] VITALS: BP 160/74
[2020-08-15] MEDS: ATORVASTATIN CALCIUM 40 MG TABLET. PO SCH (20:51)
[2020-08-15] MEDS: HYDROcodone/APAP 10/325 1 TAB TABLET PO PRN (20:51)
[2020-08-15 23:30] VITALS: BP 161/92
[2020-08-16] VITALS (7 sets, daily range): BP systolic 143–179; BP diastolic 69–86
[2020-08-16] MEDS: HYDROcodone/APAP 10/325 1 TAB TABLET PO PRN ×2 (02:13→20:33)
[2020-08-16] MEDS: fentaNYL PF VIAL 100 MCG/2 ML VIAL IVP PRN ×2 (06:16→08:35)
[2020-08-16] MEDS: NICOTINE 14MG PATCH. TD SCH (08:35)
[2020-08-16] MEDS: CYCLOBENZAPRINE 10 MG TABLET. PO SCH (08:35)
[2020-08-16] MEDS: ASPIRIN CHEWABLE 81 MG TABLET. PO SCH (08:36)
--- NOTE | 2020-08-16 08:41 | PN ---
DATE: 08/16/2020 SUBJECTIVE: The patient is resting, slightly propped up in bed, in no apparent distress, awake, alert, continued to complain of pain around his right eye and right face as well as photophobia. I have spoken with the arabic linguist insulation machine operator yesterday who recommended doing an MRI of his orbit and he was given 10 mg of dexamethasone intravenously. There are plans for him to be [facility] if our DON give us blessing to do that. His sedimentation rate and CRP were very low at 3 mm per hour and 4.3 mg per liter. PHYSICAL EXAMINATION: GENERAL: When I examined him today, he looked well and was clearly in no apparent respiratory distress. No pallor, jaundice, cyanosis, or thyromegaly. No jugular venous distention. No lower limb edema. VITAL SIGNS: His heart rate was 82, blood pressure was 157/73, temperature was 98.3, respiratory rate was 18 and oxygen saturation was 98% on room air. HEAD, EYES, EARS, NOSE, AND THROAT: Normocephalic, atraumatic. NECK: Supple. HEART: Showed normal first and second heart sounds. No gallop, rub or murmur. CHEST: Clear to auscultation, no crepitation or rhonchi. ABDOMEN: Distended, soft, nontender. NEUROLOGIC: He was awake, alert, responding appropriately. All his cranial nerves intact. He moves extremities without difficulty. His intake was 660, output was 800. LABORATORY DATA: He has no lab work done this morning. ASSESSMENT: Hypertensive urgency for which he was started on amlodipine, hydralazine, blood pressure is much better controlled. He also complained of numbness on the left side of the face and arm and pain around his right eye. His MRI of the brain showed acute or subacute right temporal occipital infarct, remote infarct and encephalomalacia in this region, is also noted more superiorly. His other medical problems include chronic back pain and left-sided sciatica. PLAN: Plan is to consult Physical and Occupational Therapy. Consult the arabic linguist and the patient obviously can be discharged home after all this evaluation. JULIANO DR: Padmini TID: [id number]
[2020-08-16] MEDS ORDERED: diphenhydrAMINE 50 MG/ML VIAL IVP ONE (08:45)
[2020-08-16] MEDS ORDERED: PROCHLORPERAZINE 10 MG/2 ML VIAL. IV ONE (08:45)
[2020-08-16] MEDS ORDERED: KETOROLAC 30 MG/ML VIAL. IVP ONE (09:00)
--- NOTE | 2020-08-16 09:55 | RAD ---
EXAMINATION: Magnetic resonance imaging (MRI) of the brain and orbits without and with contrast 2020 2:34 PM HISTORY: Left orbital pain. TECHNIQUE: Multiplanar multi-weighted MRI of the brain and orbits was performed without and with intr avenous contrast using the orbits and brain protocol. Contrast information: 18 mL Gadolinium based contrast COMPARISON: MRI brain 08/14/2020. FINDINGS: The scalp and calvarium are normal. The superior sagittal sinus demonstrates normal venous flow. The corpus callosum is normal in shape and signal intensity. The posterior fossa is unremarkable. The p ituitary and sella are normal. The brainstem and craniocervical junction are unremarkable. Remote is chemic changes identified in the right rushing radiata and superior right temporal parietal lobe. Ther e are T2/FLAIR signal hyperintense foci in the periventricular and subcortical white matter most sugg estive of mild chronic small vessel ischemic changes. There is diffusion signal hyperintensity with corresponding low to isointense signal on ADC maps invo lving the right temporal lobe, right hippocampus, medial right occipital lobe and now involving the r ight thalamus involvement of the right hippocampus appears progressed compared to the prior examinati on. No definite acute intracranial hemorrhage. There is associated T2 signal hyperintensity compatib le with cytotoxic edema with mass effect on the occipital horn right lateral ventricle. No hydrocepha batsheva. Remote lacunar infarct involving the right thalamus. There are no areas of abnormal contrast enhancement. Moderate mucosal thickening of the right sphenoid sinus. Mild mucosal thickening of the ethmoid air c ells. The visualized portions of the mastoids are unremarkable. Orbits are normal in appearance. Glob es are spherical and contour. Extraocular muscles are intact. Optic nerves and optic chiasm appear in tact. No intraconal or extraconal soft tissue mass is identified. Normal flow voids are demonstrated in the carotid arteries and basilar artery. IMPRESSION: 1. Interval progression of right posterior cerebral artery territory infarct with new involvement of the right thalamus and increased involvement of the right hippocampus. Similar degree of involvement involving the right posterior temporal, occipital and parietal lobes. There is associated vasogenic e claudia with mass effect on the occipital horn of the right lateral ventricle. No hydrocephalus, midline shift or hemorrhage. Next on 2. Remote infarct with associated encephalomalacia involving the right parietal and superior temporal lobe. Remote infarct with associated encephalomalacia and gliosis involving the right rushing radiata . 3. There are T2/FLAIR signal hyperintense foci in the periventricular and subcortical white matter mo st suggestive of mild chronic small vessel ischemic changes. 4. No suspicious orbital mass. Electronically signed by: Bethany Delgadilol MD (08/16/2020 9:52 AM) [facility]
--- NOTE | 2020-08-16 09:56 | PDOC ---
PROGRESS NOTES Date of Service DATE: 08/16/20 TIME: 09:52 Assessment Acute right hemispheric stroke with chronic right hemispheric stroke Retro-orbital pain, shifts sides, has some migraine component perhaps, sedimentation rate and CRP are too low for this to be temporal arteritis, although I suppose it still possible. He did receive 1 dose of steroids which did not help. Chronic whole-body pain is receiving fentanyl Plan Not a true aspirin failure, had been off of it, it is resumed Atorvastatin Await MRI results Hold on further steroids I will try a migraine cocktail for his pain Objective Vital Signs Date Time Temp Pulse Resp B/P (MAP) Pulse Ox O2 Delivery O2 Flow Rate FiO2 08/16/20 08:38 73 175/83 08/16/20 08:35 98 Room Air 08/16/20 07:00 97.3 18 97.3 Intake and Output 08/16/20 07:00 Intake Total 1580 ml Output Total 1700 ml Balance -120 ml Intake Oral 1580 ml Output Urine Total 1700 ml PHYSICAL EXAM Alert. Oriented to time, place and person. PERRL. EOMI. CN: Left field cut, left central facial weakness Muscle tone: normal. Muscle strength: 4/5 left hemiparesis DTR: 1+ Plantar reflex: flexor Gait: not examined in bed. Sensory exam: no abnormal findings. No cerebellar signs elicited. Review of Relevant I have reviewed the following items lien (where applicable) has been applied. Labs Laboratory Tests Test 08/15/20 07:25 Sodium Level 137 mmol/L (136-145) Potassium Level 4.5 mmol/L (3.5-5.1) Chloride Level 103 mmol/L (98-107) Carbon Dioxide Level 26 mmol/L (21-32) Anion Gap 8 (6-14) Blood Urea Nitrogen 13 mg/dL (8-26) Creatinine 1.1 mg/dL (0.7-1.3) Estimated GFR (Cockcroft-Gault) 82.6 Glucose Level 109 mg/dL (70-99) Calcium Level 8.7 mg/dL (8.5-10.1) Triglycerides Level 119 mg/dL (0-150) Cholesterol Level 221 mg/dL (0-200) LDL Cholesterol, Calculated 156 mg/dL (0-100) VLDL Cholesterol, Calculated 24 mg/dL (0-40) Non-HDL Cholesterol Calculated 180 mg/dL (0-129) HDL Cholesterol 41 mg/dL (40-60) Cholesterol/HDL Ratio 5.4 Medications Current Medications Amlodipine Besylate (Norvasc) 10 mg DAILY PO Last administered on 08/16/20at 08 :37; Start 08/14/20 at 09:00 Aspirin (Aspirin Chewable) 81 mg DAILY08 PO Last administered on 08/16/20at 08:36; Start 08/14/20 at 08:00 Atorvastatin Calcium (Lipitor) 20 mg HS PO Last administered on 08/14/20at 20:09; Start 08/14/20 at 21:00; Stop 08/15/20 at 08:48; Status DC Cyclobenzaprine HCl (Flexeril) 10 mg DAILY PO Last administered on 08/16/20at 08:35; Start 08/14/20 at 09:00 Acetaminophen/ Hydrocodone Bitart (Lortab 10/325) 1 tab PRN Q6HRS PRN PO PAIN Last administered on 08/16/20 02:13; Start 08/14/20 at 01:00 Amlodipine Besylate (Norvasc) 10 mg 1X ONCE PO Last administered on 08/14/20at 01:08; Start 08/14/20 at 01:15; Stop 08/14/20 at 01:16; Status DC Nicotine (Nicoderm Cq 14mg) 1 patch DAILY TD Last administered on 08/16/20at 08:35; Start 08/14/20 at 01:35 Magnesium Citrate (Citroma) 296 ml 1X ONCE PO Last administered on 08/14/20at 11:54; Start 08/14/20 at 11:30; Stop 08/14/20 at 11:31; Status DC Fentanyl Citrate (Fentanyl 2ml Vial) 50 mcg PRN Q4HRS PRN IVP PAIN Last administered on 08/16/20at 08:35; Start 08/14/20 at 11:00 Ondansetron HCl (Zofran) 4 mg PRN Q4HRS PRN IVP NAUSEA/VOMITING; Start 08/14/20 at 11:00 Enoxaparin Sodium (Lovenox 40mg Syringe) 40 mg Q24H SQ Last administered on 08/15/20at 17:37; Start 08/14/20 at 18:00 Nicotine (Nicoderm Cq 14mg) 1 patch 1X ONCE TD Last administered on 08/14/20at 20:08; Start 08/14/20 at 19:00; Stop 08/14/20 at 19:01; Status DC Hydralazine HCl (Apresoline) 25 mg TID PO Last administered on 08/15/20at 08:40; Start 08/14/20 at 21:00; Stop 08/15/20 at 08:48; Status DC Atorvastatin Calcium (Lipitor) 40 mg HS PO Last administered on 08/15/20at 20:51; Start 08/15/20 at 21:00 Hydralazine HCl (Apresoline) 50 mg TID PO Last administered on 08/16/20at 08:38; Start 08/15/20 at 14:00 Hydralazine HCl (Apresoline) 25 mg 1X ONCE PO Last administered on 08/15/20at 11:04; Start 08/15/20 at 09:00; Stop 08/15/20 at 09:01; Status DC Dexamethasone Sodium Phosphate (Decadron) 10 mg 1X ONCE IV ; Start 08/15/20 at 11:30; Stop 08/15/20 at 11:27; Status DC Dexamethasone Sodium Phosphate (Decadron) 10 mg 1X ONCE IVP Last administered on 08/15/20at 11:44; Start 08/15/20 at 11:30; Stop 08/15/20 at 11:31; Status DC Gadoterate Meglumine (Clariscan) 20 ml 1X ONCE IVP Last administered on 08/15/20at 16:07; Start 08/15/20 at 13:30; Stop 08/15/20 at 13:31; Status DC Ketorolac Tromethamine (Toradol 30mg Vial) 30 mg 1X ONCE IVP ; Start 08/16/20 at 09:00; Stop 08/16/20 at 09:01; Status DC Diphenhydramine HCl (Benadryl) 50 mg 1X ONCE IVP ; Start 08/16/20 at 08:45; Stop 08/16/20 at 08:49; Status DC Prochlorperazine Edisylate (Compazine) 10 mg 1X ONCE IV ; Start 08/16/20 at 08:45; Stop 08/16/20 at 08:49; Status DC Active Scripts Active Hydrocodone-Apap 5-325 (Hydrocodone Bit/Acetaminophen) 1 Each Tablet 1 Tab PO PRN Q6HRS PRN 5 Days Naproxen 500 Mg Tablet 1 Tab PO BID 20 Days Ondansetron Odt (Ondansetron) 4 Mg Tab.rapdis 1 Tab PO PRN Q6-8HRS PRN Cyclobenzaprine Hcl 5 Mg Tablet 1-2 Tab PO PRN TID PRN 5 Days Gabapentin (Gabapentin) 300 Mg Capsule 300 Mg PO TID 10 Days Ibuprofen 800 Mg Tablet 1 Tab PO TID PRN Prednisone 10 Mg Tablet 60 Mg PO DAILY 3 Days Hydrocodone-Acetamin 5-325 mg (Hydrocodone/Acetaminophen) 1 Each Tablet 1-2 Each PO Q6H PRN [place] 5-325 Tablet (Hydrocodone Bit/Acetaminophen) 1 Each Tablet 1 Tab PO TID 7 Days Hydrocodone-Apap 7.5-325/15 Soln (Hydrocodone Bit/Acetaminophen) 15 Ml Solution 10 Ml PO PRN Q6HRS PRN Clindamycin Palmitate Hcl 75 Mg/5 Ml Soln.recon 20 Ml PO TID 7 Days [place] 5-325 Tablet (Hydrocodone Bit/Acetaminophen) 1 Each Tablet 1 Tab PO TID Cyclobenzaprine Hcl 5 Mg Tablet 1 Tab PO TID Naprosyn (Naproxen) 500 Mg Tablet 1 Tab PO BID 15 Days [place] 5-325 Tablet (Hydrocodone Bit/Acetaminophen) 1 Each Tablet 1 Tab PO TID Cyclobenzaprine Hcl 10 Mg Tablet 1 Tab PO TID Ibuprofen 800 Mg Tablet 1 Tab PO TID Bactrim Ds Tablet (Sulfamethoxazole/Trimethoprim) 1 Each Tablet 1 Tab PO BID 10 Days [place] 5-325 Tablet (Hydrocodone Bit/Acetaminophen) 1 Each Tablet 1-2 Tab PO Q4- 6HRS Reported Lyrica (Pregabalin) 50 Mg Capsule 1 Cap PO BID Hydrocodone-Apap 7.5-325 (Hydrocodone Bit/Acetaminophen) 1 Each Tablet 1 Tab PO PRN Q4HRS PRN Atorvastatin Calcium 20 Mg Tablet 20 Mg PO QHS Lisinopril 20 Mg Tablet 1 Tab PO DAILY Amlodipine Besylate 10 Mg Tablet 10 Mg PO DAILY Hydrocodone-Apap 10-325 (Hydrocodone Bit/Acetaminophen) 1 Tab Tablet 1 Tab PO PRN Q6HRS PRN Aspirin 81 Mg Tab.chew 1 Tab PO DAILY Cyclobenzaprine Hcl 10 Mg Tablet 1 Tab PO DAILY Atorvastatin Calcium 40 Mg Tablet 20 Mg PO HS Vitals/I & O Vital Sign - Last 24 Hours 08/15/20 08/15/20 08/15/20 08/15/20 11:04 11:15 14:18 17:36 Temp 98.8 98.5 98.8 98.5 Pulse 65 78 78 78 Resp 18 18 B/P (MAP) 164/80 156/74 (101) 161/75 (103) 161/75 Pulse Ox 98 97 O2 Delivery Room Air Room Air 08/15/20 08/15/20 08/15/20 08/15/20 17:37 18:09 19:00 19:46 Pulse 105 Pulse Ox 97 97 O2 Delivery Room Air Room Air Room Air 08/15/20 08/15/20 08/15/20 08/15/20 20:25 20:51 20:51 23:30 Temp 97.9 97.7 97.9 97.7 Pulse 100 78 90 Resp 18 20 18 B/P (MAP) 160/74 (102) 160/74 161/92 (115) Pulse Ox 96 97 O2 Delivery Room Air Room Air Room Air 08/16/20 08/16/20 08/16/20 08/16/20 02:13 03:35 06:16 07:00 Temp 98.3 97.3 98.3 97.3 Pulse 82 91 Resp 20 18 20 18 B/P (MAP) 157/73 (101) 175/83 (113) Pulse Ox 98 94 O2 Delivery Room Air Room Air Room Air Room Air 08/16/20 08/16/20 08/16/20 08/16/20 08:00 08:34 08:35 08:37 Pulse 73 B/P (MAP) 175/83 Pulse Ox 98 98 O2 Delivery Room Air Room Air Room Air 08/16/20 08:38 Pulse 73 B/P (MAP) 175/83 Intake and Output 08/15/20 08/15/20 08/16/20 15:00 23:00 07:00 Intake Total 500 ml 280 ml 800 ml Output Total 550 ml 1150 ml Balance 500 ml -270 ml -350 ml Justicifation of Admission Dx: Justifications for Admission: Justification of Admission Dx: Yes Stroke - Ischemic: Stroke-Ischemic DESHAWN TINAJERO MD Aug 16, 2020 09:56
--- NOTE | 2020-08-16 10:25 | CARD ---
MR#: [id number] Date of Study: 08/16/2020 Ordering Physician: ANGELITO ADAMS, Referring Physician: ANGELITO ADAMS, Tech: Shabana Mccauley [facility] APPROVED REPORT EXAM: Two-dimensional and M-mode echocardiogram with Doppler and color Doppler. Other Information Quality : GoodHR: 77bpm INDICATION CVA/TIA Echo Enhancing Agent Indication: Rule Out Septal Defect Agent/Amount Used: Agitated Saline 10mL 2D DIMENSIONS RVDd3.2 (2.9-3.5cm)Left Atrium(2D)3.4 (1.6-4.0cm) IVSd1.0 (0.7-1.1cm)Aortic Root(2D)3.1 (2.0-3.7cm) LVDd5.7 (3.9-5.9cm)LVOT Diameter2.1 (1.8-2.4cm) PWd1.1 (0.7-1.1cm)LVDs2.6 (2.5-4.0cm) FS (%) 54.5 %SV135.3 ml LVEF(%)74.7 (>50%) Aortic Valve AoV Peak Jayden.132.3cm/sAoV VTI24.9cm AO Peak GR.7.0mmHgLVOT Peak Jayden.85.3cm/s LVOT VTI 16.35cmAO Mean GR.3mmHg MARIZOL (VMAX)1.37iu2HMU (VTI)2.28cm2 Mitral Valve MV E Yeknqlof50.9cm/sMV DECEL [id number] MV A Egaajmtb08.8cm/sMV UVV96jq E/A Ratio1.0MVA (PHT)2.94cm2 TDI E/Lateral E'6.4E/Medial E'9.3 Pulmonary Valve PV Peak Ljdrvhuo929.6cm/sPV Peak Grad.5mmHg Tricuspid Valve TR P. Cnnobkyd842da/sRAP KDBELKTT5zhAq TR Peak Gr.65qbDhNOJC08lrSp Pulmonary Vein S1 Wtmjnxlh38.0cm/sD2 Iqbqmzmh51.3cm/s PVa [id number] LEFT VENTRICLE The left ventricle is normal size. There is mild concentric left ventricular hypertrophy. The left ve ntricular systolic function is normal. The Ejection Fraction is 55-60%. There is normal LV segmental wall motion. Transmitral Doppler flow pattern is Grade II-pseudonormal filling dynamics. RIGHT VENTRICLE The right ventricle is normal size. There is normal right ventricular wall thickness. The right ventr icular systolic function is normal. ATRIA The left atrium size is normal. The right atrium size is normal. The interatrial septum is intact wit h no evidence for an atrial septal defect or patent foramen ovale as noted on 2-D or Doppler imaging. Bubble study appears negative. AORTIC VALVE The aortic valve is thickened but opens well. Doppler and Color Flow revealed trace aortic regurgitat ion. Calculated aortic valve area is 2.16 cm2 with maximum pressure gradient of 9 mmHg and mean press ure gradient of 4 mmHg. There is no significant aortic valvular stenosis. MITRAL VALVE The mitral valve is thickened but opens well. There is no evidence of mitral valve prolapse. There is no mitral valve stenosis. Doppler and Color-flow revealed trace mitral regurgitation. TRICUSPID VALVE The tricuspid valve is normal in structure and function. Doppler and Color Flow revealed trace tricus pid regurgitation with an estimated PAP of 32 mmHg. There is no tricuspid valve stenosis. PULMONIC VALVE The pulmonic valve is not well visualized. Doppler and Color Flow revealed trace pulmonic valvular re gurgitation. GREAT VESSELS The aortic root is normal in size. The ascending aorta is normal in size. The IVC is normal in size a nd collapses >50% with inspiration. PERICARDIAL EFFUSION There is no evidence of significant pericardial effusion. Critical Notification Critical Value: No <Conclusion> The left ventricular systolic function is normal. The Ejection Fraction is 55-60%. There is normal LV segmental wall motion. Transmitral Doppler flow pattern is Grade II-pseudonormal filling dynamics. Trace mitral regurgitation. Trace tricuspid regurgitation with an estimated PAP of 32 mmHg. There is no evidence of significant pericardial effusion. Signed by : Marbin Nicholas, Electronically Approved : 08/16/2020 10:25:27
[2020-08-16] MEDS: ENOXAPARIN 40 MG/0.4 ML SYRINGE. SQ SCH (17:33)
[2020-08-16] MEDS: ATORVASTATIN CALCIUM 40 MG TABLET. PO SCH (20:32)
[2020-08-17] MEDS: HYDROcodone/APAP 10/325 1 TAB TABLET PO PRN ×3 (01:56→17:57)
[2020-08-17 02:31] VITALS: BP 159/71
[2020-08-17 07:00] VITALS: BP 179/81
[2020-08-17] MEDS: CYCLOBENZAPRINE 10 MG TABLET. PO SCH (09:36)
[2020-08-17] MEDS: NICOTINE 14MG PATCH. TD SCH (09:36)
[2020-08-17] MEDS: ASPIRIN CHEWABLE 81 MG TABLET. PO SCH (09:36)
[2020-08-17] MEDS: AMOXICILLIN/K CLAV 875/125MG TABLET. PO SCH ×2 (09:37→20:41)
[2020-08-17] MEDS: KETOROLAC 30 MG/ML VIAL. IVP PRN ×3 (09:38→21:28)
--- NOTE | 2020-08-17 09:48 | PN ---
DATE: 08/17/2020 SUBJECTIVE: The patient continued to complain of severe headache and pain mostly behind his right eye. He was seen by the neurologist. Had an MRI of the brain as well as the orbit, which showed that there is no area of abnormal contrast enhancement. He has moderate mucosal thickening of the right sphenoidal sinus, mild mucosal thickening of the ethmoid air cells. The visualized portion of the mastoids are unremarkable. Orbits are normal in appearance. Globes are [place] and extraocular muscles are intact. Optic nerves and optic chiasm appears intact. No intracoronal or extraconal soft tissue mass is identified. Normal flow rates. Normal flow voids are demonstrated in the carotid arteries and basilar arteries. PHYSICAL EXAMINATION: GENERAL: When I examined him this morning, he looked well and was clearly in no apparent respiratory distress. There is no pallor, jaundice, cyanosis, or thyromegaly. No jugular venous distention. No limb edema. VITAL SIGNS: His heart rate was 77, blood pressure is 159/71, temperature was 98, respiratory rate was 20 and oxygen saturation was 97% on room air. The rest of clinical exam is stable. ASSESSMENT: 1. Right temporo-occipital acute stroke on top of right chronic hemispheric stroke. 2. Retro-orbital pain shift sides that has responded to IV Toradol. His sed rate and CRP are well within normal limits for temporal arteritis. PLAN: To continue with current medication. I discussed with Dr. Rainey and the plan is to continue with IV Toradol today. If his pain improves, the patient can be discharged home as he is refusing [facility] facility. KATEY/MISTY DR: Padmini TID: [id number]
--- NOTE | 2020-08-17 10:27 | PDOC ---
PROGRESS NOTES Date of Service DATE: 08/17/20 TIME: 10:24 Assessment Acute right hemispheric stroke with chronic right hemispheric stroke Retro-orbital pain, shifts sides, has some migraine component perhaps, sedimentation rate and CRP are too low for this to be temporal arteritis, although I suppose it still possible. He did receive 1 dose of steroids which did not help. Chronic whole-body pain is receiving fentanyl I gave him migraine cocktail of Toradol/Benadryl/Compazine, he told the nurse yesterday that it did not help, now he is saying that it did help and would like to try it again. Suspect some team-dividing behavior perhaps Plan Not a true aspirin failure, had been off of it, it is resumed Atorvastatin Repeat migraine cocktail Aim to discharge tomorrow Outpatient ophthalmology follow-up Discussed with Dr. James Subjective Pain as described above Objective Vital Signs Date Time Temp Pulse Resp B/P (MAP) Pulse Ox O2 Delivery O2 Flow Rate FiO2 08/17/20 09:37 77 179/81 08/17/20 08:00 Room Air 08/17/20 07:00 97.8 18 98 97.8 Intake and Output 08/17/20 07:00 Intake Total 2600 ml Output Total 2050 ml Balance 550 ml Intake Oral 2600 ml Output Urine Total 2050 ml # Voids 1 # Bowel Movements 1 PHYSICAL EXAM Has a patch on the right eye Alert. Oriented to time, place and person. PERRL. EOMI. CN: Left field cut, left central facial weakness Muscle tone: normal. Muscle strength: 4/5 left hemiparesis DTR: 1+ Plantar reflex: flexor Gait: not examined in bed. Sensory exam: no abnormal findings. No cerebellar signs elicited. Review of Relevant I have reviewed the following items lien (where applicable) has been applied. Medications Current Medications Amlodipine Besylate (Norvasc) 10 mg DAILY PO Last administered on 08/17/20at 09:36; Start 08/14/20 at 09:00 Aspirin (Aspirin Chewable) 81 mg DAILY08 PO Last administered on 08/17/20at 09:36; Start 08/14/20 at 08:00 Atorvastatin Calcium (Lipitor) 20 mg HS PO Last administered on 08/14/20at 20:09; Start 08/14/20 at 21:00; Stop 08/15/20 at 08:48; Status DC Cyclobenzaprine HCl (Flexeril) 10 mg DAILY PO Last administered on 08/17/20 09:36; Start 08/14/20 at 09:00 Acetaminophen/ Hydrocodone Bitart (Lortab 10/325) 1 tab PRN Q6HRS PRN PO PAIN Last administered on 08/17/20 01:56; Start 08/14/20 at 01:00 Amlodipine Besylate (Norvasc) 10 mg 1X ONCE PO Last administered on 08/14/20 01:08; Start 08/14/20 at 01:15; Stop 08/14/20 at 01:16; Status DC Nicotine (Nicoderm Cq 14mg) 1 patch DAILY TD Last administered on 08/17/20 09:36; Start 08/14/20 at 01:35 Magnesium Citrate (Citroma) 296 ml 1X ONCE PO Last administered on 08/14/20at 11:54; Start 08/14/20 at 11:30; Stop 08/14/20 at 11:31; Status DC Fentanyl Citrate (Fentanyl 2ml Vial) 50 mcg PRN Q4HRS PRN IVP PAIN Last admi nistered on 08/16/20at 08:35; Start 08/14/20 at 11:00 Ondansetron HCl (Zofran) 4 mg PRN Q4HRS PRN IVP NAUSEA/VOMITING; Start 08/14/20 at 11:00 Enoxaparin Sodium (Lovenox 40mg Syringe) 40 mg Q24H SQ Last administered on 08/16/20 17:33; Start 08/14/20 at 18:00 Nicotine (Nicoderm Cq 14mg) 1 patch 1X ONCE TD Last administered on 08/14/20at 20:08; Start 08/14/20 at 19:00; Stop 08/14/20 at 19:01; Status DC Hydralazine HCl (Apresoline) 25 mg TID PO Last administered on 08/15/20 08:40; Start 08/14/20 at 21:00; Stop 08/15/20 at 08:48; Status DC Atorvastatin Calcium (Lipitor) 40 mg HS PO Last administered on 08/16/20 20:32; Start 08/15/20 at 21:00 Hydralazine HCl (Apresoline) 50 mg TID PO Last administered on 6/29/21at 09:37; Start 08/15/20 at 14:00 Hydralazine HCl (Apresoline) 25 mg 1X ONCE PO Last administered on 08/15/20at 11:04; Start 08/15/20 at 09:00; Stop 08/15/20 at 09:01; Status DC Dexamethasone Sodium Phosphate (Decadron) 10 mg 1X ONCE IV ; Start 08/15/20 at 11:30; Stop 08/15/20 at 11:27; Status DC Dexamethasone Sodium Phosphate (Decadron) 10 mg 1X ONCE IVP Last administered on 08/15/20at 11:44; Start 08/15/20 at 11:30; Stop 08/15/20 at 11:31; Status DC Gadoterate Meglumine (Clariscan) 20 ml 1X ONCE IVP Last administered on 08/15/20at 16:07; Start 08/15/20 at 13:30; Stop 08/15/20 at 13:31; Status DC Ketorolac Tromethamine (Toradol 30mg Vial) 30 mg 1X ONCE IVP Last administered on 08/16/20at 10:14; Start 08/16/20 at 09:00; Stop 08/16/20 at 09:01; Status DC Diphenhydramine HCl (Benadryl) 50 mg 1X ONCE IVP Last administered on 08/16/20at 10:14; Start 08/16/20 at 08:45; Stop 08/16/20 at 08:49; Status DC Prochlorperazine Edisylate (Compazine) 10 mg 1X ONCE IV Last administered on 08/16/20at 10:15; Start 08/16/20 at 08:45; Stop 08/16/20 at 08:49; Status DC Ketorolac Tromethamine (Toradol 30mg Vial) 30 mg PRN Q6HRS PRN IVP INFLAMMATION Last administered on 08/17/20at 09:38; Start 08/17/20 at 08:30; Stop 08/22/20 at 08:29 Amoxicillin/ Clavulanate Potassium (Augmentin 875/ 125mg) 1 tab BID PO Last administered on 08/17/20at 09:37; Start 08/17/20 at 09:00 Active Scripts Active Hydrocodone-Apap 5-325 (Hydrocodone Bit/Acetaminophen) 1 Each Tablet 1 Tab PO PRN Q6HRS PRN 5 Days Naproxen 500 Mg Tablet 1 Tab PO BID 20 Days Ondansetron Odt (Ondansetron) 4 Mg Tab.rapdis 1 Tab PO PRN Q6-8HRS PRN Cyclobenzaprine Hcl 5 Mg Tablet 1-2 Tab PO PRN TID PRN 5 Days Gabapentin (Gabapentin) 300 Mg Capsule 300 Mg PO TID 10 Days Ibuprofen 800 Mg Tablet 1 Tab PO TID PRN Prednisone 10 Mg Tablet 60 Mg PO DAILY 3 Days Hydrocodone-Acetamin 5-325 mg (Hydrocodone/Acetaminophen) 1 Each Tablet 1-2 Each PO Q6H PRN [place] 5-325 Tablet (Hydrocodone Bit/Acetaminophen) 1 Each Tablet 1 Tab PO TID 7 Days Hydrocodone-Apap 7.5-325/15 Soln (Hydrocodone Bit/Acetaminophen) 15 Ml Solution 10 Ml PO PRN Q6HRS PRN Clindamycin Palmitate Hcl 75 Mg/5 Ml Soln.recon 20 Ml PO TID 7 Days [place] 5-325 Tablet (Hydrocodone Bit/Acetaminophen) 1 Each Tablet 1 Tab PO TID Cyclobenzaprine Hcl 5 Mg Tablet 1 Tab PO TID Naprosyn (Naproxen) 500 Mg Tablet 1 Tab PO BID 15 Days [place] 5-325 Tablet (Hydrocodone Bit/Acetaminophen) 1 Each Tablet 1 Tab PO TID Cyclobenzaprine Hcl 10 Mg Tablet 1 Tab PO TID Ibuprofen 800 Mg Tablet 1 Tab PO TID Bactrim Ds Tablet (Sulfamethoxazole/Trimethoprim) 1 Each Tablet 1 Tab PO BID 10 Days [place] 5-325 Tablet (Hydrocodone Bit/Acetaminophen) 1 Each Tablet 1-2 Tab PO Q4- 6HRS Reported Lyrica (Pregabalin) 50 Mg Capsule 1 Cap PO BID Hydrocodone-Apap 7.5-325 (Hydrocodone Bit/Acetaminophen) 1 Each Tablet 1 Tab PO PRN Q4HRS PRN Atorvastatin Calcium 20 Mg Tablet 20 Mg PO QHS Lisinopril 20 Mg Tablet 1 Tab PO DAILY Amlodipine Besylate 10 Mg Tablet 10 Mg PO DAILY Hydrocodone-Apap 10-325 (Hydrocodone Bit/Acetaminophen) 1 Tab Tablet 1 Tab PO PRN Q6HRS PRN Aspirin 81 Mg Tab.chew 1 Tab PO DAILY Cyclobenzaprine Hcl 10 Mg Tablet 1 Tab PO DAILY Atorvastatin Calcium 40 Mg Tablet 20 Mg PO HS Vitals/I & O Vital Sign - Last 24 Hours 08/16/20 08/16/20 08/16/20 08/16/20 11:00 14:30 15:00 19:45 Temp 97.5 98.4 98.3 97.5 98.4 98.3 Pulse 78 78 74 74 Resp 18 18 20 B/P (MAP) 164/80 (108) 164/80 146/69 (94) 167/86 (113) Pulse Ox 93 98 97 O2 Delivery Room Air Room Air Room Air 08/16/20 08/16/20 08/16/20 08/16/20 20:03 20:33 20:33 21:03 Pulse 74 Resp 20 20 B/P (MAP) 167/86 O2 Delivery Room Air Room Air Room Air 08/16/20 08/16/20 08/16/20 08/17/20 21:03 22:38 22:48 01:56 Temp 98.1 98.1 Pulse 65 Resp 20 20 B/P (MAP) 179/77 (111) 143/71 (95) Pulse Ox 98 O2 Delivery Room Air Room Air 08/17/20 08/17/20 08/17/20 08/17/20 02:26 02:31 07:00 08:00 Temp 98.0 97.8 98.0 97.8 Pulse 77 77 Resp 20 20 18 B/P (MAP) 159/71 (100) 179/81 (113) Pulse Ox 97 98 O2 Delivery Room Air Room Air Room Air 08/17/20 08/17/20 09:36 09:37 Pulse 77 77 B/P (MAP) 179/81 179/81 Intake and Output 08/16/20 08/16/20 08/17/20 15:00 23:00 07:00 Intake Total 2600 ml Output Total 1000 ml 1050 ml Balance -1000 ml 1550 ml Images Magnetic resonance imaging (MRI) of the brain and orbits without and with contrast 08/15/2020 2:34 PM HISTORY: Left orbital pain. TECHNIQUE: Multiplanar multi-weighted MRI of the brain and orbits was performed without and with intravenous contrast using the orbits and brain protocol. Contrast information: 18 mL Gadolinium based contrast COMPARISON: MRI brain 08/14/2020. FINDINGS: The scalp and calvarium are normal. The superior sagittal sinus demonstrates normal venous flow. The corpus callosum is normal in shape and signal intensity. The posterior fossa is unremarkable. The pituitary and sella are normal. The brainstem and craniocervical junction are unremarkable. Remote ischemic changes identified in the right rushing radiata and superior right te mporal parietal lobe. There are T2/FLAIR signal hyperintense foci in the periventricular and subcortical white matter most suggestive of mild chronic small vessel ischemic changes. There is diffusion signal hyperintensity with corresponding low to isointense signal on ADC maps involving the right temporal lobe, right hippocampus, medial right occipital lobe and now involving the right thalamus involvement of the right hippocampus appears progressed compared to the prior examination. No definite acute intracranial hemorrhage. There is associated T2 signal hyperintensity compatible with cytotoxic edema with mass effect on the occipital horn right lateral ventricle. No hydrocephalus. Remote lacunar infarct involving the right thalamus. There are no areas of abnormal contrast enhancement. Moderate mucosal thickening of the right sphenoid sinus. Mild mucosal thickening of the ethmoid air cells. The visualized portions of the mastoids are unremarkable. Orbits are normal in appearance. Globes are spherical and contour. Extraocular muscles are intact. Optic nerves and optic chiasm appear intact. No intraconal or extraconal soft tissue mass is identified. Normal flow voids are demonstrated in the carotid arteries and basilar artery. IMPRESSION: 1. Interval progression of right posterior cerebral artery territory infarct with new involvement of the right thalamus and increased involvement of the right hippocampus. Similar degree of involvement involving the right posterior temporal, occipital and parietal lobes. There is associated vasogenic edema with mass effect on the occipital horn of the right lateral ventricle. No hydrocephalus, midline shift or hemorrhage. Next on 2. Remote infarct with associated encephalomalacia involving the right parietal and superior temporal lobe. Remote infarct with associated encephalomalacia and gliosis involving the right rushing radiata. 3. There are T2/FLAIR signal hyperintense foci in the periventricular and subcortical white matter most suggestive of mild chronic small vessel ischemic changes. 4. No suspicious orbital mass. Carotid Doppler sonogram. HISTORY: Cerebral infarction. Dizziness. Weakness. Headaches. Atherosclerosis. TECHNIQUE: Carter scale and color Doppler sonographic evaluation of the neck with spectral waveform analysis was performed and static images are submitted for review. FINDINGS: There is intimal thickening involving the common carotid arteries. The peak systolic velocity within the right common carotid artery is 109 cm/sec. The peak systolic velocity within the right internal carotid artery is 58 cm/sec and the end diastolic velocity within the right internal carotid artery is 18 cm/sec. The right ICA/CCA ratio is 0.5. The peak systolic velocity within the left common carotid artery is 127 cm/sec. The peak systolic velocity within the left internal carotid artery is 77 cm/sec and the end diastolic velocity within the left internal carotid artery is 21 cm/sec. The left ICA/CCA ratio is 0.6. There is normal antegrade flow within both vertebral arteries. IMPRESSION: Doppler findings consistent with less than 50 percent stenosis involving the internal carotid arteries. Echocardiogram: LEFT VENTRICLE The left ventricle is normal size. There is mild concentric left ventricular hypertrophy. The left ventricular systolic function is normal. The Ejection Fraction is 55-60%. There is normal LV segmental wall motion. Transmitral Doppler flow pattern is Grade II-pseudonormal filling dynamics. RIGHT VENTRICLE The right ventricle is normal size. There is normal right ventricular wall thickness. The right ventricular systolic function is normal. ATRIA The left atrium size is normal. The right atrium size is normal. The interatrial septum is intact with no evidence for an atrial septal defect or patent foramen ovale as noted on 2-D or Doppler imaging. Bubble study appears negative. AORTIC VALVE The aortic valve is thickened but opens well. Doppler and Color Flow revealed trace aortic regurgitation. Calculated aortic valve area is 2.16 cm2 with maximum pressure gradient of 9 mmHg and mean pressure gradient of 4 mmHg. There is no significant aortic valvular stenosis. MITRAL VALVE The mitral valve is thickened but opens well. There is no evidence of mitral valve prolapse. There is no mitral valve stenosis. Doppler and Color-flow revealed trace mitral regurgitation. TRICUSPID VALVE The tricuspid valve is normal in structure and function. Doppler and Color Flow revealed trace tricuspid regurgitation with an estimated PAP of 32 mmHg. There is no tricuspid valve stenosis. PULMONIC VALVE The pulmonic valve is not well visualized. Doppler and Color Flow revealed trace pulmonic valvular regurgitation. GREAT VESSELS The aortic root is normal in size. The ascending aorta is normal in size. The IVC is normal in size and collapses >50% with inspiration. PERICARDIAL EFFUSION There is no evidence of significant pericardial effusion. Critical Notification Critical Value: No <Conclusion> The left ventricular systolic function is normal. The Ejection Fraction is 55-60%. There is normal LV segmental wall motion. Transmitral Doppler flow pattern is Grade II-pseudonormal filling dynamics. Trace mitral regurgitation. Trace tricuspid regurgitation with an estimated PAP of 32 mmHg. There is no evidence of significant pericardial effusion. Bubble study negative for interatrial shunt. Justicifation of Admission Dx: Justifications for Admission: Justification of Admission Dx: Yes Stroke - Ischemic: Stroke-Ischemic DESHAWN TINAJERO MD Aug 17, 2020 10:27
[2020-08-17 11:00] VITALS: BP 175/86
[2020-08-17 15:00] VITALS: BP 166/74
[2020-08-17] MEDS: ENOXAPARIN 40 MG/0.4 ML SYRINGE. SQ SCH (17:57)
[2020-08-17 19:39] VITALS: BP 179/79
[2020-08-17] MEDS: ATORVASTATIN CALCIUM 40 MG TABLET. PO SCH (20:41)
[2020-08-17 22:30] VITALS: BP 171/83
[2020-08-18] VITALS (7 sets, daily range): BP systolic 159–183; BP diastolic 77–100
[2020-08-18] MEDS: HYDROcodone/APAP 10/325 1 TAB TABLET PO PRN ×4 (01:48→23:25)
[2020-08-18] MEDS: fentaNYL PF VIAL 100 MCG/2 ML VIAL IVP PRN ×2 (02:43→13:01)
[2020-08-18 08:03] LABS: HEMATOCRIT 48.1 % (39.0-53.0); HEMOGLOBIN 15.9 g/dL (13.0-17.5); RED BLOOD COUNT 5.41 x10^6/uL (4.30-5.70); RED CELL DISTRIBUTION WIDTH 14.6 % (11.5-14.5); WHITE BLOOD COUNT 10.3 x10^3/uL (4.0-11.0)
[2020-08-18 08:25] LABS: ALBUMIN 3.9 g/dL (3.4-5.0); ALBUMIN/GLOBULIN RATIO 1.1 (1.0-1.7); CALCIUM 9.4 mg/dL (8.5-10.1); GFR 92.2; POTASSIUM 4.7 mmol/L (3.5-5.1); TOTAL BILIRUBIN 0.4 mg/dL (0.2-1.0); TOTAL PROTEIN 7.6 g/dL (6.4-8.2)
--- NOTE | 2020-08-18 08:48 | PDOC ---
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 He did receive 1 dose of steroids which did not help. Chronic whole-body pain is receiving fentanyl Toradol/Benadryl/Compazine helps Plan With continued headache, check MR venogram and MR angiogram of the brain Not a true aspirin failure, had been off of it, it is resumed Atorvastatin Continue migraine cocktail, but cannot keep taking this May need group home unit Outpatient ophthalmology follow-up Subjective Headache was better, currently 11/28 Objective Vital Signs Date Time Temp Pulse Resp B/P (MAP) Pulse Ox O2 Delivery O2 Flow Rate FiO2 08/18/20 07:00 97.7 72 18 163/86 (111) 97 Room Air 97.7 Intake and Output 08/18/20 07:00 Intake Total 1960 ml Output Total 1650 ml Balance 310 ml Intake Oral 1960 ml Output Urine Total 1650 ml # Bowel Movements 2 PHYSICAL EXAM Has a patch on the right eye Alert. Oriented to time, place and person. PERRL. EOMI. CN: Left field cut, left central facial weakness Muscle tone: normal. Muscle strength: 4/5 left hemiparesis DTR: 1+ Plantar reflex: flexor Gait: not examined in bed. Sensory exam: no abnormal findings. No cerebellar signs elicited. Review of Relevant I have reviewed the following items lien (where applicable) has been applied. Labs Laboratory Tests Test 08/18/20 07:15 Sodium Level 142 mmol/L (136-145) Potassium Level 4.7 mmol/L (3.5-5.1) Chloride Level 103 mmol/L (98-107) Carbon Dioxide Level 30 mmol/L (21-32) Anion Gap 9 (6-14) Blood Urea Nitrogen 17 mg/dL (8-26) Creatinine 1.0 mg/dL (0.7-1.3) Estimated GFR (Cockcroft-Gault) 92.2 BUN/Creatinine Ratio 17 (6-20) Glucose Level 109 mg/dL (70-99) Calcium Level 9.4 mg/dL (8.5-10.1) Total Bilirubin 0.4 mg/dL (0.2-1.0) Aspartate Amino Transf (AST/SGOT) 18 U/L (15-37) Alanine Aminotransferase (ALT/SGPT) 23 U/L (16-63) Alkaline Phosphatase 90 U/L (46-116) Total Protein 7.6 g/dL (6.4-8.2) Albumin 3.9 g/dL (3.4-5.0) Albumin/Globulin Ratio 1.1 (1.0-1.7) Laboratory Tests Test 08/18/20 07:15 Sodium Level 142 mmol/L (136-145) Potassium Level 4.7 mmol/L (3.5-5.1) Chloride Level 103 mmol/L (98-107) Carbon Dioxide Level 30 mmol/L (21-32) Anion Gap 9 (6-14) Blood Urea Nitrogen 17 mg/dL (8-26) Creatinine 1.0 mg/dL (0.7-1.3) Estimated GFR (Cockcroft-Gault) 92.2 BUN/Creatinine Ratio 17 (6-20) Glucose Level 109 mg/dL (70-99) Calcium Level 9.4 mg/dL (8.5-10.1) Total Bilirubin 0.4 mg/dL (0.2-1.0) Aspartate Amino Transf (AST/SGOT) 18 U/L (15-37) Alanine Aminotransferase (ALT/SGPT) 23 U/L (16-63) Alkaline Phosphatase 90 U/L (46-116) Total Protein 7.6 g/dL (6.4-8.2) Albumin 3.9 g/dL (3.4-5.0) Albumin/Globulin Ratio 1.1 (1.0-1.7) Medications Current Medications Amlodipine Besylate (Norvasc) 10 mg DAILY PO Last administered on 08/17/20 09:36; Start 08/14/20 at 09:00 Aspirin (Aspirin Chewable) 81 mg DAILY08 PO Last administered on 08/17/20 09:36; Start 08/14/20 at 08:00 Atorvastatin Calcium (Lipitor) 20 mg HS PO Last administered on 08/14/20 20:09; Start 08/14/20 at 21:00; Stop 08/15/20 at 08:48; Status DC Cyclobenzaprine HCl (Flexeril) 10 mg DAILY PO Last administered on 6/29/21at 09:36; Start 08/14/20 at 09:00 Acetaminophen/ Hydrocodone Bitart (Lortab 10/325) 1 tab PRN Q6HRS PRN PO PAIN Last administered on 08/18/20at 01:48; Start 08/14/20 at 01:00 Amlodipine Besylate (Norvasc) 10 mg 1X ONCE PO Last administered on 08/14/20at 01:08; Start 08/14/20 at 01:15; Stop 08/14/20 at 01:16; Status DC Nicotine (Nicoderm Cq 14mg) 1 patch DAILY TD Last administered on 08/17/20at 09:36; Start 08/14/20 at 01:35 Magnesium Citrate (Citroma) 296 ml 1X ONCE PO Last administered on 08/14/20at 11:54; Start 08/14/20 at 11:30; Stop 08/14/20 at 11:31; Status DC Fentanyl Citrate (Fentanyl 2ml Vial) 50 mcg PRN Q4HRS PRN IVP PAIN Last administered on 08/18/20at 02:43; Start 08/14/20 at 11:00 Ondansetron HCl (Zofran) 4 mg PRN Q4HRS PRN IVP NAUSEA/VOMITING; Start 08/14/20 at 11:00 Enoxaparin Sodium (Lovenox 40mg Syringe) 40 mg Q24H SQ Last administered on 08/17/20at 17:57; Start 08/14/20 at 18:00 Nicotine (Nicoderm Cq 14mg) 1 patch 1X ONCE TD Last administered on 08/14/20at 20:08; Start 08/14/20 at 19:00; Stop 08/14/20 at 19:01; Status DC Hydralazine HCl (Apresoline) 25 mg TID PO Last administered on 08/15/20at 08:40; Start 08/14/20 at 21:00; Stop 08/15/20 at 08:48; Status DC Atorvastatin Calcium (Lipitor) 40 mg HS PO Last administered on 08/17/20at 20:41; Start 08/15/20 at 21:00 Hydralazine HCl (Apresoline) 50 mg TID PO Last administered on 08/17/20at 20:42; Start 08/15/20 at 14:00 Hydralazine HCl (Apresoline) 25 mg 1X ONCE PO Last administered on 08/15/20at 11:04; Start 08/15/20 at 09:00; Stop 08/15/20 at 09:01; Status DC Dexamethasone Sodium Phosphate (Decadron) 10 mg 1X ONCE IV ; Start 08/15/20 at 11:30; Stop 08/15/20 at 11:27; Status DC Dexamethasone Sodium Phosphate (Decadron) 10 mg 1X ONCE IVP Last administered on 08/15/20at 11:44; Start 08/15/20 at 11:30; Stop 08/15/20 at 11:31; Status DC Gadoterate Meglumine (Clariscan) 20 ml 1X ONCE IVP Last administered on 08/15/20at 16:07; Start 08/15/20 at 13:30; Stop 08/15/20 at 13:31; Status DC Ketorolac Tromethamine (Toradol 30mg Vial) 30 mg 1X ONCE IVP Last administered on 08/16/20at 10:14; Start 08/16/20 at 09:00; Stop 08/16/20 at 09:01; Status DC Diphenhydramine HCl (Benadryl) 50 mg 1X ONCE IVP Last administered on 08/16/20at 10:14; Start 08/16/20 at 08:45; Stop 08/16/20 at 08:49; Status DC Prochlorperazine Edisylate (Compazine) 10 mg 1X ONCE IV Last administered on 08/16/20at 10:15; Start 08/16/20 at 08:45; Stop 08/16/20 at 08:49; Status DC Ketorolac Tromethamine (Toradol 30mg Vial) 30 mg PRN Q6HRS PRN IVP INFLAMMATION Last administered on 08/17/20at 21:28; Start 08/17/20 at 08:30; Stop 08/22/20 at 08:29 Amoxicillin/ Clavulanate Potassium (Augmentin 875/ 125mg) 1 tab BID PO Last administered on 08/17/20at 20:41; Start 08/17/20 at 09:00 Active Scripts Active Hydrocodone-Apap 5-325 (Hydrocodone Bit/Acetaminophen) 1 Each Tablet 1 Tab PO PRN Q6HRS PRN 5 Days Naproxen 500 Mg Tablet 1 Tab PO BID 20 Days Ondansetron Odt (Ondansetron) 4 Mg Tab.rapdis 1 Tab PO PRN Q6-8HRS PRN Cyclobenzaprine Hcl 5 Mg Tablet 1-2 Tab PO PRN TID PRN 5 Days Gabapentin (Gabapentin) 300 Mg Capsule 300 Mg PO TID 10 Days Ibuprofen 800 Mg Tablet 1 Tab PO TID PRN Prednisone 10 Mg Tablet 60 Mg PO DAILY 3 Days Hydrocodone-Acetamin 5-325 mg (Hydrocodone/Acetaminophen) 1 Each Tablet 1-2 Each PO Q6H PRN [place] 5-325 Tablet (Hydrocodone Bit/Acetaminophen) 1 Each Tablet 1 Tab PO TID 7 Days Hydrocodone-Apap 7.5-325/15 Soln (Hydrocodone Bit/Acetaminophen) 15 Ml Solution 10 Ml PO PRN Q6HRS PRN Clindamycin Palmitate Hcl 75 Mg/5 Ml Soln.recon 20 Ml PO TID 7 Days [place] 5-325 Tablet (Hydrocodone Bit/Acetaminophen) 1 Each Tablet 1 Tab PO TID Cyclobenzaprine Hcl 5 Mg Tablet 1 Tab PO TID Naprosyn (Naproxen) 500 Mg Tablet 1 Tab PO BID 15 Days [place] 5-325 Tablet (Hydrocodone Bit/Acetaminophen) 1 Each Tablet 1 Tab PO TID Cyclobenzaprine Hcl 10 Mg Tablet 1 Tab PO TID Ibuprofen 800 Mg Tablet 1 Tab PO TID Bactrim Ds Tablet (Sulfamethoxazole/Trimethoprim) 1 Each Tablet 1 Tab PO BID 10 Days [place] 5-325 Tablet (Hydrocodone Bit/Acetaminophen) 1 Each Tablet 1-2 Tab PO Q4- 6HRS Reported Lyrica (Pregabalin) 50 Mg Capsule 1 Cap PO BID Hydrocodone-Apap 7.5-325 (Hydrocodone Bit/Acetaminophen) 1 Each Tablet 1 Tab PO PRN Q4HRS PRN Atorvastatin Calcium 20 Mg Tablet 20 Mg PO QHS Lisinopril 20 Mg Tablet 1 Tab PO DAILY Amlodipine Besylate 10 Mg Tablet 10 Mg PO DAILY Hydrocodone-Apap 10-325 (Hydrocodone Bit/Acetaminophen) 1 Tab Tablet 1 Tab PO PRN Q6HRS PRN Aspirin 81 Mg Tab.chew 1 Tab PO DAILY Cyclobenzaprine Hcl 10 Mg Tablet 1 Tab PO DAILY Atorvastatin Calcium 40 Mg Tablet 20 Mg PO HS Vitals/I & O Vital Sign - Last 24 Hours 08/17/20 08/17/20 08/17/20 08/17/20 09:36 09:37 10:28 10:58 Pulse 77 77 Resp 18 18 B/P (MAP) 179/81 179/81 O2 Delivery Room Air Room Air 08/17/20 08/17/20 08/17/20 08/17/20 11:00 15:00 15:25 17:57 Temp 98.3 98.7 98.3 98.7 Pulse 73 80 73 Resp 18 18 18 B/P (MAP) 175/86 (115) 166/74 (104) 166/74 Pulse Ox 96 96 O2 Delivery Room Air Room Air Room Air 08/17/20 08/17/20 08/17/20 08/17/20 18:27 19:39 19:50 20:42 Temp 98.1 98.1 Pulse 77 89 Resp 18 17 B/P (MAP) 179/79 (112) 179/88 Pulse Ox 97 O2 Delivery Room Air Room Air Room Air 08/17/20 08/18/20 08/18/20 08/18/20 22:30 01:48 02:11 02:18 Temp 98.0 98.1 98.0 98.1 Pulse 77 71 Resp 23 18 16 B/P (MAP) 171/83 (112) 179/100 (126) Pulse Ox 96 96 96 O2 Delivery Room Air Room Air Room Air Room Air 08/18/20 08/18/20 08/18/20 02:43 03:13 07:00 Temp 97.7 97.7 Pulse 72 Resp 20 18 B/P (MAP) 163/86 (111) Pulse Ox 96 97 O2 Delivery Room Air Room Air Room Air Intake and Output 08/17/20 08/17/20 08/18/20 15:00 23:00 07:00 Intake Total 600 ml 360 ml 1000 ml Output Total 700 ml 550 ml 400 ml Balance -100 ml -190 ml 600 ml Justicifation of Admission Dx: Justifications for Admission: Justification of Admission Dx: Yes Stroke - Ischemic: Stroke-Ischemic DESHAWN TINAJERO MD Aug 18, 2020 08:48
[2020-08-18] MEDS: CYCLOBENZAPRINE 10 MG TABLET. PO SCH (08:54)
[2020-08-18] MEDS: KETOROLAC 30 MG/ML VIAL. IVP PRN ×3 (08:54→20:14)
[2020-08-18] MEDS: ASPIRIN CHEWABLE 81 MG TABLET. PO SCH (08:54)
[2020-08-18] MEDS: NICOTINE 14MG PATCH. TD SCH (08:54)
[2020-08-18] MEDS: AMOXICILLIN/K CLAV 875/125MG TABLET. PO SCH ×2 (08:54→20:13)
--- NOTE | 2020-08-18 12:51 | PN ---
DATE: 08/18/2020 SUBJECTIVE: The patient is resting, slightly propped up in bed, in no apparent respiratory distress, continued to complain of severe pain in his right eye that responds to IV Toradol. He apparently was seen by Dr. Rainey, who recommended repeating his MRI, he continued to refuse to go to rehab facility, but stated that he spoke with his insurance company and they can authorize him to be admitted to [facility]. PHYSICAL EXAMINATION: GENERAL: When I examined him today, he looked well and was clearly in no apparent respiratory distress. No pallor, jaundice, cyanosis or thyromegaly. No jugular venous distention. No lower limb edema. VITAL SIGNS: Heart rate was 72, blood pressure was 163/86, temperature was 97.7, respiratory rate was 18 and oxygen saturation was 97% on room air. HEAD, EYES, EARS, NOSE, EYES, EARS, NOSE, AND THROAT: Normocephalic, atraumatic. NECK: Supple. HEART: Showed normal first and second heart sounds, no gallop or murmur. CHEST: Clear to auscultation, no crepitation or rhonchi. NEUROLOGIC: He is awake, alert, responding appropriately. All cranial nerves intact. He moves extremities without difficulty. His intake was 2600, output of 1200. LABORATORY DATA: As of this morning, his white cell count was 10,000, hemoglobin 15, hematocrit 48, MCV 89 and platelet count 315,000. Serum sodium 142, potassium 4.7, chloride 103, bicarbonate 30, anion gap of 9, BUN 17, creatinine 1, estimated GFR was 92 mL per minute. His glucose 109, calcium was 9.4. Total bilirubin, AST, ALT, alkaline phosphatase were normal. Total protein was 7.6, albumin is 3.9. Serum triglycerides 119. Total cholesterol was 221, LDL cholesterol 156, VLDL was 24, HDL was 41. The ratio was 5.4. ASSESSMENT: 1. 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 2. Retroorbital pain, shift side has some migraine component perhaps a sedimentation rate and CRP are too low for this to be temporal arteritis. He did receive one dose of steroids as per the displayer merchandise recommendation, chronic. Given that he continued to have pain, Dr. Rainey recommended checking MRI venogram and MR angiogram of the brain. Continue atorvastatin. Continue with migraine headache cocktail. The patient is receptive to the idea of admission to a detention facility and said his insurance will allow him to go to medical [facility]. KATEY/KASSY DR: Padmini TID: [id number]
[2020-08-18] MEDS: ENOXAPARIN 40 MG/0.4 ML SYRINGE. SQ SCH (17:53)
[2020-08-18] MEDS: ATORVASTATIN CALCIUM 40 MG TABLET. PO SCH (20:13)
[2020-08-19] MEDS: KETOROLAC 30 MG/ML VIAL. IVP PRN (02:33)
[2020-08-19 03:52] VITALS: BP 144/105
[2020-08-19 07:00] VITALS: BP 156/74
[2020-08-19] MEDS: CYCLOBENZAPRINE 10 MG TABLET. PO SCH (08:29)
[2020-08-19] MEDS: AMOXICILLIN/K CLAV 875/125MG TABLET. PO SCH ×2 (08:29→21:06)
[2020-08-19] MEDS: ASPIRIN CHEWABLE 81 MG TABLET. PO SCH (08:29)
[2020-08-19] MEDS: NICOTINE 14MG PATCH. TD SCH (08:35)
--- NOTE | 2020-08-19 10:41 | PN ---
DATE: 08/19/2020 SUBJECTIVE: The patient is resting slightly up in his recliner, in no apparent distress. On questioning him, he continued to complain of headache, particularly behind his right eye. The nursing staff stated that he is very unsteady and he himself stated that he is unsteady on his feet when he walked to the bathroom. PHYSICAL EXAMINATION: GENERAL: When I examined him, he looked well and was clearly in no apparent respiratory distress. No pallor, jaundice, cyanosis or thyromegaly. No jugular venous distention. No limb edema. VITAL SIGNS: His heart rate was 82, blood pressure is 156/74, temperature was 97.6, respiratory rate was 18 and oxygen saturation was 95% on room air. HEAD, EYES, EARS, NOSE, AND THROAT: Normocephalic, atraumatic. NECK: Supple. HEART: Showed normal first and second heart sounds. No gallop or murmur. CHEST: Clear to auscultation with no crepitation or rhonchi. ABDOMEN: Distended, soft, nontender. NEUROLOGIC: He is awake, alert, responding appropriately. All cranial nerves intact. He apparently is very unsteady on his feet. His intake was 1100, output was 2650. LABORATORY DATA: As of yesterday, his white cell count was 10,000, hemoglobin 15, hematocrit 48, MCV 89 and platelet count 315,000. His chemistry showed a serum sodium 142, potassium 4.7, chloride 103, bicarbonate 30, anion gap of 9, BUN 17, creatinine 1, estimated GFR was 92 mL per minute. His glucose 109, calcium was 9.4. Total bilirubin, AST, ALT, alkaline phosphatase were normal. Total protein was 7.6, albumin was 3.9. ASSESSMENT: 1. Acute right hemispheric stroke on top of chronic right hemispheric stroke. 2. Retroorbital pain, shift sides, has some migraine component, perhaps his sedimentation rate and CRP are too low for this to be due to temporal or giant cell arteritis. Currently, he has an order for MRI venogram and MR angiogram of the brain. Meanwhile, we will continue with atorvastatin, continue with migraine headache cocktail. The patient is receptive to the idea of admission to a correction facility until insurance would allow him to go to [facility]. Once the MRI is done and Dr. Rainey is okay for him to be discharged, I would discharge him either to a correction facility or home with home health. TATA DR: Padmini TID: [id number]
[2020-08-19 10:55] VITALS: BP 149/70
[2020-08-19] MEDS: HYDROcodone/APAP 10/325 1 TAB TABLET PO PRN ×2 (11:57→18:11)
--- NOTE | 2020-08-19 12:16 | PDOC ---
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 He did receive 1 dose of steroids which did not help. Chronic whole-body pain is receiving fentanyl Toradol/Benadryl/Compazine helps, but, as I explained to patient, we cannot continue it, risks exceed benefits. I cannot figure out how he has "10+ headache" when he just got the migraine cocktail and he says it helps Plan Await MR venogram and MR angiogram of the brain Not a true aspirin failure, had been off of it, it is resumed Atorvastatin Stop migraine cocktail Also stop fentanyl IV Needs nursing home unit, but refuses, I cannot convince him, he wants to go home with home health. I have asked social sciences department chair to check on him 1 more time Outpatient ophthalmology follow-up Okay to discharge after MRI studies Subjective 10+/10 pain Objective Vital Signs Date Time Temp Pulse Resp B/P (MAP) Pulse Ox O2 Delivery O2 Flow Rate FiO2 08/19/20 11:57 Room Air 08/19/20 10:55 98.2 67 16 149/70 (96) 97 98.2 08/18/20 23:52 Intake and Output 08/19/20 07:00 Intake Total 1080 ml Output Total 2650 ml Balance -1570 ml Intake Oral 1080 ml Output Urine Total 2650 ml PHYSICAL EXAM Has a patch on the right eye Clearly asleep when I come in the room, or at least resting very comfortably, says that his pain is 10+ when I wake him up. Oriented to time, place and person. PERRL. EOMI. CN: Left field cut, left central facial weakness Muscle tone: normal. Muscle strength: 4/5 left hemiparesis DTR: 1+ Plantar reflex: flexor Gait: not examined in bed. Sensory exam: no abnormal findings. No cerebellar signs elicited. Review of Relevant I have reviewed the following items lien (where applicable) has been applied. Labs Laboratory Tests Test 08/18/20 07:15 White Blood Count 10.3 x10^3/uL (4.0-11.0) Red Blood Count 5.41 x10^6/uL (4.30-5.70) Hemoglobin 15.9 g/dL (13.0-17.5) Hematocrit 48.1 % (39.0-53.0) Mean Corpuscular Volume 89 fL (79-100) Mean Corpuscular Hemoglobin 29 pg (25-35) Mean Corpuscular Hemoglobin Concent 33 g/dL (31-37) Red Cell Distribution Width 14.6 % (11.5-14.5) Platelet Count 315 x10^3/uL (140-400) Sodium Level 142 mmol/L (136-145) Potassium Level 4.7 mmol/L (3.5-5.1) Chloride Level 103 mmol/L (98-107) Carbon Dioxide Level 30 mmol/L (21-32) Anion Gap 9 (6-14) Blood Urea Nitrogen 17 mg/dL (8-26) Creatinine 1.0 mg/dL (0.7-1.3) Estimated GFR (Cockcroft-Gault) 92.2 BUN/Creatinine Ratio 17 (6-20) Glucose Level 109 mg/dL (70-99) Calcium Level 9.4 mg/dL (8.5-10.1) Total Bilirubin 0.4 mg/dL (0.2-1.0) Aspartate Amino Transf (AST/SGOT) 18 U/L (15-37) Alanine Aminotransferase (ALT/SGPT) 23 U/L (16-63) Alkaline Phosphatase 90 U/L (46-116) Total Protein 7.6 g/dL (6.4-8.2) Albumin 3.9 g/dL (3.4-5.0) Albumin/Globulin Ratio 1.1 (1.0-1.7) Medications Current Medications Amlodipine Besylate (Norvasc) 10 mg DAILY PO Last administered on 08/19/20at 08:30; Start 08/14/20 at 09:00 Aspirin (Aspirin Chewable) 81 mg DAILY08 PO Last administered on 08/19/20at 08:29; Start 08/14/20 at 08:00 Atorvastatin Calcium (Lipitor) 20 mg HS PO Last administered on 08/14/20at 20:09; Start 08/14/20 at 21:00; Stop 08/15/20 at 08:48; Status DC Cyclobenzaprine HCl (Flexeril) 10 mg DAILY PO Last administered on 08/19/20 08:29; Start 08/14/20 at 09:00 Acetaminophen/ Hydrocodone Bitart (Lortab 10/325) 1 tab PRN Q6HRS PRN PO PAIN Last administered on 08/19/20 11:57; Start 08/14/20 at 01:00 Amlodipine Besylate (Norvasc) 10 mg 1X ONCE PO Last administered on 08/14/20 01:08; Start 08/14/20 at 01:15; Stop 08/14/20 at 01:16; Status DC Nicotine (Nicoderm Cq 14mg) 1 patch DAILY TD Last administered on 08/19/20 08:35; Start 08/14/20 at 01:35 Magnesium Citrate (Citroma) 296 ml 1X ONCE PO Last administered on 08/14/20at 11:54; Start 08/14/20 at 11:30; Stop 08/14/20 at 11:31; Status DC Fentanyl Citrate (Fentanyl 2ml Vial) 50 mcg PRN Q4HRS PRN IVP PAIN Last administered on 08/18/20at 13:01; Start 08/14/20 at 11:00 Ondansetron HCl (Zofran) 4 mg PRN Q4HRS PRN IVP NAUSEA/VOMITING; Start 08/14/20 at 11:00 Enoxaparin Sodium (Lovenox 40mg Syringe) 40 mg Q24H SQ Last administered on 08/18/20at 17:53; Start 08/14/20 at 18:00 Nicotine (Nicoderm Cq 14mg) 1 patch 1X ONCE TD Last administered on 08/14/20at 20:08; Start 08/14/20 at 19:00; Stop 08/14/20 at 19:01; Status DC Hydralazine HCl (Apresoline) 25 mg TID PO Last administered on 08/15/20at 08:40; Start 08/14/20 at 21:00; Stop 08/15/20 at 08:48; Status DC Atorvastatin Calcium (Lipitor) 40 mg HS PO Last administered on 08/18/20at 20:13; Start 08/15/20 at 21:00 Hydralazine HCl (Apresoline) 50 mg TID PO Last administered on 08/19/20 08:30; Start 08/15/20 at 14:00 Hydralazine HCl (Apresoline) 25 mg 1X ONCE PO Last administered on 08/15/20at 11:04; Start 08/15/20 at 09:00; Stop 08/15/20 at 09:01; Status DC Dexamethasone Sodium Phosphate (Decadron) 10 mg 1X ONCE IV ; Start 08/15/20 at 11:30; Stop 08/15/20 at 11:27; Status DC Dexamethasone Sodium Phosphate (Decadron) 10 mg 1X ONCE IVP Last administered on 08/15/20at 11:44; Start 08/15/20 at 11:30; Stop 08/15/20 at 11:31; Status DC Gadoterate Meglumine (Clariscan) 20 ml 1X ONCE IVP Last administered on 08/15/20at 16:07; Start 08/15/20 at 13:30; Stop 08/15/20 at 13:31; Status DC Ketorolac Tromethamine (Toradol 30mg Vial) 30 mg 1X ONCE IVP Last administered on 08/16/20at 10:14; Start 08/16/20 at 09:00; Stop 08/16/20 at 09:01; Status DC Diphenhydramine HCl (Benadryl) 50 mg 1X ONCE IVP Last administered on 08/16/20at 10:14; Start 08/16/20 at 08:45; Stop 08/16/20 at 08:49; Status DC Prochlorperazine Edisylate (Compazine) 10 mg 1X ONCE IV Last administered on 08/16/20at 10:15; Start 08/16/20 at 08:45; Stop 08/16/20 at 08:49; Status DC Ketorolac Tromethamine (Toradol 30mg Vial) 30 mg PRN Q6HRS PRN IVP INFLAMMATION Last administered on 08/19/20at 02:33; Start 08/17/20 at 08:30; Stop 08/22/20 at 08:29 Amoxicillin/ Clavulanate Potassium (Augmentin 875/ 125mg) 1 tab BID PO Last administered on 08/19/20at 08:29; Start 08/17/20 at 09:00 Active Scripts Active Hydrocodone-Apap 5-325 (Hydrocodone Bit/Acetaminophen) 1 Each Tablet 1 Tab PO PRN Q6HRS PRN 5 Days Naproxen 500 Mg Tablet 1 Tab PO BID 20 Days Ondansetron Odt (Ondansetron) 4 Mg Tab.rapdis 1 Tab PO PRN Q6-8HRS PRN Cyclobenzaprine Hcl 5 Mg Tablet 1-2 Tab PO PRN TID PRN 5 Days Gabapentin (Gabapentin) 300 Mg Capsule 300 Mg PO TID 10 Days Ibuprofen 800 Mg Tablet 1 Tab PO TID PRN Prednisone 10 Mg Tablet 60 Mg PO DAILY 3 Days Hydrocodone-Acetamin 5-325 mg (Hydrocodone/Acetaminophen) 1 Each Tablet 1-2 Each PO Q6H PRN [place] 5-325 Tablet (Hydrocodone Bit/Acetaminophen) 1 Each Tablet 1 Tab PO TID 7 Days Hydrocodone-Apap 7.5-325/15 Soln (Hydrocodone Bit/Acetaminophen) 15 Ml Solution 10 Ml PO PRN Q6HRS PRN Clindamycin Palmitate Hcl 75 Mg/5 Ml Soln.recon 20 Ml PO TID 7 Days [place] 5-325 Tablet (Hydrocodone Bit/Acetaminophen) 1 Each Tablet 1 Tab PO TID Cyclobenzaprine Hcl 5 Mg Tablet 1 Tab PO TID Naprosyn (Naproxen) 500 Mg Tablet 1 Tab PO BID 15 Days [place] 5-325 Tablet (Hydrocodone Bit/Acetaminophen) 1 Each Tablet 1 Tab PO TID Cyclobenzaprine Hcl 10 Mg Tablet 1 Tab PO TID Ibuprofen 800 Mg Tablet 1 Tab PO TID Bactrim Ds Tablet (Sulfamethoxazole/Trimethoprim) 1 Each Tablet 1 Tab PO BID 10 Days [place] 5-325 Tablet (Hydrocodone Bit/Acetaminophen) 1 Each Tablet 1-2 Tab PO Q4- 6HRS Reported Lyrica (Pregabalin) 50 Mg Capsule 1 Cap PO BID Hydrocodone-Apap 7.5-325 (Hydrocodone Bit/Acetaminophen) 1 Each Tablet 1 Tab PO PRN Q4HRS PRN Atorvastatin Calcium 20 Mg Tablet 20 Mg PO QHS Lisinopril 20 Mg Tablet 1 Tab PO DAILY Amlodipine Besylate 10 Mg Tablet 10 Mg PO DAILY Hydrocodone-Apap 10-325 (Hydrocodone Bit/Acetaminophen) 1 Tab Tablet 1 Tab PO PRN Q6HRS PRN Aspirin 81 Mg Tab.chew 1 Tab PO DAILY Cyclobenzaprine Hcl 10 Mg Tablet 1 Tab PO DAILY Atorvastatin Calcium 40 Mg Tablet 20 Mg PO HS Vitals/I & O Vital Sign - Last 24 Hours 08/18/20 08/18/20 08/18/20 08/18/20 13:01 13:31 14:08 14:35 Temp 97.6 97.6 Pulse 91 91 Resp 18 20 16 B/P (MAP) 176/81 (112) 176/81 Pulse Ox 98 O2 Delivery Room Air Room Air Nasal Cannula 08/18/20 08/18/20 08/18/20 08/18/20 15:12 17:53 18:23 19:00 Temp 98.0 98.0 Pulse 83 Resp 18 18 18 B/P (MAP) 162/77 (105) 159/77 (104) Pulse Ox 96 O2 Delivery Room Air Room Air O2 Flow Rate 08/18/20 08/18/20 08/18/20 08/18/20 19:54 20:13 23:25 23:52 Temp 97.0 97.0 Pulse 78 80 Resp 20 18 B/P (MAP) 159/77 160/84 (109) Pulse Ox 97 O2 Delivery Room Air Room Air Room Air O2 Flow Rate 08/18/20 08/19/20 08/19/20 08/19/20 23:55 03:52 07:00 08:00 Temp 97.4 97.6 97.4 97.6 Pulse 74 62 Resp 18 16 19 B/P (MAP) 144/105 (118) 156/74 (101) Pulse Ox 97 95 O2 Delivery Room Air Room Air Room Air 08/19/20 08/19/20 08/19/20 08/19/20 08:30 08:30 10:55 11:57 Temp 98.2 98.2 Pulse 62 62 67 Resp 16 B/P (MAP) 156/74 156/74 149/70 (96) Pulse Ox 97 O2 Delivery Room Air Room Air l Intake and Output 08/18/20 08/18/20 08/19/20 15:00 23:00 07:00 Intake Total 580 ml 500 ml Output Total 850 ml 1500 ml 300 ml Balance -270 ml -1000 ml -300 ml Justicifation of Admission Dx: Justifications for Admission: Justification of Admission Dx: Yes Stroke - Ischemic: Stroke-Ischemic DESHAWN TINAJERO MD Aug 19, 2020 12:16
[2020-08-19 15:00] VITALS: BP 171/78
[2020-08-19] MEDS ORDERED: NICOTINE 14MG PATCH. TD ONE (15:30)
--- NOTE | 2020-08-19 16:43 | RAD ---
Magnetic resonance angiography (MRA) of the [place] without contrast Magnetic resonance venography (MRV) of the intracranial vessels without contrast 08/19/2020 1:45 PM INDICATION: Stroke. Headache. COMPARISON: None available. TECHNIQUE: Noncontrast xtpx-ic-ciparh magnetic resonance angiography of the [place] was obt ained. Maximum intensity projection images are provided. Noncontrast eddk-kz-riafwd magnetic resonanc e venography was obtained. Maximum intensity projection images are provided. Stenosis calculations for CT, MR, and conventional angiography are based upon measurements of the dis melanie ICA diameter in accordance with the NASCET methodology. Stenosis calculations for carotid ultraso und studies are derived from validated velocity criteria which are known to correlate with the NASCET methodology. FINDINGS: [place]: There is moderate irregularity of the medial segment of the left internal carotid artery focal stenos is of the supraclinoid left internal carotid artery secondary to calcified plaque. Origins of the oph thalmic segments of internal carotid arteries are widely patent. Moderate irregularity of the right i nternal carotid artery intracranial segment without significant stenosis. There is a right M1 occlusi on of the middle cerebral artery at the origin. There is severe irregularity of the right anterior ce rebral arteries suggestive of intracranial atherosclerotic changes. A1 segments are present. There is focal high-grade short segment stenosis of the left middle cerebral artery measuring 3 mm. Moderate irregularity of the left middle cerebral artery sylvian branches. Vertebral arteries are patent. Anterior inferior cerebellar arteries are patent. Superior cerebellar arteries are severely irregular. Left posterior communicating artery is visualized. There is moderate irregularity of the left posterior cerebral artery. There is occlusion of the right P2 segment right posterior cerebral artery (series 5, image 76). Venous system: Superior sagittal sinus is patent. Superior cortical veins appear patent. Left transverse sinus is pa tent as is the bilateral sigmoid sinus and jugular bulbs. Diminutive caliber of the right transverse sinus is noted. There is irregularity of the right transverse sinus without definitive thrombus visua lized. Diminutive caliber could be congenital. IMPRESSION: 1. Right M1 occlusion at the origin. 2. Right posterior cerebral artery occlusion at the P2 segment. 3. Severe intracranial atherosclerotic changes. No definite aneurysm is visualized, although further characterization with catheter angiography could be of benefit. 4. No definite sinus venous thrombosis. FOR INTERNAL CODING PURPOSES Critical result: Findings discussed with Elizabeth, the patient's nurse, at 08/19/2020 4:37 PM. RESULT CODE: (C) Electronically signed by: Bethany Delgadillo MD (08/19/2020 4:41 PM) [facility]
--- NOTE | 2020-08-19 16:43 | RAD ---
Magnetic resonance angiography (MRA) of the [place] without contrast Magnetic resonance venography (MRV) of the intracranial vessels without contrast 08/19/2020 1:45 PM INDICATION: Stroke. Headache. COMPARISON: None available. TECHNIQUE: Noncontrast yqpn-px-tvoogb magnetic resonance angiography of the [place] was obt ained. Maximum intensity projection images are provided. Noncontrast omno-cr-hntwdp magnetic resonanc e venography was obtained. Maximum intensity projection images are provided. Stenosis calculations for CT, MR, and conventional angiography are based upon measurements of the dis melanie ICA diameter in accordance with the NASCET methodology. Stenosis calculations for carotid ultraso und studies are derived from validated velocity criteria which are known to correlate with the NASCET methodology. FINDINGS: [place]: There is moderate irregularity of the medial segment of the left internal carotid artery focal stenos is of the supraclinoid left internal carotid artery secondary to calcified plaque. Origins of the oph thalmic segments of internal carotid arteries are widely patent. Moderate irregularity of the right i nternal carotid artery intracranial segment without significant stenosis. There is a right M1 occlusi on of the middle cerebral artery at the origin. There is severe irregularity of the right anterior ce rebral arteries suggestive of intracranial atherosclerotic changes. A1 segments are present. There is focal high-grade short segment stenosis of the left middle cerebral artery measuring 3 mm. Moderate irregularity of the left middle cerebral artery sylvian branches. Vertebral arteries are patent. Anterior inferior cerebellar arteries are patent. Superior cerebellar arteries are severely irregular. Left posterior communicating artery is visualized. There is moderate irregularity of the left posterior cerebral artery. There is occlusion of the right P2 segment right posterior cerebral artery (series 5, image 76). Venous system: Superior sagittal sinus is patent. Superior cortical veins appear patent. Left transverse sinus is pa tent as is the bilateral sigmoid sinus and jugular bulbs. Diminutive caliber of the right transverse sinus is noted. There is irregularity of the right transverse sinus without definitive thrombus visua lized. Diminutive caliber could be congenital. IMPRESSION: 1. Right M1 occlusion at the origin. 2. Right posterior cerebral artery occlusion at the P2 segment. 3. Severe intracranial atherosclerotic changes. No definite aneurysm is visualized, although further characterization with catheter angiography could be of benefit. 4. No definite sinus venous thrombosis. FOR INTERNAL CODING PURPOSES Critical result: Findings discussed with Elizabeth, the patient's nurse, at 08/19/2020 4:37 PM. RESULT CODE: (C) Electronically signed by: Bethany Delgadillo MD (08/19/2020 4:41 PM) [facility]
[2020-08-19] MEDS: ENOXAPARIN 40 MG/0.4 ML SYRINGE. SQ SCH (18:17)
[2020-08-19 19:05] VITALS: BP 181/84
[2020-08-19] MEDS: ATORVASTATIN CALCIUM 40 MG TABLET. PO SCH (21:06)
[2020-08-19 23:00] VITALS: BP 154/70
[2020-08-20] MEDS: HYDROcodone/APAP 10/325 1 TAB TABLET PO PRN ×3 (01:29→15:48)
[2020-08-20 03:00] VITALS: BP 173/83
[2020-08-20 07:00] VITALS: BP 143/68
--- NOTE | 2020-08-20 08:32 | SNU/HH DC ---
DISCHARGE ORDERS DISCHARGE INFORMATION: DISCHARGE DATE: Aug 20, 2020 FINAL DIAGNOSIS acute right hemispheric stroke hypertension severe headache CONDITION ON DISCHARGE: Stable CODE STATUS: Code Status: Full LTAC: ADMIT TO LTAC: Yes POST DISCHARGE ORDERS: ACTIVITY ORDERS: Activity as tolerated WEIGHT BEARING STATUS: As tolerated DIET AFTER DISCHARGE: Cardiac WOUND/INCISION CARE: Keep wound/cast CDI TREATMENT/EQUIPMENT ORDERS: ADAPTIVE EQUIPMENT NEEDED: None Physical Therapy For: Evalulation/Treatment Occupational Therapy For: Evaluation/Treatment DISCHARGE MEDICATIONS: Home Meds Reported Medications Amlodipine Besylate (AMLODIPINE BESYLATE) 10 Mg Tablet, 10 MG PO DAILY for bloos presure, TAB 08/14/20 Hydrocodone Bit/Acetaminophen (HYDROCODONE-APAP 10-325 ) 1 Tab Tablet, 1 TAB PO PRN Q6HRS PRN for PAIN, TAB 0 Refills 08/14/20 Aspirin (ASPIRIN) 81 Mg Tab.chew, 1 TAB PO DAILY for blood thinner, #30 TAB 3 Refills 12/04/19 Cyclobenzaprine Hcl (CYCLOBENZAPRINE HCL) 10 Mg Tablet, 1 TAB PO DAILY for pain, #90 TAB 12/04/19 Atorvastatin Calcium (ATORVASTATIN CALCIUM) 40 Mg Tablet, 20 MG PO HS for FOR CHOLESTEROL, #30 TAB 0 Refills 06/22/16 Discontinued Reported Medications Irbesartan (IRBESARTAN) 75 Mg Tablet, 150 MG PO DAILY for blood pressure, TAB 12/04/19 JUSTIN PEREZ MD Aug 20, 2020 08:32
[2020-08-20] MEDS: AMOXICILLIN/K CLAV 875/125MG TABLET. PO SCH (08:43)
[2020-08-20] MEDS: ASPIRIN CHEWABLE 81 MG TABLET. PO SCH (08:43)
[2020-08-20] MEDS: CYCLOBENZAPRINE 10 MG TABLET. PO SCH (08:43)
[2020-08-20] MEDS: NICOTINE 14MG PATCH. TD SCH (09:00)
--- NOTE | 2020-08-20 10:12 | PDOC ---
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 He did receive 1 dose of steroids which did not help. MR angiogram and venogram negative for cause Chronic whole-body pain Plan Not a true aspirin failure, had been off of it, it is resumed Atorvastatin Stopped migraine cocktail and fentanyl IV Now willing to go to acute rehab Outpatient ophthalmology follow-up Okay to discharge Subjective 10+/10 headache Objective Vital Signs Date Time Temp Pulse Resp B/P (MAP) Pulse Ox O2 Delivery O2 Flow Rate FiO2 08/20/20 08:43 78 143/68 08/20/20 08:43 Room Air 08/20/20 07:00 97.8 98 97.8 08/20/20 03:00 16 Intake and Output 08/20/20 07:00 Intake Total 2810 ml Output Total 3201 ml Balance -391 ml Intake Oral 2810 ml Output Urine Total 3201 ml # Bowel Movements 1 PHYSICAL EXAM Has a patch on the right eye Clearly asleep when I come in the room, or at least resting very comfortably, says that his pain is 10+ when I wake him up. Oriented to time, place and person. PERRL. EOMI. CN: Left field cut, left central facial weakness Muscle tone: normal. Muscle strength: 4/5 left hemiparesis DTR: 1+ Plantar reflex: flexor Gait: not examined in bed. Sensory exam: no abnormal findings. No cerebellar signs elicited. Review of Relevant I have reviewed the following items lien (where applicable) has been applied. Medications Current Medications Amlodipine Besylate (Norvasc) 10 mg DAILY PO Last administered on 08/20/20at 08:43; Start 08/14/20 at 09:00 Aspirin (Aspirin Chewable) 81 mg DAILY08 PO Last administered on 08/20/20at 08:43; Start 08/14/20 at 08:00 Atorvastatin Calcium (Lipitor) 20 mg HS PO Last administered on 08/14/20at 20:09; Start 08/14/20 at 21:00; Stop 08/15/20 at 08:48; Status DC Cyclobenzaprine HCl (Flexeril) 10 mg DAILY PO Last administered on 08/20/20at 08:43; Start 08/14/20 at 09:00 Acetaminophen/ Hydrocodone Bitart (Lortab 10/325) 1 tab PRN Q6HRS PRN PO PAIN Last administered on 08/20/20at 08:43; Start 08/14/20 at 01:00 Amlodipine Besylate (Norvasc) 10 mg 1X ONCE PO Last administered on 08/14/20at 01:08; Start 08/14/20 at 01:15; Stop 08/14/20 at 01:16; Status DC Nicotine (Nicoderm Cq 14mg) 1 patch DAILY TD Last administered on 08/19/20at 08:35; Start 08/14/20 at 01:35 Magnesium Citrate (Citroma) 296 ml 1X ONCE PO Last administered on 08/14/20at 11:54; Start 08/14/20 at 11:30; Stop 08/14/20 at 11:31; Status DC Fentanyl Citrate (Fentanyl 2ml Vial) 50 mcg PRN Q4HRS PRN IVP PAIN Last administered on 08/18/20at 13:01; Start 08/14/20 at 11:00; Stop 08/19/20 at 12:18; Status DC Ondansetron HCl (Zofran) 4 mg PRN Q4HRS PRN IVP NAUSEA/VOMITING; Start 08/14/20 at 11:00 Enoxaparin Sodium (Lovenox 40mg Syringe) 40 mg Q24H SQ Last administered on 08/19/20at 18:17; Start 08/14/20 at 18:00 Nicotine (Nicoderm Cq 14mg) 1 patch 1X ONCE TD Last administered on 08/14/20at 20:08; Start 08/14/20 at 19:00; Stop 08/14/20 at 19:01; Status DC Hydralazine HCl (Apresoline) 25 mg TID PO Last administered on 08/15/20at 08:40; Start 08/14/20 at 21:00; Stop 08/15/20 at 08:48; Status DC Atorvastatin Calcium (Lipitor) 40 mg HS PO Last administered on 08/19/20at 21:06; Start 08/15/20 at 21:00 Hydralazine HCl (Apresoline) 50 mg TID PO Last administered on 08/20/20at 08:43; Start 08/15/20 at 14:00 Hydralazine HCl (Apresoline) 25 mg 1X ONCE PO Last administered on 08/15/20at 11:04; Start 08/15/20 at 09:00; Stop 08/15/20 at 09:01; Status DC Dexamethasone Sodium Phosphate (Decadron) 10 mg 1X ONCE IV ; Start 08/15/20 at 11:30; Stop 08/15/20 at 11:27; Status DC Dexamethasone Sodium Phosphate (Decadron) 10 mg 1X ONCE IVP Last administered on 08/15/20at 11:44; Start 08/15/20 at 11:30; Stop 08/15/20 at 11:31; Status DC Gadoterate Meglumine (Clariscan) 20 ml 1X ONCE IVP Last administered on 08/15/20at 16:07; Start 08/15/20 at 13:30; Stop 08/15/20 at 13:31; Status DC Ketorolac Tromethamine (Toradol 30mg Vial) 30 mg 1X ONCE IVP Last administered on 08/16/20at 10:14; Start 08/16/20 at 09:00; Stop 08/16/20 at 09:01; Status DC Diphenhydramine HCl (Benadryl) 50 mg 1X ONCE IVP Last administered on 08/16/20at 10:14; Start 08/16/20 at 08:45; Stop 08/16/20 at 08:49; Status DC Prochlorperazine Edisylate (Compazine) 10 mg 1X ONCE IV Last administered on 08/16/20at 10:15; Start 08/16/20 at 08:45; Stop 08/16/20 at 08:49; Status DC Ketorolac Tromethamine (Toradol 30mg Vial) 30 mg PRN Q6HRS PRN IVP INFLAMMATION Last administered on 08/19/20at 02:33; Start 08/17/20 at 08:30; Stop 08/19/20 at 12:18; Status DC Amoxicillin/ Clavulanate Potassium (Augmentin 875/ 125mg) 1 tab BID PO Last administered on 08/20/20at 08:43; Start 08/17/20 at 09:00 Nicotine (Nicoderm Cq 14mg) 1 patch 1X ONCE TD Last administered on 08/19/20at 18:11; Start 08/19/20 at 15:30; Stop 08/19/20 at 15:31; Status DC Active Scripts Active Hydrocodone-Apap 5-325 (Hydrocodone Bit/Acetaminophen) 1 Each Tablet 1 Tab PO PRN Q6HRS PRN 5 Days Naproxen 500 Mg Tablet 1 Tab PO BID 20 Days Ondansetron Odt (Ondansetron) 4 Mg Tab.rapdis 1 Tab PO PRN Q6-8HRS PRN Cyclobenzaprine Hcl 5 Mg Tablet 1-2 Tab PO PRN TID PRN 5 Days Gabapentin (Gabapentin) 300 Mg Capsule 300 Mg PO TID 10 Days Ibuprofen 800 Mg Tablet 1 Tab PO TID PRN Prednisone 10 Mg Tablet 60 Mg PO DAILY 3 Days Hydrocodone-Acetamin 5-325 mg (Hydrocodone/Acetaminophen) 1 Each Tablet 1-2 Each PO Q6H PRN [place] 5-325 Tablet (Hydrocodone Bit/Acetaminophen) 1 Each Tablet 1 Tab PO TID 7 Days Hydrocodone-Apap 7.5-325/15 Soln (Hydrocodone Bit/Acetaminophen) 15 Ml Solution 10 Ml PO PRN Q6HRS PRN Clindamycin Palmitate Hcl 75 Mg/5 Ml Soln.recon 20 Ml PO TID 7 Days [place] 5-325 Tablet (Hydrocodone Bit/Acetaminophen) 1 Each Tablet 1 Tab PO TID Cyclobenzaprine Hcl 5 Mg Tablet 1 Tab PO TID Naprosyn (Naproxen) 500 Mg Tablet 1 Tab PO BID 15 Days [place] 5-325 Tablet (Hydrocodone Bit/Acetaminophen) 1 Each Tablet 1 Tab PO TID Cyclobenzaprine Hcl 10 Mg Tablet 1 Tab PO TID Ibuprofen 800 Mg Tablet 1 Tab PO TID Bactrim Ds Tablet (Sulfamethoxazole/Trimethoprim) 1 Each Tablet 1 Tab PO BID 10 Days [place] 5-325 Tablet (Hydrocodone Bit/Acetaminophen) 1 Each Tablet 1-2 Tab PO Q4- 6HRS Reported Lyrica (Pregabalin) 50 Mg Capsule 1 Cap PO BID Hydrocodone-Apap 7.5-325 (Hydrocodone Bit/Acetaminophen) 1 Each Tablet 1 Tab PO PRN Q4HRS PRN Atorvastatin Calcium 20 Mg Tablet 20 Mg PO QHS Lisinopril 20 Mg Tablet 1 Tab PO DAILY Amlodipine Besylate 10 Mg Tablet 10 Mg PO DAILY Hydrocodone-Apap 10-325 (Hydrocodone Bit/Acetaminophen) 1 Tab Tablet 1 Tab PO PRN Q6HRS PRN Aspirin 81 Mg Tab.chew 1 Tab PO DAILY Cyclobenzaprine Hcl 10 Mg Tablet 1 Tab PO DAILY Atorvastatin Calcium 40 Mg Tablet 20 Mg PO HS Vitals/I & O Vital Sign - Last 24 Hours 08/19/20 08/19/20 08/19/20 08/19/20 10:55 11:57 12:27 13:43 Temp 98.2 98.2 Pulse 67 77 Resp 16 B/P (MAP) 149/70 (96) 174/81 Pulse Ox 97 O2 Delivery Room Air Room Air Room Air 08/19/20 08/19/20 08/19/20 08/19/20 15:00 18:11 18:41 19:05 Temp 97.3 97.3 97.3 97.3 Pulse 74 90 Resp 16 16 B/P (MAP) 171/78 (109) 181/84 (116) Pulse Ox 96 O2 Delivery Room Air Room Air Room Air Room Air 08/19/20 08/19/20 08/19/20 08/20/20 21:09 23:00 23:00 01:29 Temp 98.4 98.4 98.4 98.4 Pulse 80 80 90 Resp 14 16 20 B/P (MAP) 166/79 154/70 (98) 154/70 (98) Pulse Ox 98 O2 Delivery Room Air Room Air Room Air 08/20/20 08/20/20 08/20/20 08/20/20 02:00 03:00 07:00 08:10 Temp 98.3 97.8 98.3 97.8 Pulse 86 78 Resp 16 16 B/P (MAP) 173/83 (113) 143/68 (93) Pulse Ox 95 98 O2 Delivery Room Air Room Air Room Air 08/20/20 08/20/20 08/20/20 08:43 08:43 08:43 Pulse 78 78 B/P (MAP) 143/68 143/68 O2 Delivery Room Air l Intake and Output 08/19/20 08/19/20 08/20/20 15:00 23:00 07:00 Intake Total 230 ml 680 ml 1900 ml Output Total 650 ml 1001 ml 1550 ml Balance -420 ml -321 ml 350 ml Images Magnetic resonance angiography (MRA) of the [place] without contrast Magnetic resonance venography (MRV) of the intracranial vessels without contrast 08/19/2020 1:45 PM INDICATION: Stroke. Headache. COMPARISON: None available. TECHNIQUE: Noncontrast urmt-yy-crnkyg magnetic resonance angiography of the [place] was obtained. Maximum intensity projection images are provided. Noncontrast unup-jg-gqhvlx magnetic resonance venography was obtained. Maximum intensity projection images are provided. Stenosis calculations for CT, MR, and conventional angiography are based upon measurements of the distal ICA diameter in accordance with the NASCET methodology. Stenosis calculations for carotid ultrasound studies are derived from validated velocity criteria which are known to correlate with the NASCET methodology. FINDINGS: [place]: There is moderate irregularity of the medial segment of the left internal carotid artery focal stenosis of the supraclinoid left internal carotid artery secondary to calcified plaque. Origins of the ophthalmic segments of internal carotid arteries are widely patent. Moderate irregularity of the right internal carotid artery intracranial segment without significant stenosis. There is a right M1 occlusion of the middle cerebral artery at the origin. There is severe irregularity of the right anterior cerebral arteries suggestive of intracranial atherosclerotic changes. A1 segments are present. There is focal high-grade short segment stenosis of the left middle cerebral artery measuring 3 mm. Moderate irregularity of the left middle cerebral artery sylvian branches. Vertebral arteries are patent. Anterior inferior cerebellar arteries are patent. Superior cerebellar arteries are severely irregular. Left posterior communicating artery is visualized. There is moderate irregularity of the left posterior cerebral artery. There is occlusion of the right P2 segment right po sterior cerebral artery (series 5, image 76). Venous system: Superior sagittal sinus is patent. Superior cortical veins appear patent. Left transverse sinus is patent as is the bilateral sigmoid sinus and jugular bulbs. Diminutive caliber of the right transverse sinus is noted. There is irregularity of the right transverse sinus without definitive thrombus visualized. Diminutive caliber could be congenital. IMPRESSION: 1. Right M1 occlusion at the origin. 2. Right posterior cerebral artery occlusion at the P2 segment. 3. Severe intracranial atherosclerotic changes. No definite aneurysm is visualized, although further characterization with catheter angiography could be of benefit. 4. No definite sinus venous thrombosis. Justicifation of Admission Dx: Justifications for Admission: Justification of Admission Dx: Yes Stroke - Ischemic: Stroke-Ischemic DESHAWN TINAJERO MD Aug 20, 2020 10:12
[2020-08-20 11:00] VITALS: BP 177/86
--- OUTSIDE RECORDS SUMMARY | 2020-08-20 13:45 | XMS REPORT ---
Author Author [facility] Physician [facility] Organization 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 Name Role Phone NINA QUIÑONEZ Unavailable [phone] PROBLEMS Type Condition ICD9-CM Code [id number] Code Onset Dates Condition S tatus W/U Status Risk SNOMED Code Notes Problem Lumbar radiculopathy 724.4 Active confirmed 671723352 Problem Hypertension 401.9 Active confirmed 1597937 3 Problem Tobacco abuse disorder 305.1 Active confirmed 46103354 Problem Depression 311 Active confirmed 29543901 Problem Mass of abdomen 789.30 Active confirmed 2747 90099 Problem Chronic lumbar pain 724.2 Active confirmed 809313581 Problem HLD (hyperlipidemia) E78.5 Active confirmed 33613714 Problem Tobacco use disorder F17.200 Active confirmed 027976149 Problem PVD (peripheral vascular disease) I73.9 Active confirmed 916318364 Problem Essential (primary) hypertension I10 Active conf irmed 06485931 Problem Sciatica M54.30 Active confirmed 03037891 Problem Erectile dysfunction N52.9 Active confirmed 624068091 Problem Tobacco abuse counseling V65.42 Active confirmed 739223202 Problem PAD (peripheral artery disease) I73.9 Active confi rmed 262392633 Problem Right sciatic nerve pain M54.31 Active confirmed 05076477 Problem 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 Active confir med 949942912 Problem Left sciatic nerve pain M54.32 Active confirmed 76042150 ALLERGIES No Known Allergies ENCOUNTERS from 1960 to 2020-08-20 Encounter Location Date Provider Diagnosis [facility] [address] [place] [address] Jul, NINA QUIÑONEZ Body mass index (BMI ) 27.0-27.9, adult Z68.27 ; 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 ; Essential (primary) hypertension I10 and Erectile dysfunction N52.9 IMMUNIZATIONS Vaccine Route Administration Date Status Ketoralac (Toradol) 60mg IM Intramuscular Mar 09, 2014 Admini boni SOCIAL HISTORY Sex Assigned At : Social History Observation Description Sex Assigned At Unknown REASON FOR REFERRAL from 1960 to 2020-08-20 Reason [facility] Quality Submission Referral Organization [facility] Neurology Referring Provider First Name DESHAWN Referring Provider Last Name TANVI Referring Provider Specialty Neurology Referred Provider N/A, [email or web address] Referred Provider Specialty Neurology Referral Priority Routine VITAL SIGNS Height 72 in Jul, Weight 202.2 lbs Jul, BMI 27.42 kg/m2 Jul, Temperature 98.6 degrees Fahrenheit Jul, Oximetry 95 % Jul, Blood pressure systolic 176 mm Hg Jul, Blood pressure diastolic 100 mm Hg Jul, MEDICATIONS Medication SIG (Take, Route, Frequency, Duration) Notes Start Da te End Date Status hydrocodone APAP 5/325 1-2 tabs Orally q 4-6 hrs prn pain for 30 day(s) Nov, Not-Taking ASA 81mg one orally daily Active Nicorette Active Sildenafil Citrate 50 mg 1 tab(s) orally 1/2 - 4h bef ore planned activity for 30 day(s) Jul, Active Amlodipine Besylate 10 mg 1 tab(s) orally once a day for 30 day( s) Jul, Active Sabin 325 mg-10 mg 1 tab(s) orally every 6 hours prn for 30 day( s) June, Active Cyclobenzaprine Hydrochloride 10 mg 1 tab(s) orally 3 times a day for 10 day(s) June, Active PROCEDURES No Information RESULTS No Results REASON FOR VISIT One-month follow up on pain med, Cyst removal yesterday under right arm, went to ER for bleeding at surgery site, Pt. is c/o nausea and GARCIA MEDICAL (GENERAL) HISTORY Type Description Date Medical History back pain Medical History hypertension Surgical History back 2011 Surgical History bialt rotator cuff-Rt. 2012 Surgical History seroma abd. 2012 Surgical History colonoscopy @ [facility] 08/2013 Hospitalization History above Goals Section No Information Health Concerns No Information MEDICAL EQUIPMENT No Information MENTAL STATUS No Information FUNCTIONAL STATUS No Information ASSESSMENTS Encounter Date Diagnosis Assessment Notes Treatment Notes Treatm ent Clinical Notes Jul, Body mass index (BMI) 27.0-27.9, adult (ICD-10 - Z68.27) Jul, Spondylolysis of lumbar region (ICD-10 - M43.06) Jul, Essential (primary) hypertension (ICD-10 - I10) Jul, Erectile dysfunction (ICD-10 - N52.9) PLAN OF TREATMENT Medication Medication Name Sig Start Date Stop Date Sildenafil Citrate 50 mg 1 tab(s) orally 1/2 - 4h bef ore planned activity for 30 day(s) Jul, Amlodipine Besylate 10 mg 1 tab(s) orally once a day for 30 day( s) Jul, Sabin 325 mg-10 mg 1 tab(s) orally every 6 hours prn for 30 day( s) June, Referrals Referral Date Details [employer] Quality Submission Next Appt Details Provider Name:NINA Story KHANG, 2020-08-2 3 08:00:00 AM, [address], [address], [place], [address], Insurance Providers Payer Name Payer Address Payer Phone Insured Name Patient Relati onship to Insured Coverage Start Date Coverage End Date [facility] [address] [place] [address] Segundo Alexandra self
--- NOTE | 2020-08-20 14:22 | DS ---
DATE OF DISCHARGE: 08/20/2020 HOSPITAL COURSE: The patient is a 60-year-old male patient who presented today at Emergency Room of [facility] with dizziness and facial numbness on the right side. He was found to have very elevated blood pressure. Prior to this, he had elevated blood pressure and was given metoprolol in the Emergency Room. It was elevated again and he was feeling dizzy. Review of his record, he did undergo imaging of his head in 2017, it did not reveal any strokes in the right parietal region. He underwent a CT scan of the head at [facility] Emergency Room, which revealed chronic stroke of his right parietotemporal occipital region, although chronically it was new from 2017. He is not aware of when he had that stroke. He has noticed not seeing as well to the left side, but just noticed that. On the day of admission, he had also numbness all the way around his lids, the right face and the left arm. He is on disability from prior back injury. His blood pressure was ultimately well controlled; however, he continued to have severe headache mostly behind his right eye, although it keeps alternating, associated photophobia and we did his sed rate and CRPs that were low excluding the possibility of giant cell arteritis. He was seen obviously by the Neurology team and has had multiple imaging studies including bilateral carotid Dopplers that was unremarkable. The brain MRI showed acute or subacute right temporal occipital infarct. He also had remote infarct and encephalomalacia in this region, also noted more superiorly. As he continued to complain of severe pain behind his right eye, we did consult the filleter and was given a dose of dexamethasone. Recommended MRI of the orbits, which basically showed that interval progression of the right posterior cerebral artery territory infarct with new involvement of the right thalamus and increased involvement of the right hippocampus, a similar degree of involvement involving the right posterior temporal, occipital and parietal lobes. There is associated vasogenic edema with mass effect on the occipital horn of the right lateral ventricle. No hydrocephalus, midline shift or hemorrhage. He also had remote infarct with associated encephalomalacia involving the right parietal and the superior temporal lobe, remote infarct with associated encephalomalacia and gliosis involving the right rushing radiata. There are T2 FLAIR signal hyperintense foci in the periventricular and subcortical white matter, most suggestive of chronic small vessel ischemic changes. He was treated with Toradol and migraine cocktail, and underwent again another brain MRI which again showed same finding and he underwent MRI and angiography of the [place] without contrast for magnetic resonance venography and basically showed the patient has right M1 occlusion at the origin and #2, right posterior cerebral artery occlusion at the P2 segment, severe intracranial atherosclerotic changes. No definite aneurysm is visualized, although further characterization with catheter, angiography could be of benefit. There is no definite sinus venous thrombosis. The patient is very unsteady on his feet and finally he agreed to go to [facility] and will be discharged there today. PHYSICAL EXAMINATION: GENERAL: When I saw him this morning, he looked well and was clearly in no apparent respiratory distress. No pallor, jaundice, cyanosis or thyromegaly. No jugular venous distention. No limb edema. VITAL SIGNS: His heart rate was 86, his blood pressure was 173/83, temperature was 98.3, respiratory rate was 16 and oxygen saturation was 95% on room air. HEAD, EYES, EARS, NOSE AND THROAT: Normocephalic, atraumatic. NECK: Supple. HEART: Normal first and second heart sounds. No gallop, rub or murmur. CHEST: Clear to auscultation. No crepitation or rhonchi. ABDOMEN: Distended, soft, nontender. No guarding or rigidity. No organomegaly. All hernial orifice intact. Bowel sounds normal. NEUROLOGIC: He is awake, alert, responding appropriately. He is covering his right eye with a patch, but otherwise all his cranial nerves are intact. He continued to have numbness in his right side of the face and also numbness in his left upper extremity. LABORATORY DATA: Showed a white cell count of 10,000, hemoglobin 16, hematocrit 48, MCV 89 and platelet count 315,000. Serum sodium 142, potassium 4.7, chloride 103, bicarbonate 30, anion gap of 9, BUN 17, creatinine 1, estimated GFR was 92 mL per minute. His glucose 109, calcium was 9.4. Total bilirubin, AST, ALT, alkaline phosphatase were normal. Total protein 7.6, albumin 3.9. Serum triglycerides was 119. Total cholesterol was 221, LDL cholesterol 156. The LDL 24 and HDL 41, the ratio was 5.4. DISCHARGE MEDICATIONS: The patient was discharged to [facility] to continue on Augmentin 875 mg twice a day for 10 days for his possible sphenoidal and ethmoidal sinusitis, atorvastatin 40 mg at bedtime, hydralazine 50 mg three times a day, Flexeril 10 mg daily, amlodipine 10 mg once a day, aspirin 81 mg once a day, nicotine patch 14 mg topically once a day, hydrocodone/APAP 5/325 one tablet every 6 hours as needed. FINAL DISCHARGE DIAGNOSES: 1. 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 2. Retroorbital pain, shift sides, has some migraine component, perhaps sedimentation rate and CRP are too low for this to be temporal arteritis. Did receive one dose of steroids, which did not really help. 3. Chronic whole body pain. OTHER PROBLEMS: Include hypertension, chronic back pain, left-sided sciatica and hyperlipidemia. DEVENDRA DR: Padmini TID: [id number]
[2020-08-20 15:00] VITALS: BP 163/74
[2020-08-20] MEDS ORDERED: LACTOBACILLUS RHAMNOSUS GG 1 CAPSULE. PO SCH (21:00)
== END 2020-08-20 18:00 | DRG 64 ==
LOC: 2 SOUTH 00:17
PROVIDERS: ADMIT Internal Medicine; ATTEND Internal Medicine
DX: I63.531 Cerebral infarction due to unspecified occlusion or stenosis of right posterior cerebral artery (principal); G93.6 Cerebral edema; I16.0 Hypertensive urgency; E78.5 Hyperlipidemia, unspecified; F17.290 Nicotine dependence, other tobacco product, uncomplicated; G43.909 Migraine, unspecified, not intractable, without status migrainosus; G89.29 Other chronic pain; H53.40 Unspecified visual field defects; I11.9 Hypertensive heart disease without heart failure; I67.2 Cerebral atherosclerosis; M54.32 Sciatica, left side; Z80.1 Family history of malignant neoplasm of trachea, bronchus and lung; Z86.73 Personal history of transient ischemic attack (TIA), and cerebral infarction without residual deficits; Z87.828 Personal history of other (healed) physical injury and trauma; Z88.8 Allergy status to other drugs, medicaments and biological substances; I08.1 Rheumatic disorders of both mitral and tricuspid valves
CPT/HCPCS: 36415; 70543; 70544; 70551; 70553; 80048; 80053; 80061; 85027; 93306; 93880; A9575; J0780; J1100; J1200; J1650; J1885; J3010; 97110-GP; 97116-GP; 97530-GP; G0378

== ENCOUNTER 2020-11-04 12:03 | Emergency (ER) | payer OTHER ==
[~2020-11-04] VITALS: Ht 185.4 cm; Wt 90.0 kg
[~2020-11-04 12:03] MED LIST changes: +AMLO-187 PO; +HYDR-2769 PO
[2020-11-04] MEDS ORDERED: IV NORMAL SALINE 1000ML BAG 1,000 ML IV ONE (12:30)
[2020-11-04] MEDS ORDERED: diphenhydrAMINE 50 MG/ML VIAL IVP ONE (12:30)
[2020-11-04] MEDS ORDERED: METOCLOPRAMIDE HCL 10 MG/2 ML VIAL. IVP ONE (12:30)
--- NOTE | 2020-11-04 13:06 | RAD ---
CT HEAD/BRAIN WO Date: 11/04/2020 12:44 PM Clinical Indication: severe headache Comparison: 10/27/2020. Technique: 5 mm axial tomographic images were obtained of the head without contrast. These were view ed on brain and bone windows. One or more of the following dose reduction techniques were utilized: A utomated exposure control (AEC), Adjustment of mA and/or kV according to patient size, Use of iterati ve reconstruction technique such as ASiR, CT scan done according to ALARA and image gently/image garber ly Findings: Mild nonspecific periventricular hypoattenuation, most commonly seen with chronic small vessel ischem ic disease. Large area of right parieto-occipital encephalomalacia. No intra- or extra-axial mass or fluid collection. No acute hemorrhage. The ventricles are normal in size, shape, and morphology. The barbour-white matter junction is normal. The subarachnoid cisterns are patent. The visualized paranasal sinuses are normal. The visualized portions of the orbits and globes are no rmal. The mastoid air cells are clear. The flight crew time clerk topogram shows no lytic lesion or fracture. Impression: No acute intracranial process. Large area of right parieto-occipital encephalomalacia. Electronically signed by: Adonay Iqbal MD (11/04/2020 1:04 PM) [facility]
[2020-11-04] MEDS ORDERED: KETOROLAC 30 MG/ML VIAL. IVP ONE (13:45)
[2020-11-04] MEDS ORDERED: methylPREDNISolone SOD SUCC PF 125 MG/2 ML VIAL. IV ONE (13:45)
--- NOTE | 2020-11-04 15:03 | PHYS DOC ---
Past Medical History Past Medical History: No Pertinent History Past Surgical History: Other Additional Past Surgical Histo: Back Surgery, Shoulder Surgery Smoking Status: Current Every Day Smoker Alcohol Use: Occasionally Drug Use: None General Adult EDM: Chief Complaint: HEADACHE HPI: HPI: Patient is a 60 year old male who was brought here by EMS from home due to left-sided headache, throbbing in nature, headache behind his left eye, that been going on for several months. Patient had a stroke recently, since he been having a headache from it. Patient has been evaluated multiple times in ER at [facility] for headache recently. Patient is currently under the care of a neurologist Dr. Deshawn Gaffney. Patient denies any injury. Patient denies any cough or fever. Patient said the light caused him to have more headache, Review of Systems: Review of Systems: Constitutional: Denies fever or chills. [] Eyes: Denies change in visual acuity. [] HENT: Denies nasal congestion or sore throat. [] Respiratory: Denies cough or shortness of breath. [] Cardiovascular: Denies chest pain or edema. [] GI: Denies abdominal pain, nausea, vomiting, bloody stools or diarrhea. [] : Denies dysuria. [] Musculoskeletal: Denies back pain or joint pain. [] Integument: Denies rash. [] Neurologic: Positive for headache, no focal weakness or numbness Endocrine: Denies polyuria or polydipsia. [] Lymphatic: Denies swollen glands. [] Psychiatric: Denies depression or anxiety. [] Heart Score: C/O Chest Pain: N/A Risk Factors: Risk Factors: DM, Current or recent (<one month) smoker, HTN, HLP, family history of CAD, obesity. Risk Scores: Score 0 - 3: 2.5% MACE over next 6 weeks - Discharge Home Score 4 - 6: 20.3% MACE over next 6 weeks - Admit for Clinical Observation Score 7 - 10: 72.7% MACE over next 6 weeks - Early Invasive Strategies Current Medications: Current Medications Medications (Trade) Dose Ordered Sig/Paul Start Time Stop Time Status Last Admin Dose Admin Diphenhydramine HCl (Benadryl) 50 mg 1X ONCE 11/04/20 12:30 11/04/20 12:31 DC 11/04/20 12:29 50 MG Ketorolac Tromethamine (Toradol 30mg Vial) 30 mg 1X ONCE 11/04/20 13:45 11/04/20 13:46 DC 11/04/20 13:31 30 MG Methylprednisolone Sodium Succinate (SOLU-Medrol 125MG VIAL) 125 mg 1X ONCE 11/04/20 13:45 11/04/20 13:46 DC 11/04/20 13:31 125 MG Metoclopramide HCl (Reglan Vial) 10 mg 1X ONCE 11/04/20 12:30 11/04/20 12:31 DC 11/04/20 12:29 10 MG Sodium Chloride 1,000 ml @ 1,000 mls/hr 1X ONCE 11/04/20 12:30 11/04/20 13:29 DC 11/04/20 12:32 1,000 MLS/HR Allergies: Allergies: Allergies Coded Allergies Type Severity Reaction Last Updated Verified No Known Drug Allergies 08/08/16 No Physical Exam: PE: Constitutional: Well developed, well nourished, no acute distress, non-toxic appearance. [] HENT: Normocephalic, atraumatic, bilateral external ears normal, oropharynx moist, no oral exudates, nose normal. [] Eyes: PERRLA, EOMI, conjunctiva normal, no discharge. [] Neck: Normal range of motion, no tenderness, supple, no stridor. [] Cardiovascular:Heart rate regular rhythm, no murmur [] Lungs & Thorax: Bilateral breath sounds clear to auscultation [] Abdomen: Bowel sounds normal, soft, no tenderness, no masses, no pulsatile masses. [] Skin: Warm, dry, no erythema, no rash. [] Back: No tenderness, no CVA tenderness. [] Extremities: No tenderness, no cyanosis, no clubbing, ROM intact, no edema. [] Neurologic: Alert and oriented X 3, normal motor function, normal sensory function, no focal deficits noted. [] Psychologic: Affect normal, judgement normal, mood normal. [] Current Patient Data: Vital Signs: Vital Signs Date Time Temp Pulse Resp B/P (MAP) Pulse Ox O2 Delivery O2 Flow Rate FiO2 11/04/20 13:31 62 20 100 11/04/20 12:08 98.1 167/85 (112) Room Air 98.1 EKG: EKG: [] Radiology/Procedures: Radiology/Procedures: [][facility] [address] [place] [address] IMAGING REPORT Signed PATIENT: CHARLENE CUELLARUNT: [id number] : 1960 LOCATION: ER AGE: 60 SEX: M EXAM STATUS: REG ER ORD. PHYSICIAN: TODD CHENG DO REASON: severe headache PROCEDURE: CT HEAD WO CONTRAST CT HEAD/BRAIN WO Date: 11/04/2020 12:44 PM Clinical Indication: severe headache Comparison: 10/27/2020. Technique: 5 mm axial tomographic images were obtained of the head without contrast. These were viewed on brain and bone windows. One or more of the following dose reduction techniques were utilized: Automated exposure control (AEC), Adjustment of mA and/or kV according to patient size, Use of iterative reconstruction technique such as ASiR, CT scan done according to ALARA and image gently/image wisely Findings: Mild nonspecific periventricular hypoattenuation, most commonly seen with chronic small vessel ischemic disease. Large area of right parieto-occipital encephalomalacia. No intra- or extra-axial mass or fluid collection. No acute hemorrhage. The ventricles are normal in size, shape, and morphology. The barbour-white matter junction is normal. The subarachnoid cisterns are patent. The visualized paranasal sinuses are normal. The visualized portions of the orbits and globes are normal. The mastoid air cells are clear. The kier hand topogram shows no lytic lesion or fracture. Impression: No acute intracranial process. Large area of right parieto-occipital encephalomalacia. Electronically signed by: Hitesh Iqbal MD (11/04/2020 1:04 PM) [facility] DICTATED and SIGNED BY: HITESH IQBAL MD DATE: 11/04/20 [id number] 0 Course & Med Decision Making: Course & Med Decision Making Pertinent Labs and Imaging studies reviewed. (See chart for details) Patient is a 60-year-old male who present to ER due to headache, patient was given medication in ER, he feels much better. Patient has CT scan done here and it come back negative. Patient will be discharged home, he will need to follow-up with neurologist for outpatient evaluation and treatment. Abbe Disclaimer: Abbe Disclaimer: This electronic medical record was generated, in whole or in part, using a voice recognition dictation system. Departure Departure Impression: Primary Impression: Headache Disposition: HOME / SELF CARE / HOMELESS Condition: IMPROVED Referrals: NINA QUIÑONEZ MD (PCP) DESHAWN TINAJERO MD Please YOUR neurologist for follow-up on Sunday Patient Instructions: General Headache Without Cause Additional Instructions: Thank you for visiting our Emergency Department. We appreciate you trusting us with your care. If any additional problems come up don't hesitate to return to visit us. Please follow up with your primary care provider so they can plan additional care if needed and know about the problem that you had. If symptoms worsen come back to the Emergency Department. Any concerning symptoms that start such as chest pain, shortness of air, weakness or numbness on one side of the body, running high fevers or any other concerning symptoms return to the ER. TODD CHENG DO Nov 04, 2020 15:03
[2020-11-04 15:42] VITALS: BP 161/79
== END 2020-11-04 15:34 | disposition home or self-care (01) ==
LOC: ER 12:03
DX: R51.9 Headache, unspecified (principal); F17.200 Nicotine dependence, unspecified, uncomplicated
CPT/HCPCS: 70450; 93005; 96361; 96374; 96375; 99284; J1200; J1885; J2765; J2930; J7030; 99285-25

== ENCOUNTER → 2020-11-10 | Outpatient (CLI) | payer OTHER ==
[2020-11-04 15:42] VITALS: BP 161/79
--- NOTE | 2020-11-10 13:15 | EEG ---
DATE OF SERVICE: 11/10/2020 ELECTROENCEPHALOGRAM REPORT EEG NUMBER: [id number]. OBJECTIVE: The patient is a 60-year-old male with history of seizures. DESCRIPTION: This is a digital study. Electrodes are placed according to the international 10-20 system. Bipolar and referential montages are available. Activation procedures typically include hyperventilation and intermittent photic stimulation. INTERPRETATION: The waking background consists of 9-10 Hz, 50-100 microvolt activity, symmetrically distributed over parietooccipital regions and reactive to eye opening. Hyperventilation and intermittent photic stimulation are noncontributory. Sleep was not achieved. IMPRESSION: This electroencephalogram with the patient awake only is within normal limits. There is no focal, paroxysmal, or epileptiform activity. Thank you for letting us help with the patient's care. DONAVAN/SAVAGE DR: Luana TID: [id number] CC: NINA QUIÑONEZ MD
== END ==
LOC: RT 09:21
PROVIDERS: ATTEND Psychiatry & Neurology Neurology with Special Qualifications in Child Neurology
DX: R56.9 Unspecified convulsions (principal)
CPT/HCPCS: 95816